=== PATIENT | female | born 1940 | race Caucasian/White ===

== ENCOUNTER 2019-07-21 13:00 | Outpatient (RCR) | payer MEDICARE, OTHER, SELFPAY ==
--- NOTE | 2019-06-02 12:30 | PT.OIE ---
Current Diagnoses Unsteadiness on feet (06/02/19) History of falling (06/02/19) Past Surgical History History of total mastectomy Visit Care Team Role Provider Type Kia Person MD Attending Provider Physician Family Provider Primary Care Provider Specialty: Family Practice Address: [address] [place] [address], [id number] Email: [email or web address] Physical Therapy Initial Evaluation PT-OP-A Visit Information Start: 06/02/19 08:04 Freq: Status: Active Protocol: Document 06/02/19 08:15 AMB (Rec: 06/04/19 12:30 AMB [email or web address]) Out-Patient Physical Therapy Visit Information Visit Information Visit Type Initial Evaluation Visit Start Time 08:15 Visit Stop Time 09:00 Total Visit Minutes 45 Visit Number 1 PT-OP-B Current Condition Start: 06/02/19 08:04 Freq: Status: Active Protocol: Document 06/02/19 08:15 AMB (Rec: 06/04/19 12:30 AMB [email or web address]) Current Condition History of Current Condition Onset Date 1 year ago Current Complaints frequent falls, difficulty walking History of Current Condition Ashlie attends physical therapy with her significant other Sina, providing some of the history due to her dementia. They live together in a single level home with 2 steps to enter with a railing. She has had about 5-6 falls in the last year. Prior to that they both report that she was able to walk for long distances in the community without a problem. She does have a prior health history of breast cancer in 1979 and bilateral total hip replacements years ago. She reports she feels short of breath and off balance when walking, she does not use an assistive device, although she does have a SPC and FWW at home. She denies spinning dizziness, but does report intermittent lightheadedness, she denies LE numbness/ tingling. Treatment Goals Patient/Caregiver Goals Walk faster and with less fear of falling Prior Functional Status Baseline Function- ADL's Independent Baseline Function- Mobility Independent Current Functional Impairments (Reported) Functional Limitations- Mobility/Gait History of recent falls on stairs and in the shower, Sina reports they do have grab bars in the shower, but not a shower chair. Personal Factors Other Personal Factors That May Effect Pt reports Alzheimer's Therapy/Recovery diagnosis PT-OP-C Subjective Start: 06/02/19 08:04 Freq: Status: Active Protocol: Document 06/02/19 08:15 AMB (Rec: 06/04/19 12:30 AMB [email or web address]) Patient Questionnaires ABC- Activity Specific Balance Confidence Scale ABC Score 49 ABC Functional Impairment 40 to <60% Impaired (Score 41- 60) PT-OP-D Balance Start: 06/02/19 08:04 Freq: Status: Active Protocol: Document 06/02/19 08:15 AMB (Rec: 06/04/19 12:30 AMB [email or web address]) Balance Tests Romberg Romberg eyes closed 5 seconds Single Limb Standing Single Limb- Right 4 seconds Single Limb- Left 2 seconds Semi-Tandem Standing Semi-Tandem Standing Balance eyes open 10 seconds PT-OP-E Functional Tests Start: 06/02/19 08:04 Freq: Status: Active Protocol: Document 06/02/19 08:15 AMB (Rec: 06/04/19 12:30 AMB [email or web address]) Functional Tests Dynamic Gait Index (DGI) Score 7 DGI Impairment Rating 60 to <80% Impaired (Score 5-9 ) PT-OP-G Mobility & Gait Start: 06/02/19 08:04 Freq: Status: Active Protocol: Document 06/02/19 08:15 AMB (Rec: 06/04/19 12:30 AMB [email or web address]) OP Gait Assessment Comments Gait Comments slow careful steps, with multiple times pt does not continuous pickling line pickler feet enough, and 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 Shortened step length. Improves with verbal cues for 15-20 seconds, then reverts back. With FWW- pt with difficulty not running into items with walker, unsafe with turns needed physical cues for safe turning with walker. PT-OP-M Strength Start: 06/02/19 08:04 Freq: Status: Active Protocol: Document 06/02/19 08:15 AMB (Rec: 06/04/19 12:30 AMB [email or web address]) Hip Strength Hip Manual Muscle Testing Right Flexion (L2) 4 Good Extension (S1) 4- Good- Abduction 4- Good- Left Flexion (L2) 4 Good Extension (S1) 4- Good- Abduction 4- Good- Knee Strength Knee Manual Muscle Testing Right Flexion (S2) 4 Good Extension (L3) 4+ Good+ Left Flexion (S2) 4- Good- Extension (L3) 4+ Good+ Ankle/Foot Strength Ankle and Foot Manual Muscle Testing Right Dorsiflexion (L4) 3 Fair Plantarflexion (S1) 3 Fair Left Dorsiflexion (L4) 3 Fair Plantarflexion (S1) 3 Fair PT-OP-T Assessment and Plan Start: 06/02/19 08:04 Freq: Status: Active Protocol: Document 06/02/19 08:15 AMB (Rec: 06/04/19 12:30 AMB [email or web address]) Physical Therapy Assessment Rehab Potential Rehabilitation Potential Fair Evaluation Complexity Number of Personal Factors/Comorbidities 1-2 Number of Body Systems Impaired 4 or More Clinical Presentation at Evaluation Evolving Impairments Impairments Balance,Functional Activities, Functional Mobility,Gait, Strength Goals Two Impairment gait safety Short Term Goal (STG) Ashlie will be independent with walking with a walker indoors. STG Duration 4 weeks Motion Picture Photographer Goal (LTG) Ashlie will ascend and descend a flight of stairs with one rail and alternating gait pattern safely. LTG Duration 8 weeks One Impairment dynamic balance Short Term Goal (STG) Ashlie will show decreased fall risk by scoring 15/24 on the dynamic gait index or higher. STG Duration 4 weeks Senior Care Goal (LTG) Ashlie will safely change gait speed while walking without a loss of balance. LTG Duration 8 weeks Assessment Summary Assessment Ashlie attends physical therapy with a high risk of falling and impaired gait. While her static balance was not bad, her dynamic balance was quite poor. Improvement may be limited by her ability to learn new skills and retain information. Her significant other, Sina, will need to help with her rehabilitation. While she reports shortness of breath, her SpO2 stayed at 95 with ambulation and HR at 87. She presents with poor spatial awareness and while she would likely be safer with an assistive device, she would need extensive training with a walker to make sure she is safe with it. PT will work on assistive device training, balance training and strengthening to reduce her risk of falls. Physical Therapy Plan Frequency and Duration Frequency of Treatment 2x/Week Duration of Treatment 8 weeks Plan of Care Start Date 06/02/19 Plan of Care End Date 07/28/19 Therapeutic Interventions Therapeutic Interventions Balance Training,Gait Training ,Home Exercise Program,Manual Therapy,Neuromuscular Re- education,Self-Care/Home Management,Therapeutic Activities,Therapeutic Exercises Next Visit Focus/Plan Next Note Type Treatment Note Next Visit Plan Further evaluate safety with assistive device, give HEP
--- NOTE | 2019-06-05 13:24 | PT.OTN ---
Current Diagnoses Unsteadiness on feet (06/05/19) History of falling (06/05/19) Physical Therapy Treatment Note PT-OP-A Visit Information Start: 06/02/19 08:04 Freq: Status: Active Protocol: Document 06/05/19 10:30 AMB (Rec: 06/05/19 13:24 AMB [email or web address]) Out-Patient Physical Therapy Visit Information Visit Information Visit Type Treatment Note Visit Start Time 10:30 Visit Stop Time 11:15 Total Visit Minutes 45 Visit Number 2 PT-OP-B Current Condition Start: 06/02/19 08:04 Freq: Status: Active Protocol: Document 06/02/19 08:15 AMB (Rec: 06/04/19 12:30 AMB [email or web address]) Current Condition History of Current Condition Onset Date 1 year ago Current Complaints frequent falls, difficulty walking History of Current Condition Ashlie attends physical therapy with her significant other Sina, providing some of the history due to her dementia. They live together in a singel level home with 2 steps to enter with a railing. She has had about 5-6 falls in the last year. Prior to that they both report that she was able to walk for long distances in the community without a problem. She does have a prior health history of breast cancern in 1979 and bilateral total hip replacements years ago. She reports she feels short of breath and off balance when walking, she does not use an assistive device, although she does have a SPC and FWW at home. She denies spinning dizziness, but does report intermittent lightheadedness, she denies LE numbness/ tingling. Treatment Goals Patient/Caregiver Goals Walk faster and with less fear of falling Prior Functional Status Baseline Function- ADL's Independent Baseline Function- Mobility Independent Current Functional Impairments (Reported) Functional Limitations- Mobility/Gait History of recent falls on stairs and in the shower, Sina reports they do have grab bars in the shower, but not a shower chair. Personal Factors Other Personal Factors That May Effect Pt reports Alzheimer's Therapy/Recovery diagnosis PT-OP-C Subjective Start: 06/02/19 08:04 Freq: Status: Active Protocol: Document 06/05/19 10:30 AMB (Rec: 06/05/19 13:24 AMB [email or web address]) OP-PT Subjective Patient Comments Patient Comments Ashlie and her SO attend PT today, he leaves for part of the visit, and at the end wonders if a gym membership would be appropriate for her. PT-OP-D Balance Start: 06/02/19 08:04 Freq: Status: Active Protocol: Document 06/02/19 08:15 AMB (Rec: 06/04/19 12:30 AMB [email or web address]) Balance Tests Romberg Romberg eyes closed 5 seconds Single Limb Standing Single Limb- Right 4 seconds Single Limb- Left 2 seconds Semi-Tandem Standing Semi-Tandem Standing Balance eyes open 10 seconds PT-OP-E Functional Tests Start: 06/02/19 08:04 Freq: Status: Active Protocol: Document 06/02/19 08:15 AMB (Rec: 06/04/19 12:30 AMB [email or web address]) Functional Tests Dynamic Gait Index (DGI) Score 7 DGI Impairment Rating 60 to <80% Impaired (Score 5-9 ) PT-OP-G Mobility & Gait Start: 06/02/19 08:04 Freq: Status: Active Protocol: Document 06/02/19 08:15 AMB (Rec: 06/04/19 12:30 AMB [email or web address]) OP Gait Assessment Comments Gait Comments slow careful steps, with multiple times pt does not poultry picker feel enough, and 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 Shortened step length. Improves with verbal cues for 15-20 seconds, then reverts back. With FWW- pt with difficulty not running into items with walker, unsafe with turns needed physical cues for safe turning with walker. PT-OP-M Strength Start: 06/02/19 08:04 Freq: Status: Active Protocol: Document 06/02/19 08:15 AMB (Rec: 06/04/19 12:30 AMB [email or web address]) Hip Strength Hip Manual Muscle Testing Right Flexion (L2) 4 Good Extension (S1) 4- Good- Abduction 4- Good- Left Flexion (L2) 4 Good Extension (S1) 4- Good- Abduction 4- Good- Knee Strength Knee Manual Muscle Testing Right Flexion (S2) 4 Good Extension (L3) 4+ Good+ Left Flexion (S2) 4- Good- Extension (L3) 4+ Good+ Ankle/Foot Strength Ankle and Foot Manual Muscle Testing Right Dorsiflexion (L4) 3 Fair Plantarflexion (S1) 3 Fair Left Dorsiflexion (L4) 3 Fair Plantarflexion (S1) 3 Fair PT-OP-Q Treatments Start: 06/02/19 08:04 Freq: Status: Active Protocol: Document 06/05/19 10:30 AMB (Rec: 06/05/19 13:24 AMB [email or web address]) Gait Training Gait Activity 2 Description TUG Comments 26 and 19 seconds without AD with extensive verbal cues and CGA. 41 and 30 seconds with 4WW with CGA and extensive verbal cues. 1 Description Ambulation with 4WW Comments pt unable to problem solve breaks, reaching for seat behind her, when walker got caught on change from carpeting to tile, and put did run into the wall with the walker. Overall unsafe without direct supervision. Neuro Re-Education Treatment Balance Activities 3 Details fwd stepping with arms Comments difficulty sequencing 2 Details fwd,backward, side stepping Comments yellow t band, hands hovering over rail, constant vc for posture 1 Details modified tandem stance Comments with arm swing PT-OP-T Assessment and Plan Start: 06/02/19 08:04 Freq: Status: Active Protocol: Document 06/05/19 10:30 AMB (Rec: 06/05/19 13:24 AMB [email or web address]) Physical Therapy Assessment Assessment Summary Assessment Ashlie needed constant cues for safe use of AD today. Even with repeat TUG she needed cues during the testing to sit back down in the chair and turn at the cone, despite multiple repetitions of the sequence. Actually worse sequencing and time with walker than without. Told SO that Ashlie would need constant supervision in a gym setting, woud need help with setting up machines, but we can assess safety with our machines next visit. Gave them a gait belt. Told him that he will need to assist her with HEP/ Physical Therapy Plan Next Visit Focus/Plan Next Note Type Treatment Note Next Visit Plan Progress HEP
--- NOTE | 2019-06-07 14:17 | PT.OTN ---
Current Diagnoses Unsteadiness on feet (06/07/19) History of falling (06/07/19) Physical Therapy Treatment Note PT-OP-A Visit Information Start: 06/02/19 08:04 Freq: Status: Active Protocol: Document 06/07/19 10:30 AMB (Rec: 06/08/19 07:23 AMB [email or web address]) Out-Patient Physical Therapy Visit Information Visit Information Visit Type Treatment Note Visit Start Time 10:30 Visit Stop Time 11:15 Total Visit Minutes 45 Visit Number 3 PT-OP-B Current Condition Start: 06/02/19 08:04 Freq: Status: Active Protocol: Document 06/02/19 08:15 AMB (Rec: 06/04/19 12:30 AMB [email or web address]) Current Condition History of Current Condition Onset Date 1 year ago Current Complaints frequent falls, difficulty walking History of Current Condition Ashlie attends physical therapy with her significant other Sina, providing some of the history due to her dementia. They live together in a singel level home with 2 steps to enter with a railing. She has had about 5-6 falls in the last year. Prior to that they both report that she was able to walk for long distances in the community without a problem. She does have a prior health history of breast cancern in 1979 and bilateral total hip replacements years ago. She reports she feels short of breath and off balance when walking, she does not use an assistive device, although she does have a SPC and FWW at home. She denies spinning dizziness, but does report intermittent lightheadedness, she denies LE numbness/ tingling. Treatment Goals Patient/Caregiver Goals Walk faster and with less fear of falling Prior Functional Status Baseline Function- ADL's Independent Baseline Function- Mobility Independent Current Functional Impairments (Reported) Functional Limitations- Mobility/Gait History of recent falls on stairs and in the shower, Sina reports they do have grab bars in the shower, but not a shower chair. Personal Factors Other Personal Factors That May Effect Pt reports Alzheimer's Therapy/Recovery diagnosis PT-OP-C Subjective Start: 06/02/19 08:04 Freq: Status: Active Protocol: Document 06/07/19 10:30 AMB (Rec: 06/08/19 07:23 AMB [email or web address]) OP-PT Subjective Patient Comments Patient Comments Ashlie'andrew SO thinks that he would be able to help her at [facility] . He has been a gym member before, but she has not. PT-OP-D Balance Start: 06/02/19 08:04 Freq: Status: Active Protocol: Document 06/02/19 08:15 AMB (Rec: 06/04/19 12:30 AMB [email or web address]) Balance Tests Romberg Romberg eyes closed 5 seconds Single Limb Standing Single Limb- Right 4 seconds Single Limb- Left 2 seconds Semi-Tandem Standing Semi-Tandem Standing Balance eyes open 10 seconds PT-OP-E Functional Tests Start: 06/02/19 08:04 Freq: Status: Active Protocol: Document 06/02/19 08:15 AMB (Rec: 06/04/19 12:30 AMB [email or web address]) Functional Tests Dynamic Gait Index (DGI) Score 7 DGI Impairment Rating 60 to <80% Impaired (Score 5-9 ) PT-OP-G Mobility & Gait Start: 06/02/19 08:04 Freq: Status: Active Protocol: Document 06/02/19 08:15 AMB (Rec: 06/04/19 12:30 AMB [email or web address]) OP Gait Assessment Comments Gait Comments slow careful steps, with multiple times pt does not coal picker feel enough, and 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 Shortened step length. Improves with verbal cues for 15-20 seconds, then reverts back. With FWW- pt with difficulty not running into items with walker, unsafe with turns needed physical cues for safe turning with walker. PT-OP-M Strength Start: 06/02/19 08:04 Freq: Status: Active Protocol: Document 06/02/19 08:15 AMB (Rec: 06/04/19 12:30 AMB [email or web address]) Hip Strength Hip Manual Muscle Testing Right Flexion (L2) 4 Good Extension (S1) 4- Good- Abduction 4- Good- Left Flexion (L2) 4 Good Extension (S1) 4- Good- Abduction 4- Good- Knee Strength Knee Manual Muscle Testing Right Flexion (S2) 4 Good Extension (L3) 4+ Good+ Left Flexion (S2) 4- Good- Extension (L3) 4+ Good+ Ankle/Foot Strength Ankle and Foot Manual Muscle Testing Right Dorsiflexion (L4) 3 Fair Plantarflexion (S1) 3 Fair Left Dorsiflexion (L4) 3 Fair Plantarflexion (S1) 3 Fair PT-OP-Q Treatments Start: 06/02/19 08:04 Freq: Status: Active Protocol: Document 06/07/19 10:30 AMB (Rec: 06/10/19 14:17 AMB [email or web address]) Cardio Equipment Recumbent Bicycle Duration (Minutes) 5 Resistance 4 Treadmill Duration (Minutes) 5 Speed 1.0 mph Other CGA with gait belt, vc to hold on with both hands Gym Equipment Shuttle Recovery Bilateral Squats Resistance 75 Shuttle Recovery Platform Stable Reps/Time 2x10 Therapeutic Exercises Standing Exercises 1 Standing Exercise Name slow october with UE support on rail Comments vc for slow Therapeutic Activity Therapeutic Activity 1 Name sit to stand Reps/Minutes 10 Comments cues for reaching for arm rests, forward lean, foot placement PT-OP-T Assessment and Plan Start: 06/02/19 08:04 Freq: Status: Active Protocol: Document 06/07/19 10:30 AMB (Rec: 06/10/19 14:17 AMB [email or web address]) Physical Therapy Assessment Assessment Summary Assessment Will need to work on safety with the treadmill more, but otherwise Ashlie did well and her SO felt confident with being able to set up the bike for her and stay with her while she is exercising if they decide to go to [facility]. Physical Therapy Plan Next Visit Focus/Plan Next Note Type Treatment Note Next Visit Plan Progress HEP, assess safety with community exercise program.
--- NOTE | 2019-06-14 15:40 | PT.OTN ---
Current Diagnoses Unsteadiness on feet (06/14/19) History of falling (06/14/19) Physical Therapy Treatment Note PT-OP-A Visit Information Start: 06/02/19 08:04 Freq: Status: Active Protocol: Document 06/14/19 11:15 AMB (Rec: 06/14/19 14:32 AMB [email or web address]) Out-Patient Physical Therapy Visit Information Visit Information Visit Type Treatment Note Visit Start Time 10:30 Visit Stop Time 11:15 Total Visit Minutes 45 Visit Number 4 PT-OP-B Current Condition Start: 06/02/19 08:04 Freq: Status: Active Protocol: Document 06/02/19 08:15 AMB (Rec: 06/04/19 12:30 AMB [email or web address]) Current Condition History of Current Condition Onset Date 1 year ago Current Complaints frequent falls, difficulty walking History of Current Condition Ashlie attends physical therapy with her significant other Sina, providing some of the history due to her dementia. They live together in a singel level home with 2 steps to enter with a railing. She has had about 5-6 falls in the last year. Prior to that they both report that she was able to walk for long distances in the community without a problem. She does have a prior health history of breast cancern in 1979 and bilateral total hip replacements years ago. She reports she feels short of breath and off balance when walking, she does not use an assistive device, although she does have a SPC and FWW at home. She denies spinning dizziness, but does report intermittent lightheadedness, she denies LE numbness/ tingling. Treatment Goals Patient/Caregiver Goals Walk faster and with less fear of falling Prior Functional Status Baseline Function- ADL's Independent Baseline Function- Mobility Independent Current Functional Impairments (Reported) Functional Limitations- Mobility/Gait History of recent falls on stairs and in the shower, Sina reports they do have grab bars in the shower, but not a shower chair. Personal Factors Other Personal Factors That May Effect Pt reports Alzheimer's Therapy/Recovery diagnosis PT-OP-C Subjective Start: 06/02/19 08:04 Freq: Status: Active Protocol: Document 06/14/19 11:15 AMB (Rec: 06/14/19 14:32 AMB [email or web address]) OP-PT Subjective Patient Comments Patient Comments Ashlie's SO does not come back today, but did discuss her care with him after appointment. He reports that her ankles/feet swelled for about 1.5 days after previous PT. PT-OP-D Balance Start: 06/02/19 08:04 Freq: Status: Active Protocol: Document 06/02/19 08:15 AMB (Rec: 06/04/19 12:30 AMB [email or web address]) Balance Tests Romberg Romberg eyes closed 5 seconds Single Limb Standing Single Limb- Right 4 seconds Single Limb- Left 2 seconds Semi-Tandem Standing Semi-Tandem Standing Balance eyes open 10 seconds PT-OP-E Functional Tests Start: 06/02/19 08:04 Freq: Status: Active Protocol: Document 06/02/19 08:15 AMB (Rec: 06/04/19 12:30 AMB [email or web address]) Functional Tests Dynamic Gait Index (DGI) Score 7 DGI Impairment Rating 60 to <80% Impaired (Score 5-9 ) PT-OP-G Mobility & Gait Start: 06/02/19 08:04 Freq: Status: Active Protocol: Document 06/02/19 08:15 AMB (Rec: 06/04/19 12:30 AMB [email or web address]) OP Gait Assessment Comments Gait Comments slow careful steps, with multiple times pt does not roll picker feel enough, and 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 Shortened step length. Improves with verbal cues for 15-20 seconds, then reverts back. With FWW- pt with difficulty not running into items with walker, unsafe with turns needed physical cues for safe turning with walker. PT-OP-M Strength Start: 06/02/19 08:04 Freq: Status: Active Protocol: Document 06/02/19 08:15 AMB (Rec: 06/04/19 12:30 AMB [email or web address]) Hip Strength Hip Manual Muscle Testing Right Flexion (L2) 4 Good Extension (S1) 4- Good- Abduction 4- Good- Left Flexion (L2) 4 Good Extension (S1) 4- Good- Abduction 4- Good- Knee Strength Knee Manual Muscle Testing Right Flexion (S2) 4 Good Extension (L3) 4+ Good+ Left Flexion (S2) 4- Good- Extension (L3) 4+ Good+ Ankle/Foot Strength Ankle and Foot Manual Muscle Testing Right Dorsiflexion (L4) 3 Fair Plantarflexion (S1) 3 Fair Left Dorsiflexion (L4) 3 Fair Plantarflexion (S1) 3 Fair PT-OP-Q Treatments Start: 06/02/19 08:04 Freq: Status: Active Protocol: Document 06/14/19 11:15 AMB (Rec: 06/14/19 15:40 AMB [email or web address]) Cardio Equipment Treadmill Duration (Minutes) 3 Speed 1.0 mph Other CGA with gait belt, vc to hold on with both hands Therapeutic Activity Therapeutic Activity 1 Name sit to stand Reps/Minutes 10 Comments cues for reaching for arm rests, forward lean, foot placement Neuro Re-Education Treatment Balance Activities 4 Details stepping over hurdles Comments in // bars- intermittent stepping on hurdles, with UE support 2 Details fwd,backward, side stepping Comments yellow t band, hands hovering over rail, constant vc for posture 1 Details modified tandem stance Comments with arm swing and weight shift PT-OP-T Assessment and Plan Start: 06/02/19 08:04 Freq: Status: Active Protocol: Document 06/14/19 11:15 AMB (Rec: 06/14/19 14:32 AMB [email or web address]) Physical Therapy Assessment Assessment Summary Assessment Ashlie became fatigued after 2.5 minutes on the treadmill today. She did have one incidence of running into a peice of equipment while in PT , and needed near constant cueing for pathfinding and safety not running into objects. Discussed this with SO and stated that he would have to be present with her at all times in the gym to help her pathfind. Physical Therapy Plan Next Visit Focus/Plan Next Note Type Treatment Note Next Visit Plan Progress HEP, assess safety with community exercise program.
--- NOTE | 2019-06-19 13:45 | PT.OTN ---
Current Diagnoses Unsteadiness on feet (06/19/19) History of falling (06/19/19) Physical Therapy Treatment Note PT-OP-A Visit Information Start: 06/02/19 08:04 Freq: Status: Active Protocol: Document 06/19/19 13:45 SP (Rec: 06/19/19 16:20 SP [email or web address]) Out-Patient Physical Therapy Visit Information Visit Information Visit Type Treatment Note Visit Start Time 13:04 Visit Stop Time 13:45 Total Visit Minutes 41 Visit Number 5 Number of UNDERGROUND MINER Visits 1 PT-OP-B Current Condition Start: 06/02/19 08:04 Freq: Status: Active Protocol: Document 06/02/19 08:15 AMB (Rec: 06/04/19 12:30 AMB [email or web address]) Current Condition History of Current Condition Onset Date 1 year ago Current Complaints frequent falls, difficulty walking History of Current Condition Ashlie attends physical therapy with her significant other Sina, providing some of the history due to her dementia. They live together in a singel level home with 2 steps to enter with a railing. She has had about 5-6 falls in the last year. Prior to that they both report that she was able to walk for long distances in the community without a problem. She does have a prior health history of breast cancern in 1979 and bilateral total hip replacements years ago. She reports she feels short of breath and off balance when walking, she does not use an assistive device, although she does have a SPC and FWW at home. She denies spinning dizziness, but does report intermittent lightheadedness, she denies LE numbness/ tingling. Treatment Goals Patient/Caregiver Goals Walk faster and with less fear of falling Prior Functional Status Baseline Function- ADL's Independent Baseline Function- Mobility Independent Current Functional Impairments (Reported) Functional Limitations- Mobility/Gait History of recent falls on stairs and in the shower, Sina reports they do have grab bars in the shower, but not a shower chair. Personal Factors Other Personal Factors That May Effect Pt reports Alzheimer's Therapy/Recovery diagnosis PT-OP-C Subjective Start: 06/02/19 08:04 Freq: Status: Active Protocol: Document 06/19/19 13:45 SP (Rec: 06/19/19 16:20 SP [email or web address]) OP-PT Subjective Patient Comments Patient Comments Ashlie's SO came back to tx today, discussed safety cuing gait stride, pathfinding and CGA during gait for safety. Pt reported had some falls at home since last tx but couldn' t remember details other than at home (before SO came back to tx). PT-OP-D Balance Start: 06/02/19 08:04 Freq: Status: Active Protocol: Document 06/02/19 08:15 AMB (Rec: 06/04/19 12:30 AMB [email or web address]) Balance Tests Romberg Romberg eyes closed 5 seconds Single Limb Standing Single Limb- Right 4 seconds Single Limb- Left 2 seconds Semi-Tandem Standing Semi-Tandem Standing Balance eyes open 10 seconds PT-OP-E Functional Tests Start: 06/02/19 08:04 Freq: Status: Active Protocol: Document 06/02/19 08:15 AMB (Rec: 06/04/19 12:30 AMB [email or web address]) Functional Tests Dynamic Gait Index (DGI) Score 7 DGI Impairment Rating 60 to <80% Impaired (Score 5-9 ) PT-OP-G Mobility & Gait Start: 06/02/19 08:04 Freq: Status: Active Protocol: Document 06/02/19 08:15 AMB (Rec: 06/04/19 12:30 AMB [email or web address]) OP Gait Assessment Comments Gait Comments slow careful steps, with multiple times pt does not continuous pickling line pickler helper feel enough, and 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 Shortened step length. Improves with verbal cues for 15-20 seconds, then reverts back. With FWW- pt with difficulty not running into items with walker, unsafe with turns needed physical cues for safe turning with walker. PT-OP-M Strength Start: 06/02/19 08:04 Freq: Status: Active Protocol: Document 06/02/19 08:15 AMB (Rec: 06/04/19 12:30 AMB [email or web address]) Hip Strength Hip Manual Muscle Testing Right Flexion (L2) 4 Good Extension (S1) 4- Good- Abduction 4- Good- Left Flexion (L2) 4 Good Extension (S1) 4- Good- Abduction 4- Good- Knee Strength Knee Manual Muscle Testing Right Flexion (S2) 4 Good Extension (L3) 4+ Good+ Left Flexion (S2) 4- Good- Extension (L3) 4+ Good+ Ankle/Foot Strength Ankle and Foot Manual Muscle Testing Right Dorsiflexion (L4) 3 Fair Plantarflexion (S1) 3 Fair Left Dorsiflexion (L4) 3 Fair Plantarflexion (S1) 3 Fair PT-OP-Q Treatments Start: 06/02/19 08:04 Freq: Status: Active Protocol: Document 06/19/19 13:45 SP (Rec: 06/19/19 16:20 SP [email or web address]) Cardio Equipment Treadmill Duration (Minutes) 4 Speed 0.5mph Incline 0% Other CGA with gait belt, vc to hold on with both hands Therapeutic Activity Therapeutic Activity 1 Name sit to stand Reps/Minutes 10 Comments cues for reaching for arm rests, forward lean, foot placement, Gait Training Gait Activity 2 Description gait in gym Device Used none Level of Assistance CGA Surface level Treatment Focus pathfinding around obstacles, increased stride and foot clearance Comments Cued for increased stride length, foot clearance and awareness of spacial awareness away from obstacles on L to reduce risk for falls Neuro Re-Education Treatment Balance Activities 4 Details stepping over hurdles Comments at side rail- intermittent stepping on hurdles, with UE support 2 Details fwd,backward, side stepping Comments hands hovering over rail, constant vc for posture 1 Details modified tandem stance Comments with arm swing and weight shift PT-OP-T Assessment and Plan Start: 06/02/19 08:04 Freq: Status: Active Protocol: Document 06/19/19 13:45 SP (Rec: 06/19/19 16:20 SP [email or web address]) Physical Therapy Assessment Assessment Summary Assessment Pt became fatigue after 4.5 min on treadmill, required decreased speed to 0.5 mp h for safety today. Pt required Max cuing for increased stride length with wider stance, foot clearance during gait on TM and around gym for safety decrease risk for falls. Pt demonstrated walking close to obstacles on L, self corrected with cuing. Cued SO to provide CGA when walking with patient for safety and providing same cues to prevent fall risk. Physical Therapy Plan Frequency and Duration Frequency of Treatment 2x/Week Duration of Treatment 8 weeks Plan of Care Start Date 06/02/19 Plan of Care End Date 07/28/19 Therapeutic Interventions Therapeutic Interventions Balance Training,Gait Training ,Home Exercise Program,Manual Therapy,Neuromuscular Re- education,Self-Care/Home Management,Therapeutic Activities,Therapeutic Exercises Next Visit Focus/Plan Next Note Type Treatment Note Next Visit Plan Progress HEP but assess safety with community exercise program, Continue balance and gait trng. Incorporate SO if available in patient's treatment for carryover at home for safety.
--- NOTE | 2019-06-23 08:36 | PT.OTN ---
Current Diagnoses Unsteadiness on feet (06/22/19) History of falling (06/22/19) Physical Therapy Treatment Note PT-OP-A Visit Information Start: 06/02/19 08:04 Freq: Status: Active Protocol: Document 06/22/19 07:30 AMB (Rec: 06/22/19 11:57 AMB [email or web address]) Out-Patient Physical Therapy Visit Information Visit Information Visit Type Treatment Note Visit Start Time 07:30 Visit Stop Time 08:15 Total Visit Minutes 45 Visit Number 6 Number of DRIVER MANAGER Visits 0 PT-OP-B Current Condition Start: 06/02/19 08:04 Freq: Status: Active Protocol: Document 06/02/19 08:15 AMB (Rec: 06/04/19 12:30 AMB [email or web address]) Current Condition History of Current Condition Onset Date 1 year ago Current Complaints frequent falls, difficulty walking History of Current Condition Ashlie attends physical therapy with her significant other Sina, providing some of the history due to her dementia. They live together in a singel level home with 2 steps to enter with a railing. She has had about 5-6 falls in the last year. Prior to that they both report that she was able to walk for long distances in the community without a problem. She does have a prior health history of breast cancern in 1979 and bilateral total hip replacements years ago. She reports she feels short of breath and off balance when walking, she does not use an assistive device, although she does have a SPC and FWW at home. She denies spinning dizziness, but does report intermittent lightheadedness, she denies LE numbness/ tingling. Treatment Goals Patient/Caregiver Goals Walk faster and with less fear of falling Prior Functional Status Baseline Function- ADL's Independent Baseline Function- Mobility Independent Current Functional Impairments (Reported) Functional Limitations- Mobility/Gait History of recent falls on stairs and in the shower, Sina reports they do have grab bars in the shower, but not a shower chair. Personal Factors Other Personal Factors That May Effect Pt reports Alzheimer's Therapy/Recovery diagnosis PT-OP-C Subjective Start: 06/02/19 08:04 Freq: Status: Active Protocol: Document 06/22/19 07:30 AMB (Rec: 06/22/19 11:57 AMB [email or web address]) OP-PT Subjective Patient Comments Patient Comments Ashlie's SO comes back to treatment, he states she has not been feeling well. Ashlie has a hard time describing her symptoms, but does states she is dizzy. Further clarified sx pt denies spinning but reports she feels off balance. Difficulty determining if this is increased from her baseline. Pt's SO reports fall was on Wednesday when he was in the shower so he doesn't know how it happened but she did need help getting off the floor. PT-OP-D Balance Start: 06/02/19 08:04 Freq: Status: Active Protocol: Document 06/02/19 08:15 AMB (Rec: 06/04/19 12:30 AMB [email or web address]) Balance Tests Romberg Romberg eyes closed 5 seconds Single Limb Standing Single Limb- Right 4 seconds Single Limb- Left 2 seconds Semi-Tandem Standing Semi-Tandem Standing Balance eyes open 10 seconds PT-OP-E Functional Tests Start: 06/02/19 08:04 Freq: Status: Active Protocol: Document 06/02/19 08:15 AMB (Rec: 06/04/19 12:30 AMB [email or web address]) Functional Tests Dynamic Gait Index (DGI) Score 7 DGI Impairment Rating 60 to <80% Impaired (Score 5-9 ) PT-OP-G Mobility & Gait Start: 06/02/19 08:04 Freq: Status: Active Protocol: Document 06/02/19 08:15 AMB (Rec: 06/04/19 12:30 AMB [email or web address]) OP Gait Assessment Comments Gait Comments slow careful steps, with multiple times pt does not continuous pickling line pickler helper feel enough, and 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 Shortened step length. Improves with verbal cues for 15-20 seconds, then reverts back. With FWW- pt with difficulty not running into items with walker, unsafe with turns needed physical cues for safe turning with walker. PT-OP-M Strength Start: 06/02/19 08:04 Freq: Status: Active Protocol: Document 06/02/19 08:15 AMB (Rec: 06/04/19 12:30 AMB [email or web address]) Hip Strength Hip Manual Muscle Testing Right Flexion (L2) 4 Good Extension (S1) 4- Good- Abduction 4- Good- Left Flexion (L2) 4 Good Extension (S1) 4- Good- Abduction 4- Good- Knee Strength Knee Manual Muscle Testing Right Flexion (S2) 4 Good Extension (L3) 4+ Good+ Left Flexion (S2) 4- Good- Extension (L3) 4+ Good+ Ankle/Foot Strength Ankle and Foot Manual Muscle Testing Right Dorsiflexion (L4) 3 Fair Plantarflexion (S1) 3 Fair Left Dorsiflexion (L4) 3 Fair Plantarflexion (S1) 3 Fair PT-OP-Q Treatments Start: 06/02/19 08:04 Freq: Status: Active Protocol: Document 06/22/19 07:30 AMB (Rec: 06/23/19 08:34 AMB [email or web address]) Therapeutic Exercises Standing Exercises 4 Standing Exercise Name marching at rail Reps/Minutes 10 feet x 4 3 Standing Exercise Name sidestepping at rail Reps/Minutes 10feet x 4 Comments extensive verbal and physical cues needed 2 Standing Exercise Name mini squats Reps/Minutes 2x10 1 Standing Exercise Name Hip abd/ extension standing at rail Reps/Minutes 2x10 PT-OP-T Assessment and Plan Start: 06/02/19 08:04 Freq: Status: Active Protocol: Document 06/22/19 07:30 AMB (Rec: 06/23/19 08:34 AMB [email or web address]) Physical Therapy Assessment Assessment Summary Assessment BP on machine 180/ 101, pt reports just taking hypertension meds. Later in the session checked manually 150/100. While patient was not symptomatic with sit to stand today, she does have a hard time expressing when she is symptomatic and in what way . Denies any dizziness while in bed, rolling over. Recommended SO help her with basic exercises at kitchent sink (squat, hip abd, hip ext) and see how that goes before considering the gym. Physical Therapy Plan Next Visit Focus/Plan Next Note Type Treatment Note Next Visit Plan Follow up on HEP and if pt/ SO are consistent.
--- NOTE | 2019-06-27 13:34 | PT.OTN ---
Current Diagnoses Unsteadiness on feet (06/27/19) History of falling (06/27/19) Physical Therapy Treatment Note PT-OP-A Visit Information Start: 06/02/19 08:04 Freq: Status: Active Protocol: Document 06/27/19 10:30 AMB (Rec: 06/27/19 11:22 AMB [id number]) Out-Patient Physical Therapy Visit Information Visit Information Visit Type Treatment Note Visit Start Time 10:30 Visit Stop Time 11:15 Total Visit Minutes 45 Visit Number 7 Number of FISCAL ACCOUNTANT Visits 0 PT-OP-B Current Condition Start: 06/02/19 08:04 Freq: Status: Active Protocol: Document 06/02/19 08:15 AMB (Rec: 06/04/19 12:30 AMB [email or web address]) Current Condition History of Current Condition Onset Date 1 year ago Current Complaints frequent falls, difficulty walking History of Current Condition Ashlie attends physical therapy with her significant other Sina, providing some of the history due to her dementia. They live together in a singel level home with 2 steps to enter with a railing. She has had about 5-6 falls in the last year. Prior to that they both report that she was able to walk for long distances in the community without a problem. She does have a prior health history of breast cancern in 1979 and bilateral total hip replacements years ago. She reports she feels short of breath and off balance when walking, she does not use an assistive device, although she does have a SPC and FWW at home. She denies spinning dizziness, but does report intermittent lightheadedness, she denies LE numbness/ tingling. Treatment Goals Patient/Caregiver Goals Walk faster and with less fear of falling Prior Functional Status Baseline Function- ADL's Independent Baseline Function- Mobility Independent Current Functional Impairments (Reported) Functional Limitations- Mobility/Gait History of recent falls on stairs and in the shower, Sina reports they do have grab bars in the shower, but not a shower chair. Personal Factors Other Personal Factors That May Effect Pt reports Alzheimer's Therapy/Recovery diagnosis PT-OP-C Subjective Start: 06/02/19 08:04 Freq: Status: Active Protocol: Document 06/27/19 10:30 AMB (Rec: 06/27/19 11:22 AMB [id number]) OP-PT Subjective Patient Comments Patient Comments Pt continues to note feeling off balance. PT-OP-D Balance Start: 06/02/19 08:04 Freq: Status: Active Protocol: Document 06/02/19 08:15 AMB (Rec: 06/04/19 12:30 AMB [email or web address]) Balance Tests Romberg Romberg eyes closed 5 seconds Single Limb Standing Single Limb- Right 4 seconds Single Limb- Left 2 seconds Semi-Tandem Standing Semi-Tandem Standing Balance eyes open 10 seconds PT-OP-E Functional Tests Start: 06/02/19 08:04 Freq: Status: Active Protocol: Document 06/02/19 08:15 AMB (Rec: 06/04/19 12:30 AMB [email or web address]) Functional Tests Dynamic Gait Index (DGI) Score 7 DGI Impairment Rating 60 to <80% Impaired (Score 5-9 ) PT-OP-G Mobility & Gait Start: 06/02/19 08:04 Freq: Status: Active Protocol: Document 06/02/19 08:15 AMB (Rec: 06/04/19 12:30 AMB [email or web address]) OP Gait Assessment Comments Gait Comments slow careful steps, with multiple times pt does not sweet pickled fruit maker feel enough, and 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 Shortened step length. Improves with verbal cues for 15-20 seconds, then reverts back. With FWW- pt with difficulty not running into items with walker, unsafe with turns needed physical cues for safe turning with walker. PT-OP-M Strength Start: 06/02/19 08:04 Freq: Status: Active Protocol: Document 06/02/19 08:15 AMB (Rec: 06/04/19 12:30 AMB [email or web address]) Hip Strength Hip Manual Muscle Testing Right Flexion (L2) 4 Good Extension (S1) 4- Good- Abduction 4- Good- Left Flexion (L2) 4 Good Extension (S1) 4- Good- Abduction 4- Good- Knee Strength Knee Manual Muscle Testing Right Flexion (S2) 4 Good Extension (L3) 4+ Good+ Left Flexion (S2) 4- Good- Extension (L3) 4+ Good+ Ankle/Foot Strength Ankle and Foot Manual Muscle Testing Right Dorsiflexion (L4) 3 Fair Plantarflexion (S1) 3 Fair Left Dorsiflexion (L4) 3 Fair Plantarflexion (S1) 3 Fair PT-OP-Q Treatments Start: 06/02/19 08:04 Freq: Status: Active Protocol: Document 06/27/19 10:30 AMB (Rec: 06/27/19 13:33 AMB [email or web address]) Cardio Equipment Recumbent Bicycle Duration (Minutes) 5 Resistance 1 Other pt with significant difficulty today Gym Equipment Shuttle Recovery Bilateral Squats Resistance 75 Shuttle Recovery Platform Stable Reps/Time 2x10 Therapeutic Exercises Standing Exercises 4 Standing Exercise Name marching at rail Reps/Minutes 10 feet x 4 2 Standing Exercise Name mini squats Reps/Minutes 2x10 1 Standing Exercise Name Hip abd/ extension standing at rail Reps/Minutes 2x10 Therapeutic Activity Therapeutic Activity 1 Name sit to stand Reps/Minutes 10 Comments cues for reaching for arm rests, forward lean, foot placement, Gait Training Gait Activity 2 Description gait in gym Device Used none Level of Assistance CGA Surface level Treatment Focus pathfinding around obstacles, increased stride and foot clearance Comments Cued for increased stride length, foot clearance and awareness of spacial awareness away from obstacles on L to reduce risk for falls PT-OP-T Assessment and Plan Start: 06/02/19 08:04 Freq: Status: Active Protocol: Document 06/27/19 10:30 AMB (Rec: 06/27/19 11:22 AMB [id number]) Physical Therapy Assessment Assessment Summary Assessment Pt continues to need verbal cues for pathfinding. Encouraged SO in short walks but will need hand hold support. Increased difficulty with bike today, but we did it at the end of PT when she was more tired. Physical Therapy Plan Next Visit Focus/Plan Next Note Type Treatment Note Next Visit Plan Follow up on HEP and if pt/ SO are consistent.
--- NOTE | 2019-06-29 12:00 | PT.OTN ---
Current Diagnoses Unsteadiness on feet (06/29/19) History of falling (06/29/19) Physical Therapy Treatment Note PT-OP-A Visit Information Start: 06/02/19 08:04 Freq: Status: Active Protocol: Document 06/29/19 10:30 AMB (Rec: 06/29/19 10:32 AMB [email or web address]) Out-Patient Physical Therapy Visit Information Visit Information Visit Type Treatment Note Visit Start Time 09:45 Visit Stop Time 10:30 Total Visit Minutes 45 Visit Number 8 PT-OP-B Current Condition Start: 06/02/19 08:04 Freq: Status: Active Protocol: Document 06/02/19 08:15 AMB (Rec: 06/04/19 12:30 AMB [email or web address]) Current Condition History of Current Condition Onset Date 1 year ago Current Complaints frequent falls, difficulty walking History of Current Condition Ashlie attends physical therapy with her significant other Sina, providing some of the history due to her dementia. They live together in a singel level home with 2 steps to enter with a railing. She has had about 5-6 falls in the last year. Prior to that they both report that she was able to walk for long distances in the community without a problem. She does have a prior health history of breast cancern in 1979 and bilateral total hip replacements years ago. She reports she feels short of breath and off balance when walking, she does not use an assistive device, although she does have a SPC and FWW at home. She denies spinning dizziness, but does report intermittent lightheadedness, she denies LE numbness/ tingling. Treatment Goals Patient/Caregiver Goals Walk faster and with less fear of falling Prior Functional Status Baseline Function- ADL's Independent Baseline Function- Mobility Independent Current Functional Impairments (Reported) Functional Limitations- Mobility/Gait History of recent falls on stairs and in the shower, Sina reports they do have grab bars in the shower, but not a shower chair. Personal Factors Other Personal Factors That May Effect Pt reports Alzheimer's Therapy/Recovery diagnosis PT-OP-C Subjective Start: 06/02/19 08:04 Freq: Status: Active Protocol: Document 06/29/19 10:30 AMB (Rec: 06/29/19 10:32 AMB [id number]) OP-PT Subjective Patient Comments Patient Comments Pt's SO reports episode of dizziness on Wednesday night where she needed physical assistance. She has been using the FWW at home on and off since then. Pt has a hard time describing sx, possibly spinning, possibly lightheaded . PT-OP-D Balance Start: 06/02/19 08:04 Freq: Status: Active Protocol: Document 06/02/19 08:15 AMB (Rec: 06/04/19 12:30 AMB [email or web address]) Balance Tests Romberg Romberg eyes closed 5 seconds Single Limb Standing Single Limb- Right 4 seconds Single Limb- Left 2 seconds Semi-Tandem Standing Semi-Tandem Standing Balance eyes open 10 seconds PT-OP-E Functional Tests Start: 06/02/19 08:04 Freq: Status: Active Protocol: Document 06/02/19 08:15 AMB (Rec: 06/04/19 12:30 AMB [email or web address]) Functional Tests Dynamic Gait Index (DGI) Score 7 DGI Impairment Rating 60 to <80% Impaired (Score 5-9 ) PT-OP-G Mobility & Gait Start: 06/02/19 08:04 Freq: Status: Active Protocol: Document 06/02/19 08:15 AMB (Rec: 06/04/19 12:30 AMB [email or web address]) OP Gait Assessment Comments Gait Comments slow careful steps, with multiple times pt does not draft roller picker feel enough, and 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 Shortened step length. Improves with verbal cues for 15-20 seconds, then reverts back. With FWW- pt with difficulty not running into items with walker, unsafe with turns needed physical cues for safe turning with walker. PT-OP-M Strength Start: 06/02/19 08:04 Freq: Status: Active Protocol: Document 06/02/19 08:15 AMB (Rec: 06/04/19 12:30 AMB [email or web address]) Hip Strength Hip Manual Muscle Testing Right Flexion (L2) 4 Good Extension (S1) 4- Good- Abduction 4- Good- Left Flexion (L2) 4 Good Extension (S1) 4- Good- Abduction 4- Good- Knee Strength Knee Manual Muscle Testing Right Flexion (S2) 4 Good Extension (L3) 4+ Good+ Left Flexion (S2) 4- Good- Extension (L3) 4+ Good+ Ankle/Foot Strength Ankle and Foot Manual Muscle Testing Right Dorsiflexion (L4) 3 Fair Plantarflexion (S1) 3 Fair Left Dorsiflexion (L4) 3 Fair Plantarflexion (S1) 3 Fair PT-OP-Q Treatments Start: 06/02/19 08:04 Freq: Status: Active Protocol: Document 06/29/19 09:45 AMB (Rec: 06/30/19 08:42 AMB [email or web address]) Therapeutic Exercises Standing Exercises 4 Standing Exercise Name marching at rail Reps/Minutes 10 feet x 4 2 Standing Exercise Name mini squats Reps/Minutes 2x10 1 Standing Exercise Name Hip abd/ extension standing at rail Reps/Minutes 2x10 Neuro Re-Education Treatment Balance Activities 2 Details fwd,backward, side stepping Comments hands hovering over rail, constant vc for posture 1 Details modified tandem stance Comments with arm swing and weight shift- challenging PT-OP-T Assessment and Plan Start: 06/02/19 08:04 Freq: Status: Active Protocol: Document 06/29/19 09:45 AMB (Rec: 06/30/19 08:42 AMB [email or web address]) Physical Therapy Assessment Assessment Summary Assessment Checked pt for BPPV today since she describes her symptoms as dizziness, but pt was negative. Pt has a hard time describing her symptoms, and possibly felt lightheaded she isn't sure. She just knows she feels like she might fall. Encouraged her to use the FWW if that is working for her at home (she was running into things with it in the clinic). Checked pt's BP again, better today at 140/86. Encouraged pt to follow up with MD if feelings of being off balance continue. Pt voiced feelings that she did not want to go the to the gym today, so will be focusing on a simple HEP that she can do without getting too confused ( she states that it is difficult for her to stay concentrated on it). Educated SO that he will need to assist pt with HEP, he voices understanding with this, but not sure that this is happening at home. Physical Therapy Plan Next Visit Focus/Plan Next Note Type Treatment Note Next Visit Plan Follow up on HEP and if pt/ SO are consistent. Check BP as needed.
--- NOTE | 2019-07-03 13:00 | PT.OTN ---
Current Diagnoses Unsteadiness on feet (07/03/19) History of falling (07/03/19) Physical Therapy Treatment Note PT-OP-A Visit Information Start: 06/02/19 08:04 Freq: Status: Active Protocol: Document 07/03/19 12:17 SP (Rec: 07/03/19 13:37 SP [email or web address]) Out-Patient Physical Therapy Visit Information Visit Information Visit Type Treatment Note Visit Start Time 12:17 Visit Stop Time 13:00 Total Visit Minutes 43 Visit Number 05/05 Number of CRATING AND MOVING ESTIMATOR Visits 1 PT-OP-B Current Condition Start: 06/02/19 08:04 Freq: Status: Active Protocol: Document 06/02/19 08:15 AMB (Rec: 06/04/19 12:30 AMB [email or web address]) Current Condition History of Current Condition Onset Date 1 year ago Current Complaints frequent falls, difficulty walking History of Current Condition Ashlie attends physical therapy with her significant other Sina, providing some of the history due to her dementia. They live together in a singel level home with 2 steps to enter with a railing. She has had about 5-6 falls in the last year. Prior to that they both report that she was able to walk for long distances in the community without a problem. She does have a prior health history of breast cancern in 1979 and bilateral total hip replacements years ago. She reports she feels short of breath and off balance when walking, she does not use an assistive device, although she does have a SPC and FWW at home. She denies spinning dizziness, but does report intermittent lightheadedness, she denies LE numbness/ tingling. Treatment Goals Patient/Caregiver Goals Walk faster and with less fear of falling Prior Functional Status Baseline Function- ADL's Independent Baseline Function- Mobility Independent Current Functional Impairments (Reported) Functional Limitations- Mobility/Gait History of recent falls on stairs and in the shower, Sina reports they do have grab bars in the shower, but not a shower chair. Personal Factors Other Personal Factors That May Effect Pt reports Alzheimer's Therapy/Recovery diagnosis PT-OP-C Subjective Start: 06/02/19 08:04 Freq: Status: Active Protocol: Document 07/03/19 12:17 SP (Rec: 07/03/19 13:37 SP [email or web address]) OP-PT Subjective Patient Comments Patient Comments Pt's SO stated Ashlie is getting out of the chair better lately. He stated is doing her exercises at the counter at home. PT-OP-D Balance Start: 06/02/19 08:04 Freq: Status: Active Protocol: Document 06/02/19 08:15 AMB (Rec: 06/04/19 12:30 AMB [email or web address]) Balance Tests Romberg Romberg eyes closed 5 seconds Single Limb Standing Single Limb- Right 4 seconds Single Limb- Left 2 seconds Semi-Tandem Standing Semi-Tandem Standing Balance eyes open 10 seconds PT-OP-E Functional Tests Start: 06/02/19 08:04 Freq: Status: Active Protocol: Document 06/02/19 08:15 AMB (Rec: 06/04/19 12:30 AMB [email or web address]) Functional Tests Dynamic Gait Index (DGI) Score 7 DGI Impairment Rating 60 to <80% Impaired (Score 5-9 ) PT-OP-G Mobility & Gait Start: 06/02/19 08:04 Freq: Status: Active Protocol: Document 06/02/19 08:15 AMB (Rec: 06/04/19 12:30 AMB [email or web address]) OP Gait Assessment Comments Gait Comments slow careful steps, with multiple times pt does not black pickler feel enough, and 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 Shortened step length. Improves with verbal cues for 15-20 seconds, then reverts back. With FWW- pt with difficulty not running into items with walker, unsafe with turns needed physical cues for safe turning with walker. PT-OP-M Strength Start: 06/02/19 08:04 Freq: Status: Active Protocol: Document 06/02/19 08:15 AMB (Rec: 06/04/19 12:30 AMB [email or web address]) Hip Strength Hip Manual Muscle Testing Right Flexion (L2) 4 Good Extension (S1) 4- Good- Abduction 4- Good- Left Flexion (L2) 4 Good Extension (S1) 4- Good- Abduction 4- Good- Knee Strength Knee Manual Muscle Testing Right Flexion (S2) 4 Good Extension (L3) 4+ Good+ Left Flexion (S2) 4- Good- Extension (L3) 4+ Good+ Ankle/Foot Strength Ankle and Foot Manual Muscle Testing Right Dorsiflexion (L4) 3 Fair Plantarflexion (S1) 3 Fair Left Dorsiflexion (L4) 3 Fair Plantarflexion (S1) 3 Fair PT-OP-Q Treatments Start: 06/02/19 08:04 Freq: Status: Active Protocol: Document 07/03/19 12:17 SP (Rec: 07/03/19 13:37 SP [email or web address]) Therapeutic Exercises Standing Exercises 3 Standing Exercise Name Heel raises at rail Side bilateral Reps/Minutes 2x10 2 Standing Exercise Name mini squats Reps/Minutes 2x10 Therapeutic Activity Therapeutic Activity supine<> sitting Name sit<> supine Reps/Minutes x3 Comments R x2, L x1 (home gets on/off L side), cuing for centering away from EOB and utilizing bridge to lateral scoot 1 Name sit to stand Reps/Minutes 5 Comments cues for forward lean to stand and sit while reaching for arm rests/seat 21 raised table Gait Training Gait Activity 2 Description gait in gym Device Used none Level of Assistance CGA Surface level Distance/Duration 116 Treatment Focus pathfinding around obstacles, increased stride and foot clearance Comments Cued for increased upright posture (not watch feet) stride length, foot clearance and awareness of spacial awareness away from obstacles on R>L today to reduce risk for falls Neuro Re-Education Treatment Balance Activities 2 Details fwd 72 bps,backward 66bps, side stepping 66pbs Surface level Equipment metronome Reps/Duration 10 ft x3 laps each Comments hands at side near rail, constant vc for posture, step length and patterning PT-OP-T Assessment and Plan Start: 06/02/19 08:04 Freq: Status: Active Protocol: Document 07/03/19 12:17 SP (Rec: 07/03/19 13:37 SP [email or web address]) Physical Therapy Assessment Goals Two Impairment gait safety Short Term Goal (STG) Ashlie will be independent with walking with a walker indoors. STG Duration 4 weeks Analyst Programmer Goal (LTG) Ashlie will ascend and descend a flight of stairs with one rail and alternating gait pattern safely. LTG Duration 8 weeks One Impairment dynamic balance Short Term Goal (STG) Ashlie will show decreased fall risk by scoring 15/24 on the dynamic gait index or higher. STG Duration 4 weeks Care Home Goal (LTG) Ashlie will safely change gait speed while walking without a loss of balance. LTG Duration 8 weeks Assessment Summary Assessment Pt increased upright walking today. SO reported Ashlie is able to get out of the chair better lately. Tx focused on proprioception, increases stride length/clearance and BM for safety and independance. Intruduced metronome for stepping foot clearance balance activities and assist with patterning with minimal improvement. Continued cues provided for increased step length and stride with awareness of upright posture to improve balance during gait. Cued SO to stay close to Ashlei while walking and cue her for looking forward and not down due to decreased foot clearance for safety, reduce risk for falls. No dizziness noted or reported during tx today so was not assessed. Physical Therapy Plan Frequency and Duration Frequency of Treatment 2x/Week Duration of Treatment 8 weeks Plan of Care Start Date 06/02/19 Plan of Care End Date 07/28/19 Therapeutic Interventions Therapeutic Interventions Balance Training,Gait Training ,Home Exercise Program,Manual Therapy,Neuromuscular Re- education,Self-Care/Home Management,Therapeutic Activities,Therapeutic Exercises Next Visit Focus/Plan Next Note Type Treatment Note Next Visit Plan Follow up on HEP standing ex/ walking/sit<> stand, gait and if pt/ SO are consistent, involve SO in tx. Check BP as needed.
--- NOTE | 2019-07-05 14:19 | PT.OTN ---
Current Diagnoses Unsteadiness on feet (07/05/19) History of falling (07/05/19) Physical Therapy Treatment Note PT-OP-A Visit Information Start: 06/02/19 08:04 Freq: Status: Active Protocol: Document 07/05/19 11:15 AMB (Rec: 07/05/19 12:59 AMB [email or web address]) Out-Patient Physical Therapy Visit Information Visit Information Visit Type Progress Note Visit Start Time 11:20 Visit Stop Time 12:00 Total Visit Minutes 40 Visit Number 06/04 Number of GENERAL PRODUCTION WORKER Visits 0 PT-OP-B Current Condition Start: 06/02/19 08:04 Freq: Status: Active Protocol: Document 06/02/19 08:15 AMB (Rec: 06/04/19 12:30 AMB [email or web address]) Current Condition History of Current Condition Onset Date 1 year ago Current Complaints frequent falls, difficulty walking History of Current Condition Ashlie attends physical therapy with her significant other Sina, providing some of the history due to her dementia. They live together in a singel level home with 2 steps to enter with a railing. She has had about 5-6 falls in the last year. Prior to that they both report that she was able to walk for long distances in the community without a problem. She does have a prior health history of breast cancern in 1979 and bilateral total hip replacements years ago. She reports she feels short of breath and off balance when walking, she does not use an assistive device, although she does have a SPC and FWW at home. She denies spinning dizziness, but does report intermittent lightheadedness, she denies LE numbness/ tingling. Treatment Goals Patient/Caregiver Goals Walk faster and with less fear of falling Prior Functional Status Baseline Function- ADL's Independent Baseline Function- Mobility Independent Current Functional Impairments (Reported) Functional Limitations- Mobility/Gait History of recent falls on stairs and in the shower, Sina reports they do have grab bars in the shower, but not a shower chair. Personal Factors Other Personal Factors That May Effect Pt reports Alzheimer's Therapy/Recovery diagnosis PT-OP-C Subjective Start: 06/02/19 08:04 Freq: Status: Active Protocol: Document 07/05/19 11:15 AMB (Rec: 07/05/19 12:59 AMB [email or web address]) OP-PT Subjective Patient Comments Patient Comments Pt reports she fell last night . Not sure why, had been up walking through the room, felt off balance, and then fell. PT-OP-D Balance Start: 06/02/19 08:04 Freq: Status: Active Protocol: Document 06/02/19 08:15 AMB (Rec: 06/04/19 12:30 AMB [email or web address]) Balance Tests Romberg Romberg eyes closed 5 seconds Single Limb Standing Single Limb- Right 4 seconds Single Limb- Left 2 seconds Semi-Tandem Standing Semi-Tandem Standing Balance eyes open 10 seconds PT-OP-E Functional Tests Start: 06/02/19 08:04 Freq: Status: Active Protocol: Document 06/02/19 08:15 AMB (Rec: 06/04/19 12:30 AMB [email or web address]) Functional Tests Dynamic Gait Index (DGI) Score 7 DGI Impairment Rating 60 to <80% Impaired (Score 5-9 ) PT-OP-G Mobility & Gait Start: 06/02/19 08:04 Freq: Status: Active Protocol: Document 06/02/19 08:15 AMB (Rec: 06/04/19 12:30 AMB [email or web address]) OP Gait Assessment Comments Gait Comments slow careful steps, with multiple times pt does not picker and sorter load and unload feel enough, and 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 Shortened step length. Improves with verbal cues for 15-20 seconds, then reverts back. With FWW- pt with difficulty not running into items with walker, unsafe with turns needed physical cues for safe turning with walker. PT-OP-M Strength Start: 06/02/19 08:04 Freq: Status: Active Protocol: Document 06/02/19 08:15 AMB (Rec: 06/04/19 12:30 AMB [email or web address]) Hip Strength Hip Manual Muscle Testing Right Flexion (L2) 4 Good Extension (S1) 4- Good- Abduction 4- Good- Left Flexion (L2) 4 Good Extension (S1) 4- Good- Abduction 4- Good- Knee Strength Knee Manual Muscle Testing Right Flexion (S2) 4 Good Extension (L3) 4+ Good+ Left Flexion (S2) 4- Good- Extension (L3) 4+ Good+ Ankle/Foot Strength Ankle and Foot Manual Muscle Testing Right Dorsiflexion (L4) 3 Fair Plantarflexion (S1) 3 Fair Left Dorsiflexion (L4) 3 Fair Plantarflexion (S1) 3 Fair PT-OP-Q Treatments Start: 06/02/19 08:04 Freq: Status: Active Protocol: Document 07/05/19 11:15 AMB (Rec: 07/05/19 14:19 AMB [email or web address]) Therapeutic Exercises Standing Exercises 5 Standing Exercise Name rows with t band Resistance #2 t band Reps/Minutes 2x10 Comments cues for posture 4 Standing Exercise Name marching at rail Reps/Minutes 10 feet x 4 2 Standing Exercise Name mini squats Reps/Minutes 2x10 1 Standing Exercise Name Hip abd/ extension standing at rail Reps/Minutes 2x10 Therapeutic Activity Therapeutic Activity 1 Name sit to stand Reps/Minutes 5 Comments cues for forward lean to stand and sit while reaching for arm rests/seat 21 raised table Gait Training Gait Activity 2 Description gait in gym Device Used none Level of Assistance CGA Surface level Distance/Duration 300 Treatment Focus pathfinding around obstacles, increased stride and foot clearance Comments Cued for increased upright posture (not watch feet) stride length, foot clearance and awareness of spacial awareness, also asked pt to increase arm swing 1 Description fwd backward walking Device Used // bars Comments pt more confident to work on lengthening step length in bars. PT-OP-T Assessment and Plan Start: 06/02/19 08:04 Freq: Status: Active Protocol: Document 07/05/19 11:15 AMB (Rec: 07/05/19 14:19 AMB [email or web address]) Physical Therapy Assessment Assessment Summary Assessment Encouraged SO to provide CGA as necessary, and that function may continue to decline and try to prepare home safety for that (removing trip hazards, throw rugs, etc ). SO also encouraged to report if falls are increasing in frequency. Physical Therapy Plan Next Visit Focus/Plan Next Note Type Treatment Note Next Visit Plan Follow up on HEP standing ex/ walking/sit<> stand, gait and if pt/ SO are consistent, involve SO in tx. Check BP as needed.
--- NOTE | 2019-07-05 14:22 | PT.OPPOC ---
Current Diagnoses Unsteadiness on feet (07/05/19) History of falling (07/05/19) Visit Care Team Role Provider Type Kia Person MD Attending Provider Physician Family Provider Primary Care Provider Specialty: Family Practice Address: [address] [place] [address] [place], [address] Email: [email or web address] Plan Of Care PT-OP-T Assessment and Plan Start: 06/02/19 08:04 Freq: Status: Active Protocol: Document 07/05/19 11:15 AMB (Rec: 07/05/19 14:19 AMB [email or web address]) Physical Therapy Assessment Goals Two Impairment gait safety Short Term Goal (STG) Ashlie will be independent with walking with a walker indoors. STG Duration 4 weeks Ring Striker Goal (LTG) Ashlie will ascend and descend a flight of stairs with one rail and alternating gait pattern safely. INTERMITTENTLY MET LTG Duration 8 weeks One Impairment dynamic balance Short Term Goal (STG) Ashlie will show decreased fall risk by scoring 15/24 on the dynamic gait index or higher. STG Duration 4 weeks [facility] Goal (LTG) Ashlie will safely change gait speed while walking without a loss of balance. PROGRESS MADE LTG Duration 8 weeks Assessment Summary Assessment Encouraged SO to provide CGA as necessary, and that function may continue to decline and try to prepare home safety for that (removing trip hazards, throw rugs, etc ). SO also encouraged to report if falls are increasing in frequency. Physical Therapy Plan Next Visit Focus/Plan Next Note Type Treatment Note Next Visit Plan Follow up on HEP standing ex/ walking/sit<> stand, gait and if pt/ SO are consistent, involve SO in tx. Check BP as needed. Plan of Care Dates Plan of Care Start Date 06/02/19 Plan of Care End Date 07/28/19
--- NOTE | 2019-07-11 10:39 | PT-OP ANOTE ---
Pt called 1 hr before scheduled appt, having car trouble and had to cancel 1030 appt today. CLIENT RELATIONSHIP MANAGER left a message can reschedule for later this afternoon or tomorrow if would like to call back and reschedule, if unable her next appt is 07/19/19 at 1300.
--- NOTE | 2019-07-19 14:08 | PT.OTN ---
Current Diagnoses Unsteadiness on feet (07/19/19) History of falling (07/19/19) Physical Therapy Treatment Note PT-OP-A Visit Information Start: 06/02/19 08:04 Freq: Status: Active Protocol: Document 07/19/19 13:00 AMB (Rec: 07/19/19 14:08 AMB [email or web address]) Out-Patient Physical Therapy Visit Information Visit Information Visit Type Treatment Note Visit Start Time 13:00 Visit Stop Time 13:45 Total Visit Minutes 45 Visit Number 07/05 PT-OP-B Current Condition Start: 06/02/19 08:04 Freq: Status: Active Protocol: Document 06/02/19 08:15 AMB (Rec: 06/04/19 12:30 AMB [email or web address]) Current Condition History of Current Condition Onset Date 1 year ago Current Complaints frequent falls, difficulty walking History of Current Condition Ashlie attends physical therapy with her significant other Sina, providing some of the history due to her dementia. They live together in a singel level home with 2 steps to enter with a railing. She has had about 5-6 falls in the last year. Prior to that they both report that she was able to walk for long distances in the community without a problem. She does have a prior health history of breast cancern in 1979 and bilateral total hip replacements years ago. She reports she feels short of breath and off balance when walking, she does not use an assistive device, although she does have a SPC and FWW at home. She denies spinning dizziness, but does report intermittent lightheadedness, she denies LE numbness/ tingling. Treatment Goals Patient/Caregiver Goals Walk faster and with less fear of falling Prior Functional Status Baseline Function- ADL's Independent Baseline Function- Mobility Independent Current Functional Impairments (Reported) Functional Limitations- Mobility/Gait History of recent falls on stairs and in the shower, Sina reports they do have grab bars in the shower, but not a shower chair. Personal Factors Other Personal Factors That May Effect Pt reports Alzheimer's Therapy/Recovery diagnosis PT-OP-C Subjective Start: 06/02/19 08:04 Freq: Status: Active Protocol: Document 07/19/19 13:00 AMB (Rec: 07/19/19 14:08 AMB [email or web address]) OP-PT Subjective Patient Comments Patient Comments Pt reports no recent falls. She has had a cold. Her SO reports that she has been acting tired today. She reports neck pain today. PT-OP-D Balance Start: 06/02/19 08:04 Freq: Status: Active Protocol: Document 06/02/19 08:15 AMB (Rec: 06/04/19 12:30 AMB [email or web address]) Balance Tests Romberg Romberg eyes closed 5 seconds Single Limb Standing Single Limb- Right 4 seconds Single Limb- Left 2 seconds Semi-Tandem Standing Semi-Tandem Standing Balance eyes open 10 seconds PT-OP-E Functional Tests Start: 06/02/19 08:04 Freq: Status: Active Protocol: Document 06/02/19 08:15 AMB (Rec: 06/04/19 12:30 AMB [email or web address]) Functional Tests Dynamic Gait Index (DGI) Score 7 DGI Impairment Rating 60 to <80% Impaired (Score 5-9 ) PT-OP-G Mobility & Gait Start: 06/02/19 08:04 Freq: Status: Active Protocol: Document 06/02/19 08:15 AMB (Rec: 06/04/19 12:30 AMB [email or web address]) OP Gait Assessment Comments Gait Comments slow careful steps, with multiple times pt does not orange picker feel enough, and 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 Shortened step length. Improves with verbal cues for 15-20 seconds, then reverts back. With FWW- pt with difficulty not running into items with walker, unsafe with turns needed physical cues for safe turning with walker. PT-OP-M Strength Start: 06/02/19 08:04 Freq: Status: Active Protocol: Document 06/02/19 08:15 AMB (Rec: 06/04/19 12:30 AMB [email or web address]) Hip Strength Hip Manual Muscle Testing Right Flexion (L2) 4 Good Extension (S1) 4- Good- Abduction 4- Good- Left Flexion (L2) 4 Good Extension (S1) 4- Good- Abduction 4- Good- Knee Strength Knee Manual Muscle Testing Right Flexion (S2) 4 Good Extension (L3) 4+ Good+ Left Flexion (S2) 4- Good- Extension (L3) 4+ Good+ Ankle/Foot Strength Ankle and Foot Manual Muscle Testing Right Dorsiflexion (L4) 3 Fair Plantarflexion (S1) 3 Fair Left Dorsiflexion (L4) 3 Fair Plantarflexion (S1) 3 Fair PT-OP-Q Treatments Start: 06/02/19 08:04 Freq: Status: Active Protocol: Document 07/19/19 13:00 AMB (Rec: 07/19/19 14:08 AMB [email or web address]) Therapeutic Exercises Standing Exercises 2 Standing Exercise Name mini squats Reps/Minutes 2x10 1 Standing Exercise Name Hip abd/ extension standing at rail Reps/Minutes 2x10 Therapeutic Activity Therapeutic Activity 1 Name sit to stand Reps/Minutes 5 Comments cues for forward lean to stand and sit while reaching for arm rests/seat 21 raised table Gait Training Gait Activity 2 Description gait in gym Device Used none Level of Assistance CGA Surface level Distance/Duration 100 Treatment Focus pathfinding around obstacles, increased stride and foot clearance Comments Cued for increased upright posture (not watch feet) stride length, foot clearance and awareness of spacial awareness, also asked pt to increase arm swing 1 Description fwd backward walking Device Used // bars Comments pt more confident to work on lengthening step length in bars. Neuro Re-Education Treatment Balance Activities 1 Details modified tandem stance Comments looking up increased pt's neck pain today PT-OP-T Assessment and Plan Start: 06/02/19 08:04 Freq: Status: Active Protocol: Document 07/19/19 13:00 AMB (Rec: 07/19/19 14:08 AMB [email or web address]) Physical Therapy Assessment Assessment Summary Assessment Pt started out well in PT, but then became tired and had what appeared to be freezing moments. She did not want to let go of railing. Not sure if it was that she felt she was unable to move because of being off balance, or being unable to motor plan. Safest at this point with hand hold assist with gait so that she has someone to help with pathfinding. Physical Therapy Plan Next Visit Focus/Plan Next Note Type Treatment Note Next Visit Plan Follow up on HEP standing ex/ walking/sit<> stand, gait and if pt/ SO are consistent, involve SO in tx. Check BP as needed.
--- NOTE | 2019-07-21 16:15 | PT.OTN ---
Current Diagnoses Unsteadiness on feet (07/21/19) History of falling (07/21/19) Physical Therapy Treatment Note PT-OP-A Visit Information Start: 06/02/19 08:04 Freq: Status: Active Protocol: Document 07/21/19 13:00 AMB (Rec: 07/21/19 16:13 AMB [email or web address]) Out-Patient Physical Therapy Visit Information Visit Information Visit Type Treatment Note Visit Start Time 13:00 Visit Stop Time 13:45 Total Visit Minutes 45 Visit Number 08/04 PT-OP-B Current Condition Start: 06/02/19 08:04 Freq: Status: Active Protocol: Document 06/02/19 08:15 AMB (Rec: 06/04/19 12:30 AMB [email or web address]) Current Condition History of Current Condition Onset Date 1 year ago Current Complaints frequent falls, difficulty walking History of Current Condition Ashlie attends physical therapy with her significant other Sina, providing some of the history due to her dementia. They live together in a singel level home with 2 steps to enter with a railing. She has had about 5-6 falls in the last year. Prior to that they both report that she was able to walk for long distances in the community without a problem. She does have a prior health history of breast cancern in 1979 and bilateral total hip replacements years ago. She reports she feels short of breath and off balance when walking, she does not use an assistive device, although she does have a SPC and FWW at home. She denies spinning dizziness, but does report intermittent lightheadedness, she denies LE numbness/ tingling. Treatment Goals Patient/Caregiver Goals Walk faster and with less fear of falling Prior Functional Status Baseline Function- ADL's Independent Baseline Function- Mobility Independent Current Functional Impairments (Reported) Functional Limitations- Mobility/Gait History of recent falls on stairs and in the shower, Sina reports they do have grab bars in the shower, but not a shower chair. Personal Factors Other Personal Factors That May Effect Pt reports Alzheimer's Therapy/Recovery diagnosis PT-OP-C Subjective Start: 06/02/19 08:04 Freq: Status: Active Protocol: Document 07/21/19 13:00 AMB (Rec: 07/21/19 16:13 AMB [email or web address]) OP-PT Subjective Patient Comments Patient Comments Pt and SO report pt is doing better today. But she may have diverticulitis. PT-OP-D Balance Start: 06/02/19 08:04 Freq: Status: Active Protocol: Document 06/02/19 08:15 AMB (Rec: 06/04/19 12:30 AMB [email or web address]) Balance Tests Romberg Romberg eyes closed 5 seconds Single Limb Standing Single Limb- Right 4 seconds Single Limb- Left 2 seconds Semi-Tandem Standing Semi-Tandem Standing Balance eyes open 10 seconds PT-OP-E Functional Tests Start: 06/02/19 08:04 Freq: Status: Active Protocol: Document 06/02/19 08:15 AMB (Rec: 06/04/19 12:30 AMB [email or web address]) Functional Tests Dynamic Gait Index (DGI) Score 7 DGI Impairment Rating 60 to <80% Impaired (Score 5-9 ) PT-OP-G Mobility & Gait Start: 06/02/19 08:04 Freq: Status: Active Protocol: Document 06/02/19 08:15 AMB (Rec: 06/04/19 12:30 AMB [email or web address]) OP Gait Assessment Comments Gait Comments slow careful steps, with multiple times pt does not grape picker feel enough, and 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 Shortened step length. Improves with verbal cues for 15-20 seconds, then reverts back. With FWW- pt with difficulty not running into items with walker, unsafe with turns needed physical cues for safe turning with walker. PT-OP-M Strength Start: 06/02/19 08:04 Freq: Status: Active Protocol: Document 06/02/19 08:15 AMB (Rec: 06/04/19 12:30 AMB [email or web address]) Hip Strength Hip Manual Muscle Testing Right Flexion (L2) 4 Good Extension (S1) 4- Good- Abduction 4- Good- Left Flexion (L2) 4 Good Extension (S1) 4- Good- Abduction 4- Good- Knee Strength Knee Manual Muscle Testing Right Flexion (S2) 4 Good Extension (L3) 4+ Good+ Left Flexion (S2) 4- Good- Extension (L3) 4+ Good+ Ankle/Foot Strength Ankle and Foot Manual Muscle Testing Right Dorsiflexion (L4) 3 Fair Plantarflexion (S1) 3 Fair Left Dorsiflexion (L4) 3 Fair Plantarflexion (S1) 3 Fair PT-OP-Q Treatments Start: 06/02/19 08:04 Freq: Status: Active Protocol: Document 07/21/19 13:00 AMB (Rec: 07/21/19 16:13 AMB [email or web address]) Therapeutic Exercises Standing Exercises 4 Standing Exercise Name marching at rail Reps/Minutes 10 feet x 4 2 Standing Exercise Name mini squats Reps/Minutes 4x10 Comments vc to reduce strain on UEs 1 Standing Exercise Name Hip abd/ extension standing at rail Reps/Minutes 2x10 Gait Training Gait Activity 2 Description gait in gym Device Used none Level of Assistance CGA Surface level Distance/Duration 250 Treatment Focus pathfinding around obstacles, increased stride and foot clearance Comments Cued for increased upright posture (not watch feet) stride length, foot clearance and awareness of spacial awareness, also asked pt to increase arm swing PT-OP-T Assessment and Plan Start: 06/02/19 08:04 Freq: Status: Active Protocol: Document 07/21/19 13:00 AMB (Rec: 07/21/19 16:13 AMB [email or web address]) Physical Therapy Assessment Assessment Summary Assessment Overall Ashlie has not met her therapy goals yet. Her performance in PT has been very hit and miss. Sometimes she has good days, and sometimes not. Overall she continues to be very high fall risk, but is unsafe with assistive devices. Does well with hand hold assist for pathfinding. Seeing Dr. Person next week and they can decide if more PT is warranted or if they want to do any other medical testing. Ashlie does describe dizziness but had no signs of BPPV and I think this is more of a freezing/ gait instability issue than true vertigo. Sina really does need to physically assist Ashlie with any and all exercises at home for her to be able to follow direction. Physical Therapy Plan Next Visit Focus/Plan Next Note Type Treatment Note Next Visit Plan Follow up on HEP standing ex/ walking/sit<> stand, gait and if pt/ SO are consistent, involve SO in tx. Check BP as needed.
--- NOTE | 2019-08-17 09:37 | PT.OPDS ---
Current Diagnoses Unsteadiness on feet (07/21/19) History of falling (07/21/19) Visit Care Team Role Provider Type Kia Person MD Attending Provider Physician Family Provider Primary Care Provider Specialty: Family Practice Address: [address] [place] [address], [facility] Email: [email or web address] Visit Number Visit Number 08/04 Discharge Summary PT-OP-B Current Condition Start: 06/02/19 08:04 Freq: Status: Active Protocol: Document 06/02/19 08:15 AMB (Rec: 06/04/19 12:30 AMB [email or web address]) Current Condition History of Current Condition Onset Date 1 year ago Current Complaints frequent falls, difficulty walking History of Current Condition Ashlie attends physical therapy with her significant other Sina, providing some of the history due to her dementia. They live together in a singel level home with 2 steps to enter with a railing. She has had about 5-6 falls in the last year. Prior to that they both report that she was able to walk for long distances in the community without a problem. She does have a prior health history of breast cancern in 1979 and bilateral total hip replacements years ago. She reports she feels short of breath and off balance when walking, she does not use an assistive device, although she does have a SPC and FWW at home. She denies spinning dizziness, but does report intermittent lightheadedness, she denies LE numbness/ tingling. Treatment Goals Patient/Caregiver Goals Walk faster and with less fear of falling Prior Functional Status Baseline Function- ADL's Independent Baseline Function- Mobility Independent Current Functional Impairments (Reported) Functional Limitations- Mobility/Gait History of recent falls on stairs and in the shower, Sina reports they do have grab bars in the shower, but not a shower chair. Personal Factors Other Personal Factors That May Effect Pt reports Alzheimer's Therapy/Recovery diagnosis PT-OP-C Subjective Start: 06/02/19 08:04 Freq: Status: Active Protocol: Document 07/21/19 13:00 AMB (Rec: 07/21/19 16:13 AMB [email or web address]) OP-PT Subjective Patient Comments Patient Comments Pt and SO report pt is doing better today. But she may have diverticulitis. PT-OP-D Balance Start: 06/02/19 08:04 Freq: Status: Active Protocol: Document 06/02/19 08:15 AMB (Rec: 06/04/19 12:30 AMB [email or web address]) Balance Tests Romberg Romberg eyes closed 5 seconds Single Limb Standing Single Limb- Right 4 seconds Single Limb- Left 2 seconds Semi-Tandem Standing Semi-Tandem Standing Balance eyes open 10 seconds PT-OP-E Functional Tests Start: 06/02/19 08:04 Freq: Status: Active Protocol: Document 06/02/19 08:15 AMB (Rec: 06/04/19 12:30 AMB [email or web address]) Functional Tests Dynamic Gait Index (DGI) Score 7 DGI Impairment Rating 60 to <80% Impaired (Score 5-9 ) PT-OP-G Mobility & Gait Start: 06/02/19 08:04 Freq: Status: Active Protocol: Document 06/02/19 08:15 AMB (Rec: 06/04/19 12:30 AMB [email or web address]) OP Gait Assessment Comments Gait Comments slow careful steps, with multiple 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 Shortened step length. Improves with verbal cues for 15-20 seconds, then reverts back. With FWW- pt with difficulty not running into items with walker, unsafe with turns needed physical cues for safe turning with walker. PT-OP-M Strength Start: 06/02/19 08:04 Freq: Status: Active Protocol: Document 06/02/19 08:15 AMB (Rec: 06/04/19 12:30 AMB [email or web address]) Hip Strength Hip Manual Muscle Testing Right Flexion (L2) 4 Good Extension (S1) 4- Good- Abduction 4- Good- Left Flexion (L2) 4 Good Extension (S1) 4- Good- Abduction 4- Good- Knee Strength Knee Manual Muscle Testing Right Flexion (S2) 4 Good Extension (L3) 4+ Good+ Left Flexion (S2) 4- Good- Extension (L3) 4+ Good+ Ankle/Foot Strength Ankle and Foot Manual Muscle Testing Right Dorsiflexion (L4) 3 Fair Plantarflexion (S1) 3 Fair Left Dorsiflexion (L4) 3 Fair Plantarflexion (S1) 3 Fair PT-OP-T Assessment and Plan Start: 06/02/19 08:04 Freq: Status: Active Protocol: Document 08/17/19 09:34 JOCELYN (Rec: 08/17/19 09:37 AMB [id number]) Physical Therapy Assessment Assessment Summary Assessment Pt was admitted to the hospital and discharged with home health after her last scheduled appointment. This is the most appropriate level of care for her at this time, so she will be discharged from outpatient physical therapy at this time. At the time of her last apppointment she continued to be a fall risk and needed hand hold assist for both balance and pathfinding.
== END 2020-01-24 13:17 ==
LOC: PHYS 13:00
PROVIDERS: Family Provider Family Medicine; PCP Family Medicine; Visit Provider Family Medicine
DX: R26.81 Unsteadiness on feet (principal); Z91.81 History of falling
CPT/HCPCS: 97110; 97112; 97116; 97162; 97530

== ENCOUNTER 2019-07-29 16:16 | Inpatient (IN) | payer MEDICARE, OTHER, SELFPAY ==
[2019-07-29] VITALS (10 sets, daily range): BP systolic 84–144; BP diastolic 38–71; PULSE 71–89; RESP 16–21; TEMP 36.5–36.7; O2SAT 95–98; BMI 21.9
--- NOTE | 2019-07-29 16:39 | DI.RAD.S_ITS ---
PROCEDURE: XR CHEST 1V INDICATIONS: chest pain TECHNIQUE: One view of the chest was acquired. COMPARISON: [facility], , CHEST 2 VIEW, 06/20/2009, 11:49. FINDINGS: Surgical changes and devices: None. Lungs and pleura: Lungs are clear. No pleural effusions or pneumothorax. Mediastinum: Mediastinal contours appear normal. Heart size is normal. Bones and chest wall: No suspicious bony lesions. Overlying soft tissues appear unremarkable. IMPRESSION: No acute cardiopulmonary findings. Dictated by: Milagros Rodriguez M.D. on 07/29/2019 at 17:54 Approved by: Milagros Rodriguez M.D. on 07/29/2019 at 17:54
--- NOTE | 2019-07-29 16:52 | PC.NURSE ---
spouse states, with hx of alzheimers.
--- NOTE | 2019-07-29 17:03 | PC.NURSE ---
pt responds appropriately, states, with abdominal pain, denies headaches or blurry visions, denies nausea at this time. moving all extremities, skin warm dry pink, spouse at bs.
--- NOTE | 2019-07-29 17:09 | DI.CT.S_ITS ---
PROCEDURE: CT CERVICAL SPINE WO CON INDICATIONS: point tender C5, fall 48hrs ago TECHNIQUE: Noncontrast 3 mm thick sections acquired from the skull base to the T4 level. Sagittal and coronal reformats were then constructed. For radiation dose reduction, the following was used: automated exposure control, adjustment of mA and/or kV according to patient size. COMPARISON: None. FINDINGS: Image quality: Excellent. Bones: No fractures or dislocations. Moderate to severe degenerative changes present throughout the cervical spine including intervertebral disc space narrowing, endplate sclerosis, and osteophytosis. Visualized superior ribs are intact. Soft tissues: Prevertebral soft tissues are normal in thickness. No paravertebral hematomas. No apical pneumothoraces. Atheromatous calcifications are present at the thoracic aortic arch. IMPRESSION: 1. No acute cervical spine injury. 2. Degenerative change. 3. Aortic atherosclerosis. Dictated by: Milagros Rodriguez M.D. on 07/29/2019 at 17:57 Approved by: Milagros Rodriguez M.D. on 07/29/2019 at 17:58
--- NOTE | 2019-07-29 17:09 | DI.CT.S_ITS ---
PROCEDURE: CT HEAD/BRAIN WO CON INDICATIONS: fall 48 hours ago, increased weakness TECHNIQUE: Noncontrast 4.5 mm thick angled axial sections acquired from the foramen magnum to the vertex, with coronal and sagittal reformats. For radiation dose reduction, the following was used: automated exposure control, adjustment of mA and/or kV according to patient size. COMPARISON: None. FINDINGS: Image quality: Excellent. CSF spaces: Basal cisterns are patent. No extra-axial fluid collections. The ventricles are symmetric in size and shape. Brain: No intracranial bleeds or masses. There is marked cerebral volume loss for age, with resultant ventricular and sulcal prominence. There are marked periventricular and deep white matter chronic small vessel ischemic changes. There is intracranial internal carotid artery atherosclerosis. Skull and face: Calvarium and visualized facial bones appear intact, without suspicious lesions. Sinuses: There is opacification of the left maxillary sinus and mucoperiosteal thickening. Mild right maxillary sinus mucosal thickening. Mucosal thickening is present within the bilateral ethmoid air cells. The mastoid air cells, frontal sinuses, and sphenoid sinuses are clear. IMPRESSION: 1. No acute intracranial findings. 2. Chronic left maxillary sinusitis. 3. Extensive findings likely associated with chronic microvascular ischemic changes. Dictated by: Milagros Rodriguez M.D. on 07/29/2019 at 17:54 Approved by: Milagros Rodriguez M.D. on 07/29/2019 at 17:56
--- NOTE | 2019-07-29 17:17 | ED.WEAKNESS ---
HPI - Weakness <Chantel Sykes MD - Last Filed: 07/30/19 17:47> General Chief complaint: Weakness Stated complaint: Weakness Time Seen by Provider: 07/29/19 16:59 Source: patient, family and EMS Mode of arrival: EMS Limitations: altered mental status History of Present Illness HPI Narrative: 79-year-old woman with increasing weakness over the last 48 hours. 48 hours ago she apparently fell and hit her head without loss of consciousness. She is complaining of midline cervical spine tenderness today, mild headache, increasing weakness, slight increased in confusion and is noted to have worsening hypotension in the emergency department. Neither she nor her felt was appropriate to be evaluated 48 hours ago however his weakness continued and she basically collapsed in her 's arms this afternoon they ended up calling 911 and she was transported to the emergency department. She notes the neck pain as well as abdominal pain. Her belly is distended she notes that she has not passed gas for quite a while and has not had stool for quite a while, but she is unclear on additional days and memory issues due presented bit of a problem for her Her is available to help somewhat with verification of her history as well as review of systems No chest pain no shortness of breath, globally weak nonfocal findings, has not noticed any heart arrhythmias Related Data Home Medications Medication Instructions Recorded Confirmed levothyroxine 125 mcg PO DAILY #0 tab 12/25/10 07/30/19 donepezil 10 mg PO DAILY 07/30/19 07/30/19 losartan 100 mg PO DAILY 07/30/19 07/30/19 memantine 10 mg PO BID 07/30/19 07/30/19 sulfamethoxazole-trimethoprim 1 tab PO BID 07/30/19 07/30/19 Allergies Allergy/AdvReac Type Severity Reaction Status Date / Time amlodipine Allergy Mild Unverified 07/30/19 12:07 erythromycin base Allergy Mild Unverified 07/30/19 12:07 lisinopril Allergy Mild Unverified 07/30/19 12:07 latex Allergy Unknown Unverified 07/30/19 12:07 Penicillins Allergy Unknown Unverified 07/30/19 12:07 Review of Systems <Chantel Sykes MD - Last Filed: 07/30/19 17:47> Review of Systems ROS Unobtainable: All systems reviewed & are unremarkable except as noted in HPI and below Patient History <Chantel Sykes MD - Last Filed: 07/30/19 17:47> Medical History History of breast cancer (Acute) Surgical History History of total mastectomy Social History household members: significant other Smoking Status: Never smoker alcohol intake: never Smoking Status: Never smoker alcohol intake frequency: 0-2 drinks per day Substance Use Type: does not use Exam <Chantel Sykes MD - Last Filed: 07/30/19 17:47> Narrative Exam Narrative: General: Frail-appearing woman in moderate distress. Able to give a partial history history, limited by overall fatigue and mild memory loss. HEENT: Moist mucous membranes, normal sclera with reactive pupils. Head is overall atraumatic without bruising or abrasions. She has some minor tenderness to palpation over the occiput stating this was where she landed 48 hours ago Neck: No JVD, supple, she has tenderness over the spinous processes of C4 and C5 without paraspinous spasm, bruising or abrasions Respiratory: Full and symmetrical air movement no rales, no wheeze, no rhonchi Cardiac: Regular rate and rhythm no murmurs no bruits Abdomen: Tympanitic, mildly distended and mildly tender. Hyperactive bowel tones, no flank pain Skin: Warm and dry, no rashes Neurologic: Grossly neurologically intact with global weakness but no obvious asymmetries or abnormalities Extremities: No trauma, good capillary refill. Moving all extremities Psych: Cooperative but overall fatigued and difficulty answering questions Initial Vital Signs Initial Vital Signs: Vital Signs Temperature 97.7 F 07/29/19 16:28 Pulse Rate 87 07/29/19 16:28 Respiratory Rate 19 07/29/19 16:28 Blood Pressure 111/57 L 07/29/19 16:28 Pulse Oximetry 98 07/29/19 16:28 <Kimber Fritz DO - Last Filed: 07/30/19 06:04> Initial Vital Signs Initial Vital Signs: Vital Signs Temperature 97.7 F 07/29/19 16:28 Pulse Rate 87 07/29/19 16:28 Respiratory Rate 19 07/29/19 16:28 Blood Pressure 111/57 L 07/29/19 16:28 Pulse Oximetry 98 07/29/19 16:28 Course <Chantel Sykes MD - Last Filed: 07/30/19 17:47> Course Course Narrative: 79-year-old woman in [facility] health with increasing dementia. Increasing weakness for the last 48 hours uncertain etiology. Fell 48 hours ago and does have cervical pain as well as mild headache. After being in the emergency department she is having some hypotensive episodes down to systolics in the 88 range. She is currently receiving a fluid bolus for this. There is no evidence of active bleeding. Her pelvis is stable on physical exam. She does have a history of diverticulitis and she is somewhat tender in the left lower quadrant as well as having tympanitic bowel tones. Given the fall the pain as well as the global weakness and memory issues will plan on scanning her head her cervical spine chest x-ray abdomen pelvis CT scan. Fluids and re-evaluation regarding hypertension. No evidence of infection at this point will hold off on any antibiotics. Orders Ordered: Docusate Sodium (Colace) 100 mg PO BID [facility] Last Admin: 07/30/19 08:09 Dose: 100 mg Documented by: Admin: 07/29/19 22:47 Dose: 100 mg Documented by: JOSE Donepezil HCl (Aricept) 10 mg PO BEDTIME [facility] Enoxaparin Sodium (Lovenox) 30 mg SUBCUT DAILY [facility] Levothyroxine Sodium (Synthroid) 125 mcg PO 0600 [facility] Last Admin: 07/30/19 12:09 Dose: 125 mcg Documented by: LOKI Lorazepam (Ativan) 0.5 mg PO Q6H PRN PRN Reason: Anxiety Losartan Potassium (Cozaar) 100 mg PO DAILY [facility] Last Admin: 07/30/19 12:09 Dose: 100 mg Documented by: LOKI Memantine (Namenda) 10 mg PO BID [facility] Mineral Oil (Mineral Oil Enema) 1 each [place] PRN PRN PRN Reason: Constipation Last Admin: 07/30/19 12:09 Dose: 1 each Documented by: LOKI Polyethylene Glycol (Miralax) 17 gm PO BID [facility] Last Admin: 07/30/19 08:09 Dose: 17 gm Documented by: Admin: 07/29/19 22:46 Dose: 17 gm Documented by: JOSE Sodium Chloride (Normal Saline 0.9% Flush) 10 ml IV PRN PRN PRN Reason: Flush Sodium Chloride (Normal Saline 0.9% Flush) 10 ml IV BID DAVID Vitamin D (Vitamin D3) 1,000 unit PO DAILY DAVID Discontinued Medications Sodium Chloride (Normal Saline 0.9%) 1,000 mls @ 1,000 mls/hr IV BOLUS ONE Stop: 07/29/19 18:03 Last Infusion: 07/29/19 18:45 Dose: 0 mls/hr Documented by: Admin: 07/29/19 17:34 Dose: 1,000 mls/hr Documented by: KANNAN Sodium Chloride (Normal Saline 0.9%) 1,000 mls @ 150 mls/hr IV CONT DAVID Last Admin: 07/30/19 05:32 Dose: 150 mls/hr Documented by: Infusion: 07/30/19 05:28 Dose: 150 mls/hr Documented by: Admin: 07/29/19 22:47 Dose: 150 mls/hr Documented by: JOSE Memantine (Namenda) 10 mg PO DAILY DAVID Last Admin: 07/30/19 08:18 Dose: 10 mg Documented by: Admin: 07/29/19 22:58 Dose: Not Given Documented by: JOSE Mineral Oil (Mineral Oil Enema) 1 each [place] NOW ONE Stop: 07/29/19 19:18 Last Admin: 07/29/19 20:16 Dose: 1 each Documented by: PAVEL Polyethylene Glycol/Electrolytes (Golytely Solution) 4,000 ml PO NOW ONE Stop: 07/30/19 11:40 Last Admin: 07/30/19 13:36 Dose: 4,000 ml Documented by: LOKI Sodium Biphosphate/Sodium Phosphate (Fleet Enema) 1 each [place] DAILY PRN PRN Reason: Constipation Vital Signs Vital signs: Vital Signs - 8 hr 07/29/19 16:28 07/29/19 16:30 07/29/19 17:00 Temperature 97.7 F Pulse Rate 87 89 79 Respiratory Rate 19 16 Blood Pressure 111/57 L Blood Pressure [Left Arm] 98/53 L 84/38 L Pulse Oximetry 98 95 96 07/29/19 17:46 07/29/19 18:00 07/29/19 18:30 Temperature Pulse Rate 77 81 77 Respiratory Rate 18 18 17 Blood Pressure Blood Pressure [Left Arm] 139/58 L 137/55 L 123/54 L Pulse Oximetry 97 95 96 07/29/19 18:52 07/29/19 20:08 07/29/19 21:02 Temperature Pulse Rate 72 71 71 Respiratory Rate 17 17 21 Blood Pressure Blood Pressure [Left Arm] 126/71 124/53 L 127/67 Pulse Oximetry 97 95 96 <Kimber Fritz, DO - Last Filed: 07/30/19 06:04> Orders Ordered: Docusate Sodium (Colace) 100 mg PO BID [facility] Last Admin: 07/30/19 08:09 Dose: 100 mg Documented by: Admin: 07/29/19 22:47 Dose: 100 mg Documented by: JOSE Donepezil HCl (Aricept) 10 mg PO BEDTIME [facility] Enoxaparin Sodium (Lovenox) 30 mg SUBCUT DAILY [facility] Levothyroxine Sodium (Synthroid) 125 mcg PO 0600 [facility] Last Admin: 07/30/19 12:09 Dose: 125 mcg Documented by: LOKI Lorazepam (Ativan) 0.5 mg PO Q6H PRN PRN Reason: Anxiety Losartan Potassium (Cozaar) 100 mg PO DAILY [facility] Last Admin: 07/30/19 12:09 Dose: 100 mg Documented by: LOKI Memantine (Namenda) 10 mg PO BID [facility] Mineral Oil (Mineral Oil Enema) 1 each [place] PRN PRN PRN Reason: Constipation Last Admin: 07/30/19 12:09 Dose: 1 each Documented by: LOKI Polyethylene Glycol (Miralax) 17 gm PO BID [facility] Last Admin: 07/30/19 08:09 Dose: 17 gm Documented by: Admin: 07/29/19 22:46 Dose: 17 gm Documented by: JOSE Sodium Chloride (Normal Saline 0.9% Flush) 10 ml IV PRN PRN PRN Reason: Flush Sodium Chloride (Normal Saline 0.9% Flush) 10 ml IV BID [facility] Vitamin D (Vitamin D3) 1,000 unit PO DAILY [facility] Discontinued Medications Sodium Chloride (Normal Saline 0.9%) 1,000 mls @ 1,000 mls/hr IV BOLUS ONE Stop: 07/29/19 18:03 Last Infusion: 07/29/19 18:45 Dose: 0 mls/hr Documented by: Admin: 07/29/19 17:34 Dose: 1,000 mls/hr Documented by: KANNAN Sodium Chloride (Normal Saline 0.9%) 1,000 mls @ 150 mls/hr IV CONT DAVID Last Admin: 07/30/19 05:32 Dose: 150 mls/hr Documented by: Infusion: 07/30/19 05:28 Dose: 150 mls/hr Documented by: Admin: 07/29/19 22:47 Dose: 150 mls/hr Documented by: JOSE Memantine (Namenda) 10 mg PO DAILY [facility] Last Admin: 07/30/19 08:18 Dose: 10 mg Documented by: Admin: 07/29/19 22:58 Dose: Not Given Documented by: JOSE Mineral Oil (Mineral Oil Enema) 1 each [place] NOW ONE Stop: 07/29/19 19:18 Last Admin: 07/29/19 20:16 Dose: 1 each Documented by: PAVEL Polyethylene Glycol/Electrolytes (Golytely Solution) 4,000 ml PO NOW ONE Stop: 07/30/19 11:40 Last Admin: 07/30/19 13:36 Dose: 4,000 ml Documented by: LOKI Sodium Biphosphate/Sodium Phosphate (Fleet Enema) 1 each [place] DAILY PRN PRN Reason: Constipation Vital Signs Vital signs: Vital Signs - 8 hr 07/29/19 16:28 07/29/19 16:30 07/29/19 17:00 Temperature 97.7 F Pulse Rate 87 89 79 Respiratory Rate 19 19 16 Blood Pressure 111/57 L Blood Pressure [Left Arm] 98/53 L 84/38 L Pulse Oximetry 98 95 96 07/29/19 17:46 07/29/19 18:00 07/29/19 18:30 Temperature Pulse Rate 77 81 77 Respiratory Rate 18 18 17 Blood Pressure Blood Pressure [Left Arm] 139/58 L 137/55 L 123/54 L Pulse Oximetry 97 95 96 07/29/19 18:52 07/29/19 20:08 07/29/19 21:02 Temperature Pulse Rate 72 71 71 Respiratory Rate 17 17 21 Blood Pressure Blood Pressure [Left Arm] 126/71 124/53 L 127/67 Pulse Oximetry 97 95 96 MDM - Weakness <Chantel Sykes MD - Last Filed: 07/30/19 17:47> Lab Data Result diagrams: 07/30/19 05:55 07/30/19 05:55 Labs: Lab Results 07/29/19 07/29/19 07/29/19 Range/Units 17:37 17:48 17:48 WBC 6.3 (4.5-11.0) X10^3/uL RBC 3.83 L (4.0-5.2) X10^6/uL Hgb 11.9 L (12.0-16.0) g/dL Hct 35.6 L (36-46) % MCV 92.8 (80-100) fL MCH 31.0 (26-34) PG MCHC 33.4 (30-36) % RDW 13.8 (11.6-14.8) % Plt Count 144 L (150-400) X10^3/uL Neut % (Auto) 73.0 (50-75) % Lymph % (Auto) 14.1 L (25-40) % [place] % (Auto) 8.9 (3-14) % Eos % (Auto) 3.5 (2-4) % Baso % (Auto) 0.5 (0-2) % Neut # (Auto) 4600 (1505-0940) /uL Lymph # (Auto) 900 L (0488-1445) /uL [place] # (Auto) 600 (0-900) /uL Eos # (Auto) 200 (0-450) /uL Baso # (Auto) 0 (0-100) /uL PT 12.3 (10.1-12.7) SECONDS INR 1.1 (0.9-1.3) APTT 31 (26.4-36.2) SECONDS Sodium (137-145) mmol/L Potassium (3.4-5.1) mmol/L Chloride (98-107) mmol/L Carbon Dioxide (22-32) mmol/L BUN (7-17) mg/dL Creatinine (0.52-1.04) mg/dL Estimated GFR (>60) mL/min BUN/Creatinine Ratio (6-22) Glucose (80-110) mg/dL Lactate (0.7-2.1) mmol/L Calcium (8.4-10.2) mg/dL Total Bilirubin (0.2-1.3) mg/dL AST (14-36) IU/L ALT (<35) IU/L Alkaline Phosphatase (38-126) U/L Total Creatine Kinase (30-135) U/L CK-MB (CK-2) (<2.37) ng/mL CK-MB (CK-2) Rel Index (1.5-5.0) % Troponin I (0.01-0.034) ng/mL Total Protein (6.3-8.2) g/dL Albumin (3.5-5.0) g/dL Globulin (1.7-4.1) g/dL Albumin/Globulin Ratio (1.0-2.8) Lipase (23-300) U/L TSH (0.47-4.68) uIU/mL Urine Color Yellow Urine Appearance Clear Urine pH 6.0 (4.5-8.0) Ur Specific Startex 1.025 (1.000-1.035) Urine Protein 1+ H (Negative) Urine Glucose (UA) Negative (Negative) g/dL Urine Ketones Negative (NEGATIVE) Urine Occult Blood Negative (Negative) Urine Nitrate Negative (Negative) Urine Bilirubin Negative (NEGATIVE) Urine Urobilinogen 0.2 (0.2) E.U./dL Ur Leukocyte Esterase Negative (NEGATIVE) Urine RBC None seen (0-5/HPF) Urine WBC None seen (0-5/HPF) Urine Bacteria None seen (None) Hyaline Casts 0-1/lpf (None) Ur Culture Indicated? Cult not indicated 07/29/19 07/29/19 07/29/19 Range/Units 17:48 17:48 19:05 WBC (4.5-11.0) X10^3/uL RBC (4.0-5.2) X10^6/uL Hgb (12.0-16.0) g/dL Hct (36-46) % MCV (80-100) fL MCH (26-34) PG MCHC (30-36) % RDW (11.6-14.8) % Plt Count (150-400) X10^3/uL Neut % (Auto) (50-75) % Lymph % (Auto) (25-40) % [place] % (Auto) (3-14) % Eos % (Auto) (2-4) % Baso % (Auto) (0-2) % Neut # (Auto) (3212-5457) /uL Lymph # (Auto) (3027-6573) /uL [place] # (Auto) (0-900) /uL Eos # (Auto) (0-450) /uL Baso # (Auto) (0-100) /uL PT (10.1-12.7) SECONDS INR (0.9-1.3) APTT (26.4-36.2) SECONDS Sodium 140 (137-145) mmol/L Potassium 3.7 (3.4-5.1) mmol/L Chloride 106 (98-107) mmol/L Carbon Dioxide 25 (22-32) mmol/L BUN 33 H (7-17) mg/dL Creatinine 1.90 H (0.52-1.04) mg/dL Estimated GFR 25.6 L (>60) mL/min BUN/Creatinine Ratio 17.4 (6-22) Glucose 121 H (80-110) mg/dL Lactate 1.4 (0.7-2.1) mmol/L Calcium 9.4 (8.4-10.2) mg/dL Total Bilirubin 0.7 (0.2-1.3) mg/dL AST 22 (14-36) IU/L ALT 13 (<35) IU/L Alkaline Phosphatase 44 (38-126) U/L Total Creatine Kinase 167 H (30-135) U/L CK-MB (CK-2) 1.78 (<2.37) ng/mL CK-MB (CK-2) Rel Index 1.1 L (1.5-5.0) % Troponin I 0.014 (0.01-0.034) ng/mL Total Protein 6.3 (6.3-8.2) g/dL Albumin 3.7 (3.5-5.0) g/dL Globulin 2.6 (1.7-4.1) g/dL Albumin/Globulin Ratio 1.4 (1.0-2.8) Lipase 365 H (23-300) U/L TSH 1.26 (0.47-4.68) uIU/mL Urine Color Urine Appearance Urine pH (4.5-8.0) Ur Specific Startex (1.000-1.035) Urine Protein (Negative) Urine Glucose (UA) (Negative) g/dL Urine Ketones (NEGATIVE) Urine Occult Blood (Negative) Urine Nitrate (Negative) Urine Bilirubin (NEGATIVE) Urine Urobilinogen (0.2) E.U./dL Ur Leukocyte Esterase (NEGATIVE) Urine RBC (0-5/HPF) Urine WBC (0-5/HPF) Urine Bacteria (None) Hyaline Casts (None) Ur Culture Indicated? ECG Data Attestation: I personally reviewed and interpreted this ECG as follows: Interpretation: Sinus rhythm at a rate of 92. Needs criteria for LVH with nonspecific ST changes likely secondary to LVH No acute ischemia <Kimber Fritz DO - Last Filed: 07/30/19 06:04> Lab Data Attestation: I reviewed the patient's lab results. Labs: Lab Results 07/29/19 07/29/19 07/29/19 Range/Units 17:37 17:48 17:48 WBC 6.3 (4.5-11.0) X10^3/uL RBC 3.83 L (4.0-5.2) X10^6/uL Hgb 11.9 L (12.0-16.0) g/dL Hct 35.6 L (36-46) % MCV 92.8 (80-100) fL MCH 31.0 (26-34) PG MCHC 33.4 (30-36) % RDW 13.8 (11.6-14.8) % Plt Count 144 L (150-400) X10^3/uL Neut % (Auto) 73.0 (50-75) % Lymph % (Auto) 14.1 L (25-40) % [place] % (Auto) 8.9 (3-14) % Eos % (Auto) 3.5 (2-4) % Baso % (Auto) 0.5 (0-2) % Neut # (Auto) 4600 (3961-1061) /uL Lymph # (Auto) 900 L (2415-1083) /uL [place] # (Auto) 600 (0-900) /uL Eos # (Auto) 200 (0-450) /uL Baso # (Auto) 0 (0-100) /uL PT 12.3 (10.1-12.7) SECONDS INR 1.1 (0.9-1.3) APTT 31 (26.4-36.2) SECONDS Sodium (137-145) mmol/L Potassium (3.4-5.1) mmol/L Chloride (98-107) mmol/L Carbon Dioxide (22-32) mmol/L BUN (7-17) mg/dL Creatinine (0.52-1.04) mg/dL Estimated GFR (>60) mL/min BUN/Creatinine Ratio (6-22) Glucose (80-110) mg/dL Lactate (0.7-2.1) mmol/L Calcium (8.4-10.2) mg/dL Total Bilirubin (0.2-1.3) mg/dL AST (14-36) IU/L ALT (<35) IU/L Alkaline Phosphatase (38-126) U/L Total Creatine Kinase (30-135) U/L CK-MB (CK-2) (<2.37) ng/mL CK-MB (CK-2) Rel Index (1.5-5.0) % Troponin I (0.01-0.034) ng/mL Total Protein (6.3-8.2) g/dL Albumin (3.5-5.0) g/dL Globulin (1.7-4.1) g/dL Albumin/Globulin Ratio (1.0-2.8) Lipase (23-300) U/L TSH (0.47-4.68) uIU/mL Urine Color Yellow Urine Appearance Clear Urine pH 6.0 (4.5-8.0) Ur Specific Startex 1.025 (1.000-1.035) Urine Protein 1+ H (Negative) Urine Glucose (UA) Negative (Negative) g/dL Urine Ketones Negative (NEGATIVE) Urine Occult Blood Negative (Negative) Urine Nitrate Negative (Negative) Urine Bilirubin Negative (NEGATIVE) Urine Urobilinogen 0.2 (0.2) E.U./dL Ur Leukocyte Esterase Negative (NEGATIVE) Urine RBC None seen (0-5/HPF) Urine WBC None seen (0-5/HPF) Urine Bacteria None seen (None) Hyaline Casts 0-1/lpf (None) Ur Culture Indicated? Cult not indicated 07/29/19 07/29/19 07/29/19 Range/Units 17:48 17:48 19:05 WBC (4.5-11.0) X10^3/uL RBC (4.0-5.2) X10^6/uL Hgb (12.0-16.0) g/dL Hct (36-46) % MCV (80-100) fL MCH (26-34) PG MCHC (30-36) % RDW (11.6-14.8) % Plt Count (150-400) X10^3/uL Neut % (Auto) (50-75) % Lymph % (Auto) (25-40) % [place] % (Auto) (3-14) % Eos % (Auto) (2-4) % Baso % (Auto) (0-2) % Neut # (Auto) (3166-1076) /uL Lymph # (Auto) (1076-5275) /uL [place] # (Auto) (0-900) /uL Eos # (Auto) (0-450) /uL Baso # (Auto) (0-100) /uL PT (10.1-12.7) SECONDS INR (0.9-1.3) APTT (26.4-36.2) SECONDS Sodium 140 (137-145) mmol/L Potassium 3.7 (3.4-5.1) mmol/L Chloride 106 (98-107) mmol/L Carbon Dioxide 25 (22-32) mmol/L BUN 33 H (7-17) mg/dL Creatinine 1.90 H (0.52-1.04) mg/dL Estimated GFR 25.6 L (>60) mL/min BUN/Creatinine Ratio 17.4 (6-22) Glucose 121 H (80-110) mg/dL Lactate 1.4 (0.7-2.1) mmol/L Calcium 9.4 (8.4-10.2) mg/dL Total Bilirubin 0.7 (0.2-1.3) mg/dL AST 22 (14-36) IU/L ALT 13 (<35) IU/L Alkaline Phosphatase 44 (38-126) U/L Total Creatine Kinase 167 H (30-135) U/L CK-MB (CK-2) 1.78 (<2.37) ng/mL CK-MB (CK-2) Rel Index 1.1 L (1.5-5.0) % Troponin I 0.014 (0.01-0.034) ng/mL Total Protein 6.3 (6.3-8.2) g/dL Albumin 3.7 (3.5-5.0) g/dL Globulin 2.6 (1.7-4.1) g/dL Albumin/Globulin Ratio 1.4 (1.0-2.8) Lipase 365 H (23-300) U/L TSH 1.26 (0.47-4.68) uIU/mL Urine Color Urine Appearance Urine pH (4.5-8.0) Ur Specific Startex (1.000-1.035) Urine Protein (Negative) Urine Glucose (UA) (Negative) g/dL Urine Ketones (NEGATIVE) Urine Occult Blood (Negative) Urine Nitrate (Negative) Urine Bilirubin (NEGATIVE) Urine Urobilinogen (0.2) E.U./dL Ur Leukocyte Esterase (NEGATIVE) Urine RBC (0-5/HPF) Urine WBC (0-5/HPF) Urine Bacteria (None) Hyaline Casts (None) Ur Culture Indicated? Imaging Data CT scan - head: Radiologist's impression: [place] [address] CT Scan Report Signed Patient: Ashlie Tolliver [facility]#: [id number] : [id number]:[id number] Age/Sex: 79 / FDate of Service: 07/29/19 Loc: ED Accession Number: [id number] Procedure: CT head/brain wo con Ordering Provider: Chantel Sykes MD PROCEDURE: CT HEAD/BRAIN WO CON INDICATIONS: fall 48 hours ago, increased weakness TECHNIQUE: Noncontrast 4.5 mm thick angled axial sections acquired from the foramen magnum to the vertex, with coronal and sagittal reformats. For radiation dose reduction, the following was used: automated exposure control, adjustment of mA and/or kV according to patient size. COMPARISON: None. FINDINGS: Image quality: Excellent. CSF spaces: Basal cisterns are patent. No extra-axial fluid collections. The ventricles are symmetric in size and shape. Brain: No intracranial bleeds or masses. There is marked cerebral volume loss for age, with resultant ventricular and sulcal prominence. There are marked periventricular and deep white matter chronic small vessel ischemic changes. There is intracranial internal carotid artery atherosclerosis. Skull and face: Calvarium and visualized facial bones appear intact, without suspicious lesions. Sinuses: There is opacification of the left maxillary sinus and mucoperiosteal thickening. Mild right maxillary sinus mucosal thickening. Mucosal thickening is present within the bilateral ethmoid air cells. The mastoid air cells, frontal sinuses, and sphenoid sinuses are clear. IMPRESSION: 1. No acute intracranial findings. 2. Chronic left maxillary sinusitis. 3. Extensive findings likely associated with chronic microvascular ischemic changes. Dictated by: Milagros Rodriguez M.D. on 07/29/2019 at 17:54 Approved by: Milagros Rodriguez M.D. on 07/29/2019 at 17:56 CT Cspine: Radiologist's impression: [place] [address] CT Scan Report Signed Patient: Ashlie Tolliver [facility]#: [id number] : [id number]:[id number] Age/Sex: 79 / FDate of Service: 07/29/19 Loc: ED Accession Number: [id number] Procedure: CT cervical spine wo con Ordering Provider: Chantel Sykes MD PROCEDURE: CT CERVICAL SPINE WO CON INDICATIONS: point tender C5, fall 48hrs ago TECHNIQUE: Noncontrast 3 mm thick sections acquired from the skull base to the T4 level. Sagittal and coronal reformats were then constructed. For radiation dose reduction, the following was used: automated exposure control, adjustment of mA and/or kV according to patient size. COMPARISON: None. FINDINGS: Image quality: Excellent. Bones: No fractures or dislocations. Moderate to severe degenerative changes present throughout the cervical spine including intervertebral disc space narrowing, endplate sclerosis, and osteophytosis. Visualized superior ribs are intact. Soft tissues: Prevertebral soft tissues are normal in thickness. No paravertebral hematomas. No apical pneumothoraces. Atheromatous calcifications are present at the thoracic aortic arch. IMPRESSION: 1. No acute cervical spine injury. 2. Degenerative change. 3. Aortic atherosclerosis. Dictated by: Milagros Rodriguez M.D. on 07/29/2019 at 17:57 Approved by: Milagros Rodriguez M.D. on 07/29/2019 at 17:58 Chest x-ray: Radiologist's impression: [address] [address] XRay Report Signed Patient: Ashlie Tolliver [facility]#: [id number] : 1Acct:[id number] Age/Sex: 79 / FDate of Service: 07/29/19 Loc: ED Accession Number: [id number] Procedure: XR chest 1V Ordering Provider: Chantel Sykes MD PROCEDURE: XR CHEST 1V INDICATIONS: chest pain TECHNIQUE: One view of the chest was acquired. COMPARISON: [facility], CHEST 2 VIEW, 06/20/2009, 11:49. FINDINGS: Surgical changes and devices: None. Lungs and pleura: Lungs are clear. No pleural effusions or pneumothorax. Mediastinum: Mediastinal contours appear normal. Heart size is normal. Bones and chest wall: No suspicious bony lesions. Overlying soft tissues appear unremarkable. IMPRESSION: No acute cardiopulmonary findings. Dictated by: Milagros Rodriguez M.D. on 07/29/2019 at 17:54 Approved by: Milagros Rodriguez M.D. on 07/29/2019 at 17:54 CT scan - abdomen: Radiologist's impression: [address] [address] [address] Scan Report Signed Patient: Ashlie Tolliver [facility]#: [id number] : 1Acct:[id number] Age/Sex: 79 / FDate of Service: 07/29/19 Loc: ED Accession Number: [id number] Procedure: CT kidney ureter bladder (KUB) Ordering Provider: Chantel Sykes MD PROCEDURE: CT KIDNEY URETER BLADDER (KUB) INDICATIONS: Abdominal pain, left lower quadrant pain, fall 48 hours ago. TECHNIQUE: Noncontrast 5 mm thick sections acquired from the diaphragms to the symphysis. 5 mm thick coronal and sagittal reformats were then performed. For radiation dose reduction, the following was used: automated exposure control, adjustment of mA and/or kV according to patient size. COMPARISON: None. FINDINGS: Image quality: Excellent. Lung bases: Lung bases are clear. Heart size is normal. Urinary system: Both kidneys are normal in size. No kidney stones. There is a low density upper pole left renal cyst. No hydronephrosis or perinephric fat stranding. Both ureters appear non-dilated throughout their expected courses. Bladder wall thickness is normal; no calcified bladder stones. Other solid organs: Liver is normal in size. Multiple calcified gallstones are present within the gallbladder fundus, and one gallstone is present within the gallbladder neck. No gallbladder wall thickening or pericholecystic fluid. Pancreas is normal in contours. Spleen is normal in size. No adrenal nodules. Peritoneum and bowel: Stomach is filled with food material. The small bowel demonstrates normal caliber and wall thickness. A moderate amount of stool is present within the ascending colon. The appendix is thin walled. The transverse and descending colon are stool and gas filled. There is massive dilatation of the rectosigmoid region with impacted stool in the distal sigmoid. No pneumoperitoneum or free fluid. Nodes and vessels: No retroperitoneal or mesenteric adenopathy by size criteria. Aorta and inferior vena cava are normal in caliber. There are scattered atheromatous calcifications throughout the aorta and iliac arteries bilaterally. Abdominal wall: No ventral hernias. Pelvis: No free pelvic fluid. No inguinal adenopathy. There is a small fat containing right inguinal hernia. Bones: No suspicious bony lesions. No vertebral body compression fractures. Bilateral hip arthroplasties are grossly intact. IMPRESSION: 1. Findings suggestive of fecal impaction with early upstream obstruction. This finding was discussed with Dr. Fritz at 7:11 PM on 07/29/19. 2. No other acute intra-abdominal findings. Normal appendix. 3. No hydronephrosis, nephrolithiasis, hydroureter, or ureterolithiasis. Dictated by: Milagros Rodriguez M.D. on 07/29/2019 at 19:06 Approved by: Milagros Rodriguez M.D. on 07/29/2019 at 19:12 ECG Data Attestation: I personally reviewed and interpreted this ECG as follows: Prior ECG tracings: available for review Interpretation: Sinus rhythm rate of 92 P are 121 QRS of 102 QTC 392. Nonspecific change. Patient has prior from 12/25/2010. [facility] Narrative Medical decision making narrative: Patient was signed out to myself by Dr. Sykes, HPI was reviewed with patient myself and she was re-examined. She does have some tenderness on exam of the abdomen patient chest and lungs are clear. Head CT, C-spine and chest x-ray are negative. Lab work shows some mild anemia with elevated creatinine and BUN, I do not have prior labs available for comparison. Patient has a mildly elevated lipase, with otherwise normal LFTs. Total CK is 167 with a troponin of 0.014. Urinalysis does not show any acute infection.. Patient went for CT of abdomen pelvis to evaluate for possible infectious process or bowel obstruction in the abdomen as she has had no bowel movement for several days and some moderate abdominal pain. Patient does believe she has been passing flatus but is not sure about the timeline. Patient did have an episode of blood pressure in the 80s prior to my arrival but received fluid pressure appears to have improved to the 120s. Patient's CT shows a large fecal impaction. On rectal exam I'm unable to palpate or feel even after a mineral oil enema. I spoke with Dr. Person, who accepts for observation. Plan at for Colace and MiraLax, normal saline at 150 cc/hour, CBC BMP in the morning. She has some give patient amended 10 mg p.o. x1, we can hold her blood pressure medications and lorazepam 0.5 mg p.o. Q 6 hours as needed anxiety. And a regular high-fiber diet. Discharge Plan Departure Patient Disposition: Admitted as Observation Clinical Impression: Weakness, Acute renal failure Discharge Date/Time: 07/29/19 22:06 Referrals: Kia Person MD [Primary Care Provider] - Admit Date/Time: 07/29/19 21:18 Admit Provider: Kia Person
--- NOTE | 2019-07-29 17:26 | DI.CT.S_ITS ---
PROCEDURE: CT KIDNEY URETER BLADDER (KUB) INDICATIONS: Abdominal pain, left lower quadrant pain, fall 48 hours ago. TECHNIQUE: Noncontrast 5 mm thick sections acquired from the diaphragms to the symphysis. 5 mm thick coronal and sagittal reformats were then performed. For radiation dose reduction, the following was used: automated exposure control, adjustment of mA and/or kV according to patient size. COMPARISON: None. FINDINGS: Image quality: Excellent. Lung bases: Lung bases are clear. Heart size is normal. Urinary system: Both kidneys are normal in size. No kidney stones. There is a low density upper pole left renal cyst. No hydronephrosis or perinephric fat stranding. Both ureters appear non-dilated throughout their expected courses. Bladder wall thickness is normal; no calcified bladder stones. Other solid organs: Liver is normal in size. Multiple calcified gallstones are present within the gallbladder fundus, and one gallstone is present within the gallbladder neck. No gallbladder wall thickening or pericholecystic fluid. Pancreas is normal in contours. Spleen is normal in size. No adrenal nodules. Peritoneum and bowel: Stomach is filled with food material. The small bowel demonstrates normal caliber and wall thickness. A moderate amount of stool is present within the ascending colon. The appendix is thin walled. The transverse and descending colon are stool and gas filled. There is massive dilatation of the rectosigmoid region with impacted stool in the distal sigmoid. No pneumoperitoneum or free fluid. Nodes and vessels: No retroperitoneal or mesenteric adenopathy by size criteria. Aorta and inferior vena cava are normal in caliber. There are scattered atheromatous calcifications throughout the aorta and iliac arteries bilaterally. Abdominal wall: No ventral hernias. Pelvis: No free pelvic fluid. No inguinal adenopathy. There is a small fat containing right inguinal hernia. Bones: No suspicious bony lesions. No vertebral body compression fractures. Bilateral hip arthroplasties are grossly intact. IMPRESSION: 1. Findings suggestive of fecal impaction with early upstream obstruction. This finding was discussed with Dr. Fritz at 7:11 PM on 07/29/19. 2. No other acute intra-abdominal findings. Normal appendix. 3. No hydronephrosis, nephrolithiasis, hydroureter, or ureterolithiasis. Dictated by: Milagros Rodriguez M.D. on 07/29/2019 at 19:06 Approved by: Milagros Rodriguez M.D. on 07/29/2019 at 19:12
[2019-07-29] MEDS: SODIUM CHLORIDE 0.9% 1,000 ML 1000 ML IV (17:34)
[2019-07-29 17:38] LABS: Bacteria Urine None Seen; RBC Urine None Seen (0-5/HPF); WBC Urine None Seen (0-5/HPF)
[2019-07-29 17:45] LABS: Appearance Urine UA CLEAR; Bilirubin Urine UA NEGATIVE (NEGATIVE); Color Urine UA YELLOW; Glucose Urine UA NEGATIVE (Negative); Ketones Urine UA NEGATIVE (NEGATIVE); Leukocyte Esterase Urine UA NEGATIVE (NEGATIVE); Nitrite Urine UA NEGATIVE (Negative); Occult Blood Urine UA NEGATIVE (Negative); Protein Urine UA 1+ (Negative); Specific Gravity Urine UA 1.025 (1.000-1.035); Urobilinogen Urine UA 0.2 E.U./dL (0.2)
--- NOTE | 2019-07-29 17:46 | PC.NURSE ---
pending lab results.
--- NOTE | 2019-07-29 17:47 | PC.NURSE ---
Significant other CHELSEA [phone].
[2019-07-29 17:56] LABS: Culture Indicated Urine Cult Not Indicated; Hyaline Casts Urine 0-1/LPF
[2019-07-29 18:06] LABS: Add Manual Diff / Slide Review NO; Basophils Absolute Auto 0 /uL (0-100); Basophils Percent Auto 0.5 % (0-2); Eosinophils Absolute Auto 200 /uL (0-450); Eosinophils Percent Auto 3.5 % (2-4); Hematocrit 35.6 % (36-46); Hemoglobin 11.9 g/dL (12.0-16.0); Lymphocytes Absolute Auto 900 /uL (1100-4500); Lymphocytes Percent Auto 14.1 % (25-40); Mean Corpuscular HGB Conc 33.4 % (30-36); Mean Corpuscular Volume 92.8 fL (80-100); Monocytes Absolute Auto 600 /uL (0-900); Monocytes Percent Auto 8.9 % (3-14); Neutrophils Absolute Auto 4600 /uL (1500-7000); Platelet Count 144 X10^3/uL (150-400); Red Blood Cell Count 3.83 X10^6/uL (4.0-5.2); Red Cell Distribution Width 13.8 % (11.6-14.8); White Blood Cell Count 6.3 X10^3/uL (4.5-11.0)
[2019-07-29 18:08] LABS: INR 1.1 (0.9-1.3); Prothrombin Time 12.3 SECONDS (10.1-12.7)
[2019-07-29 18:11] LABS: PTT Partial Thromboplastin Tim 31 SECONDS (26.4-36.2)
[2019-07-29 18:13] LABS: Alanine Aminotransferase 13 IU/L (<35); Albumin 3.7 g/dL (3.5-5.0); Albumin Globulin Ratio 1.4 (1.0-2.8); Alkaline Phosphatase 44 U/L (38-126); Aspartate Aminotransferase 22 IU/L (14-36); BUN Creatinine Ratio 17.4 (6-22); Bilirubin Total 0.7 mg/dL (0.2-1.3); Blood Urea Nitrogen 33 mg/dL (7-17); Calcium 9.4 mg/dL (8.4-10.2); Carbon Dioxide 25 mmol/L (22-32); Chloride 106 mmol/L (98-107); Creatine Kinase 167 U/L (30-135); Estimated Glomerular Filt Rate 25.6 mL/min (>60); Globulin 2.6 g/dL (1.7-4.1); Glucose 121 mg/dL (80-110); HEMOLYSIS < 15 (0-50); Lipase 365 U/L (23-300); Potassium 3.7 mmol/L (3.4-5.1); Sodium 140 mmol/L (137-145); Total Protein 6.3 g/dL (6.3-8.2)
[2019-07-29 18:14] LABS: Lactate (Lactic Acid) 1.4 mmol/L (0.7-2.1)
[2019-07-29 18:24] LABS: Troponin I 0.014 ng/mL (0.01-0.034)
[2019-07-29 18:28] LABS: CKMB % Relative Index 1.1 % (1.5-5.0); Creatine Kinase MB 1.78 ng/mL (<2.37)
[2019-07-29] MEDS: MINERAL OIL 1 EACH ENEMA PR (20:16)
--- NOTE | 2019-07-29 20:27 | PC.NURSE ---
patient assisted to her left side by this nurse and LISSA sullivan and 1 mineral oil enema instilled without complications. Patient tolerated procedure very well stating I'm 79 years old, this isn't my first enema. No immediate response, patient placed on bedpan after a few minutes on her left side, no response from bedpan. Staff assisted patient back to bed in a new brief with call light placed close. Patient restated she will use the call light if she feels like she has to or has a bowel movment.
[2019-07-29 20:52] LABS: TSH w/ Reflex to FT4 1.26 uIU/mL (0.47-4.68)
--- NOTE | 2019-07-29 22:39 | PC.ADMIT ---
[id number] Admission Note: The patient,Ashlie Tolliver,79 y/o, was given written information regarding hospital policies, unit procedures and contact persons. Patient's smoking status: Never smoker. Pt arrived at approx 2150 via stretcher from ED. Slider board used to transfer to bed. Skin check completed. Repositioning schedule implemented for pressure injury prevention. Bed pad attempted for void and BM; unsuccessful. Brief placed on. Oriented to room and call system. Med rec unable to be completed at this time as pt does not know her home medications. Bed alarm placed on. Door open for close monitoring and fall prevention. Call light within reach. Vital Signs - 8 hr 07/29/19 16:28 07/29/19 16:30 07/29/19 17:00 Temperature 97.7 F Pulse Rate 87 89 79 Respiratory Rate 19 19 16 Blood Pressure 111/57 L Blood Pressure [Left Arm] 98/53 L 84/38 L Pulse Oximetry 98 95 96 07/29/19 17:46 07/29/19 18:00 07/29/19 18:30 Temperature Pulse Rate 77 81 77 Respiratory Rate 18 18 17 Blood Pressure Blood Pressure [Left Arm] 139/58 L 137/55 L 123/54 L Pulse Oximetry 97 95 96 07/29/19 18:52 07/29/19 20:08 07/29/19 21:02 Temperature Pulse Rate 72 71 71 Respiratory Rate 17 17 21 Blood Pressure Blood Pressure [Left Arm] 126/71 124/53 L 127/67 Pulse Oximetry 97 95 96 07/29/19 21:50 Temperature 98.0 F Pulse Rate 74 Respiratory Rate 18 Blood Pressure 144/65 H Blood Pressure [Left Arm] Pulse Oximetry 96
[2019-07-29] MEDS: POLYETHYLENE GLYCOL 3350 17 GM POWD.PACK PO (22:46)
[2019-07-29] MEDS: DOCUSATE 100 MG CAPSULE PO (22:47)
[2019-07-29] MEDS: SODIUM CHLORIDE 0.9% 1,000 ML 150 ML IV (22:47)
[2019-07-30] VITALS (7 sets, daily range): BP systolic 128–169; BP diastolic 62–88; PULSE 65–74; RESP 15–18; TEMP 36.3–37.4; O2SAT 93–97
[2019-07-30] MEDS: SODIUM CHLORIDE 0.9% 1,000 ML 150 ML IV (05:32)
[2019-07-30 06:15] LABS: Add Manual Diff / Slide Review NO; Basophils Absolute Auto 0 /uL (0-100); Basophils Percent Auto 0.7 % (0-2); Eosinophils Absolute Auto 300 /uL (0-450); Eosinophils Percent Auto 4.7 % (2-4); Hematocrit 33.7 % (36-46); Hemoglobin 11.5 g/dL (12.0-16.0); Lymphocytes Absolute Auto 1200 /uL (1100-4500); Lymphocytes Percent Auto 21.1 % (25-40); Mean Corpuscular HGB Conc 34.2 % (30-36); Mean Corpuscular Hemoglobin 31.5 PG (26-34); Monocytes Absolute Auto 500 /uL (0-900); Monocytes Percent Auto 9.4 % (3-14); Neutrophils Absolute Auto 3500 /uL (1500-7000); Neutrophils Percent Auto 64.1 % (50-75); Platelet Count 139 X10^3/uL (150-400); Red Blood Cell Count 3.66 X10^6/uL (4.0-5.2); Red Cell Distribution Width 13.5 % (11.6-14.8); White Blood Cell Count 5.5 X10^3/uL (4.5-11.0)
[2019-07-30 06:38] LABS: BUN Creatinine Ratio 15.3 (6-22); Blood Urea Nitrogen 23 mg/dL (7-17); Calcium 8.7 mg/dL (8.4-10.2); Carbon Dioxide 24 mmol/L (22-32); Chloride 111 mmol/L (98-107); Estimated Glomerular Filt Rate 33.6 mL/min (>60); Glucose 87 mg/dL (80-110); HEMOLYSIS < 15 (0-50); Potassium 4.3 mmol/L (3.4-5.1); Sodium 141 mmol/L (137-145)
--- NOTE | 2019-07-30 06:38 | PC.NURSE ---
Pt is pleasantly confused. Vitals stable, HTN in the morning. Pt had not voided since coming to hospital; bladder scan was questionable showing 36cc but pt also receiving NS@150mL/hr. Pt attempted to void on bed valencia 4x without success. I straight cathed her at 0300 and got 125cc yellow urine. Abdomen is firm and distended. Bowel tones present. Pt unsure if she is passing gas or not. However she did have two small liquid bowel movements overnight. Tele: NSR T&P q2h; Pt has a healing pressure injury to left buttocks: Stage 1; offloading.
[2019-07-30] MEDS: DOCUSATE 100 MG CAPSULE PO ×2 (08:09→20:26)
[2019-07-30] MEDS: POLYETHYLENE GLYCOL 3350 17 GM POWD.PACK PO ×2 (08:09→20:26)
[2019-07-30] MEDS: MEMANTINE HCL 5 MG TABLET 10 MG PO ×2 (08:18→20:26)
--- NOTE | 2019-07-30 09:57 | PC.NURSE ---
Patient oriented to place, month and situation. Denies pain, One assist with walker and gait belt to bathroom, voided in toilet, missed the collection device but voided a moderate amount. Had large amount of loose BM. Patient assisted to chair, alarm on.
--- NOTE | 2019-07-30 11:42 | PM.HP.1 ---
History of Present Illness History of Present Illness Date Patient Seen: 07/30/19 Time Patient Seen: 11:45 Chief complaint: Weakness Narrative: Patient is well known to me and brought to the ER for evaluation of syncopal episode. She is brought by her significant other who's her caregiver and she lives with. She has a history of moderate to severe dementia as well as hypertension, hypothyroidism. She apparently was outside on and slipped on leaves and fell and hit her head. She has been groggy since. She refused to go to the ER to be evaluated. On the date of admission she was being helped to the bathroom because she has been on steady after the fall and blow to her head and she collapsed in her partners on arms. She was talking a whole time so this was not a true syncopal episode. She did not fall because he was able to catcher and he brought her to the ER for evaluation. She underwent scanning including a CT scan of her head and neck which did not show acute injuries as well as CT scan of her abdomen and pelvis due to abdominal pain and it she was shown to have a fecal impaction. Enemas were given and the ER doctor attempted to manually disimpact but was not able to. She was admitted for further treatment and evaluation. Of note she was seen in the clinic on July 21 for abdominal pain complaints. She was treated for possible UTI/diverticulitis but her symptoms do not improve. She has not had a fever. She has had loose and watery stools and at times incontinence of stool. She has not had any vomiting or nausea but her appetite has been decreased because she is reticent to eat because it causes abdominal distention. Otherwise she has been in her usual state of health with slow continuous progression of her dementia. Past medical history: 1. Hypertension 2. Hypothyroidism 3. Dementia, patient has been on Namenda 10 mg twice daily and Aricept 10 mg daily for over 2 years 4. Reactive airway disease, patient has not used her albuterol for several years 5. Allergic rhinitis 6. Chronic kidney disease stage 3 7. Distant history of breast cancer Medications: Aricept 10 mg daily Levothyroxine 125 mcg daily Losartan 100 mg daily Namenda 10 mg twice daily Vitamin-D a 1000 units once daily Calcium Allergies: Amlodipine, erythromycin, lisinopril which caused cough latex and penicillin Past surgical history Treated for breast cancer Family history: No history of dementia Parents with hypertension No family history of GI problems Diabetes runs in her feet Social history Patient lives with her current partner in [facility]. He is her full-time caregiver. She has 2 daughters, they live nearby and are very engaged in her care Health-related behavior Patient does not smoke and never has on a regular basis. Patient does not use alcohol on a regular basis Patient is not active Patient History Medical History History of breast cancer (Acute) Surgical History History of total mastectomy Family & Social History Social History: household members significant other Prior Living Arrangements House Safety & Behavioral: Feels Safe in Current Yes Environment Been Physically Hurt or No Threatened By a Person Suicidal Ideation Description None Tobacco & Substance use: Smoking Status Never smoker alcohol intake never alcohol intake frequency 0-2 drinks per day Substance Use Type does not use Meds Home Medications and Allergies Home Medications Medication Instructions Recorded Confirmed Type levothyroxine 125 mcg PO DAILY #0 tab 12/25/10 07/30/19 History donepezil 10 mg PO DAILY 07/30/19 07/30/19 History losartan 100 mg PO DAILY 07/30/19 07/30/19 History memantine 10 mg PO BID 07/30/19 07/30/19 History sulfamethoxazole-trimethoprim 1 tab PO BID 07/30/19 07/30/19 History Allergies Allergy/AdvReac Type Severity Reaction Status Date / Time amlodipine Allergy Mild Unverified 11/24/17 12:52 erythromycin base Allergy Mild Unverified 11/24/17 12:52 lisinopril Allergy Mild Unverified 11/24/17 12:52 latex Allergy Unknown Unverified 11/24/17 12:52 Penicillins Allergy Unknown Unverified 11/24/17 12:52 Review of Systems Review of Systems Narrative: Negative for chest pain, palpitation, lightheadedness, dizziness Blood pressures been well controlled No blood in stool Colonoscopy within the last 2 years did not show diverticulosis, was unremarkable She has had weight loss over the last several months that was noticed in the clinic. She has not had any respiratory problems. She has not used albuterol in years. Apparently when she started taking vitamin D she no longer had any problems with her lungs ROS Unobtainable: All systems reviewed & are unremarkable except as noted in HPI and below Exam Vital Signs (past 8 hours): - 07/30/19 04:30 07/30/19 07:20 Temperature 97.8 F 97.5 F L Pulse Rate 71 70 Respiratory Rate 18 18 Blood Pressure 162/75 H 143/62 H Pulse Oximetry 96 95 Oxygen Delivery Method Room Air Oxygen Flow Rate 0 Narrative Exam Narrative: Patient is alert to person and place Vital signs are stable HEENT: Unremarkable, mucous membranes moist and pink without lesions Neck: Supple without adenopathy, thyromegaly, jugular venous distention or bruits Chest: Clear to auscultation without wheezes rhonchi or crackles but prolonged expiratory phase Cor: Regular rate and rhythm with distant S1-S2 Abdomen: Positive bowel sounds with slightly hyperactive bowel sounds with mild left lower quadrant tenderness but no guarding, no rebound Extremities: No edema, pulses intact, small abrasion on her left anterior guerra from her fall. Bruising on her right hand from attempts at IV access Neurologic exam is nonfocal other than poor short-term memory Objective Labs Result Diagrams: 07/30/19 05:55 07/30/19 05:55 Labs: Laboratory Results - last 24 hr 07/29/19 07/29/19 07/29/19 17:37 17:48 17:48 WBC 6.3 RBC 3.83 L Hgb 11.9 L Hct 35.6 L MCV 92.8 MCH 31.0 MCHC 33.4 RDW 13.8 Plt Count 144 L Neut % (Auto) 73.0 Lymph % (Auto) 14.1 L [place] % (Auto) 8.9 Eos % (Auto) 3.5 Baso % (Auto) 0.5 Neut # (Auto) 4600 Lymph # (Auto) 900 L [place] # (Auto) 600 Eos # (Auto) 200 Baso # (Auto) 0 PT 12.3 INR 1.1 APTT 31 Sodium Potassium Chloride Carbon Dioxide BUN Creatinine Estimated GFR BUN/Creatinine Ratio Glucose Lactate Calcium Total Bilirubin AST ALT Alkaline Phosphatase Total Creatine Kinase CK-MB (CK-2) CK-MB (CK-2) Rel Index Troponin I Total Protein Albumin Globulin Albumin/Globulin Ratio Lipase TSH Urine Color Yellow Urine Appearance Clear Urine pH 6.0 Ur Specific [place] 1.025 Urine Protein 1+ H Urine Glucose (UA) Negative Urine Ketones Negative Urine Occult Blood Negative Urine Nitrate Negative Urine Bilirubin Negative Urine Urobilinogen 0.2 Ur Leukocyte Esterase Negative Urine RBC None seen Urine WBC None seen Urine Bacteria None seen Hyaline Casts 0-1/lpf Ur Culture Indicated? Cult not indicated 07/29/19 07/29/19 07/29/19 17:48 17:48 19:05 WBC RBC Hgb Hct MCV MCH MCHC RDW Plt Count Neut % (Auto) Lymph % (Auto) [place] % (Auto) Eos % (Auto) Baso % (Auto) Neut # (Auto) Lymph # (Auto) [place] # (Auto) Eos # (Auto) Baso # (Auto) PT INR APTT Sodium 140 Potassium 3.7 Chloride 106 Carbon Dioxide 25 BUN 33 H Creatinine 1.90 H Estimated GFR 25.6 L BUN/Creatinine Ratio 17.4 Glucose 121 H Lactate 1.4 Calcium 9.4 Total Bilirubin 0.7 AST 22 ALT 13 Alkaline Phosphatase 44 Total Creatine Kinase 167 H CK-MB (CK-2) 1.78 CK-MB (CK-2) Rel Index 1.1 L Troponin I 0.014 Total Protein 6.3 Albumin 3.7 Globulin 2.6 Albumin/Globulin Ratio 1.4 Lipase 365 H TSH 1.26 Urine Color Urine Appearance Urine pH Ur Specific [place] Urine Protein Urine Glucose (UA) Urine Ketones Urine Occult Blood Urine Nitrate Urine Bilirubin Urine Urobilinogen Ur Leukocyte Esterase Urine RBC Urine WBC Urine Bacteria Hyaline Casts Ur Culture Indicated? 07/30/19 07/30/19 05:55 05:55 WBC 5.5 RBC 3.66 L Hgb 11.5 L Hct 33.7 L MCV 92.0 MCH 31.5 MCHC 34.2 RDW 13.5 Plt Count 139 L Neut % (Auto) 64.1 Lymph % (Auto) 21.1 L [place] % (Auto) 9.4 Eos % (Auto) 4.7 H Baso % (Auto) 0.7 Neut # (Auto) 3500 Lymph # (Auto) 1200 [place] # (Auto) 500 Eos # (Auto) 300 Baso # (Auto) 0 PT INR APTT Sodium 141 Potassium 4.3 Chloride 111 H Carbon Dioxide 24 BUN 23 H Creatinine 1.50 H Estimated GFR 33.6 L BUN/Creatinine Ratio 15.3 Glucose 87 Lactate Calcium 8.7 Total Bilirubin AST ALT Alkaline Phosphatase Total Creatine Kinase CK-MB (CK-2) CK-MB (CK-2) Rel Index Troponin I Total Protein Albumin Globulin Albumin/Globulin Ratio Lipase TSH Urine Color Urine Appearance Urine pH Ur Specific [place] Urine Protein Urine Glucose (UA) Urine Ketones Urine Occult Blood Urine Nitrate Urine Bilirubin Urine Urobilinogen Ur Leukocyte Esterase Urine RBC Urine WBC Urine Bacteria Hyaline Casts Ur Culture Indicated? Assessment & Plan Assessment & Plan narrative: 79-year-old female admitted due to fecal impaction Plan will continue with aggressive treatment. We will use mineral oil suppositories and GoLYTELY prep and continue on the stool softener and continue with regular diet. Assessment 2. Syncopal episode. It does not sound like she had a true syncopal episode but certainly may have been a vasovagal due to pain. It is unclear. We will continue telemetry which is been normal. Electrolytes have been normal. We will continue to monitor. We will consult physical therapy. Assessment 3. Hypothyroidism Blood work normal on July 21 in the clinic. Continue the same Assessment 4. Dementia stable Plan: Will watch for ers. Will continue denies of moral 10 mg daily and Namenda 10 mg twice daily Assessment 5. Hypertension Plan: Continue losartan Assessment 6. Chronic kidney disease stage III acute on chronic exacerbation improved from yesterday Plan: Will stop IV fluids and continue to monitor as we restart her losartan next . At this point no evidence of infection. Patient is admitted to the hospital and would expect discharge to home when stable for discharge 65 minutes was spent with patient and discussion with patient's significant other and surgery for treatment of her main problem. Code status is DNR
[2019-07-30] MEDS: LOSARTAN 50 MG TABLET 100 MG PO (12:09)
[2019-07-30] MEDS: LEVOTHYROXINE 125 MCG TABLET PO (12:09)
[2019-07-30] MEDS: MINERAL OIL 1 EACH ENEMA PR (12:09)
[2019-07-30] MEDS: PEG3350/SOD SULF,BICARB,CL/KCL 4,000 ML SOLUTION 4000 ML PO (13:36)
--- NOTE | 2019-07-30 15:09 | PT.IIE ---
Surgical History (Last Reviewed 07/29/19 @ 18:30 by Kimber Fritz DO) History of total mastectomy Medical History (Last Reviewed 07/29/19 @ 18:30 by Kimber Fritz DO) History of breast cancer (Acute) Physical Therapy Inpatient Evaluation/Re-Eval M1 PT/OT-IP Prior Functional Status Start: 07/30/19 13:03 Freq: NEEDED Status: Active Protocol: Document 07/30/19 14:17 AW (Rec: 07/30/19 15:09 AW [id number]) Medical Review Prior Functional Status Medical History Reviewed Yes Communication Pt with dementia at baseline. Poor historian. Mobility and Gait Pt reports use of FWW at all times. OP PT notes indicate recent adoption of FWW for mobility with poor ability to clear obstacles. OP PT suggests pt has improved performance with DISPATCHER TOW TRUCK. Activities of Daily Living and IADL's Significant other, Sina, provides assist with dressing and bathing, occasionally with toileting. Prior Functional Level (Other details) Pt reports she leaves the home infrequently. Social History Household Members significant other Living Arrangements House Number of Floors (Floors) One Floor Number of Stairs To Enter/Railing? 2-3 PAOLA with R rail ascending Home Environment High Toilet,Walk in Shower Home Equipment Front Wheel Walker,Quad Cane, Straight Cane,Grab Bars In Shower Additional Social History Comment Pt lives with her significant other, Sina. He was not present for evaluation. Phone conversation with Sina reveals he provides full-time assist and he denies any limitation in his ability to help. M2 PT-IP Current Condition Start: 07/30/19 13:03 Freq: NEEDED Status: Active Protocol: Document 07/30/19 14:17 AW (Rec: 07/30/19 15:09 AW [id number]) Physical Therapy Current Condition Current Condition Evaluation Date 07/30/19 Treatment Diagnosis weakness, poor balance, difficulty in walking Onset Date past week Precautions Other Precautions dementia Weight Bearing Status Weight Bearing Status Full Weight Bearing M3 PT-IP Subjective Start: 07/30/19 13:03 Freq: NEEDED Status: Active Protocol: Document 07/30/19 14:17 AW (Rec: 07/30/19 15:09 AW [id number]) Subjective Physical Therapy Visit Type Type Initial Evaluation Visit Start Time 13:25 Visit Stop Time 14:14 Total Visit Minutes 49 Notes Pt's friend, Altagracia, present for part of evaluation Number of DRUPAL DEVELOPER Visits 0 Physical Therapy Visit Comments Patient Comments Pt willing to work with PT Patient Goals To go home Therapy Pain Assessment Pain When Pain Assessed During Mobility Pain Present Pain Present Denied Pain M4 PT-IP Mobility and Gait Start: 07/30/19 13:03 Freq: NEEDED Status: Active Protocol: Document 07/30/19 14:17 AW (Rec: 07/30/19 15:09 AW [id number]) PT-Bed Mobility Assessment Supine to Sit Supine to Sit Standby Assistance Scooting Scooting to Edge of Bed Contact Guard Assistance PT-Transfer Assessment Sit to and From Stand Sit to and from Stand Minimal Assistance,1 Person Assistance,Use of Upper Extremities Equipment Transfer Assistive Device Gait Belt,Front Wheeled Walker Orthotic/Prosthetic Devices or Brace: No Transfers Transfer Destination Chair,Toilet Transfer Technique pt ambulated with FWW Transfer Ability Level of Assist Minimal Assistance,1 Person Assistance,Use of Upper Extremities Comments Mobility Comments Pt completed bed mobility SBA with increased time. Scooting toward EOB required CGA due to fair sitting balance with posterior lean. Sit to stand was completed using FWW min A x 1 with pt requiring extensive cues to place hands on the walker once weightbearing. Pt ambulated to the toilet and required max cues for safe transfer due to pt's poor safety awareness, attempting to sit before positioned in front of toilet. Pt able to stand with walker but required assist to manage briefs due to poor balance. Gait Assessment Gait Gait Assistance Required: Minimum Assistance,1 Person Assist Distance (Feet) 30 Able to Maintain Weight Bearing Status Yes During Gait Assistive Devices Assistive Device Gait Belt,Front Wheeled Walker Orthotic/Prosthetic Devices or Brace: No Gait Deviations General Gait Pattern Decreased Stride Length, Decreased Feet Clearance, Festinating,Flexed Trunk Factors Limiting Gait Function Factors Limiting Gait Function Decreased Activity Tolerance, Decreased Strength,Difficulty Following Directions,Poor Balance,Poor Safety Awareness Comments Gait Comments Ashlie ambulated to the toilet min A x 1 with gait notable for short steps and mild festination observed at doorways or changes in princess pattern. Pt required extensive cues for safe use of FWW as she tended to walk outside the frame of the walker when uncued and to leave the walker aside when preparing to transfer. She also presents with significant retropulsive tendencies requiring assist for stability . Ashlie is a high risk for falls with poor safety awareness. Stair Climbing Assessment Comments Stair Climbing Comments Not assessed. PT-Balance Assessment Sitting Balance and Reactions Static Sitting Balance Ability Fair Dynamic Sitting Balance Ability Fair Standing Balance and Reactions Static Standing Balance Ability Poor Dynamic Standing Balance Ability Poor Device Used FWW M5 PT-IP Objective Assessments Start: 07/30/19 13:03 Freq: NEEDED Status: Active Protocol: Document 07/30/19 14:17 AW (Rec: 07/30/19 15:09 AW [id number]) Orientation Orientation/Cognition Level of Alertness Confusional State Orientation Name,Age,Month,Place,Situation Language Function Ability No Deficits Noted Safety Awareness Decreased Safety Awareness Memory Description Short Term Impaired Comments Pt with poor safety awareness, dementia at baseline Gross Range of Motion Upper Extremity ROM Assessment Within Functional Limits Lower Extremity ROM Assessment Within Functional Limits Strength Upper Extremity Strength Assessment Bilaterally Impaired Lower Extremity Strength Assessment Bilaterally Impaired Comments Strength Comments BUE and BLE grossly 4-/5 all major muscle groups. However, MMT difficult to assess due to difficulty following directions. Sensation Assessment Comments Sensation Comments Unable to assess due to pt's poor understanding of testing. M6 PT-IP Treatment Start: 07/30/19 13:03 Freq: NEEDED Status: Active Protocol: Document 07/30/19 14:17 AW (Rec: 07/30/19 15:09 AW [id number]) Physical Therapy Treatment Education Education Provided Precautions,Safety Other Treatments Other Treatment Performed Reviewed PT plan of care, safety in the home, and safe use of FWW. M7 PT-IP Assessment and Plan Start: 07/30/19 13:03 Freq: NEEDED Status: Active Protocol: Document 07/30/19 14:17 AW (Rec: 07/30/19 15:09 AW [id number]) PT Summary Assessment and Plan Potential Rehabilitation Potential Fair Status of Condition at Evaluation Evolving Summary Impairments Strength,Balance,Cognition,Bed Mobility,Transfers,Gait, Activity Tolerance Assessment Summary Ashlie is a 79 yo woman with dementia who was admitted with fecal impaction and report of multiple falls within the past week. She is known to the outpatient PT clinic at this facility where she has been seen for falls history and balance impairments. She reports she uses a FWW for all mobilty, but her SO reports she does best with hand-hold assist. PT notes indicate she may do better with DISPATCHER TOW TRUCK due to poor safety with assistive devices. She lives with her significant other, Sina, who provides assist 24/7 assist at home. On evaluation, Ashlie presents with poor sitting and standing balance, significant retropulsive tendencies, and poor safety awareness with FWW , requiring min assist for ambulation. If discharge plan is for home, pt will require 24/7 assist with all mobility and may benefit from home health services to address safety in the home. If any question about 24/7 assist at home, she may require SNF rehab to address strength and balance deficits and to reduce the likelihood of continued falls. Goals Bed Mobility Goal Independent Transfer Goal Standby Assistance,Front Wheeled Walker Gait Goal Standby Assistance,Front Wheel Walker Gait Distance 75 Other Goals -up/down 3 steps with R rail ascending and DISPATCHER TOW TRUCK transfer and gait goals to be accomplished with FWW, least restrictive assistive device, or DISPATCHER TOW TRUCK Days to Meet Goals 10 Frequency of Treatment Frequency Of Treatment Once a Day Treatment Plan Physical Therapy Treatment Plan Bed Mobility Training,Transfer Training,Gait Training, Therapeutic Exercise,Balance Retraining,Discharge Planning, Neuromuscular Re-ed Other Recommendations and Next Treatment gait training with FWW and Focus with DISPATCHER TOW TRUCK to determine safest option, trial stairs, balance training. Recommendations To Nursing Amount of Assist Needed 1 Person Assist Discharge Recommendations PT Discharge Recommendations Home with 24/7 Assist,Home Health,SNF Rehab Other Discharge Recommendations Home with 24/7 and HH vs SNF. Home is preferable due to pt's cognitive status.
--- NOTE | 2019-07-30 15:40 | CM.DANOTE ---
Discharge Planning/Care Management DCP: assessment: case received, EMR reviewed and met briefly with pt. Her caregiver/partner Sina was not in the room. Introduced self and role. Pt is a 79 year old female who was admitted last night by her PCP: Dr. Person for fecal impaction that failed ER interventions. Admission status: OBS: confirmed by UR KAREN Johnson. Payer: Medicare and [facility]. PT and OT are ordered. Dr. Person has consulted surgeon Dr. Bonner (no note is yet available from him) Pt seems aware that she is here for problems with her bowels. She does confirm that she lives with Sina and he helps her out. Therapy team did speak with him by phone to obtain more information on the home/caregiving situations. Pt does have 2 daughters, listed in EMR, one in [place] and one in [place]. Checked in with KAREN Lewis now as she was going off shift for today. She confirmed that pt was stooling but that Dr. Person indicated that the soft stool was likely going around an impaction far up in the bowel. Medical management including mineral oil enemas and Go-Lytely prep are in progress. DCP team to follow as POC unfolds and assist with d/c issues and options CM Discharge Assessment Start: 07/30/19 15:24 Freq: Status: Active Protocol: Document 07/30/19 15:38 ITV (Rec: 07/30/19 15:39 ITV [id number]) Discharge Planning Assessment Advance Directives? No History Provided By Patient,Medical Record Prior Living Arrangements House Household Members significant other Comment partner/head waiter/waitress banquet caregiver: Sina Boyd: [phone] Is patient alert and oriented? No: dx dementia/unclear how severe Whiteboard Updated in Patient Room with Yes name and ext. # of Aerial Installer Review Status In Process
--- NOTE | 2019-07-30 15:49 | PT.IIE ---
Surgical History (Last Reviewed 07/29/19 @ 18:30 by Kimber Fritz DO) History of total mastectomy Medical History (Last Reviewed 07/29/19 @ 18:30 by Kimber Fritz DO) History of breast cancer (Acute) Physical Therapy Inpatient Evaluation/Re-Eval M1 PT/OT-IP Prior Functional Status Start: 07/30/19 13:03 Freq: NEEDED Status: Active Protocol: Document 07/30/19 14:17 AW (Rec: 07/30/19 15:09 AW [id number]) Medical Review Prior Functional Status Medical History Reviewed Yes Communication Pt with dementia at baseline. Poor historian. Mobility and Gait Pt reports use of FWW at all times. OP PT notes indicate recent adoption of FWW for mobility with poor ability to clear obstacles. OP PT suggests pt has improved performance with PLASTIC WORKER. Activities of Daily Living and IADL's Significant other, Sina, provides assist with dressing and bathing, occasionally with toileting. Prior Functional Level (Other details) Pt reports she leaves the home infrequently. Social History Household Members significant other Living Arrangements House Number of Floors (Floors) One Floor Number of Stairs To Enter/Railing? 2-3 PAOLA with R rail ascending Home Environment High Toilet,Walk in Shower Home Equipment Front Wheel Walker,Quad Cane, Straight Cane,Grab Bars In Shower Additional Social History Comment Pt lives with her significant other, Sina. He was not present for evaluation. Phone conversation with Sina reveals he provides full-time assist and he denies any limitation in his ability to help. M2 PT-IP Current Condition Start: 07/30/19 13:03 Freq: NEEDED Status: Active Protocol: Document 07/30/19 14:17 AW (Rec: 07/30/19 15:09 AW [id number]) Physical Therapy Current Condition Current Condition Evaluation Date 07/30/19 Treatment Diagnosis weakness, poor balance, difficulty in walking Onset Date past week Precautions Other Precautions dementia Weight Bearing Status Weight Bearing Status Full Weight Bearing M3 PT-IP Subjective Start: 07/30/19 13:03 Freq: NEEDED Status: Active Protocol: Document 07/30/19 14:17 AW (Rec: 07/30/19 15:09 AW [id number]) Subjective Physical Therapy Visit Type Type Initial Evaluation Visit Start Time 13:25 Visit Stop Time 14:14 Total Visit Minutes 49 Notes Pt's friend, Altagracia, present for part of evaluation Number of JIG AND FIXTURE REPAIRER Visits 0 Physical Therapy Visit Comments Patient Comments Pt willing to work with PT Patient Goals To go home Therapy Pain Assessment Pain When Pain Assessed During Mobility Pain Present Pain Present Denied Pain M4 PT-IP Mobility and Gait Start: 07/30/19 13:03 Freq: NEEDED Status: Active Protocol: Document 07/30/19 14:17 AW (Rec: 07/30/19 15:09 AW [id number]) PT-Bed Mobility Assessment Supine to Sit Supine to Sit Standby Assistance Scooting Scooting to Edge of Bed Contact Guard Assistance PT-Transfer Assessment Sit to and From Stand Sit to and from Stand Minimal Assistance,1 Person Assistance,Use of Upper Extremities Equipment Transfer Assistive Device Gait Belt,Front Wheeled Walker Orthotic/Prosthetic Devices or Brace: No Transfers Transfer Destination Chair,Toilet Transfer Technique pt ambulated with FWW Transfer Ability Level of Assist Minimal Assistance,1 Person Assistance,Use of Upper Extremities Comments Mobility Comments Pt completed bed mobility SBA with increased time. Scooting toward EOB required CGA due to fair sitting balance with posterior lean. Sit to stand was completed using FWW min A x 1 with pt requiring extensive cues to place hands on the walker once weightbearing. Pt ambulated to the toilet and required max cues for safe transfer due to pt's poor safety awareness, attempting to sit before positioned in front of toilet. Pt able to stand with walker but required assist to manage briefs due to poor balance. Gait Assessment Gait Gait Assistance Required: Minimum Assistance,1 Person Assist Distance (Feet) 30 Able to Maintain Weight Bearing Status Yes During Gait Assistive Devices Assistive Device Gait Belt,Front Wheeled Walker Orthotic/Prosthetic Devices or Brace: No Gait Deviations General Gait Pattern Decreased Stride Length, Decreased Feet Clearance, Festinating,Flexed Trunk Factors Limiting Gait Function Factors Limiting Gait Function Decreased Activity Tolerance, Decreased Strength,Difficulty Following Directions,Poor Balance,Poor Safety Awareness Comments Gait Comments Ashlie ambulated to the toilet min A x 1 with gait notable for short steps and mild festination observed at doorways or changes in princess pattern. Pt required extensive cues for safe use of FWW as she tended to walk outside the frame of the walker when uncued and to leave the walker aside when preparing to transfer. She also presents with significant retropulsive tendencies requiring assist for stability . Ashlie is a high risk for falls with poor safety awareness. Stair Climbing Assessment Comments Stair Climbing Comments Not assessed. PT-Balance Assessment Sitting Balance and Reactions Static Sitting Balance Ability Fair Dynamic Sitting Balance Ability Fair Standing Balance and Reactions Static Standing Balance Ability Poor Dynamic Standing Balance Ability Poor Device Used FWW M5 PT-IP Objective Assessments Start: 07/30/19 13:03 Freq: NEEDED Status: Active Protocol: Document 07/30/19 14:17 AW (Rec: 07/30/19 15:09 AW [id number]) Orientation Orientation/Cognition Level of Alertness Confusional State Orientation Name,Age,Month,Place,Situation Language Function Ability No Deficits Noted Safety Awareness Decreased Safety Awareness Memory Description Short Term Impaired Comments Pt with poor safety awareness, dementia at baseline Gross Range of Motion Upper Extremity ROM Assessment Within Functional Limits Lower Extremity ROM Assessment Within Functional Limits Strength Upper Extremity Strength Assessment Bilaterally Impaired Lower Extremity Strength Assessment Bilaterally Impaired Comments Strength Comments BUE and BLE grossly 4-/5 all major muscle groups. However, MMT difficult to assess due to difficulty following directions. Sensation Assessment Comments Sensation Comments Unable to assess due to pt's poor understanding of testing. M6 PT-IP Treatment Start: 07/30/19 13:03 Freq: NEEDED Status: Active Protocol: Document 07/30/19 14:17 AW (Rec: 07/30/19 15:09 AW [id number]) Physical Therapy Treatment Education Education Provided Precautions,Safety Other Treatments Other Treatment Performed Reviewed PT plan of care, safety in the home, and safe use of FWW. M7 PT-IP Assessment and Plan Start: 07/30/19 13:03 Freq: NEEDED Status: Active Protocol: Document 07/30/19 14:17 AW (Rec: 07/30/19 15:09 AW [id number]) PT Summary Assessment and Plan Potential Rehabilitation Potential Fair Status of Condition at Evaluation Evolving Summary Impairments Strength,Balance,Cognition,Bed Mobility,Transfers,Gait, Activity Tolerance Assessment Summary Ashlie is a 79 yo woman with dementia who was admitted with fecal impaction and report of multiple falls within the past week. She is known to the outpatient PT clinic at this facility where she has been seen for falls history and balance impairments. She reports she uses a FWW for all mobilty, but her SO reports she does best with hand-hold assist. PT notes indicate she may do better with PLASTIC WORKER due to poor safety with assistive devices. She lives with her significant other, Sina, who provides assist 24/7 assist at home. On evaluation, Ashlie presents with poor sitting and standing balance, significant retropulsive tendencies, and poor safety awareness with FWW , requiring min assist for ambulation. If discharge plan is for home, pt will require 24/7 assist with all mobility and may benefit from home health services to address safety in the home. If any question about 24/7 assist at home, she may require SNF rehab to address strength and balance deficits and to reduce the likelihood of continued falls. Goals Bed Mobility Goal Independent Transfer Goal Standby Assistance,Front Wheeled Walker Gait Goal Standby Assistance,Front Wheel Walker Gait Distance 75 Other Goals -up/down 3 steps with R rail ascending and PLASTIC WORKER transfer and gait goals to be accomplished with FWW, least restrictive assistive device, or PLASTIC WORKER Days to Meet Goals 10 Frequency of Treatment Frequency Of Treatment Once a Day Treatment Plan Physical Therapy Treatment Plan Bed Mobility Training,Transfer Training,Gait Training, Therapeutic Exercise,Balance Retraining,Discharge Planning, Neuromuscular Re-ed Other Recommendations and Next Treatment -gait training with FWW and Focus with PLASTIC WORKER to determine safest option -trial stairs -balance training -caregiver training Recommendations To Nursing Amount of Assist Needed 1 Person Assist Discharge Recommendations PT Discharge Recommendations Home with 24/7 Assist,Home Health,SNF Rehab Other Discharge Recommendations Home with 24/7 and HH vs SNF. Home is preferable due to pt's cognitive status.
[2019-07-30] MEDS: DONEPEZIL 5 MG TABLET 10 MG PO (20:26)
[2019-07-30] MEDS: SODIUM CHLORIDE 0.9% FLUSH 10 ML IV (20:32)
--- NOTE | 2019-07-30 23:22 | PC.NURSE ---
Pt alert and oriented x3 but pleasantly confused at times and forgetful. Several times throughout the day trying to get out of bed, pt redirectable. Pt up to bathroom 1PA with FWW. Pt voided in toiled without issues. Incont of stool. Pt started on bowel prep in the afternoon, pt refusing to drink bowel prep at this time. Will continue to encourage. Pt has no complaints at this time.
--- NOTE | 2019-07-30 23:28 | PC.NURSE ---
Pt alert and oriented x3 but pleasantly confused at times and forgetful. Several times throughout the day trying to get out of bed, pt redirectable. Pt up to bathroom 1PA with FWW. Pt voided in toiled without issues. Incont of stool. Pt started on bowel prep in the afternoon, pt drank about 1/3 of golytely and then refusing to continue to drink bowel prep. Will continue to encourage. Pt has no complaints at this time.
[2019-07-31 05:09] VITALS: BP 165/77; PULSE 69; RESP 19; TEMP 36.7; O2SAT 96
[2019-07-31 06:30] LABS: Add Manual Diff / Slide Review NO; Basophils Absolute Auto 0 /uL (0-100); Basophils Percent Auto 0.4 % (0-2); Eosinophils Absolute Auto 200 /uL (0-450); Eosinophils Percent Auto 3.4 % (2-4); Hematocrit 36.4 % (36-46); Hemoglobin 12.4 g/dL (12.0-16.0); Lymphocytes Absolute Auto 1100 /uL (1100-4500); Lymphocytes Percent Auto 18.9 % (25-40); Mean Corpuscular Hemoglobin 31.3 PG (26-34); Monocytes Absolute Auto 500 /uL (0-900); Monocytes Percent Auto 7.8 % (3-14); Neutrophils Absolute Auto 4100 /uL (1500-7000); Neutrophils Percent Auto 69.5 % (50-75); Platelet Count 152 X10^3/uL (150-400); Red Blood Cell Count 3.96 X10^6/uL (4.0-5.2); Red Cell Distribution Width 13.7 % (11.6-14.8); White Blood Cell Count 5.8 X10^3/uL (4.5-11.0)
[2019-07-31 06:32] LABS: Alanine Aminotransferase 12 IU/L (<35); Albumin 3.6 g/dL (3.5-5.0); Albumin Globulin Ratio 1.4 (1.0-2.8); Alkaline Phosphatase 48 U/L (38-126); Aspartate Aminotransferase 25 IU/L (14-36); BUN Creatinine Ratio 13.6 (6-22); Bilirubin Total 0.8 mg/dL (0.2-1.3); Blood Urea Nitrogen 15 mg/dL (7-17); Calcium 9.1 mg/dL (8.4-10.2); Carbon Dioxide 26 mmol/L (22-32); Chloride 107 mmol/L (98-107); Globulin 2.6 g/dL (1.7-4.1); Glucose 100 mg/dL (80-110); HEMOLYSIS < 15 (0-50); Potassium 4.1 mmol/L (3.4-5.1); Sodium 142 mmol/L (137-145); Total Protein 6.2 g/dL (6.3-8.2)
[2019-07-31] MEDS: LEVOTHYROXINE 125 MCG TABLET PO (06:47)
[2019-07-31 07:31] VITALS: BP 130/74; PULSE 69; RESP 16; TEMP 36.9; O2SAT 95
[2019-07-31] MEDS: MEMANTINE HCL 5 MG TABLET 10 MG PO ×2 (08:10→20:17)
[2019-07-31] MEDS: SODIUM CHLORIDE 0.9% FLUSH 10 ML IV ×2 (08:11→20:18)
[2019-07-31] MEDS: DOCUSATE 100 MG CAPSULE PO ×2 (08:11→20:17)
[2019-07-31] MEDS: POLYETHYLENE GLYCOL 3350 17 GM POWD.PACK PO ×2 (08:11→20:17)
[2019-07-31] MEDS: LOSARTAN 50 MG TABLET 100 MG PO (08:11)
[2019-07-31] MEDS: CHOLECALCIFEROL (VITAMIN D3) 1,000 UNIT TABLET 1000 UNIT PO (08:11)
[2019-07-31] MEDS: ENOXAPARIN 30 MG/0.3 ML SYRINGE SUBCUT (08:11)
--- NOTE | 2019-07-31 08:34 | DI.RAD.S_ITS ---
PROCEDURE: XR ABDOMEN 3V INDICATIONS: fecal impaction TECHNIQUE: One view chest and two views of the abdomen were acquired. COMPARISON: None. FINDINGS: Surgical changes and devices: None. Chest: Lungs are clear. Heart size is normal. No pleural effusions. No pneumoperitoneum. Abdomen: Bowel gas pattern is nonobstructive with abundant colonic gas. There are phleboliths in the right lower quadrant. No suspicious calcifications. Visualized solid organ contours appear normal. Bones: No suspicious bony lesions. Bilateral hip arthroplasties. IMPRESSION: Nonspecific nonobstructed bowel gas pattern. Dictated by: Vashti Woodruff M.D. on 07/31/2019 at 10:03 Approved by: Vashti Woodruff M.D. on 07/31/2019 at 10:05
[2019-07-31 11:22] VITALS: BP 137/79; PULSE 68; RESP 18; TEMP 36.5; O2SAT 95
--- NOTE | 2019-07-31 13:04 | P.PN_ITS ---
Subjective Subjective Date Patient Seen: 07/31/19 Time Patient Seen: 13:04 Interval history: Patient had uneventful night. She had 2 large stools that were loose with no formed stool yesterday and again in the evening. She is eating well. She is drinking and fluids. She denies any abdominal pain. She did get up with physical therapy. She has not had any further dizziness, lightheadedness or weakness. She has had no blood in her stool. She has had no nausea or vomiting Review of systems is otherwise negative other than above No breathing problems. No change in cognition. No chest pain Exam Vital Signs (past 8 hours): - 07/31/19 05:09 07/31/19 07:31 07/31/19 11:22 Temperature 98.0 F 98.4 F 97.7 F Pulse Rate 69 69 68 Respiratory Rate 16 18 Blood Pressure 165/77 H 130/74 137/79 Pulse Oximetry 96 95 95 Oxygen Delivery Method Room Air Oxygen Flow Rate 0 Narrative Exam Narrative: Afebrile, vital signs are stable Neck: Supple Chest: Clear to auscultation with prolonged expiratory phase but no wheezes, rhonchi or crackles Cor: Regular rate and rhythm without murmur, distant S1 and S2 Extremities: No edema, pulses intact Abdomen: Positive bowel sounds x4, mild tenderness left lower quadrant but no guarding and no rebound tenderness. Peritoneal signs not present Objective Labs Result Diagrams: 07/31/19 05:55 07/31/19 05:55 Labs: Laboratory Results - last 24 hr 07/31/19 07/31/19 05:55 05:55 WBC 5.8 RBC 3.96 L Hgb 12.4 Hct 36.4 MCV 92.0 MCH 31.3 MCHC 34.0 RDW 13.7 Plt Count 152 Neut % (Auto) 69.5 Lymph % (Auto) 18.9 L [place] % (Auto) 7.8 Eos % (Auto) 3.4 Baso % (Auto) 0.4 Neut # (Auto) 4100 Lymph # (Auto) 1100 [place] # (Auto) 500 Eos # (Auto) 200 Baso # (Auto) 0 Sodium 142 Potassium 4.1 Chloride 107 Carbon Dioxide 26 BUN 15 Creatinine 1.10 H Estimated GFR 48.0 L BUN/Creatinine Ratio 13.6 Glucose 100 Calcium 9.1 Total Bilirubin 0.8 AST 25 ALT 12 Alkaline Phosphatase 48 Total Protein 6.2 L Albumin 3.6 Globulin 2.6 Albumin/Globulin Ratio 1.4 Assessment & Plan Assessment & Plan narrative: 79-year-old female admitted for possible syncopal episode found to have fecal impaction with still only liquid stool. Please see CT scan which shows large amount of stool diffusely through the colon including impaction and the left sigmoid colon. Will continue with GoLYTELY prep Will give mineral oil Fleet. Will do a three view x-ray. Continue with oral fluids and on diet Get more significant formed stool then we will repeat CT scan of the abdomen tomorrow. Assessment 2. Dementia stable despite hospitalization Plan: Continue denies a pro and memantine Assessment 3. Hypertension, well controlled Plan: Continue on the same losartan Assessment 4. Chronic kidney disease with exacerbation, improved Plan: Continue to monitor. Continue with p.o. fluids. Will watch closely as we reinstituted losartan Assessment 5. DVT prophylaxis Plan continue on the Lovenox
--- NOTE | 2019-07-31 13:07 | PC.NURSE ---
Patient had one moderate amount of liquid brown stool, no formed stool seen, Dr Person aware, order to give another mineral oil enema. Patient denies pain and nausea.
[2019-07-31] MEDS: MINERAL OIL 1 EACH ENEMA PR (13:22)
[2019-07-31 16:20] VITALS: BP 107/69; PULSE 66; RESP 17; TEMP 36.6; O2SAT 94
[2019-07-31 20:00] VITALS: BP 118/70; PULSE 65; RESP 16; TEMP 36.6; O2SAT 96
[2019-07-31] MEDS: DONEPEZIL 5 MG TABLET 10 MG PO (20:17)
[2019-08-01] VITALS (7 sets, daily range): BP systolic 127–176; BP diastolic 77–99; PULSE 63–96; RESP 16–18; TEMP 36.4–36.8; O2SAT 96–98
--- NOTE | 2019-08-01 00:14 | PC.NURSE ---
Addendum entered by Claudine Magaña R.N. 08/01/19 06:21: Has had 2 stools this shift both of which were loose but not watery. Denies any pain. Original Note: Patient is oriented to self, birthday, place, month and situation. Has dementia and relates that she has a difficult time remembering. Breath sounds diminished but CTA with RA sat of 97%. HRR; last telemetry reading was SR. BP elevated at 154/79. Denies nausea. Up to bathroom with walker and 2 assists and does seem weak. States she is initially dizzy when first sitting up. Has been having liquid stools related to bowel meds and fecal impaction she was admitted with. Able to void in toilet but was also incontinent of urine. Bruising noted to bilateral UE and coccyx (reports coccyx bruise is from fall at home). Stage 1 pressure injury to left inner buttock noted. Abrasion on left anterior lower leg without signs of infection. Denies pain. Fall risk score is high and bed alarm is activated.
[2019-08-01] MEDS: LEVOTHYROXINE 125 MCG TABLET PO (05:50)
[2019-08-01 07:45] LABS: Add Manual Diff / Slide Review NO; Basophils Absolute Auto 0 /uL (0-100); Basophils Percent Auto 0.7 % (0-2); Eosinophils Absolute Auto 200 /uL (0-450); Eosinophils Percent Auto 4.2 % (2-4); Hematocrit 37.6 % (36-46); Hemoglobin 12.6 g/dL (12.0-16.0); Lymphocytes Absolute Auto 1200 /uL (1100-4500); Lymphocytes Percent Auto 26.6 % (25-40); Mean Corpuscular HGB Conc 33.5 % (30-36); Mean Corpuscular Hemoglobin 30.9 PG (26-34); Mean Corpuscular Volume 92.4 fL (80-100); Monocytes Absolute Auto 400 /uL (0-900); Neutrophils Absolute Auto 2800 /uL (1500-7000); Neutrophils Percent Auto 59.5 % (50-75); Platelet Count 157 X10^3/uL (150-400); Red Blood Cell Count 4.06 X10^6/uL (4.0-5.2); Red Cell Distribution Width 13.4 % (11.6-14.8); White Blood Cell Count 4.7 X10^3/uL (4.5-11.0)
[2019-08-01 07:58] LABS: Alanine Aminotransferase 13 IU/L (<35); Albumin 3.5 g/dL (3.5-5.0); Albumin Globulin Ratio 1.4 (1.0-2.8); Alkaline Phosphatase 46 U/L (38-126); Aspartate Aminotransferase 23 IU/L (14-36); BUN Creatinine Ratio 10.9 (6-22); Bilirubin Total 0.6 mg/dL (0.2-1.3); Blood Urea Nitrogen 12 mg/dL (7-17); Calcium 9.2 mg/dL (8.4-10.2); Carbon Dioxide 29 mmol/L (22-32); Chloride 104 mmol/L (98-107); Globulin 2.5 g/dL (1.7-4.1); Glucose 86 mg/dL (80-110); HEMOLYSIS < 15 (0-50); Potassium 3.7 mmol/L (3.4-5.1); Sodium 139 mmol/L (137-145)
[2019-08-01] MEDS: SODIUM CHLORIDE 0.9% FLUSH 10 ML IV (09:14)
[2019-08-01] MEDS: ENOXAPARIN 40 MG/0.4 ML SYRINGE SUBCUT (09:26)
[2019-08-01] MEDS: CHOLECALCIFEROL (VITAMIN D3) 1,000 UNIT TABLET 1000 UNIT PO (09:27)
[2019-08-01] MEDS: DOCUSATE 100 MG CAPSULE PO ×2 (09:27→20:32)
[2019-08-01] MEDS: MEMANTINE HCL 5 MG TABLET 10 MG PO ×2 (09:27→20:32)
[2019-08-01] MEDS: POLYETHYLENE GLYCOL 3350 17 GM POWD.PACK PO ×2 (09:27→20:32)
[2019-08-01] MEDS: LOSARTAN 50 MG TABLET 100 MG PO (09:28)
--- NOTE | 2019-08-01 10:22 | DI.CT.S_ITS ---
PROCEDURE: CT ABDOMEN PELVIS W CON INDICATIONS: fecal impaction TECHNIQUE: After the administration of oral and intravenous contrast, 5 mm thick sections acquired from the diaphragms to the symphysis. 5 mm thick coronal and sagittal reformats were performed. For radiation dose reduction, the following was used: automated exposure control, adjustment of mA and/or kV according to patient size. COMPARISON: [facility], CT, CT KIDNEY URETER BLADDER (KUB), 07/29/2019, 18:18. [facility], CT, THORAX WITHOUT CONTRAST, 07/23/2009, 9:19. FINDINGS: Image quality: Excellent. ABDOMEN: Lung bases: No acute consolidation however presumed mild focal scarring/atelectasis seen in the left sulcus image 6/, technically non-specific. Heart size is normal. Solid organs: Liver is normal in size and enhancement. Gallbladder contains numerous large gallstones are no definite gallbladder wall thickening or pericholecystic inflammation. Biliary system is non-dilated. Pancreas enhances normally. Spleen is normal in size, although there are some 5 mm hypodensities presumed cysts or small hemangiomas, technically nonspecific No adrenal nodules. Bilateral renal cortical scarring and thinning/atrophy. Simple appearing left parapelvic cyst. No hydronephrosis. Peritoneum and bowel: No evidence of bowel obstruction. No specific transition point. There is circumferential possible rectal wall thickening however the area is partially obscured by severe streak artifact from bilateral hip arthroplasties. Incidental colonic diverticula noted. Moderate stool. No free fluid or air. Normal appendix. Nodes and vessels: No retroperitoneal or mesenteric adenopathy. Aorta and inferior vena cava are normal in caliber. Miscellaneous: No ventral hernias. PELVIS: Genitourinary: Bladder wall thickness is normal. Miscellaneous: No inguinal hernias or adenopathy. Bones: No suspicious bony lesions. No vertebral body compression fractures. IMPRESSION: Possible circumferential distal sigmoid and rectal wall thickening although obscured by streak artifact from hardware. Recommend clinical correlation and if necessary lower endoscopy to exclude neoplasm, versus other possible infectious or inflammatory proctocolitis. Moderate stool No bowel obstruction Normal appendix Cholelithiasis Additional chronic and incidental findings as above. Dictated by: Josue Sue M.D. on 08/01/2019 at 11:55 Approved by: Josue Sue M.D. on 08/01/2019 at 12:03
--- NOTE | 2019-08-01 10:36 | PT.IPTN ---
Physical Therapy Treatment Note M2 PT-IP Current Condition Start: 07/30/19 13:03 Freq: NEEDED Status: Active Protocol: Document 07/30/19 14:17 AW (Rec: 07/30/19 15:09 AW [id number]) Physical Therapy Current Condition Current Condition Evaluation Date 07/30/19 Treatment Diagnosis weakness, poor balance, difficulty in walking Onset Date past week Precautions Other Precautions dementia Weight Bearing Status Weight Bearing Status Full Weight Bearing M3 PT-IP Subjective Start: 07/30/19 13:03 Freq: NEEDED Status: Active Protocol: Document 08/01/19 10:21 CLB (Rec: 08/01/19 13:21 CLB [id number]) Subjective Physical Therapy Visit Type Type Treatment Note Visit Start Time 10:21 Visit Stop Time 10:36 Total Visit Minutes 15 Number of SENIOR ENTERPRISE ARCHITECT Visits 1 Physical Therapy Visit Comments Patient Comments Pt willing to work with PT Therapy Pain Assessment Pain When Pain Assessed During Mobility Pain Present Pain Present Denied Pain M4 PT-IP Mobility and Gait Start: 07/30/19 13:03 Freq: NEEDED Status: Active Protocol: Document 08/01/19 10:21 CLB (Rec: 08/01/19 13:21 CLB [id number]) PT-Bed Mobility Assessment Supine to Sit Supine to Sit Standby Assistance Scooting Scooting to Edge of Bed Standby Assistance PT-Transfer Assessment Sit to and From Stand Sit to and from Stand Contact Guard Assistance,1 Person Assistance,Use of Upper Extremities Equipment Transfer Assistive Device Gait Belt,Front Wheeled Walker Orthotic/Prosthetic Devices or Brace: No Transfers Transfer Destination Bed,Wheelchair Transfer Ability Level of Assist Minimal Assistance,1 Person Assistance,Use of Upper Extremities Comments Mobility Comments Pt required SBA sup-sit and scooting to EOB. Pt needed CGA sit-stand and cues for hand placement during stand-sit. Gait Assessment Gait Gait Assistance Required: Minimum Assistance,1 Person Assist Distance (Feet) 30 Able to Maintain Weight Bearing Status Yes During Gait Assistive Devices Assistive Device Gait Belt,Front Wheeled Walker Orthotic/Prosthetic Devices or Brace: No Gait Deviations General Gait Pattern Decreased Stride Length, Decreased Feet Clearance, Festinating,Flexed Trunk,Wide Based Gait Factors Limiting Gait Function Factors Limiting Gait Function Decreased Activity Tolerance, Decreased Strength,Difficulty Following Directions,Poor Balance,Poor Safety Awareness Comments Gait Comments Pt ambulated in room ~30ft with Min A and cues to keep walker close and walker managment. Pt required cues to keep walker close while backing up to sit in WC. Stair Climbing Assessment Comments Stair Climbing Comments Not assessed. M5 PT-IP Objective Assessments Start: 07/30/19 13:03 Freq: NEEDED Status: Active Protocol: Document 07/30/19 14:17 AW (Rec: 07/30/19 15:09 AW [id number]) Orientation Orientation/Cognition Level of Alertness Confusional State Orientation Name,Age,Month,Place,Situation Language Function Ability No Deficits Noted Safety Awareness Decreased Safety Awareness Memory Description Short Term Impaired Comments Pt with poor safety awareness, dementia at baseline Gross Range of Motion Upper Extremity ROM Assessment Within Functional Limits Lower Extremity ROM Assessment Within Functional Limits Strength Upper Extremity Strength Assessment Bilaterally Impaired Lower Extremity Strength Assessment Bilaterally Impaired Comments Strength Comments BUE and BLE grossly 4-/5 all major muscle groups. However, MMT difficult to assess due to difficulty following directions. Sensation Assessment Comments Sensation Comments Unable to assess due to pt's poor understanding of testing. M6 PT-IP Treatment Start: 07/30/19 13:03 Freq: NEEDED Status: Active Protocol: Document 07/30/19 14:17 AW (Rec: 07/30/19 15:09 AW [id number]) Physical Therapy Treatment Education Education Provided Precautions,Safety Other Treatments Other Treatment Performed Reviewed PT plan of care, safety in the home, and safe use of FWW. M7 PT-IP Assessment and Plan Start: 07/30/19 13:03 Freq: NEEDED Status: Active Protocol: Document 08/01/19 10:21 CLB (Rec: 08/01/19 13:21 CLB [id number]) PT Summary Assessment and Plan Summary Impairments Strength,Balance,Cognition,Bed Mobility,Transfers,Gait, Activity Tolerance Assessment Summary Pt alert during tx session and was able to perform bed mobility SBA, sit-stand CGA then requires Min A and max cues for walker use and management during gait. Session was cut short as pt needed to leave floor for CT scan. Goals Bed Mobility Goal Independent Transfer Goal Standby Assistance,Front Wheeled Walker Gait Goal Standby Assistance,Front Wheel Walker Gait Distance 75 Other Goals -up/down 3 steps with R rail ascending and DRESSMAKER HELPER transfer and gait goals to be accomplished with FWW, least restrictive assistive device, or DRESSMAKER HELPER Days to Meet Goals 10 Frequency of Treatment Frequency Of Treatment Once a Day Treatment Plan Physical Therapy Treatment Plan Bed Mobility Training,Transfer Training,Gait Training, Therapeutic Exercise,Balance Retraining,Discharge Planning, Neuromuscular Re-ed Other Recommendations and Next Treatment -gait training with FWW and Focus with DRESSMAKER HELPER to determine safest option -trial stairs -balance training -caregiver training Recommendations To Nursing Amount of Assist Needed 1 Person Assist Discharge Recommendations PT Discharge Recommendations Home with / Assist,Home Health,SNF Rehab
--- NOTE | 2019-08-01 13:22 | PC.NURSE ---
Addendum entered by Nakita Melendez R.N. 08/01/19 13:29: per Dr. Person verbal order at 1330, hold prn enema until Dr. Cook consult. Original Note: Day Shift- Spoke with Dr. Person via phone at 0815, plan for follow up ABD CT scan. 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 Okay to have Go-lytely and prn enema. Pt had approx 400mls of oral contrast prior to CT scan at 1035 and back at 1055. Pt OOB to chair for lunch. Pt had approx 200mls of go-lytely Per Dr. Person at 1322, discontinue Telemetry monitoring. Clears for now, awaiting Dr. Cook consult. Pt disoriented to date only, forgetful, follows direction, appropriate. High fall risk precautions in place, bed/chair alarm on. PIV cannula kinked and infiltrated. Removed. CHRISTINE Mar consulted and midline was placed to RITESH.
--- NOTE | 2019-08-01 13:28 | P.PN_ITS ---
Subjective Subjective Date Patient Seen: 08/01/19 Time Patient Seen: 13:28 Interval history: Patient had uneventful night. She slept well. She is doing fine ambulating in room but difficulty following command with the walker. No lightheadedness or dizziness or presyncope or syncope. no nausea or vomiting, tolerating full diet without any difficulty. She still having loose stools. She is drinking the GoLYTELY but his chcf through Pap. Still having multiple loose stools. No blood in her stool. Some mild left lower quadrant pain and cramping. No fevers. No shortness of breath. No headaches Review of systems otherwise negative Exam Vital Signs (past 8 hours): - 08/01/19 07:39 08/01/19 11:00 Temperature 98.0 F 98 F Pulse Rate 66 96 H Respiratory Rate 16 18 Blood Pressure 172/99 H 176/98 H Pulse Oximetry 96 96 Oxygen Delivery Method Room Air Oxygen Flow Rate 0 Narrative Exam Narrative: Afebrile, blood pressure elevated this morning. She'd not received her losartan. She is alert and oriented to person and place HEENT unremarkable Neck: Supple without adenopathy or masses or jugular venous distention Chest: Clear to auscultation without wheezes rhonchi or crackles Cor: Regular rate and rhythm with distant S1-S2 Abdomen: Positive bowel sounds, soft, nontender, nondistended, no hepatosplenomegaly Extremities: No edema, pulses intact Objective Labs Result Diagrams: 08/01/19 07:30 08/01/19 07:30 Labs: Laboratory Results - last 24 hr 08/01/19 08/01/19 07:30 07:30 WBC 4.7 RBC 4.06 Hgb 12.6 Hct 37.6 MCV 92.4 MCH 30.9 MCHC 33.5 RDW 13.4 Plt Count 157 Neut % (Auto) 59.5 Lymph % (Auto) 26.6 [place] % (Auto) 9.0 Eos % (Auto) 4.2 H Baso % (Auto) 0.7 Neut # (Auto) 2800 Lymph # (Auto) 1200 [place] # (Auto) 400 Eos # (Auto) 200 Baso # (Auto) 0 Sodium 139 Potassium 3.7 Chloride 104 Carbon Dioxide 29 BUN 12 Creatinine 1.10 H Estimated GFR 48.0 L BUN/Creatinine Ratio 10.9 Glucose 86 Calcium 9.2 Total Bilirubin 0.6 AST 23 ALT 13 Alkaline Phosphatase 46 Total Protein 6.0 L Albumin 3.5 Globulin 2.5 Albumin/Globulin Ratio 1.4 Assessment & Plan Assessment & Plan narrative: 79-year-old female admitted for syncopal episode which really turns out probably not a syncopal episode patient did not have loss of consciousness. She has been on telemetry for over 48 hours and has not had any evidence of a arrhythmia We will discontinue the arrhythmia. Suspect reason for episode was poor nutrition due to abdominal complaints and generalized weakness. Continue with physical therapy. Assessment 2. Fecal impaction. Patient has had mineral oil enemas and has had GoLYTELY prep half of this. She is still having loose stools. She is eating and tolerating food without difficulty. A repeat CT scan was performed and there is now less tool with question of a circumferential process at the rectosigmoid junction which may be in fact causing the back up in the stool. Concern for possible infection or inflammatory or cancer is the etiology. I discussed this with Dr. Sue and have left a message with Dr. Cook to discuss possible sigmoidoscopy to evaluate this area. At this point we will do clear liquids in hold on enemas until I discussed with Dr. hammer. Assessment 3. Hypertension worsened this morning but had not received losartan Plan: Continue on losartan. Continue to monitor Assessment 4. Dementia stable no acute issues Plan: Continue on Namenda and Aricept Assessment 5. Chronic kidney disease with acute exacerbation improved. Patient is not receiving IV fluids. Plan will follow Assessment 6. DVT prophylaxis Plan: Continue on Lovenox
--- NOTE | 2019-08-01 17:24 | P.CONS_ITS ---
History of Present Illness Consult details Date Patient Seen: 08/01/19 Time Patient Seen: 17:30 Chief complaint: Weakness Reason for consult: Sigmoid colon thickening on CT scan Requesting provider: Kia Person Narrative: This is a 79 yo woman admitted after a slip and fall. CT of her abdomen showed fecal impaction on the day of admission. Repeat scan today showed thickening of rectum. She denies abdominal pain, bloating or constipation. She denies blood in the stool. Her last colonoscopy was about 9 years ago, and was reportedly normal. [facility] Medical History History of breast cancer (Acute) Surgical History History of total mastectomy Social History household members: significant other Smoking Status: Never smoker alcohol intake: never Meds Home Medications and Allergies Home Medications Medication Instructions Recorded Confirmed Type levothyroxine 125 mcg PO DAILY #0 tab 12/25/10 07/30/19 History donepezil 10 mg PO DAILY 07/30/19 07/30/19 History losartan 100 mg PO DAILY 07/30/19 07/30/19 History memantine 10 mg PO BID 07/30/19 07/30/19 History sulfamethoxazole-trimethoprim 1 tab PO BID 07/30/19 07/30/19 History Allergies Allergy/AdvReac Type Severity Reaction Status Date / Time amlodipine Allergy Mild Verified 08/01/19 09:13 erythromycin base Allergy Mild Verified 08/01/19 09:13 lisinopril Allergy Mild Verified 08/01/19 09:13 latex Allergy Unknown Verified 08/01/19 09:13 Penicillins Allergy Unknown Verified 08/01/19 09:13 Review of Systems Review of Systems Narrative: Constitutional: denies insomnia, weakness, fevers Eyes: denies blurry vision, headaches Cardiovascular: denies chest pain Respiratory: denies SOB GI: no nausea or vomiting, tolerating full diet without any difficulty. multiple loose stools; denies abdominal pain, melena, hematochezia, bloating MSK: ambulates in room; difficulty with walker ROS otherwise negative Exam Vital Signs (past 8 hours): - 08/01/19 11:00 08/01/19 13:39 08/01/19 15:20 Temperature 98 F 97.7 F Pulse Rate 96 H Respiratory Rate 18 16 Blood Pressure 176/98 H 144/77 H 127/80 Pulse Oximetry 96 Oxygen Delivery Method Room Air Oxygen Flow Rate 0 Narrative Exam Narrative: General: Appears stated age; Alert and oriented to self and situation HEENT unremarkable Neck: Supple without adenopathy or masses or jugular venous distention Chest: Non tachypneic; breathing comfortably on room air CV: NSR, normotensive Abdomen: soft, nontender, nondistended, no hepatosplenomegaly Extremities: No edema, pulses intact Neuro: no focal deficits, CN grossly intact Skin: scattered ecchymoses; larege echymosis on dorsum of right hand Objective Imaging CT scan - abdomen: Radiologist's impression: [address] [address] [address] Scan Report Signed Patient: Ashlie Tolliver IMR#: [id number] : [id number] Age/Sex: 79 / FDate of Service: 08/01/19 Loc: WG281-4 Accession Number: [id number] Procedure: CT abdomen pelvis w con Ordering Provider: Kia Person MD PROCEDURE: CT ABDOMEN PELVIS W CON INDICATIONS: fecal impaction TECHNIQUE: After the administration of oral and intravenous contrast, 5 mm thick sections a cquired from the diaphragms to the symphysis. 5 mm thick coronal and sagittal reformats were performed. For radiation dose reduction, the following was used: automated exposure control, adjustment of mA and/or kV according to patient size. COMPARISON: [facility], CT, CT KIDNEY URETER BLADDER (KUB), 07/29/2019, 18:18. [facility], CT, THORAX WITHOUT CONTRAST, 07/23/2009, 9:19. FINDINGS: Image quality: Excellent. ABDOMEN: Lung bases: No acute consolidation however presumed mild focal scarring/atelectasis seen in the left sulcus image 6/3, technically non-specific. Heart size is normal. Solid organs: Liver is normal in size and enhancement. Gallbladder contains numerous large gallstones are no definite gallbladder wall thickening or pericholecystic inflammation. Biliary system is non-dilated. Pancreas enhances normally. Spleen is normal in size, although there are some 5 mm hypodensities presumed cysts or small hemangiomas, technically nonspecific No adrenal nodules. Bilateral renal cortical scarring and thinning/atrophy. Simple appearing left parapelvic cyst. No hydronephrosis. Peritoneum and bowel: No evidence of bowel obstruction. No specific transition point. There is circumferential possible rectal wall thickening however the area is partially obscured by severe streak artifact from bilateral hip arthroplasties. Incidental colonic diverticula noted. Moderate stool. No free fluid or air. Normal appendix. Nodes and vessels: No retroperitoneal or mesenteric adenopathy. Aorta and inferior vena cava are normal in caliber. Miscellaneous: No ventral hernias. PELVIS: Genitourinary: Bladder wall thickness is normal. Miscellaneous: No inguinal hernias or adenopathy. Bones: No suspicious bony lesions. No vertebral body compression fractures. IMPRESSION: Possible circumferential distal sigmoid and rectal wall thickening although obscured by streak artifact from hardware. Recommend clinical correlation and if necessary lower endoscopy to exclude neoplasm, versus other possible infectious or inflammatory proctocolitis. Moderate stool No bowel obstruction Normal appendix Cholelithiasis Additional chronic and incidental findings as above. Labs Result Diagrams: 08/01/19 07:30 08/01/19 07:30 Labs: Laboratory Results - last 24 hr 08/01/19 08/01/19 07:30 07:30 WBC 4.7 RBC 4.06 Hgb 12.6 Hct 37.6 MCV 92.4 MCH 30.9 MCHC 33.5 RDW 13.4 Plt Count 157 Neut % (Auto) 59.5 Lymph % (Auto) 26.6 [place] % (Auto) 9.0 Eos % (Auto) 4.2 H Baso % (Auto) 0.7 Neut # (Auto) 2800 Lymph # (Auto) 1200 [place] # (Auto) 400 Eos # (Auto) 200 Baso # (Auto) 0 Sodium 139 Potassium 3.7 Chloride 104 Carbon Dioxide 29 BUN 12 Creatinine 1.10 H Estimated GFR 48.0 L BUN/Creatinine Ratio 10.9 Glucose 86 Calcium 9.2 Total Bilirubin 0.6 AST 23 ALT 13 Alkaline Phosphatase 46 Total Protein 6.0 L Albumin 3.5 Globulin 2.5 Albumin/Globulin Ratio 1.4 Assessment & Plan Assessment and plan (1) Weakness: Current visit: Yes Status: Acute (2) Acute renal failure: Current visit: Yes Status: Acute (3) Hypothyroidism (acquired): Current visit: Yes Status: Acute (4) Dementia: Current visit: Yes Status: Acute (5) Abnormal CT of the abdomen: Current visit: Yes Status: Acute Assessment & Plan narrative: 79 yo woman with rectal thickening seen on follow up CT scan. Endoscopy requested due to patient's frailty and fecal impaction seen on initial CT scan. Risks and benefits of diagnostic colonoscopy were discussed with the patient and Dr. Person. We will plan to proceed with bowel prep tonight, and colonoscopy tomorrow. Recommendations: Complete Golyetly bowel prep Can take other clear liquids by mouth until 12AM. IV fluid maintenance hold DVT ppx ok to take AM meds with a sip of water Plan on colonoscopy in [place] early afternoon Time Spent With Patient Time with patient: 25 - 35 minutes
[2019-08-01] MEDS: SODIUM CHLORIDE 0.45% 1,000 ML 100 ML IV (17:43)
[2019-08-01] MEDS: DONEPEZIL 5 MG TABLET 10 MG PO (20:32)
[2019-08-01] MEDS: PEG3350/SOD SULF,BICARB,CL/KCL 4,000 ML SOLUTION 4000 ML PO (22:58)
[2019-08-02] VITALS (12 sets, daily range): BP systolic 123–198; BP diastolic 78–112; PULSE 66–123; RESP 14–18; TEMP 35.9–37; O2SAT 93–98
--- NOTE | 2019-08-02 03:05 | PC.NURSE ---
Addendum entered by Claudine Magaña R.N. 08/02/19 06:06: Has been up multiple times to [facility] tonight. Last couple stools have been clear liquid. Denies any pain. Original Note: Patient is alert but confused to date. Can be impulsive and forgetful. Breath sounds CTA with RA sat of 93%. HRR with BP of 141/86. Denies nausea except when drinking Go-Lytely bowel prep; only would take in 1300cc and then refused to drink more even though last stool was still yellow in color. BT present and abdomen is soft. Is incontinent of B&B; stools have been liquid. Is able to move self in bed. Needs to have 1 assist + walker to [facility] due to weakness. Stage 1 pressure ulcer left inner buttock remains unchanged. Bruises to bilateral UE and coccyx. Abrasion to left anterior lower leg. NPO for planned colonoscopy later today. Fall risks score is high and bed alarm is activated.
[2019-08-02] MEDS: SODIUM CHLORIDE 0.45% 1,000 ML 100 ML IV (04:07)
[2019-08-02] MEDS: LEVOTHYROXINE 125 MCG TABLET PO (05:55)
--- NOTE | 2019-08-02 10:08 | PT.IPTN ---
Current Diagnoses Hypothyroidism, unspecified (08/01/19) Unspecified dementia without behavioral disturbance (08/01/19) Fecal impaction (08/01/19) Acute kidney failure, unspecified (08/01/19) Weakness (08/01/19) Abnormal findings on diagnostic imaging of other abdominal regions, including retroperitoneum (08/01/19) Surgery Performed Operation Date: 08/02/19 13:00 <No data on this case meets the specified criteria> Physical Therapy Treatment Note M2 PT-IP Current Condition Start: 07/30/19 13:03 Freq: NEEDED Status: Active Protocol: Document 07/30/19 14:17 AW (Rec: 07/30/19 15:09 AW [id number]) Physical Therapy Current Condition Current Condition Evaluation Date 07/30/19 Treatment Diagnosis weakness, poor balance, difficulty in walking Onset Date past week Precautions Other Precautions dementia Weight Bearing Status Weight Bearing Status Full Weight Bearing M3 PT-IP Subjective Start: 07/30/19 13:03 Freq: NEEDED Status: Active Protocol: Document 08/02/19 10:02 AMB (Rec: 08/02/19 10:08 AMB [email or web address]) Subjective Physical Therapy Visit Type Type Treatment Note Visit Start Time 09:40 Visit Stop Time 10:00 Total Visit Minutes 20 Number of MORNING BABYSITTER Visits 0 Physical Therapy Visit Comments Patient Comments Pt needs to use the bathroom Therapy Pain Assessment Pain When Pain Assessed During Mobility Pain Present Pain Present Denied Pain M4 PT-IP Mobility and Gait Start: 07/30/19 13:03 Freq: NEEDED Status: Active Protocol: Document 08/02/19 10:02 AMB (Rec: 08/02/19 10:08 AMB [email or web address]) PT-Bed Mobility Assessment Rolling Type of Rolling Roll to Left Level of Assist Standby Assistance Supine to Sit Supine to Sit Standby Assistance PT-Transfer Assessment Sit to and From Stand Sit to and from Stand Contact Guard Assistance,1 Person Assistance,Use of Upper Extremities Equipment Transfer Assistive Device Gait Belt,Front Wheeled Walker Orthotic/Prosthetic Devices or Brace: No Transfers Transfer Destination Bedside Commode Transfer Ability Level of Assist Contact Guard Assistance,1 Person Assistance Comments Mobility Comments Pt continues to need cueing for safety with mobility for sit to stand and transfer to commode Gait Assessment Gait Gait Assistance Required: Minimum Assistance,1 Person Assist Distance (Feet) 15 Able to Maintain Weight Bearing Status Yes During Gait Assistive Devices Assistive Device Gait Belt,Front Wheeled Walker Orthotic/Prosthetic Devices or Brace: No Gait Deviations General Gait Pattern Decreased Stride Length, Decreased Feet Clearance, Festinating,Flexed Trunk,Wide Based Gait Comments Gait Comments Pt ambulated in room 15' with FWW. Pt is not used to using a walker and with her dementia, needed Yesenia for FWW management. Difficulty with turning, needed physical and verbal cueing for changing direction while walking. Stair Climbing Assessment Comments Stair Climbing Comments Not assessed. M5 PT-IP Objective Assessments Start: 07/30/19 13:03 Freq: NEEDED Status: Active Protocol: Document 07/30/19 14:17 AW (Rec: 07/30/19 15:09 AW [id number]) Orientation Orientation/Cognition Level of Alertness Confusional State Orientation Name,Age,Month,Place,Situation Language Function Ability No Deficits Noted Safety Awareness Decreased Safety Awareness Memory Description Short Term Impaired Comments Pt with poor safety awareness, dementia at baseline Gross Range of Motion Upper Extremity ROM Assessment Within Functional Limits Lower Extremity ROM Assessment Within Functional Limits Strength Upper Extremity Strength Assessment Bilaterally Impaired Lower Extremity Strength Assessment Bilaterally Impaired Comments Strength Comments BUE and BLE grossly 4-/5 all major muscle groups. However, MMT difficult to assess due to difficulty following directions. Sensation Assessment Comments Sensation Comments Unable to assess due to pt's poor understanding of testing. M6 PT-IP Treatment Start: 07/30/19 13:03 Freq: NEEDED Status: Active Protocol: Document 07/30/19 14:17 AW (Rec: 07/30/19 15:09 AW [id number]) Physical Therapy Treatment Education Education Provided Precautions,Safety Other Treatments Other Treatment Performed Reviewed PT plan of care, safety in the home, and safe use of FWW. M7 PT-IP Assessment and Plan Start: 07/30/19 13:03 Freq: NEEDED Status: Active Protocol: Document 08/02/19 10:02 AMB (Rec: 08/02/19 10:08 AMB [email or web address]) PT Summary Assessment and Plan Summary Assessment Summary Pt is prepping for a colonoscopy, therefore left room and ended treatment early due to extended time on commode. BUNDLE BREAKER with patient in room when PT left pt on commode. Goals Bed Mobility Goal Independent Transfer Goal Standby Assistance,Front Wheeled Walker Gait Goal Standby Assistance,Front Wheel Walker Gait Distance 75 Other Goals -up/down 3 steps with R rail ascending and PARAMEDIC transfer and gait goals to be accomplished with FWW, least restrictive assistive device, or PARAMEDIC Days to Meet Goals 10 Frequency of Treatment Frequency Of Treatment Once a Day Treatment Plan Physical Therapy Treatment Plan Bed Mobility Training,Transfer Training,Gait Training, Therapeutic Exercise,Balance Retraining,Discharge Planning, Neuromuscular Re-ed Other Recommendations and Next Treatment -gait training with FWW and Focus with PARAMEDIC to determine safest option -trial stairs -balance training -caregiver training Recommendations To Nursing Amount of Assist Needed 1 Person Assist Discharge Recommendations PT Discharge Recommendations Home with 08/03 Assist,Home Health,SNF Rehab
[2019-08-02 10:12] LABS: Blood Urea Nitrogen 10 mg/dL (7-17); Calcium 8.7 mg/dL (8.4-10.2); Carbon Dioxide 31 mmol/L (22-32); Chloride 104 mmol/L (98-107); Estimated Glomerular Filt Rate 53.6 mL/min (>60); Glucose 85 mg/dL (80-110); HEMOLYSIS < 15 (0-50); Potassium 3.7 mmol/L (3.4-5.1); Sodium 141 mmol/L (137-145)
[2019-08-02] MEDS: MEMANTINE HCL 5 MG TABLET 10 MG PO ×2 (10:29→20:15)
[2019-08-02] MEDS: LOSARTAN 50 MG TABLET 100 MG PO (10:29)
[2019-08-02] MEDS: CHOLECALCIFEROL (VITAMIN D3) 1,000 UNIT TABLET 1000 UNIT PO (10:31)
--- NOTE | 2019-08-02 13:41 | PM.OP.ENDO ---
Operative Date/Time/Diagnoses Date of procedure: 08/02/19 Time of procedure: 13:41 Pre-op diagnosis: sigmoid thickening, suspected neoplasm and fecal impaction Post-op diagnosis: other (diverticulosis, no sigmoid obstruction, no impacted stool, otherwise normal colon to hepatic flexure) Procedure & Clinicians Study performed: Diagnostic colonoscopy to hepatic flexure Same procedure as scheduled: Yes Indications: 79 yo woman with fecal impaction and rectosigmoid thickening on CT scan Surgeon: Ania Wan Procedure Notes SCOAP/Timeout: performed Procedure in detail: The patient was brought to the room and placed in left lateral decubitus position with all bony prominences padded. A time-out was performed and then the patient was given procedural sedation by the anesthesiologist.. Vitals were monitored throughout the procedure and remained stable. Once adequately sedated the procedure was begun. A rectal exam was performed revealing moderate to large external hemorrhoid remnant tags. The colonoscope was then introduced to the rectum and advanced to the hepatic flexure. The prep was moderate to poor, however it was adequate to evaluate the colon for any large masses or strictures. I was able to traverse the rectum and sigmoid colon without any difficulty, and there was no area of stenosis, no narrowing of the luminal caliber, and no neoplasm. At 90 cm the hepatic flexure was identified, and the scope was then retracted while rotating side to side and examining each mucosal fold. [id number] diverticulosis was seen throughout the descending and sigmoid colon without diverticulitis. At the conclusion of the procedure retroflexion was performed and small grade 1-2 internal hemorrhoids without stigmata of bleeding were seen. The scope was then withdrawn from the rectum the procedure was concluded. The patient tolerated the procedure well was transferred to the PACU in stable condition. Scope withdrawal time: 15 Findings: diverticulosis Specimen(s): none sent Complications: none Impression: No obstruction; + moderate diverticulosis present; no impacted stool present. CT scan findings likely related to constipation. Post-procedure Recommendations: Other recommendation (This was a partial colonoscopy to rule out obstruction. A complete screening colonoscopy should be done on schedule based on patient history and as clinically indicated, as patient's health allows) Follow up: as needed Disposition: PACU
--- NOTE | 2019-08-02 14:01 | PM.PN.1 ---
Subjective Subjective Date Patient Seen: 08/02/19 Time Patient Seen: 14:01 Interval history: Patient with uneventful night other than elevated blood pressure is 161/70 over 90s to 110. She was asymptomatic. She underwent a prep and stools were fairly clear. She was seen fairly shortly after her colonoscopy was finished. Colonoscopy showed no evidence of stricture or malignancy but did show diverticulosis they got to the hepatic flexure. No blood in her stool. No shortness of breath. No lightheadedness or dizziness or palpitations Review of systems is negative other than above Exam Vital Signs (past 8 hours): - 08/02/19 07:15 08/02/19 10:29 08/02/19 11:10 Temperature 98.6 F 98.2 F Pulse Rate 123 H 75 71 Respiratory Rate 17 17 Blood Pressure 180/112 H 184/78 H 184/101 H Pulse Oximetry 97 98 08/02/19 12:17 08/02/19 13:48 08/02/19 13:52 Temperature 97.1 F L 96.9 F L 96.7 F L Pulse Rate 72 74 71 Respiratory Rate 16 16 15 Blood Pressure 198/98 H 156/83 H 161/81 H Pulse Oximetry 97 98 97 08/02/19 13:58 Temperature Pulse Rate 72 Respiratory Rate 14 Blood Pressure 166/84 H Pulse Oximetry 96 Oxygen Delivery Method Room Air Oxygen Flow Rate 97 Narrative Exam Narrative: Blood pressure 160/80. O2 sats on room air normal. Patient id coming out of sedation from colonoscopy. HEENT shows no mucosal lesions or evidence of thrush Neck: Supple Chest: Clear to auscultation without wheezes rhonchi or crackles Cor: Regular rate and rhythm with distant S1-S2 Abdomen: Positive bowel sounds x4, soft, nontender, nondistended Extremities: No edema, pulses intact No rash Objective Labs Result Diagrams: 08/01/19 07:30 08/02/19 09:45 Labs: Laboratory Results - last 24 hr 08/02/19 09:45 Sodium 141 Potassium 3.7 Chloride 104 Carbon Dioxide 31 BUN 10 Creatinine 1.00 Estimated GFR 53.6 L BUN/Creatinine Ratio 10.0 Glucose 85 Calcium 8.7 Assessment & Plan Assessment & Plan narrative: 79-year-old female admitted for syncopal episode but turns out was not clearly syncopal episode was thought to be due to weakness due to poor p.o. intake due to constipation Assessment #1: Patient was monitored on telemetry for approximately 72 hours and no arrhythmia was noted. At this point no further cardiac workup indicated Assessment 2. Abdominal pain thought to be secondary to constipation. Patient was cleaned out all CT showed evidence of possible stricture at the rectosigmoid junction. Dr. Hays consulted with patient and colonoscopy performed. There is no evidence of stricture. There is no evidence of infectious or inflammatory process but there was diverticulosis. Patient will be recovered. She will be placed on a clear liquid diet with advancement as tolerated. We will put her on Metamucil on a regular basis to bulk up the stool and have her on a regular bowel prep. Likely discharge in a.m.. She will follow-up with me in 2 weeks in the clinic. They will keep a diary of her stools. Assessment 3. Hypertension with exacerbation. Unclear if this is related hospitalization the prep but is progressively been increasing. At this point will continue losartan 100 mg daily in at 12.5 of hydrochlorothiazide daily. Will check a BMP tomorrow all see her back in the office in 2 weeks. Will monitor her blood pressure on regular basis. They'll call with cough problems. We discussed side effects. Assessment 4. Hypothyroidism well controlled with recent labs. Plan: Continue levothyroxine Assessment 5. Dementia moderate to severe no acute issues at this time but may notice problems coming out of sedation. Plan: Continue Namenda 10 mg twice daily and Aricept 10 mg daily
--- NOTE | 2019-08-02 14:31 | SUR.PHASEI ---
Patient taken to room 206. Report given to Nakita receiving Acute Care RN. Patient in stable condition.
--- NOTE | 2019-08-02 14:43 | PC.NURSE ---
Addendum entered by Nakita Melendez R.N. 08/02/19 15:42: Spoke with Dr. Person prior to colonoscopy to be notified of pt's HTN, BP 184/78. Dr. whaley assess. Original Note: Day Shift- Pt NPO for colonoscopy, took AM meds with small sip of water. Spoke with Dr. Person and Dr. Wan this AM regarding colonoscopy planned for [id number]. Spoke with Mitzy, pt's daughter and POA via phone. Consent obtained for Colonoscopy. Mitzy stated she had just spoken with Dr. Person and consented to colonoscopy with risks and benefits explained. Pt left for colonoscopy via bed at 1158. Spoke with Dr. Person at 1400, plan for starting on clear liquids and adavnace as tolerated, stop IVF, adding HCTZ for BP management, and likely discharge home tomorrow. Pt back to room around 1415. Bedside report rec'd. Pt remains Hypertensive as prior to surgery. pt currently up to BSC with 1PA. Family at bedside. Pt's daughter Mitzy and Gladys Andino. Dr. Person able to update both on plan.
--- NOTE | 2019-08-02 15:38 | PT.IPTN ---
Current Diagnoses Hypothyroidism, unspecified (08/01/19) Unspecified dementia without behavioral disturbance (08/01/19) Fecal impaction (08/01/19) Acute kidney failure, unspecified (08/01/19) Weakness (08/01/19) Abnormal findings on diagnostic imaging of other abdominal regions, including retroperitoneum (08/01/19) Surgery Performed Operation Date: 08/02/19 13:00 Actual Procedures p Colonoscopy to hepatic flexure - Ania Wna MD Physical Therapy Treatment Note M2 PT-IP Current Condition Start: 07/30/19 13:03 Freq: NEEDED Status: Active Protocol: Document 07/30/19 14:17 AW (Rec: 07/30/19 15:09 AW [id number]) Physical Therapy Current Condition Current Condition Evaluation Date 07/30/19 Treatment Diagnosis weakness, poor balance, difficulty in walking Onset Date past week Precautions Other Precautions dementia Weight Bearing Status Weight Bearing Status Full Weight Bearing M3 PT-IP Subjective Start: 07/30/19 13:03 Freq: NEEDED Status: Active Protocol: Document 08/02/19 15:37 LJ (Rec: 08/02/19 15:38 LJ [email or web address]) Subjective Physical Therapy Visit Type Type Patient Refusal Physical Therapy Visit Comments Patient Comments too tired from other activity M4 PT-IP Mobility and Gait Start: 07/30/19 13:03 Freq: NEEDED Status: Active Protocol: Document 08/02/19 10:02 AMB (Rec: 08/02/19 10:08 AMB [email or web address]) PT-Bed Mobility Assessment Rolling Type of Rolling Roll to Left Level of Assist Standby Assistance Supine to Sit Supine to Sit Standby Assistance PT-Transfer Assessment Sit to and From Stand Sit to and from Stand Contact Guard Assistance,1 Person Assistance,Use of Upper Extremities Equipment Transfer Assistive Device Gait Belt,Front Wheeled Walker Orthotic/Prosthetic Devices or Brace: No Transfers Transfer Destination Bedside Commode Transfer Ability Level of Assist Contact Guard Assistance,1 Person Assistance Comments Mobility Comments Pt continues to need cueing for safety with mobility for sit to stand and transfer to commode Gait Assessment Gait Gait Assistance Required: Minimum Assistance,1 Person Assist Distance (Feet) 15 Able to Maintain Weight Bearing Status Yes During Gait Assistive Devices Assistive Device Gait Belt,Front Wheeled Walker Orthotic/Prosthetic Devices or Brace: No Gait Deviations General Gait Pattern Decreased Stride Length, Decreased Feet Clearance, Festinating,Flexed Trunk,Wide Based Gait Comments Gait Comments Pt ambulated in room 15' with FWW. Pt is not used to using a walker and with her dementia, needed Yesenia for FWW management. Difficulty with turning, needed physical and verbal cueing for changing direction while walking. Stair Climbing Assessment Comments Stair Climbing Comments Not assessed. M5 PT-IP Objective Assessments Start: 07/30/19 13:03 Freq: NEEDED Status: Active Protocol: Document 07/30/19 14:17 AW (Rec: 07/30/19 15:09 AW [id number]) Orientation Orientation/Cognition Level of Alertness Confusional State Orientation Name,Age,Month,Place,Situation Language Function Ability No Deficits Noted Safety Awareness Decreased Safety Awareness Memory Description Short Term Impaired Comments Pt with poor safety awareness, dementia at baseline Gross Range of Motion Upper Extremity ROM Assessment Within Functional Limits Lower Extremity ROM Assessment Within Functional Limits Strength Upper Extremity Strength Assessment Bilaterally Impaired Lower Extremity Strength Assessment Bilaterally Impaired Comments Strength Comments BUE and BLE grossly 4-/5 all major muscle groups. However, MMT difficult to assess due to difficulty following directions. Sensation Assessment Comments Sensation Comments Unable to assess due to pt's poor understanding of testing. M6 PT-IP Treatment Start: 07/30/19 13:03 Freq: NEEDED Status: Active Protocol: Document 07/30/19 14:17 AW (Rec: 07/30/19 15:09 AW [id number]) Physical Therapy Treatment Education Education Provided Precautions,Safety Other Treatments Other Treatment Performed Reviewed PT plan of care, safety in the home, and safe use of FWW. M7 PT-IP Assessment and Plan Start: 07/30/19 13:03 Freq: NEEDED Status: Active Protocol: Document 08/02/19 10:02 AMB (Rec: 08/02/19 10:08 AMB [email or web address]) PT Summary Assessment and Plan Summary Assessment Summary Pt is prepping for a colonoscopy, therefore left room and ended treatment early due to extended time on commode. CANDY MAKER with patient in room when PT left pt on commode. Goals Bed Mobility Goal Independent Transfer Goal Standby Assistance,Front Wheeled Walker Gait Goal Standby Assistance,Front Wheel Walker Gait Distance 75 Other Goals -up/down 3 steps with R rail ascending and SALES SOLUTIONS ASSOCIATE transfer and gait goals to be accomplished with FWW, least restrictive assistive device, or SALES SOLUTIONS ASSOCIATE Days to Meet Goals 10 Frequency of Treatment Frequency Of Treatment Once a Day Treatment Plan Physical Therapy Treatment Plan Bed Mobility Training,Transfer Training,Gait Training, Therapeutic Exercise,Balance Retraining,Discharge Planning, Neuromuscular Re-ed Other Recommendations and Next Treatment -gait training with FWW and Focus with SALES SOLUTIONS ASSOCIATE to determine safest option -trial stairs -balance training -caregiver training Recommendations To Nursing Amount of Assist Needed 1 Person Assist Discharge Recommendations PT Discharge Recommendations Home with 08/03 Assist,Home Health,SNF Rehab
[2019-08-02] MEDS: hydroCHLOROthiazide 12.5 MG CAPSULE PO (15:50)
[2019-08-02] MEDS: DONEPEZIL 5 MG TABLET 10 MG PO (20:15)
[2019-08-02] MEDS: DOCUSATE 100 MG CAPSULE PO (20:15)
[2019-08-02] MEDS: POLYETHYLENE GLYCOL 3350 17 GM POWD.PACK PO (20:16)
[2019-08-03] VITALS (10 sets, daily range): BP systolic 71–171; BP diastolic 43–89; PULSE 77–87; RESP 16–18; TEMP 36.2–37.3; O2SAT 93–98
--- NOTE | 2019-08-03 02:04 | PC.NURSE ---
Patient with increased confusion tonight. At shift change was talking about a spider on the door then pointed to closet door and stated by the sink. Currently is able to state her first name and day/mo but otherwise not oriented. Does have history of Alzheimer's. Respirations shallow and breath sounds diminished but CTA with RA sat of 97%. HRR. BP considerable lower tonight; was started on HCTZ yesterday. Denies nausea. BT present and abdomen is soft and non tender. Has been both continent/incontinent of urine during this hospitalization. Is being assisted to reposition q2h and when up to BSC uses walker and 1 assist. No change in appearance of pressure injury on left inner buttock. Denies pain. Fall risk score is high and bed alarm is activated.
[2019-08-03] MEDS: LEVOTHYROXINE 125 MCG TABLET PO (06:00)
[2019-08-03 06:26] LABS: Blood Urea Nitrogen 12 mg/dL (7-17); Calcium 9.1 mg/dL (8.4-10.2); Carbon Dioxide 28 mmol/L (22-32); Chloride 105 mmol/L (98-107); Estimated Glomerular Filt Rate 43.4 mL/min (>60); Glucose 95 mg/dL (80-110); HEMOLYSIS < 15 (0-50); Potassium 3.4 mmol/L (3.4-5.1); Sodium 142 mmol/L (137-145)
[2019-08-03] MEDS: ENOXAPARIN 40 MG/0.4 ML SYRINGE SUBCUT (09:37)
[2019-08-03] MEDS: hydroCHLOROthiazide 12.5 MG CAPSULE PO (09:37)
[2019-08-03] MEDS: POLYETHYLENE GLYCOL 3350 17 GM POWD.PACK PO ×2 (09:37→21:15)
[2019-08-03] MEDS: DOCUSATE 100 MG CAPSULE PO ×2 (09:37→21:15)
[2019-08-03] MEDS: MEMANTINE HCL 5 MG TABLET 10 MG PO ×2 (09:37→21:16)
[2019-08-03] MEDS: CHOLECALCIFEROL (VITAMIN D3) 1,000 UNIT TABLET 1000 UNIT PO (09:37)
[2019-08-03] MEDS: LOSARTAN 50 MG TABLET 100 MG PO (09:37)
[2019-08-03] MEDS: SODIUM CHLORIDE 0.9% FLUSH 10 ML IV ×2 (09:38→21:16)
--- NOTE | 2019-08-03 13:27 | PM.PN.1 ---
Subjective Subjective Date Patient Seen: 08/03/19 Time Patient Seen: 13:00 Interval history: Patient is a 79-year-old female admitted with abdominal pain and weakness. Past past history of dementia UTI hypothyroidism. Was found to have a distended abdomen consistent with bowel obstruction and she had extensive workup done including endoscopy yesterday which showed no obstruction just needs to probably work on ongoing constipation. Still quite weak blood pressure is low today at 98 and she is only on clear liquid diet. Physical therapy is not completely comfortable letting her go home today until they see how she does with steps with her significant other who's not here at this point. My a and this patient is that will advance her diet monitor her blood pressure to make it because it's dropped quite a bit. She also has history of hyponatremia and Dr. Person restarted her on or blood pressure medications will will consisting of hydrochlorothiazide. Concerned about electrolytes to low blood pressure and is strength issues being able to be at home with adjust her significant other is a cyst. At home with dementia limitations primary help from her significant other Past medical history hypothyroid and significant dementia and hypertension. Exam Vital Signs (past 8 hours): - 08/03/19 07:55 08/03/19 11:15 Temperature 98.4 F 98.0 F Pulse Rate 83 80 Respiratory Rate 18 16 Blood Pressure 123/70 98/56 L Pulse Oximetry 95 97 Oxygen Delivery Method Room Air Oxygen Flow Rate 0 Narrative Exam Narrative: Demented patient on clear about the course of our conversation but denies any significant pain observe her walking in the hallway takes 1 person assist very very slow and looks a little concerning she has made progress but I think still needs a little work before going home answers questions with clear speech but poor content PERRLA EOMs intact Regular rate and rhythm without murmur Abdomen nontender no mass Neuro shows dementia issues and diffuse weakness but symmetrical sensation is intact Skin without breakdowns Back without any significant lesions or significant pain Extremities with trace edema Psych stable she is in a pleasant mode although I think not processing information accurately Neck without any distention or mass Eyes show PERRLA EOMs intact. Objective Labs Result Diagrams: 08/01/19 07:30 08/03/19 05:57 Labs: Laboratory Results - last 24 hr 08/03/19 05:57 Sodium 142 Potassium 3.4 Chloride 105 Carbon Dioxide 28 BUN 12 Creatinine 1.20 H Estimated GFR 43.4 L BUN/Creatinine Ratio 10.0 Glucose 95 Calcium 9.1 Assessment & Plan Assessment & Plan narrative: Assessment 1. Admission with weakness and abdominal pain. Patient was evaluated and found by his scans and found to have a large mass of stool was cleared out and colonoscopy performed to exclude stricture or mass on none was located. She is just starting readvanced in her diet is only on clear liquids at this point and appears quite weak to me. Will continue advancing her diet working with physical therapy today she also has a quite a low blood pressure for her at 98 systolic after starting diuretic will watch 1 more day and make sure that's not getting too low or that were dropping her hydration. Assessment 2. Hypertension patient had elevated blood pressure usually takes losartan Dr. Person started diuretic for her because she had elevated pressure and now her systolic pressure is 98. Will leave her diuretic on today watch for blood pressure check in the morning to make sure it's not getting too low or that were dropping her sodium and potassium. Assessment 3. Constipation at think patient has chronic constipation issues slow moving will need chronic fiber and the BUN regular MiraLax use ongoing basis Assessment 4. Dementia patient is on memantine and has a nap is ill for her dementia. Will continue those after discharge but patient I think is fairly stable with her level of dementia at this point. Unfortunately at the time she has seen no family member is present to review these issues with. Plans same meds when she goes home Assessment 4. Hypothyroidism. Patient stay on her same amount of levothyroxine at this point and review that with TSH recheck in 2 weeks when she follows up with Dr. Person Time Spent With Patient Time with patient: Greater than 35 minutes
--- NOTE | 2019-08-03 13:33 | PT.IPTN ---
Current Diagnoses Hypothyroidism, unspecified (08/01/19) Unspecified dementia without behavioral disturbance (08/01/19) Fecal impaction (08/01/19) Acute kidney failure, unspecified (08/01/19) Weakness (08/01/19) Abnormal findings on diagnostic imaging of other abdominal regions, including retroperitoneum (08/01/19) Surgery Performed Operation Date: 08/02/19 13:00 Actual Procedures p Colonoscopy to hepatic flexure - Ania Wan MD Physical Therapy Treatment Note M2 PT-IP Current Condition Start: 07/30/19 13:03 Freq: NEEDED Status: Active Protocol: Document 07/30/19 14:17 AW (Rec: 07/30/19 15:09 AW [id number]) Physical Therapy Current Condition Current Condition Evaluation Date 07/30/19 Treatment Diagnosis weakness, poor balance, difficulty in walking Onset Date past week Precautions Other Precautions dementia Weight Bearing Status Weight Bearing Status Full Weight Bearing M3 PT-IP Subjective Start: 07/30/19 13:03 Freq: NEEDED Status: Active Protocol: Document 08/03/19 13:17 AW (Rec: 08/03/19 13:33 AW [id number]) Subjective Physical Therapy Visit Type Type Treatment Note Visit Start Time 12:47 Visit Stop Time 13:13 Total Visit Minutes 26 Number of EVENING SITTER Visits 0 Physical Therapy Visit Comments Patient Comments Pt up in chair and willing to work with PT Therapy Pain Assessment Pain When Pain Assessed During Mobility Pain Present Pain Present Pain Reported M4 PT-IP Mobility and Gait Start: 07/30/19 13:03 Freq: NEEDED Status: Active Protocol: Document 08/03/19 13:17 AW (Rec: 08/03/19 13:33 AW [id number]) PT-Transfer Assessment Sit to and From Stand Sit to and from Stand Contact Guard Assistance,1 Person Assistance,Use of Upper Extremities Equipment Transfer Assistive Device Gait Belt,Front Wheeled Walker Orthotic/Prosthetic Devices or Brace: No Transfers Transfer Destination Chair Transfer Technique ambulated with FWW Transfer Ability Level of Assist Contact Guard Assistance, Minimal Assistance,1 Person Assistance Comments Mobility Comments Pt requires consistent cues for safe use of FWW and to sequence transfers. Gait Assessment Gait Gait Assistance Required: Minimum Assistance,1 Person Assist Distance (Feet) 75 Able to Maintain Weight Bearing Status Yes During Gait Assistive Devices Assistive Device Gait Belt,Front Wheeled Walker Orthotic/Prosthetic Devices or Brace: No Gait Deviations General Gait Pattern Decreased Stride Length, Decreased Feet Clearance, Festinating,Flexed Trunk,Wide Based Gait Comments Gait Comments Pt not steady enough to walk with BARREL RIBS SOLDERER this session, losing her balance posteriorly with initial standing and laterally x 2 during gait, requiring therapist assist to recover. Stair Climbing Assessment Evaluation Level of Assist On Stairs Minimal Assistance,1 Person Assistance Devices Stair Climbing Assistive Devices Right Railing Technique/Endurance Stair Climbing Direction Ascend and Descend Stair Climbing Technique Step to Step Number of Steps Climbed 3 Stair Climbing Set # Repetitions (reps) 1 Comments Stair Climbing Comments Pt used right hand rail and BARREL RIBS SOLDERER left side min A x 1 to navigate stairs. She moved slowly and deliberately but did require cues for hand placement and for sequencing. M5 PT-IP Objective Assessments Start: 07/30/19 13:03 Freq: NEEDED Status: Active Protocol: Document 07/30/19 14:17 AW (Rec: 07/30/19 15:09 AW [id number]) Orientation Orientation/Cognition Level of Alertness Confusional State Orientation Name,Age,Month,Place,Situation Language Function Ability No Deficits Noted Safety Awareness Decreased Safety Awareness Memory Description Short Term Impaired Comments Pt with poor safety awareness, dementia at baseline Gross Range of Motion Upper Extremity ROM Assessment Within Functional Limits Lower Extremity ROM Assessment Within Functional Limits Strength Upper Extremity Strength Assessment Bilaterally Impaired Lower Extremity Strength Assessment Bilaterally Impaired Comments Strength Comments BUE and BLE grossly 4-/5 all major muscle groups. However, MMT difficult to assess due to difficulty following directions. Sensation Assessment Comments Sensation Comments Unable to assess due to pt's poor understanding of testing. M6 PT-IP Treatment Start: 07/30/19 13:03 Freq: NEEDED Status: Active Protocol: Document 07/30/19 14:17 AW (Rec: 07/30/19 15:09 AW [id number]) Physical Therapy Treatment Education Education Provided Precautions,Safety Other Treatments Other Treatment Performed Reviewed PT plan of care, safety in the home, and safe use of FWW. M7 PT-IP Assessment and Plan Start: 07/30/19 13:03 Freq: NEEDED Status: Active Protocol: Document 08/03/19 13:17 AW (Rec: 08/03/19 13:33 AW [id number]) PT Summary Assessment and Plan Summary Assessment Summary Pt was able to progress gait distance with FWW. In this therapist's judgment, she was too unsteady to ambulate with BARREL RIBS SOLDERER but is unaccustomed to walking with a walker so required near-constant cues - especially in turns and any change of direction. Goals Bed Mobility Goal Independent Transfer Goal Standby Assistance,Front Wheeled Walker Gait Goal Standby Assistance,Front Wheel Walker Gait Distance 75 Other Goals -up/down 3 steps with R rail ascending and BARREL RIBS SOLDERER transfer and gait goals to be accomplished with FWW, least restrictive assistive device, or BARREL RIBS SOLDERER Days to Meet Goals 3 Frequency of Treatment Frequency Of Treatment Once a Day Treatment Plan Physical Therapy Treatment Plan Bed Mobility Training,Transfer Training,Gait Training, Therapeutic Exercise,Balance Retraining,Discharge Planning, Neuromuscular Re-ed Other Recommendations and Next Treatment -caregiver training Focus -stairs Recommendations To Nursing Amount of Assist Needed 1 Person Assist Discharge Recommendations PT Discharge Recommendations Home with 24/7 Assist,Home Health,SNF Rehab Other Discharge Recommendations Continue to favor home with 24 /7 and HH pending caregiver training
--- NOTE | 2019-08-03 14:36 | CM.DPC ---
DCP continued: EMR reviewed: CM/RN met with patient at the bedside patient is confused and not oriented to time or place. patient did state Sina Boyd is her significant other and caregiver at home [phone]. Cm/RN spoke to patients Significant other who stated that HH would be useful but that SNF placement was not necessary. HH referral and clinicals sent to [facility] which is preferred provider. Need face to face signed by MD. Kimberly Heard RN
[2019-08-03] MEDS: DONEPEZIL 5 MG TABLET 10 MG PO (21:16)
[2019-08-04 00:25] VITALS: BP 153/75; PULSE 77; RESP 16; TEMP 36.5; O2SAT 94
[2019-08-04 05:43] LABS: BUN Creatinine Ratio 10.7 (6-22); Blood Urea Nitrogen 15 mg/dL (7-17); Calcium 9.5 mg/dL (8.4-10.2); Carbon Dioxide 33 mmol/L (22-32); Chloride 101 mmol/L (98-107); Estimated Glomerular Filt Rate 36.4 mL/min (>60); Glucose 83 mg/dL (80-110); HEMOLYSIS < 15 (0-50); Potassium 3.5 mmol/L (3.4-5.1); Sodium 140 mmol/L (137-145)
[2019-08-04] MEDS: LEVOTHYROXINE 125 MCG TABLET PO (05:43)
[2019-08-04 07:38] VITALS: BP 168/89; PULSE 72; RESP 16; TEMP 36.7; O2SAT 95
--- NOTE | 2019-08-04 08:34 | P.DS_ITS ---
History of Present Illness History of Present Illness Date Patient Seen: 08/04/19 Time Patient Seen: 08:20 Chief complaint: Weakness Narrative: Patient is well known to Dr. Person, PCP and was brought to the ER for evaluation of syncopal episode. She is brought by her significant other who's her caregiver and she lives with. She has a history of moderate to severe dementia as well as hypertension, hypothyroidism. She apparently was outside on and slipped on leaves and fell and hit her head. She has been groggy since. She refused to go to the ER to be evaluated. On the date of admission she was being helped to the bathroom because she has been on steady after the fall and blow to her head and she collapsed in her partners on arms. She was t alking a whole time so this was not a true syncopal episode. She did not fall because he was able to catcher and he brought her to the ER for evaluation. She underwent scanning including a CT scan of her head and neck which did not show acute injuries as well as CT scan of her abdomen and pelvis due to abdominal pain and it she was shown to have a fecal impaction. Enemas were given and the ER doctor attempted to manually disimpact but was not able to. She was admitted for further treatment and evaluation. Of note she was seen in the clinic on July 21 for abdominal pain complaints. She was treated for possible UTI/diverticulitis but her symptoms do not improve. She has not had a fever. She has had loose and watery stools and at times incontinence of stool. She has not had any vomiting or nausea but her appetite has been decreased because she is reticent to eat because it causes abdominal distention. Otherwise she has been in her usual state of health with slow continuous pr ogression of her dementia. Discharge Providers Provider Date of admission: 08/01/19 14:39 Discharge Date: 08/04/19 Primary care physician: Kia Person MD Consults: 07/30/19 11:29 Consult to Physical Therapy Evaluate & Treat Comment: Physician Instructions: Evaluate and Treat Discharge provider: Analisa Hwang MD Summary Hospital Course Discharge Diagnosis: Assessment 1. Weakness and abdominal pain, new Assessment 2. Hypertension, acute on chronic Assessment 3. Constipation, new Assessment 4. Dementia, chronic Assessment 4. Hypothyroidism, chronic Hospital Course: Patient was already on oral Bactrim for suspected diverticulitis at time of admission, prescribed at outpatient visit on 07/21/2019. Manual disimpaction failed in the ED. Inpatient CT scan on 08/01/2019 showed possible circumferential distal sigmoid and rectal wall thickening although images were obscured by streak artifact from hardware. Recommended colonoscopy to exclude neoplasm versus other possible infectious or inflammatory proctocolitis. No bowel obstruction was noted but there was a moderate amount of stool. Patient was placed on both MiraLax and docusate during her inpatient admission and completed colonoscopy to the extent of hepatic flexure on 08/02/[address] Wan. Prep was poor but adequate to visualize stricture, none noted. Diverticulosis seen, not inflamed. Symptoms thought to be secondary to constipation. Bowel protocol recommended including as needed MiraLax, docusate, dietary fiber, and 2 to 3 L of water daily. After colonoscopy, diet was advanced and on day of discharge, patient is tolerating a general diet without any nausea or vomiting. She has been weaker than her baseline throughout her inpatient stay and has been unable to complete her physical therapy sessions in full. She walks with a walker at home and her partner, Sina, is very involved in her care. He feels confident that he can help support her with strength training at home. Home health has also been arranged with [facility]. Patient has a supportive extended family in the area. Remaining remarkable item from her inpatient stay was an exacerbation of her hypertension; hydrochlorothiazide 12.5 mg p.o. q.day was added and 24 hour blood pressure monitoring showed mostly hypotensive values. Blood pressure thought to be elevated secondary to pain/anxiety due to her colonoscopy and not indicative of a rise in her baseline. She will to be discharged on her usual home blood pressure medications with close follow-up in 1 week for primary care provider. Time spent on Discharge and Coordination of post-hospital care: 35 minutes Status at Discharge Cognitive/behavioral status at discharge: at baseline, confused Functional status at discharge: uses cane/walker Overall status at discharge: patient is progressing back to baseline Exam Vital Signs (past 8 hours): Oxygen Delivery Method Room Air Oxygen Flow Rate 0 Narrative Exam Narrative: GENERAL: Alert and disoriented, appearing stated age and in no acute distress. HEENT: Head normocephalic/atraumatic. LUNGS: Clear to ausculation bilaterally, no wheezes, rhonchi or rales. CV: Normal S1 and S2 with regular rate and rhythm, no audible murmurs, rubs or gallops. ABDOMEN: Soft, non-tender, non-distended, no organomegaly. Positive bowel marilyn nds. EXTREMITIES: No clubbing, cyanosis, or edema. NEURO: Cranial nerves II through XII grossly intact, no focal deficits. PSYCH: Alert and oriented x 3. SKIN: No concerning lesions. Objective Labs Result Diagrams: 08/01/19 07:30 08/04/19 05:25 Labs: Laboratory Results - last 24 hr 08/04/19 05:25 Sodium 140 Potassium 3.5 Chloride 101 Carbon Dioxide 33 H BUN 15 Creatinine 1.40 H Estimated GFR 36.4 L BUN/Creatinine Ratio 10.7 Glucose 83 Calcium 9.5 Discharge Plan Discharge Plan Patient Disposition: [facility] Service Transfer to: [facility] Discharge orders & Medications Prescriptions: Continued levothyroxine 125 mcg Tablet 125 mcg PO DAILY Qty: 0 RF: 0 losartan 100 mg Tablet 100 mg PO DAILY RF: 0 memantine 10 mg Tablet 10 mg PO BID RF: 0 donepezil 10 mg Tablet 10 mg PO DAILY RF: 0 Discontinued sulfamethoxazole-trimethoprim 800-160 mg Tablet 1 tab PO BID RF: 0 Follow up/Referrals: Kia Person MD [Primary Care Provider] - Diet/Activity/Treatments Diet: Diet as Tolerated Activity: with walker and assist Skin/Wound/Dressing Care Report to your healthcare provider any signs of infection, such as:: chills, fever and increased pain Visit Report/Discharge Packet Stand Alone Forms: Colonoscopy Result: [facility] Surg Discharge Data Primary Care Provider: Kia Person
--- NOTE | 2019-08-04 08:37 | CM.DPC ---
Addendum entered by Raven Butts LPN 08/04/19 10:58: At request of [facility] went over JENNIFER #2 verbally with pt, who signed JENNIFER 1 and Sina Boyd. Both are very comfortable with the d/c for today and Sina was eager to get pt back to her familiar setting. Addendum entered by Raven Butts LPN 08/04/19 10:42: Met now with Sina, here to pickling drum operator pt. He is updated re the [facility] specifics. He does clarify that the best contact number for him is his cell: [phone]. Billy[facility] is updated re this. Will now fax the d/c/HH paperwork to [facility]. Original Note: DCP: continued: case received. Spoke with Dr. Hwang who stated pt was ready for a d/c to the home setting with care of her partner Sina Boyd. He confirmed that he was very able to assist pt with her current level of needs and was open to HHS. EMR reviewed, noted the referral was started yesterday for HH with [facility]. Hwang has now completed the Face/Face document (will give to [facility] to scan) and confirmed HH need with specifics of RN/PT/[facility]. DC summary, F/F and HH specific orders will be faxed today to [facility]. KAREN Kinsey is updated. He states that Dr. Hwang told him pt was to work again with PT. Will call Sina now and coordinate the d/c details./done/vm left with tentative plan to pick pt up before lunch. Will alert PT to need to see pt this morning.
[2019-08-04] MEDS: LOSARTAN 50 MG TABLET 100 MG PO (08:42)
[2019-08-04] MEDS: CHOLECALCIFEROL (VITAMIN D3) 1,000 UNIT TABLET 1000 UNIT PO (08:42)
[2019-08-04] MEDS: POLYETHYLENE GLYCOL 3350 17 GM POWD.PACK PO (08:42)
[2019-08-04] MEDS: MEMANTINE HCL 5 MG TABLET 10 MG PO (08:42)
[2019-08-04] MEDS: DOCUSATE 100 MG CAPSULE PO (08:42)
[2019-08-04] MEDS: ENOXAPARIN 40 MG/0.4 ML SYRINGE SUBCUT (08:42)
[2019-08-04] MEDS: SODIUM CHLORIDE 0.9% FLUSH 10 ML IV (08:43)
--- NOTE | 2019-08-04 09:37 | PT.IPTN ---
Current Diagnoses Hypothyroidism, unspecified (08/01/19) Unspecified dementia without behavioral disturbance (08/01/19) Fecal impaction (08/01/19) Acute kidney failure, unspecified (08/01/19) Weakness (08/01/19) Abnormal findings on diagnostic imaging of other abdominal regions, including retroperitoneum (08/01/19) Surgery Performed Operation Date: 08/02/19 13:00 Actual Procedures p Colonoscopy to hepatic flexure - Ania Wan MD Physical Therapy Treatment Note M2 PT-IP Current Condition Start: 07/30/19 13:03 Freq: NEEDED Status: Active Protocol: Document 07/30/19 14:17 AW (Rec: 07/30/19 15:09 AW [id number]) Physical Therapy Current Condition Current Condition Evaluation Date 07/30/19 Treatment Diagnosis weakness, poor balance, difficulty in walking Onset Date past week Precautions Other Precautions dementia Weight Bearing Status Weight Bearing Status Full Weight Bearing M3 PT-IP Subjective Start: 07/30/19 13:03 Freq: NEEDED Status: Active Protocol: Document 08/04/19 08:57 LJ (Rec: 08/04/19 09:37 LJ [id number]) Subjective Physical Therapy Visit Type Type Treatment Note Visit Start Time 08:57 Visit Stop Time 09:31 Total Visit Minutes 34 Physical Therapy Visit Comments Patient Comments pt in bed wanting to use the toilet M4 PT-IP Mobility and Gait Start: 07/30/19 13:03 Freq: NEEDED Status: Active Protocol: Document 08/04/19 08:57 LJ (Rec: 08/04/19 09:37 LJ [id number]) PT-Transfer Assessment Sit to and From Stand Sit to and from Stand Minimal Assistance,1 Person Assistance,Use of Upper Extremities Equipment Transfer Assistive Device Gait Belt,Front Wheeled Walker Orthotic/Prosthetic Devices or Brace: No Transfers Transfer Destination Chair,Toilet Transfer Ability Level of Assist Moderate Assistance,1 Person Assistance,Use of Upper Extremities Comments Mobility Comments Pt requires consistent cues for safe use of FWW and to sequence transfers. Gait Assessment Gait Gait Assistance Required: Moderate Assistance,1 Person Assist Distance (Feet) 18 Able to Maintain Weight Bearing Status Yes During Gait Assistive Devices Assistive Device Gait Belt,Front Wheeled Walker Orthotic/Prosthetic Devices or Brace: No Gait Deviations General Gait Pattern Decreased Stride Length, Decreased Feet Clearance, Festinating,Flexed Trunk,Wide Based Gait Comments Gait Comments Pt very slow with gait requiring max cueing and modA for FWW management and sequeicing gait. Sit<>stand at toilet x2 for BMx2. Stair Climbing Assessment Evaluation Level of Assist On Stairs Minimal Assistance,1 Person Assistance M5 PT-IP Objective Assessments Start: 07/30/19 13:03 Freq: NEEDED Status: Active Protocol: Document 07/30/19 14:17 AW (Rec: 07/30/19 15:09 AW [id number]) Orientation Orientation/Cognition Level of Alertness Confusional State Orientation Name,Age,Month,Place,Situation Language Function Ability No Deficits Noted Safety Awareness Decreased Safety Awareness Memory Description Short Term Impaired Comments Pt with poor safety awareness, dementia at baseline Gross Range of Motion Upper Extremity ROM Assessment Within Functional Limits Lower Extremity ROM Assessment Within Functional Limits Strength Upper Extremity Strength Assessment Bilaterally Impaired Lower Extremity Strength Assessment Bilaterally Impaired Comments Strength Comments BUE and BLE grossly 4-/5 all major muscle groups. However, MMT difficult to assess due to difficulty following directions. Sensation Assessment Comments Sensation Comments Unable to assess due to pt's poor understanding of testing. M6 PT-IP Treatment Start: 07/30/19 13:03 Freq: NEEDED Status: Active Protocol: Document 07/30/19 14:17 AW (Rec: 07/30/19 15:09 AW [id number]) Physical Therapy Treatment Education Education Provided Precautions,Safety Other Treatments Other Treatment Performed Reviewed PT plan of care, safety in the home, and safe use of FWW. M7 PT-IP Assessment and Plan Start: 07/30/19 13:03 Freq: NEEDED Status: Active Protocol: Document 08/04/19 08:57 LJ (Rec: 08/04/19 09:37 LJ [id number]) PT Summary Assessment and Plan Summary Assessment Summary Pt very challenged walking to toilet and out of bathroom. DRUGLESS DOCTOR positioned chair just outside bathroom d/t pts imbalance and reports of dizziness. Pt requiring max cues and mod assist for ammbulation 18'. Goals Bed Mobility Goal Independent Transfer Goal Standby Assistance,Front Wheeled Walker Gait Goal Standby Assistance,Front Wheel Walker Gait Distance 75 Other Goals -up/down 3 steps with R rail ascending and ELECTRIC CLOCK MECHANIC transfer and gait goals to be accomplished with FWW, least restrictive assistive device, or ELECTRIC CLOCK MECHANIC Days to Meet Goals 3 Frequency of Treatment Frequency Of Treatment Once a Day Treatment Plan Physical Therapy Treatment Plan Bed Mobility Training,Transfer Training,Gait Training, Therapeutic Exercise,Balance Retraining,Discharge Planning, Neuromuscular Re-ed Other Recommendations and Next Treatment -caregiver training Focus -stairs Recommendations To Nursing Amount of Assist Needed 1 Person Assist Discharge Recommendations PT Discharge Recommendations Home with 24/7 Assist,Home Health,SNF Rehab Other Discharge Recommendations Continue to favor home with 24 /7 and pending caregiver training
--- NOTE | 2019-08-04 10:36 | PC.NURSE ---
Day shift: Pt left unit at approx 1036. Paperwork signed and questions answered. Pt taken to car in by RICHARD Oliva. S.O. will be driving Pt to their home. Midline removed. Pt has all personal belongings. No new MD scrips.
== END 2019-08-04 10:39 | disposition home health service (06) | DRG 392 ==
LOC: ED 21:17 → AC 21:19
PROVIDERS: Emergency Medicine; Family Medicine; Surgery; Admitting Provider Family Medicine; Emergency Provider Emergency Medicine; PCP Family Medicine; Visit Provider Family Medicine
PROC: 0DJD8ZZ Inspection of Lower Intestinal Tract, Via Natural or Artificial Opening Endoscopic (ICD-10-PCS; CPT 45378; principal; 2019-08-02 13:00)
DX: K59.00 Constipation, unspecified (principal); N17.9 Acute kidney failure, unspecified; I12.9 Hypertensive chronic kidney disease with stage 1 through stage 4 chronic kidney disease, or unspecified chronic kidney disease; N18.3 Chronic kidney disease, stage 3 (moderate); F03.90 Unspecified dementia, unspecified severity, without behavioral disturbance, psychotic disturbance, mood disturbance, and anxiety; K57.90 Diverticulosis of intestine, part unspecified, without perforation or abscess without bleeding; E03.9 Hypothyroidism, unspecified; R53.1 Weakness; S09.90XA Unspecified injury of head, initial encounter; W19.XXXA Unspecified fall, initial encounter
CPT/HCPCS: 36415; 70450; 71045; 72125; 74021; 74176; 74177; 80048; 80053; 81001; 82550; 82553; 83605; 83690; 84443; 84484; 85025; 85610; 85730; 87040; 93005; 93010; 96360; 97116; 97162; 97530; 99284; 99285; G0378; J1100; J1642; J1650; J2704; J7050; Q9967

== ENCOUNTER 2020-03-26 05:50 | Emergency (ER) | payer MEDICARE, OTHER, SELFPAY ==
[2019-07-29 22:27] VITALS: BMI 21.9
[2020-03-26 05:54] VITALS: BP 152/70; PULSE 85; RESP 18; TEMP 36.4; O2SAT 98
--- NOTE | 2020-03-26 05:54 | ED.FALL ---
HPI - Fall General Chief Complaint: Fall Stated Complaint: Fell out of bed/ Rt knee and sholder pain Time Seen by Provider: 03/26/20 05:51 Source: patient, family and EMS Mode of arrival: EMS Limitations: no limitations History of Present Illness HPI Narrative: 79-year-old female nonsmoker was history of hypertension and dementia presents by EMS for evaluation of a fall with injury. She was in bed when she rolled out and landed on the ground. She denies any head neck or back pain or injury. She complains of right shoulder pain which is worse with motion. She complains of right knee pain which is worse with motion or palpation and right foot pain. She is otherwise well and free of complaint. She denies any chest pain or shortness of breath. MD complaint: fall Onset (ago): minute(s) Fall from: out of bed Fall witnessed: no Place fall occurred: home Loss of consciousness: none Symptoms prior to fall: none Severity: mild Quality: aching Related Data Home Medications Medication Instructions Recorded Confirmed levothyroxine 125 mcg PO DAILY #0 tab 12/25/10 07/30/19 donepezil 10 mg PO DAILY 07/30/19 07/30/19 losartan 100 mg PO DAILY 07/30/19 07/30/19 memantine 10 mg PO BID 07/30/19 07/30/19 Allergies Allergy/AdvReac Type Severity Reaction Status Date / Time amlodipine Allergy Mild Verified 08/01/19 09:13 erythromycin base Allergy Mild Verified 08/01/19 09:13 lisinopril Allergy Mild Verified 08/01/19 09:13 latex Allergy Unknown Verified 08/01/19 09:13 Penicillins Allergy Unknown Verified 08/01/19 09:13 Review of Systems Constitutional Constitutional: Denies chills, Denies fatigue, Denies fever(s), Denies frequent falls, Denies lethargy and Denies weakness Eyes Eyes: Denies change in vision, Denies eye discharge, Denies irritation and Denies loss of vision ENT Ears, Nose, Mouth, and Throat: Denies change in voice, Denies dizziness, Denies neck pain, Denies sore throat and Denies throat swelling Cardiovascular Cardiovascular: Denies chest pain, Denies irregular heart rhythm, Denies lightheadedness, Denies palpitations, Denies dyspnea, Denies dyspnea on exertion and Denies orthopnea Respiratory Respiratory: Denies cough, Denies dyspnea, Denies dyspnea on exertion and Denies wheezing Gastrointestinal Gastrointestinal: Denies abdominal pain, Denies change in bowel habits, Denies diarrhea, Denies nausea and Denies vomiting Musculoskeletal Musculoskeletal: Reports arthralgias, Denies neck pain and Denies numbness Integumentary/Breasts Skin/Breast: Denies pruritus, Denies erythema, Denies rash and Denies wounds Neurologic Neurologic: Denies behavioral changes, Denies confusion, Denies dizziness, Denies frequent falls, Denies loss of vision, Denies numbness and Denies weakness Psychiatric Psychiatric: Denies anxiety, Denies behavioral changes, Denies confusion, Denies depression, Denies homicidal ideation and Denies suicidal ideation Endocrine Endocrine: Denies fatigue, Denies flushing and Denies palpitations Hematologic/Lymphatic Hematologic/Lymphatic: Denies easy bruising Allergic/Immunologic Allergic/Immunologic: Denies urticaria, Denies throat swelling and Denies wheezing Patient History Medical History History of breast cancer (Acute) Surgical History History of total mastectomy Social History household members: significant other Smoking Status: Never smoker alcohol intake: never Smoking Status: Never smoker alcohol intake frequency: 0-2 drinks per day Substance Use Type: does not use Exam Narrative Exam Narrative: GENERAL: [79] year old patient appears stated age. Well-nourished, well-developed patient, in mild distress. GCS 15 HEAD: Atraumatic. Normocephalic. EYES: Pupils equal round and reactive. Extraocular motions intact. No scleral icterus. No injection or drainage. ENT: Nose without bleeding, purulent drainage. Throat without erythema, tonsillar hypertrophy or exudate. Airway patent. NECK: Trachea midline. Non tender CARDIOVASCULAR: Regular rate and rhythm without murmurs, gallops, or rubs. RESPIRATORY: Clear to auscultation. Breath sounds equal bilaterally. No wheezes, rales, or rhonchi. GASTROINTESTINAL: Abdomen soft, non-tender, nondistended. EXTREMITIES: Decreased range of motion secondary to pain at right shoulder. No obvious deformity. No numbness, tingling or weakness. No pain with palpation of left upper extremity, back, hips or left lower extremity. There is minimal erythema and some tenderness to palpation of right knee, no effusion or obvious deformity. Erythema on the dorsum of right foot with tenderness to palpation. No swelling. All injuries are closed and neurovascularly intact No edema or joint tenderness. BACK: Nontender without deformity or crepitance. No flank tenderness. NEURO: AOx3. SKIN: No rash or erythema of visible areas Initial Vital Signs Initial Vital Signs: Vital Signs Temperature 97.5 F L 03/26/20 05:54 Pulse Rate 85 03/26/20 05:54 Respiratory Rate 18 03/26/20 05:54 Blood Pressure 152/70 H 03/26/20 05:54 Pulse Oximetry 98 03/26/20 05:54 Course Orders Ordered: ED Orders 03/26/20 05:53 XR foot RT min 3V Stat XR knee RT 3V Stat XR shoulder RT min 2V Stat Vital Signs Vital signs: Vital Signs - 8 hr 03/26/20 05:54 Temperature 97.5 F L Pulse Rate 85 Respiratory Rate 18 Blood Pressure 152/70 H Pulse Oximetry 98 MDM - Fall Imaging Data Shoulder / Knee / Foot: My Impression: No acute findings Radiologist's Impression: Chart Viewer Diagnostics DATE TYPE STATUS REF RANGE/AUTHOR Hx 03/26/20 05:53 Faby Galloway 03/26/20 05:53 Faby Galloway 03/26/20 05:53 Faby Galloway 08/01/19 14:39 08/01/19 14:39 08/01/19 10:22 Josue Sue 07/31/19 08:34 Cirilo Woodruff 07/29/19 17:26 Kiviat,Milagros 07/29/19 17:09 Kiviat,Milagros 07/29/19 17:09 Kiviat,Milagros 07/29/19 16:39 Michael,Ashlie Haas I 79, F109/08/1939 [facility], [facility] ED 160.02cm Fall Search Chart No Data to Display ONSET 03/26/20 07:10 Ashlie Tolliver I 79 F [address] [address] XRay Report Signed Patient: Ashlie Tolliver [facility]#: [id number] : 1Acct:[id number] Age/Sex: 79 / FDate of Service: 03/26/20 Loc: ED Accession Number: [id number] Procedure: XR shoulder RT min 2V Ordering Provider: Christiano Sales D.O. PROCEDURE: XR SHOULDER RT MIN 2V INDICATIONS: FELL OUT OF BED PAIN TECHNIQUE: 2 views of the shoulder were acquired. COMPARISON: None. FINDINGS: Bones: No fractures or dislocations. No suspicious bony lesions. Visualized ribs appear intact. Mild right acromioclavicular joint and glenohumeral joint osteoarthritis. Soft tissues: No suspicious soft tissue calcifications. IMPRESSION: No fracture. No acute osseous lesion. If symptoms and/or clinical suspicion for pathology persists, further assessment with repeat radiographs (7-10 days) or advanced imaging (e.g. CT, MRI or bone scan) may be helpful. Dictated by: Faby Galloway MD, PhD on 03/26/2020 at 17:14 Approved by: Faby Galloway MD, PhD on 03/26/2020 at 17:15 [place] [address] XRay Report Signed Patient: Ashlie Tolliver [facility]#: [id number] : 1At:[id number] Age/Sex: 79 / FDate of Service: 03/26/20 Loc: ED Accession Number: [id number] Procedure: XR knee RT 3V Ordering Provider: Christiano Sales D.O. PROCEDURE: XR KNEE RT 3V INDICATIONS: FELL OUT OF BED TECHNIQUE: 3 views of the knee were acquired. COMPARISON: None. FINDINGS: Bones: No fractures or dislocations. No suspicious bony lesions. Medial patellofemoral compartment mild osteoarthritis. Soft tissues: No joint effusion. No suspicious soft tissue calcifications. IMPRESSION: No fracture. No acute osseous lesion. If symptoms and/or clinical suspicion for pathology persists, further assessment with repeat radiographs (7-10 days) or advanced imaging (e.g. CT, MRI or bone scan) may be helpful. Dictated by: Faby Galloway MD, PhD on 03/26/2020 at 16:51 Approved by: Faby Galloway MD, PhD on 03/26/2020 at 16:[address] [address] XRay Report Signed Patient: Ashlie Tolliver [facility]#: [id number] : 1940cct:[id number] Age/Sex: 79 / FDate of Service: 03/26/20 Loc: ED Accession Number: [id number] Procedure: XR foot RT min 3V Ordering Provider: Christiano Sales D.O. PROCEDURE: XR FOOT RT MIN 3V INDICATIONS: FELL OUT OF BED PAIN TECHNIQUE: 3 views of the foot were acquired. COMPARISON: None. FINDINGS: Bones: No fractures or dislocations. No suspicious bony lesions. Postsurgical changes compatible with 1st metatarsal osteotomy noted. Small calcaneal bone spur. Soft tissues: No tibiotalar joint effusion. Achilles tendon appears normal. IMPRESSION: No fracture. No acute osseous lesion. If symptoms and/or clinical suspicion for pathology persists, further assessment with repeat radiographs (7-10 days) or advanced imaging (e.g. CT, MRI or bone scan) may be helpful. Dictated by: Faby Galloway MD, PhD on 03/26/2020 at 16:52 Approved by: Faby Galloway MD, PhD on 03/26/2020 at 16:53 [facility] Narrative Medical decision making narrative: exam and imaging very reassuring. Patient ambulates without difficulty. helps observe her ambulation with walker, she uses one at home, and states she is laregely at her baseline and is comfortable taking her home. He understands, and is in agreement with the plan. Return precautions given. Questions answered to their apparent satisfaction. Discharge Plan Departure Patient Disposition: Home Clinical Impression: Acute shoulder pain Qualifiers: Laterality: right Qualified Code(s): M25.511 - Pain in right shoulder Knee sprain Qualifiers: Encounter type: initial encounter Involved ligament of knee: unspecified ligament Laterality: right Qualified Code(s): S83.91XA - Sprain of unspecified site of right knee, initial encounter Contusion of foot Qualifiers: Encounter type: initial encounter Laterality: right Qualified Code(s): S90.31XA - Contusion of right foot, initial encounter Discharge Date/Time: 03/26/20 07:38 Instructions: How to Prevent Falls Activity Restrictions/Additional Instructions: *You have been diagnosed with [ground level fall with shoulder, knee and foot pain] *What to do: *Take medications as directed *Follow up with your primary care provider in 2-3 days, call for an appointment. Let them know you were seen in the Emergency Department and that we ask that you be seen in follow up *Return to ER if you should have any new, worsening or concerning symptoms Prescriptions: No Action levothyroxine 125 mcg Tablet 125 mcg PO DAILY Qty: 0 RF: 0 losartan 100 mg Tablet 100 mg PO DAILY RF: 0 memantine 10 mg Tablet 10 mg PO BID RF: 0 donepezil 10 mg Tablet 10 mg PO DAILY RF: 0 Referrals: Kia Person MD [Primary Care Provider] -
--- NOTE | 2020-03-26 07:06 | PC.NURSE ---
Pt ambulated slowly with steady gait to bathroom with stand-by assist. states they have a walker at home for her use.
[2020-03-26 07:10] VITALS: BP 144/72; PULSE 88; RESP 16; O2SAT 99
== END 2020-03-26 07:38 | disposition home or self-care (01) ==
PROVIDERS: Emergency Provider Emergency Medicine; PCP Family Medicine; Referring Provider Emergency Medicine
DX: M25.511 Pain in right shoulder (principal); S83.91XA Sprain of unspecified site of right knee, initial encounter; S90.31XA Contusion of right foot, initial encounter; W06.XXXA Fall from bed, initial encounter
CPT/HCPCS: 73030; 73562; 73630; 99283; 99284

== ENCOUNTER 2020-05-05 07:39 | Inpatient (IN) | payer MEDICARE, OTHER, SELFPAY ==
[2019-07-29 22:27] VITALS: BMI 21.9
[2020-05-05] VITALS (17 sets, daily range): BP systolic 121–197; BP diastolic 65–103; PULSE 58–75; RESP 11–23; TEMP 36.2–36.8; O2SAT 93–98; BMI 25.4
--- NOTE | 2020-05-05 07:46 | DI.RAD.S_ITS ---
PROCEDURE: XR CHEST 1V INDICATIONS: weakness, falls TECHNIQUE: One view of the chest was acquired. COMPARISON: [facility], CT, CT ABDOMEN PELVIS W CON, 08/01/2019, 10:28. [facility], CR, CHEST 2 VIEW, 06/20/2009, 11:49. [facility], CR, XR CHEST 1V, 07/29/2019, 17:13. FINDINGS: Surgical changes and devices: None. Lungs and pleura: Lungs are clear. No pleural effusions or pneumothorax. Mediastinum: The cardiac contours are at the upper limits of normal. The aorta demonstrates calcification and tortuosity. Bones and chest wall: Age-appropriate bony degenerative changes are seen. No suspicious bony lesions. Overlying soft tissues appear unremarkable. IMPRESSION: No significant portable chest abnormality is seen for age. Dictated by: Lukasz Raymond M.D. on 05/05/2020 at 7:39 Approved by: Lukasz Raymond M.D. on 05/05/2020 at 7:40
--- NOTE | 2020-05-05 08:21 | ED.WEAKNESS ---
HPI - Weakness General Chief complaint: Weakness Stated complaint: Generalized Weakness Time Seen by Provider: 05/05/20 07:40 Source: family and EMS Mode of arrival: EMS Limitations: altered mental status History of Present Illness HPI Narrative: 79-year-old female nonsmoker with history of dementia, high blood pressure and hypothyroid presents by EMS due to increasing generalized weakness over the past day or 2. She lives at home with family support and has required increasing assistance over the past day or 2 and this morning was so weak that the paramedics had to pick her up out of her chair. She has had no fever chills. She denies any headache or blurred vision or chest pain or shortness of breath. She admittedly is a very poor historian and much of the story is through paramedics from other family. There is no report of new medications or dietary change. There is no known exposure to persons positive for coronavirus MD Complaint: generalized weakness Onset (ago): day(s) Duration: constant Location: generalized Migration: none Severity: severe Relieving factors: none Associated symptoms: denies other symptoms Related Data Home Medications Medication Instructions Recorded Confirmed levothyroxine 125 mcg PO QAM #0 tab 12/25/10 05/05/20 donepezil 5 mg PO QAM 07/30/19 05/05/20 losartan 50 mg PO QAM 07/30/19 05/05/20 memantine 10 mg PO BID 07/30/19 05/05/20 calcium carbonate [Calcium 500] 1 mg PO QAM 05/05/20 05/05/20 cholecalciferol (vitamin D3) 25 mcg PO QAM 05/05/20 05/05/20 Allergies Allergy/AdvReac Type Severity Reaction Status Date / Time amlodipine Allergy Mild Verified 05/05/20 10:14 erythromycin base Allergy Mild Verified 05/05/20 10:14 lisinopril Allergy Mild Verified 05/05/20 10:14 latex Allergy Unknown Verified 05/05/20 10:14 Penicillins Allergy Unknown Verified 05/05/20 10:14 Review of Systems Review of Systems ROS Unobtainable: Unobtainable due to mental status/LOC Patient History Medical History (Updated 05/05/20 @ 09:57 by Christiano Sales DO) History of breast cancer (Acute) Surgical History History of total mastectomy Social History household members: significant other Smoking Status: Never smoker alcohol intake: never Smoking Status: Never smoker alcohol intake frequency: 0-2 drinks per day Substance Use Type: does not use Exam Narrative Exam Narrative: GENERAL: [79] year old patient appears stated age. Frail and elderly, GCS 15. Pleasantly confused HEAD: Atraumatic. Normocephalic. EYES: Pupils equal round and reactive. Extraocular motions intact. No scleral icterus. No injection or drainage. ENT: Dry mucous membranes. Nose without bleeding, purulent drainage. Throat without erythema, tonsillar hypertrophy or exudate. Airway patent. NECK: Trachea midline. Non tender CARDIOVASCULAR: Regular rate and rhythm without murmurs, gallops, or rubs. RESPIRATORY: Clear to auscultation. Breath sounds equal bilaterally. No wheezes, rales, or rhonchi. GASTROINTESTINAL: Abdomen soft, non-tender, nondistended. EXTREMITIES: No edema or joint tenderness. BACK: Nontender without deformity or crepitance. No flank tenderness. NEURO: AOx3. SKIN: Poor skin turgor. No rash or erythema of visible areas Initial Vital Signs Initial Vital Signs: Vital Signs Temperature 98.2 F 05/05/20 07:36 Pulse Rate 74 05/05/20 07:36 Respiratory Rate 20 05/05/20 07:36 Blood Pressure 190/90 H 05/05/20 07:36 Pulse Oximetry 94 05/05/20 07:36 Course Course Course Narrative: attempted orthostatics, unable to even stand due to weakness. She will need admission for treatment of UTI, rehydration and likely evaluation by PT Orders Ordered: ED Orders 05/05/20 07:46 XR chest 1V Stat EKG-12 Lead Stat 05/05/20 08:20 C-Reactive Protein Quant Stat Complete Blood Count AUTO DIFF Stat Comprehensive Metabolic Panel Stat Ferritin Stat Magnesium Stat NT-proBNP (BNP-Adult 18+) Stat Troponin & CK Cardiac Panel Stat 05/05/20 09:08 COVID19 -ED/INPAT/OR/L&D Stat Sodium Chloride (Normal Saline 0.9%) 1,000 mls @ 125 mls/hr IV CONT DAVID Last Admin: 05/05/20 09:04 Dose: 125 mls/hr Documented by: JOCELYN Discontinued Medications Levofloxacin (Levaquin) 500 mg in 100 mls @ 100 mls/hr IV NOW ONE Stop: 05/05/20 10:31 Last Admin: 05/05/20 10:01 Dose: 100 mls/hr Documented by: JOCELYN Vital Signs Vital signs: Vital Signs - 8 hr 05/05/20 07:36 05/05/20 07:45 05/05/20 08:30 Temperature 98.2 F Pulse Rate 74 71 71 Pulse Rate [Orthostatic Lying] Pulse Rate [Orthostatic Sitting] Respiratory Rate 20 16 12 Blood Pressure 190/90 H 188/83 H 168/79 H Blood Pressure [Orthostatic Lying] Blood Pressure [Orthostatic Sitting] Pulse Oximetry 94 95 95 05/05/20 09:10 05/05/20 09:17 05/05/20 09:30 Temperature Pulse Rate 68 66 Pulse Rate [Orthostatic Lying] 68 Pulse Rate [Orthostatic Sitting] 71 Respiratory Rate 16 17 Blood Pressure Blood Pressure [Orthostatic Lying] 165/79 H Blood Pressure [Orthostatic Sitting] 159/65 H Pulse Oximetry 96 96 05/05/20 09:37 05/05/20 09:40 05/05/20 09:45 Temperature Pulse Rate 72 74 65 Pulse Rate [Orthostatic Lying] Pulse Rate [Orthostatic Sitting] Respiratory Rate 21 11 L 17 Blood Pressure 180/81 H 182/83 H Blood Pressure [Orthostatic Lying] Blood Pressure [Orthostatic Sitting] Pulse Oximetry 96 95 98 05/05/20 10:00 05/05/20 10:15 Temperature Pulse Rate 62 73 Pulse Rate [Orthostatic Lying] Pulse Rate [Orthostatic Sitting] Respiratory Rate 15 23 Blood Pressure 184/84 H 171/76 H Blood Pressure [Orthostatic Lying] Blood Pressure [Orthostatic Sitting] Pulse Oximetry 97 MDM - Weakness Lab Data Result diagrams: 05/05/20 08:20 05/05/20 08:20 Labs: Lab Results 05/05/20 05/05/20 05/05/20 Range/Units 08:20 08:20 09:08 WBC 7.1 (4.5-11.0) X10^3/uL RBC 4.24 (4.0-5.2) X10^6/uL Hgb 13.4 (12.0-16.0) g/dL Hct 38.9 (36-46) % MCV 91.8 (80-100) fL MCH 31.5 (26-34) PG MCHC 34.4 (30-36) % RDW 13.1 (11.6-14.8) % Plt Count 163 (150-400) X10^3/uL Neut % (Auto) 73.9 (50-75) % Lymph % (Auto) 17.0 L (25-40) % Faulkner % (Auto) 6.7 (3-14) % Eos % (Auto) 1.8 L (2-4) % Baso % (Auto) 0.6 (0-2) % Neut # (Auto) 5200 (2369-4572) /uL Lymph # (Auto) 1200 (1131-3672) /uL Faulkner # (Auto) 500 (0-900) /uL Eos # (Auto) 100 (0-450) /uL Baso # (Auto) 0 (0-100) /uL Sodium 141 (137-145) mmol/L Potassium 3.6 (3.4-5.1) mmol/L Chloride 103 (98-107) mmol/L Carbon Dioxide 33 H (22-32) mmol/L BUN 22 H (7-17) mg/dL Creatinine 1.20 H (0.52-1.04) mg/dL Estimated GFR 43.4 L (>60) mL/min BUN/Creatinine Ratio 18.3 (6-22) Glucose 92 (80-110) mg/dL Calcium 9.6 (8.4-10.2) mg/dL Magnesium 1.9 (1.6-2.3) mg/dL Ferritin 157 (11-264) ng/mL Total Bilirubin 0.9 (0.2-1.3) mg/dL AST 21 (14-36) IU/L ALT 11 (<35) IU/L Alkaline Phosphatase 56 (38-126) U/L Total Creatine Kinase 56 (30-135) U/L CK-MB (CK-2) TNP CK-MB (CK-2) Rel Index TNP Troponin I 0.013 (0.01-0.034) ng/mL C-Reactive Protein 0.7 (<1.0) mg/dL NT-Pro-B Natriuret Pep 2220 H (<450) pg/mL Total Protein 6.8 (6.3-8.2) g/dL Albumin 3.9 (3.5-5.0) g/dL Globulin 2.9 (1.7-4.1) g/dL Albumin/Globulin Ratio 1.3 (1.0-2.8) COVID-19 PCR Negative (Negative) Urine Dip Bedside Urine Glucose Negative Bedside Urine Bilirubin - Negative Bedside Urine Ketone - Negative Urine Specific [place] 1.020 Bedside Urine Occult Blood +/- Bedside Urine pH 7.0 Bedside Urine Protein - Negative Bedside Urine Urobilinogen - Negative Bedside Urine Nitrite - Negative Bedside Urine Leukocytes - Negative Esterase Discharge Plan Departure Patient Disposition: Admitted as Observation Clinical Impression: Generalized weakness, Acute UTI, At high risk for falls Referrals: Kia Person MD [Primary Care Provider] - Admit Date/Time: 05/05/20 10:22 Admit Provider: Kenneth Pugh
[2020-05-05 08:26] LABS: Add Manual Diff / Slide Review NO; Basophils Absolute Auto 0 /uL (0-100); Basophils Percent Auto 0.6 % (0-2); Eosinophils Absolute Auto 100 /uL (0-450); Eosinophils Percent Auto 1.8 % (2-4); Hematocrit 38.9 % (36-46); Hemoglobin 13.4 g/dL (12.0-16.0); Lymphocytes Absolute Auto 1200 /uL (1100-4500); Mean Corpuscular HGB Conc 34.4 % (30-36); Mean Corpuscular Hemoglobin 31.5 PG (26-34); Mean Corpuscular Volume 91.8 fL (80-100); Monocytes Absolute Auto 500 /uL (0-900); Monocytes Percent Auto 6.7 % (3-14); Neutrophils Absolute Auto 5200 /uL (1500-7000); Neutrophils Percent Auto 73.9 % (50-75); Platelet Count 163 X10^3/uL (150-400); Red Blood Cell Count 4.24 X10^6/uL (4.0-5.2); Red Cell Distribution Width 13.1 % (11.6-14.8); White Blood Cell Count 7.1 X10^3/uL (4.5-11.0)
--- NOTE | 2020-05-05 08:30 | PC.NURSE ---
patient and spouse states today was the worse over the last three weeks. has not taken and tylenol or motrin.
[2020-05-05 08:41] LABS: Alanine Aminotransferase 11 IU/L (<35); Albumin 3.9 g/dL (3.5-5.0); Albumin Globulin Ratio 1.3 (1.0-2.8); Alkaline Phosphatase 56 U/L (38-126); Aspartate Aminotransferase 21 IU/L (14-36); BUN Creatinine Ratio 18.3 (6-22); Bilirubin Total 0.9 mg/dL (0.2-1.3); Blood Urea Nitrogen 22 mg/dL (7-17); C-Reactive Protein Quant 0.7 mg/dL (<1.0); Calcium 9.6 mg/dL (8.4-10.2); Carbon Dioxide 33 mmol/L (22-32); Chloride 103 mmol/L (98-107); Creatine Kinase 56 U/L (30-135); Estimated Glomerular Filt Rate 43.4 mL/min (>60); Globulin 2.9 g/dL (1.7-4.1); Glucose 92 mg/dL (80-110); HEMOLYSIS < 15 (0-50); Magnesium 1.9 mg/dL (1.6-2.3); Potassium 3.6 mmol/L (3.4-5.1); Sodium 141 mmol/L (137-145); Total Protein 6.8 g/dL (6.3-8.2)
[2020-05-05 08:54] LABS: NT-proBNP (BNP-Adult 18+) 2220 pg/mL (<450); Troponin I 0.013 ng/mL (0.01-0.034)
[2020-05-05] MEDS: SODIUM CHLORIDE 0.9% 1,000 ML 125 ML IV (09:04)
[2020-05-05 09:16] LABS: Ferritin 157 ng/mL (11-264)
--- NOTE | 2020-05-05 09:18 | PC.NURSE ---
pt unable to tolerate standing orthostatic bp, returned to bed.
[2020-05-05 09:39] LABS: COVID19 -Nasal RAPID Negative (Negative)
[2020-05-05] MEDS: levoFLOXacin 500 MG/100 ML PIGGYBACK 100 MG IV (10:01)
--- NOTE | 2020-05-05 11:28 | PM.HP.1 ---
History of Present Illness History of Present Illness Date Patient Seen: 05/05/20 Chief complaint: Generalized Weakness Narrative: 79-year-old female who lives at home with her patient has dementia hypothyroidism hypertension stage 3 chronic kidney disease and hospitalization late last year with syncope and diverticulitis with a history of diverticulosis. Patient is not a good historian because of her memory loss. From what I can obtain from the records and patient. She has been living at home with her . Patient has has some generalized weakness and decline over the last few months. This has progressively worsened over the last few days and they have now noticed that she could not get out of bed. This morning she was so weak that she could not stand on her own. The ambulance was called and took a 2 paramedics to get her up out of a chair. She was brought in for evaluation in the emergency department knee emergency department there were no focal deficits patient was quite weak he tried to get her burn ambulate she was unable to do so and orthostatics which were not very helpful. Patient was not fit to go home. Patient had a laboratory workup in the emergency department. Patient was found to have an elevated BNP. Elevation of her kidney function with an elevated BUN creatinine ratio. She was also found to have an elevated BNP of 2000 200 she has never had 1 done before. And there emergency department her urinalysis was consistent with urinary tract infection. During emergency room stay she was quite hypertensive she had normal temperature though. As far as could be elicited other that the weakness the patient has not had any major headaches chest pain palpitations shortness of breath she seems to eat okay sometimes she has had normal bowel movements no diarrhea. No recent skin rashes no recent changes in her medication Patient History Medical History History of breast cancer (Acute) Surgical History History of total mastectomy Family & Social History Social History: household members significant other Safety & Behavioral: Feels Safe in Current Yes Environment Been Physically Hurt or No Threatened By a Person Tobacco & Substance use: Smoking Status Never smoker alcohol intake never alcohol intake frequency 0-2 drinks per day Substance Use Type does not use Meds Home Medications and Allergies Home Medications Medication Instructions Recorded Confirmed Type levothyroxine 125 mcg PO QAM #0 tab 12/25/10 05/05/20 History donepezil 5 mg PO QAM 07/30/19 05/05/20 History losartan 50 mg PO QAM 07/30/19 05/05/20 History memantine 10 mg PO BID 07/30/19 05/05/20 History calcium carbonate [Calcium 500] 1 mg PO QAM 05/05/20 05/05/20 History cholecalciferol (vitamin D3) 25 mcg PO QAM 05/05/20 05/05/20 History Allergies Allergy/AdvReac Type Severity Reaction Status Date / Time amlodipine Allergy Mild Verified 05/05/20 10:14 erythromycin base Allergy Mild Verified 05/05/20 10:14 lisinopril Allergy Mild Verified 05/05/20 10:14 latex Allergy Unknown Verified 05/05/20 10:14 Penicillins Allergy Unknown Verified 05/05/20 10:14 Exam Vital Signs (past 8 hours): - 05/05/20 07:36 05/05/20 07:45 05/05/20 08:30 Temperature 98.2 F Pulse Rate 74 71 71 Pulse Rate [Orthostatic Lying] Pulse Rate [Orthostatic Sitting] Respiratory Rate 20 16 12 Blood Pressure 190/90 H 188/83 H 168/79 H Blood Pressure [Orthostatic Lying] Blood Pressure [Orthostatic Sitting] Pulse Oximetry 94 95 95 05/05/20 09:10 05/05/20 09:17 05/05/20 09:30 Temperature Pulse Rate 68 66 Pulse Rate [Orthostatic Lying] 68 Pulse Rate [Orthostatic Sitting] 71 Respiratory Rate 16 17 Blood Pressure Blood Pressure [Orthostatic Lying] 165/79 H Blood Pressure [Orthostatic Sitting] 159/65 H Pulse Oximetry 96 96 05/05/20 09:37 05/05/20 09:40 05/05/20 09:45 Temperature Pulse Rate 72 74 65 Pulse Rate [Orthostatic Lying] Pulse Rate [Orthostatic Sitting] Respiratory Rate 21 11 L 17 Blood Pressure 180/81 H 182/83 H Blood Pressure [Orthostatic Lying] Blood Pressure [Orthostatic Sitting] Pulse Oximetry 96 95 98 05/05/20 10:00 05/05/20 10:15 05/05/20 10:30 Temperature Pulse Rate 62 73 74 Pulse Rate [Orthostatic Lying] Pulse Rate [Orthostatic Sitting] Respiratory Rate 15 23 18 Blood Pressure 184/84 H 171/76 H 165/76 H Blood Pressure [Orthostatic Lying] Blood Pressure [Orthostatic Sitting] Pulse Oximetry 97 98 05/05/20 10:45 Temperature Pulse Rate 72 Pulse Rate [Orthostatic Lying] Pulse Rate [Orthostatic Sitting] Respiratory Rate 18 Blood Pressure 174/78 H Blood Pressure [Orthostatic Lying] Blood Pressure [Orthostatic Sitting] Pulse Oximetry 98 Oxygen Delivery Method Room Air Narrative Exam Narrative: Gen.: Patient is alert and a poor historian HEENT: Pupils equal round reactive or mucosa is moist neck is supple no facial muscle weakness no lymphadenopathy Cardio: S1-S2 regular rate and rhythm no appreciable murmurs Respiratory: Normal respiratory effort lungs are clear to auscultation bilaterally Abdomen: Soft nontender no masses Extremities: Patient moving upper and lower extremities. Patient has normal tone color and capillary Neurologic: Patient intact neurological status closely Objective Labs Result Diagrams: 05/05/20 08:20 05/05/20 08:20 Labs: Laboratory Results - last 24 hr 05/05/20 05/05/20 05/05/20 08:20 08:20 09:08 WBC 7.1 RBC 4.24 Hgb 13.4 Hct 38.9 MCV 91.8 MCH 31.5 MCHC 34.4 RDW 13.1 Plt Count 163 Neut % (Auto) 73.9 Lymph % (Auto) 17.0 L [place] % (Auto) 6.7 Eos % (Auto) 1.8 L Baso % (Auto) 0.6 Neut # (Auto) 5200 Lymph # (Auto) 1200 [place] # (Auto) 500 Eos # (Auto) 100 Baso # (Auto) 0 Sodium 141 Potassium 3.6 Chloride 103 Carbon Dioxide 33 H BUN 22 H Creatinine 1.20 H Estimated GFR 43.4 L BUN/Creatinine Ratio 18.3 Glucose 92 Calcium 9.6 Magnesium 1.9 Ferritin 157 Total Bilirubin 0.9 AST 21 ALT 11 Alkaline Phosphatase 56 Total Creatine Kinase 56 CK-MB (CK-2) TNP CK-MB (CK-2) Rel Index TNP Troponin I 0.013 C-Reactive Protein 0.7 NT-Pro-B Natriuret Pep 2220 H Total Protein 6.8 Albumin 3.9 Globulin 2.9 Albumin/Globulin Ratio 1.3 COVID-19 PCR Negative Assessment & Plan Assessment & Plan narrative: 79-year-old female with significant generalized weakness and inability to and she will be admitted the hospital for further workup and evaluation. Weakness could be multifactorial due to advanced age dementia urinary tract infection chronic kidney disease and a new diagnosis of of possibly congestive heart failure due to her laboratory findings. Patient will be admitted to further workup and evaluate this weakness and treatment of underlying conditions. We will workup for weakness with the ordering a BNP. Patient's x-ray shows she has left ventricular hypertrophy her to chest x-ray shows she has an enlarged heart although I do not see see clear signs of heart failure on her x-ray and she does not appear to be fluid overloaded. Her BNP could be elevated because of heart failure but also could be elevated due to her mild chronic kidney disease. Her weakness also could be due to her underlying urinary tract infections a will proceed with treatment of her UTI with Levaquin that was started in the emergency department follow her cultures. Urinary tract infection patient has a urinary tract infection based on urinalysis today in the emergency department she was started on Levaquin in the emergency room we will continue with 500 mg once a day we will follow culture results will monitor closely vital signs temperature and white blood cell count. This may be contributing to her underlying significant weakness will have physical therapy meet with the patient. Elevated BNP. Patient has an elevated BNP today. She has a no signs of significant congestive heart failure she appears to be euvolemic has a normal x-ray she has enlarged left ventricle on chest x-ray and also left ventricle hypertrophy on EKG. Will go ahead and proceed with an echocardiogram as this may be an underlying cause of her weakness. Her BNP also could be elevated due to her chronic kidney disease but this will need to be sorted out. Stage 3 chronic kidney disease. Patient has an elevated BUN creatinine ratio. Kidney disease may be the cause of her underlying weakness. Although is not too impressive at this point. This may be an indication is better that she could be possibly fluid overloaded but it is hard to tell based on her fluid status on exam today. Will continue to monitor her kidney function electrolytes while she is in the hospital. Essential hypertension blood pressure is quite high in the hospital currently will restart her Cozaar and move forward with better blood pressure management. 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 Will continue with patient's home dementia medication. Hypothyroidism patient is on thyroid replacement. Will continue her current dose will hold off on doing a thyroid stimulating hormone unless her primary care physician feels like they need at that as I am assuming it has been done regularly as an outpatient Disposition and plan significant weakness hospitalization for further workup and evaluation patient is unable to ambulate. Have her work with physical therapy occupational therapy treat underlying urinary tract infection and proceed with a workup for potential heart failure.
--- NOTE | 2020-05-05 11:39 | DI.ECHO.S_ITS ---
[facility]---------+ [facility] +---------+ : : [address] [place] : : : : [id number] : : : : Phone: [phone]+ Echocardiogram Report + + :Name: MARIANGEL MEYER I Study Date: 05/06/2020 Height: 63 in : :[facility] Weight: 144 lb : : Gender: Female BSA: 1.7 m2 : :: 1940 Age: 79 yrs BP: 181/103 mmHg: :Reason For Study: ELEVATED BNP, WEAKNESS : :Ordering Physician: : :[facility] Performed By: Jyotsna Gusman : :Referring: KRISTI DONATO : + + Interpretation Summary The left ventricle is normal in size.Left ventricular ejection fraction is estimated to be 55 +/- 5%. The right ventricle is normal in size and function. There is mild to moderate mitral regurgitation. Compared to the prior echo study, there has been no change in the severity of mitral regurgitation. There is mild tricuspid regurgitation. Compared to the prior echo exam, there has been a decrease in TR severity. The right ventricular systolic pressure is estimated to be at least 23 mmHg based on an estimated right atrial pressure of 3 mm Hg. Compared to the prior echo exam, there has been a decrease in the severity of pulmonary hypertension. The ascending aorta is mildly enlarged. There is a small pericardial effusion noted (New). There are no echocardiographic indications of cardiac tamponade. There is mild luminal irregularity and echogenicity in the abdominal aorta, suggestive of aortic atherosclerotic disease. Procedure: A two-dimensional transthoracic echocardiogram with color flow and Doppler was performed. The study quality was technically adequate. Comparison is made with the echocardiogram of 09/20/2015. Rhythm is regular. Baseline irregular atrial activity likely an artifact rather than true atrial flutter. Left Ventricle: The left ventricle is normal in size. There is mild concentric left ventricular hypertrophy. There is no thrombus. Left ventricular ejection fraction is estimated to be 55 +/- 5%. Septal motion is consistent with conduction abnormality. Diastolic parameters suggest a relaxation abnormality of the left ventricle, consistent with probable normal filling pressures. Right Ventricle: The right ventricle is normal in size and function. Atria: The left atrial size is normal. The left atrium has mildly decreased in size since the prior echo exam. Right atrial size is normal. There is no Doppler evidence for an interatrial shunt. Mitral Valve: There is mild mitral annular calcification. The mitral valve leaflets are mildly calcified. There is mild to moderate mitral regurgitation. Compared to the prior echo study, there has been no change in the severity of mitral regurgitation. Aortic Valve: The aortic valve is trileaflet. The aortic valve opens well. The aortic valve is mildly calcified. There is no aortic valve stenosis. No aortic regurgitation is present. Tricuspid Valve: The tricuspid valve is not well visualized, but is grossly normal. There is mild tricuspid regurgitation. The right ventricular systolic pressure is estimated to be at least 23 mmHg based on an estimated right atrial pressure of 3 mm Hg. Compared to the prior echo exam, there has been a decrease in TR severity. Compared to the prior echo exam, there has been a decrease in the severity of pulmonary hypertension. Pulmonic Valve: The pulmonic valve is not well seen, but is grossly normal. There is mild pulmonic regurgitation. Great Vessels: The aortic root is normal size. The ascending aorta is mildly enlarged. There has been no significant change since the previous study. There is mild luminal irregularity and echogenicity in the abdominal aorta, suggestive of aortic atherosclerotic disease. The IVC is of normal diameter and collapses greater than 50% with a sniff. This suggests a low right atrial pressure of 3 mm Hg. Pericardium/ Pleura There is a small pericardial effusion noted. There are no echocardiographic indications of cardiac tamponade. There is no pleural effusion. MMode/2D Measurements & Calculations LVIDd: 4.4 cm LVOT diam: 2.2 cm LVIDs: 2.8 cm Ao root diam: 3.3 cm FS: 37.1 % asc Aorta Diam: 3.7 cm EPSS: 0.59 cm Ao Arch Diam (Prox Trans): 2.5 cm IVSd: 1.2 cm LVPWd: 0.92 cm LV zarco. diameter/BSA (cm/m^2): 2.6 LV sys. diameter/BSA (cm/m^2): 1.6 LA A2 area: 17.5 cm2 RA long axis: 4.9 cm LA A4 area: 13.8 cm2 RA area: 13.7 cm2 LA length (vol): 5.5 cm RA vol: 32.6 ml LA vol: 37.6 ml RA : 19.4 ml/m2 LA vol index: 22.4 ml/m2 IVC diam: 1.7 cm RVD1 (basal): 3.1 cm TAPSE: 2.1 cm Doppler Measurements & Calculations Ao V2 max: 121.1 cm/sec LVOT Max Edmundo: 78.7 cm/sec Ao V2 mean: 80.1 cm/sec LV V1 max P.5 mmHg Ao max P.9 mmHg LV V1 VTI: 17.5 cm Ao mean P.0 mmHg ALON(I,D): 2.5 cm2 Ao V2 VTI: 26.2 cm ALON(V,D): 2.4 cm2 sev ratio: 0.67 ALON indexed to BSA (cm^2/m^2): 1.5 MV E max edmundo: 36.6 cm/sec TR max edmundo: 225.3 cm/sec MV A max edmundo: 82.3 cm/sec TR max P.3 mmHg MV E/A: 0.45 PA V2 max: 64.9 cm/sec Med Peak E' Edmundo: 3.0 cm/sec PA V2 mean: 42.6 cm/sec E/E' med: 12.0 PA mean P.84 mmHg Lat Peak E' Edmundo: 3.0 cm/sec PA pr(Accel): 32.8 mmHg E/E' lat: 12.2 E/e' average: 12.1 MV dec time: 0.23 sec SV(LVOT): 64.8 ml Reading Physician:02:47 PM
--- NOTE | 2020-05-05 12:17 | PC.NURSE ---
Pt arrived via ED on stretcher. Pt's S.O. went home to eat and will be right back. Once he arrives we'll ask admit questions. Pt is tearful, looking for S.O. Sina will get admit history from Sina when he returns.
[2020-05-05] MEDS: SODIUM CHLORIDE 0.9% 1,000 ML 100 ML IV ×2 (13:03→18:28)
[2020-05-05] MEDS: IBUPROFEN 600 MG TABLET PO ×2 (13:20→18:28)
[2020-05-05] MEDS: METOPROLOL IR 50 MG TABLET PO ×2 (13:57→22:13)
--- NOTE | 2020-05-05 16:48 | PT.IIE ---
Surgical History (Last Reviewed 05/05/20 @ 11:41 by Kenneth Pugh MD) History of total mastectomy Medical History (Last Reviewed 05/05/20 @ 11:41 by Kenneth Pugh MD) History of breast cancer (Acute) Physical Therapy Inpatient Evaluation/Re-Eval M1 PT/OT-IP Prior Functional Status Start: 05/05/20 13:49 Freq: NEEDED Status: Active Protocol: Document 05/05/20 16:20 AW (Rec: 05/05/20 16:48 AW [id number]) Medical Review Prior Functional Status Medical History Reviewed Yes Communication Pt has dementia and is a poor historian. Mobility and Gait Pt states she does not use any assistive device at home but rather depends on her SO, Sina, for support during transfers and short bouts of ambulation. She has experienced progressive decline over the last few weeks and her SO is concerned about his ability to care for her at home. Activities of Daily Living and IADL's Significant other, Sina, provides assist with dressing and bathing, occasionally with toileting. Prior Functional Level (Other details) Pt reports she does not leave the house very often. Social History Household Members significant other Living Arrangements House Number of Floors (Floors) One Floor Number of Stairs To Enter/Railing? 3 [place] with R rail ascending Home Environment High Toilet,Walk in Shower Home Equipment Front Wheel Walker,Four Wheel Walker,Quad Cane,Straight Cane ,Grab Bars In Shower Additional Social History Comment Pt lives with her SO, Sina, who provides full-time assist at home. PT is unable to contact Sina at this time and will need to follow up for more information about PLOF. M2 PT-IP Current Condition Start: 05/05/20 13:49 Freq: NEEDED Status: Active Protocol: Document 05/05/20 16:20 AW (Rec: 05/05/20 16:48 AW [id number]) Physical Therapy Current Condition Current Condition Evaluation Date 05/05/20 Treatment Diagnosis UTI, generalized weakness, difficulty in walking Onset Date a few weeks Precautions Other Precautions high falls risk M3 PT-IP Subjective Start: 05/05/20 13:49 Freq: NEEDED Status: Active Protocol: Document 05/05/20 16:20 AW (Rec: 05/05/20 16:48 AW [id number]) Subjective Physical Therapy Visit Type Type Initial Evaluation Visit Start Time 15:03 Visit Stop Time 15:35 Total Visit Minutes 32 Physical Therapy Visit Comments Patient Comments Pt is willing to participate with PT, requests to use the BSC. Therapy Pain Assessment Pain When Pain Assessed During Mobility Pain Present Pain Present Pain Reported Location Bilateral Lower Back Scale Used pt vaguely reports pain but does not quantify M4 PT-IP Mobility and Gait Start: 05/05/20 13:49 Freq: NEEDED Status: Active Protocol: Document 05/05/20 16:20 AW (Rec: 05/05/20 16:48 AW [id number]) PT-Bed Mobility Assessment Supine to Sit Supine to Sit Moderate Assistance,1 Person Assistance Sit to Supine Sit to Supine Total Assistance Scooting Scooting to Edge of Bed Moderate Assistance PT-Transfer Assessment Sit to and From Stand Sit to and from Stand Maximum Assistance,1 Person Assistance,Use of Upper Extremities Equipment Transfer Assistive Device Gait Belt Orthotic/Prosthetic Devices or Brace: No Transfers Transfer Destination Bed,Bedside Commode Transfer Technique Stand Pivot Transfer Ability Level of Assist Maximum Assistance,1 Person Assistance Comments Mobility Comments Pt agreed to mobilize with PT and asked to use the BSC. With HOB flat, she required mod A x 1 to roll to her right side and complete SL to sit transition. Unsupported sitting balance was poor, requiring min A x 1 to maintain sitting position due to strong posterior lean. Sitting BP was 77/50 HR 101. Pt required mod A x 1 to scoot toward EOB and then max A x 1 to attempt standing with FWW. Pt was able to accept weight on her feet but would not shift weight forward in standing with FWW in front of her. Pt sat on the bed. She then stood without AD with PT using the gait belt max A x 1. Transfer to the BSC also required max A x 1 via stand pivot with pt continuing to lean backward in spite of instruction to lean forward. Pt sat on the BSC and complained of dizziness. BP was 66/48 HR 86. PT used the call light to call for assist and CORPORATE CONSULTANT responded. Pt BP recovered to 121/77 HR 93 before pt stood with max A x 1 and CORPORATE CONSULTANT assisted with pericare in standing. Pt stood a total of 2 minutes before stand pivot transfer back to the bed max A x 1. CORPORATE CONSULTANT and PT assisted with dependent sit to supine transfer and dependent boost up in the bed. Pt was positioned with call light and all needs in reach, bed alarm on sensitive setting for safety. Gait Assessment Comments Gait Comments Unable at this time. PT-Balance Assessment Sitting Balance and Reactions Static Sitting Balance Ability Fair Dynamic Sitting Balance Ability Poor Standing Balance and Reactions Static Standing Balance Ability Poor Dynamic Standing Balance Ability Poor Device Used FWW M5 PT-IP Objective Assessments Start: 05/05/20 13:49 Freq: NEEDED Status: Active Protocol: Document 05/05/20 16:20 AW (Rec: 05/05/20 16:48 AW [id number]) Orientation Orientation/Cognition Level of Alertness Confusional State Orientation Name,Place Language Function Ability No Deficits Noted Safety Awareness Decreased Safety Awareness Memory Description Short Term Impaired,Fpc Impaired Comments Pt with poor safety awareness. During evaluation, pt is perseverating on the whereabouts of her partner, Sina, in spite of being reminded several times that he went home to rest. Gross Range of Motion Upper Extremity ROM Assessment Within Functional Limits Lower Extremity ROM Assessment Within Functional Limits Strength Upper Extremity Strength Assessment Bilaterally Impaired Lower Extremity Strength Assessment Bilaterally Impaired Comments Strength Comments MMT difficult to assess due to pt's poor ability to follow directions. Limited exam reveals BLE grossly 4-/5. Sensation Assessment Comments Sensation Comments Unable to assess due to pt's poor understanding of instruction. M6 PT-IP Treatment Start: 05/05/20 13:49 Freq: NEEDED Status: Active Protocol: Document 05/05/20 16:20 AW (Rec: 05/05/20 16:48 AW [id number]) Physical Therapy Treatment Education Education Provided Safety Other Treatments Other Treatment Performed Provided education on role of PT, plan of care, and safety in the home. M7 PT-IP Assessment and Plan Start: 05/05/20 13:49 Freq: NEEDED Status: Active Protocol: Document 05/05/20 16:20 AW (Rec: 05/05/20 16:48 AW [id number]) PT Summary Assessment and Plan Potential Rehabilitation Potential Fair Status of Condition at Evaluation Evolving Summary Impairments Pain,Strength,Balance, Cognition,Bed Mobility, Transfers,Gait,Activity Tolerance Assessment Summary Ashlie is a 79 yo woman with history of dementia who was seen for PT evaluation after being admitted with UTI and progressing general weakness. Pt is heavily dependent on her life partner, Sina, for [employer] with all mobility. She has difficulty coordinating use of FWW due to her cognitive status. Mobility at baseline is limited and pt is essentially home bound. Pt's partner provides all assist with self-care and mobility at home. Ashlie presents with poor sitting and standing balance with strong retropulsive tendencies. If discharge plan is for home, pt will require 24/7 assist with all mobility and would benefit from home health services to address safety in the home. However, pt would certainly benefit from SNF rehab to address strength and balance deficits and to improve her ability to participate in her own care at home. Goals Bed Mobility Goal Standby Assistance Transfer Goal Contact Guard Assistance Gait Goal Contact Guard Assistance Gait Distance 50 Other Goals up/down 3 steps with R rail ascending and [employer] Days to Meet Goals 10 Frequency of Treatment Frequency Of Treatment Once a Day Treatment Plan Physical Therapy Treatment Plan Bed Mobility Training,Transfer Training,Gait Training, Therapeutic Exercise,Balance Retraining,Discharge Planning, Neuromuscular Re-ed, Coordination Retraining Recommendations To Nursing Amount of Assist Needed 2 Person Assist Discharge Recommendations PT Discharge Recommendations Home with 24/7 Assist,Home Health,SNF Rehab Other Discharge Recommendations SNF vs home with 24/7 assist and HH PT. Home would likely be optimal setting due to pt's cognition, but SNF may be required. Transportation Needs at Discharge Wheelchair/Cabulance
[2020-05-05] MEDS: DOCUSATE 100 MG CAPSULE PO (22:13)
[2020-05-05] MEDS: MEMANTINE HCL 5 MG TABLET 10 MG PO (22:13)
[2020-05-06] VITALS (8 sets, daily range): BP systolic 132–180; BP diastolic 63–122; PULSE 55–70; RESP 14–18; TEMP 36.2–36.8; O2SAT 95–97
[2020-05-06] MEDS: IBUPROFEN 600 MG TABLET PO ×3 (00:32→20:20)
[2020-05-06] MEDS: SODIUM CHLORIDE 0.9% 1,000 ML 100 ML IV (03:50)
[2020-05-06] MEDS: LEVOTHYROXINE 125 MCG TABLET PO (05:13)
[2020-05-06] MEDS: METOPROLOL IR 50 MG TABLET PO (06:03)
[2020-05-06] MEDS: LOSARTAN 50 MG TABLET PO (06:03)
--- NOTE | 2020-05-06 06:13 | PC.NURSE ---
Dr. Pugh called at 0554 for vital signs. Blood pressure ranging from 176/114-181/104. Heart rate ranging between 65-[address] Pugh ordered to give the 0900 doses of Metoprolol 50mg and [place] 50mg right now. See MAR. Will continue to monitor.
[2020-05-06 06:27] LABS: Add Manual Diff / Slide Review NO; Basophils Absolute Auto 0 /uL (0-100); Basophils Percent Auto 0.6 % (0-2); Eosinophils Absolute Auto 200 /uL (0-450); Hematocrit 36.7 % (36-46); Hemoglobin 12.4 g/dL (12.0-16.0); Lymphocytes Absolute Auto 1400 /uL (1100-4500); Lymphocytes Percent Auto 26.8 % (25-40); Mean Corpuscular HGB Conc 33.8 % (30-36); Mean Corpuscular Hemoglobin 30.9 PG (26-34); Mean Corpuscular Volume 91.5 fL (80-100); Monocytes Absolute Auto 400 /uL (0-900); Monocytes Percent Auto 7.5 % (3-14); Neutrophils Absolute Auto 3200 /uL (1500-7000); Neutrophils Percent Auto 61.1 % (50-75); Platelet Count 159 X10^3/uL (150-400); Red Blood Cell Count 4.02 X10^6/uL (4.0-5.2); Red Cell Distribution Width 12.8 % (11.6-14.8); White Blood Cell Count 5.3 X10^3/uL (4.5-11.0)
[2020-05-06 06:33] LABS: Alanine Aminotransferase 10 IU/L (<35); Albumin 3.3 g/dL (3.5-5.0); Albumin Globulin Ratio 1.2 (1.0-2.8); Alkaline Phosphatase 51 U/L (38-126); Aspartate Aminotransferase 20 IU/L (14-36); BUN Creatinine Ratio 15.9 (6-22); Bilirubin Total 0.9 mg/dL (0.2-1.3); Blood Urea Nitrogen 17 mg/dL (7-17); Calcium 8.8 mg/dL (8.4-10.2); Carbon Dioxide 28 mmol/L (22-32); Chloride 107 mmol/L (98-107); Estimated Glomerular Filt Rate 49.6 mL/min (>60); Globulin 2.7 g/dL (1.7-4.1); Glucose 84 mg/dL (80-110); HEMOLYSIS < 15 (0-50); Magnesium 1.8 mg/dL (1.6-2.3); Potassium 3.6 mmol/L (3.4-5.1); Sodium 141 mmol/L (137-145)
--- NOTE | 2020-05-06 08:20 | DI.CT.S_ITS ---
PROCEDURE: CT HEAD/BRAIN WO CON INDICATIONS: fall, headache TECHNIQUE: Noncontrast 4.5 mm thick angled axial sections acquired from the foramen magnum to the vertex, with coronal and sagittal reformats. For radiation dose reduction, the following was used: automated exposure control, adjustment of mA and/or kV according to patient size. COMPARISON: [facility], CT, CT HEAD/BRAIN WO CON, 07/29/2019, 17:15. FINDINGS: Image quality: Excellent. CSF spaces: Basal cisterns are patent. No extra-axial fluid collections. The ventricles are symmetric in size and shape. Brain: No intracranial bleeds or masses. There is cerebral volume loss for age, with resultant ventricular and sulcal prominence. There are periventricular and deep white matter chronic small vessel ischemic changes. There is intracranial internal carotid artery atherosclerosis. Skull and face: Calvarium and visualized facial bones appear intact, without suspicious lesions. Sinuses: Mucosal thickening and frothy air-fluid levels noted in the maxillary sinuses bilaterally left greater than right. Scattered mucosal thickening noted in the ethmoid air cells. The mastoids are clear. IMPRESSION: 1. No acute intracranial disease process. 2. Acute superimposed upon chronic bilateral maxillary sinusitis. Dictated by: Faby Galloway MD, PhD on 05/06/2020 at 9:15 Approved by: Faby Galloway MD, PhD on 05/06/2020 at 9:19
--- NOTE | 2020-05-06 08:21 | PM.PN.1 ---
Subjective Subjective Date Patient Seen: 05/06/20 Time Patient Seen: 08:21 Interval history: This is a pleasant 79-year-old female with moderate to severe dementia who is well-known to me. Patient was admitted yesterday for weakness, urinary tract infection with sepsis and hypotension. She had an unremarkable night overnight but now is having elevated blood pressures. She is urinating frequently. Her significant other is at bedside and provides the majority of the history. The patient states that she has been urinating frequently. Otherwise she denies any complaints. Review of systems: Patient fell approximately 2-3 weeks ago and injured her head she sustained a laceration. Since this time she has had decreased cognitive function and difficulty walking and this has progressively worsened. She is having intermittent headaches She is having urinary frequency but no dysuria or hematuria She denies chest pain or shortness of breath or lower extremity edema or PND orthopnea Exam Vital Signs (past 8 hours): - 05/06/20 00:26 05/06/20 05:00 05/06/20 06:03 Temperature 97.4 F L 98.3 F Pulse Rate 62 67 70 Respiratory Rate 18 16 Blood Pressure 157/93 H 174/104 H 180/100 H Pulse Oximetry 95 95 Oxygen Delivery Method Room Air Oxygen Flow Rate 0 Narrative Exam Narrative: Patient is alert and oriented to person but not place or time. She is able to answer some questions. She denies any pain. Vital signs are stable except for elevated blood pressure 180/100. O2 sats are normal on room air HEENT: Unremarkable Neck: Supple Chest: Bibasilar crackles and decreased breath sounds and prolonged expiratory phase but no wheezes or rhonchi Cor: Regular rate and rhythm with distant S1-S2 and no murmur rubs or gallops Abdomen: Positive bowel sounds, soft, nontender, nondistended. Extremities no edema Neurologic exam is nonfocal other than decreased cognition Objective Labs Result Diagrams: 05/06/20 05:58 05/06/20 05:58 Labs: Laboratory Results - last 24 hr 05/05/20 05/05/20 05/05/20 08:20 08:20 09:08 WBC 7.1 RBC 4.24 Hgb 13.4 Hct 38.9 MCV 91.8 MCH 31.5 MCHC 34.4 RDW 13.1 Plt Count 163 Neut % (Auto) 73.9 Lymph % (Auto) 17.0 L [place] % (Auto) 6.7 Eos % (Auto) 1.8 L Baso % (Auto) 0.6 Neut # (Auto) 5200 Lymph # (Auto) 1200 [place] # (Auto) 500 Eos # (Auto) 100 Baso # (Auto) 0 Sodium 141 Potassium 3.6 Chloride 103 Carbon Dioxide 33 H BUN 22 H Creatinine 1.20 H Estimated GFR 43.4 L BUN/Creatinine Ratio 18.3 Glucose 92 Calcium 9.6 Magnesium 1.9 Ferritin 157 Total Bilirubin 0.9 AST 21 ALT 11 Alkaline Phosphatase 56 Total Creatine Kinase 56 CK-MB (CK-2) TNP CK-MB (CK-2) Rel Index TNP Troponin I 0.013 C-Reactive Protein 0.7 NT-Pro-B Natriuret Pep 2220 H Total Protein 6.8 Albumin 3.9 Globulin 2.9 Albumin/Globulin Ratio 1.3 COVID-19 PCR Negative 05/06/20 05/06/20 05:58 05:58 WBC 5.3 RBC 4.02 Hgb 12.4 Hct 36.7 MCV 91.5 MCH 30.9 MCHC 33.8 RDW 12.8 Plt Count 159 Neut % (Auto) 61.1 Lymph % (Auto) 26.8 [place] % (Auto) 7.5 Eos % (Auto) 4.0 Baso % (Auto) 0.6 Neut # (Auto) 3200 Lymph # (Auto) 1400 [place] # (Auto) 400 Eos # (Auto) 200 Baso # (Auto) 0 Sodium 141 Potassium 3.6 Chloride 107 Carbon Dioxide 28 BUN 17 Creatinine 1.07 H Estimated GFR 49.6 L BUN/Creatinine Ratio 15.9 Glucose 84 Calcium 8.8 Magnesium 1.8 Ferritin Total Bilirubin 0.9 AST 20 ALT 10 Alkaline Phosphatase 51 Total Creatine Kinase CK-MB (CK-2) CK-MB (CK-2) Rel Index Troponin I C-Reactive Protein NT-Pro-B Natriuret Pep Total Protein 6.0 L Albumin 3.3 L Globulin 2.7 Albumin/Globulin Ratio 1.2 COVID-19 PCR Assessment & Plan Assessment & Plan narrative: 79-year-old female with moderate to severe dementia admitted for decreased cognition, weakness, UTI, sepsis Assessment 1. Infectious disease suspect urinary tract infection with sepsis Plan: Will continue on Levaquin Will await cultures Assessment 2. Dementia with worsening cognition and a recent fall Plan: Will go ahead and do CT scan of her head without contrast Continue her outpatient medications Work with PT and OT Possible sniff placement on discharge pending how she recovers but the ultimate goal is to get her back home. We did discuss hospice but they are not ready for that at this point. Assessment 3. Hypertension with exacerbation Plan: Will increase losartan to 50 mg twice daily Will await the results of the echo and possibly give Lasix Assessment number for possible congestive heart failure Plan: Will await echo Assessment 5. Hypothyroidism Plan: She has had outpatiet evaluation. We will see when this was last done. Assessment 6. History of reactive airway disease without current symptoms Plan: Reviewed chest x-ray is normal. Will see echo. Assessment 7. DVT prophylaxis Plan: Continue with bilateral SCDs. Quality VTE Deep Vein Thrombosis/Pulmonary Embolism Present on Admission: No
[2020-05-06] MEDS: ENOXAPARIN 40 MG/0.4 ML SYRINGE SUBCUT (09:15)
[2020-05-06] MEDS: MEMANTINE HCL 5 MG TABLET 10 MG PO ×2 (09:16→20:16)
[2020-05-06] MEDS: DONEPEZIL 5 MG TABLET PO (09:16)
[2020-05-06] MEDS: DOCUSATE 100 MG CAPSULE PO ×2 (09:16→20:20)
--- NOTE | 2020-05-06 09:52 | PC.NURSE ---
Addendum entered by Homer Gutierrez R.N. 05/06/20 12:48: DESIGN TRANSFERRER IN WITH PATIENT AT THIS TIME. Original Note: BP REMAINS ELEVATED. CHANGED [place] ORDER TO BID. NOTIFIED PROVIDER THAT PATIENT HAD BEEN GIVEN HER 50MG DOSE ALREADY THIS AM, WANTS ORDER FOR BID, NO ADDITIONAL AM DOSE. PATIENT 2P MAX ASSIST WITH BLE WEAKNESS, BEAR HUG PIVOT TRANSF TO BSC, REQUIRING EXTENSIVE CUES. HAD A HEAVY INCONT BRIEF. BACK TO BED AND OFF OF UNIT FOR CT SCAN. NOW BACK TO AND HAS COMPLETED BREAKFAST. TOLERATED MEDS WHOLE IN CARRIER WITH VERBAL CUES. PATIENT IS CALM AND COOPERATIVE AND ABLE TO FEED SELF.
[2020-05-06] MEDS: levoFLOXacin 250 MG/50 ML PIGGYBACK 100 MG IV (10:33)
--- NOTE | 2020-05-06 15:11 | PT.IPTN ---
Physical Therapy Treatment Note M2 PT-IP Current Condition Start: 05/05/20 13:49 Freq: NEEDED Status: Active Protocol: Document 05/05/20 16:20 AW (Rec: 05/05/20 16:48 AW [id number]) Physical Therapy Current Condition Current Condition Evaluation Date 05/05/20 Treatment Diagnosis UTI, generalized weakness, difficulty in walking Onset Date a few weeks Precautions Other Precautions high falls risk M3 PT-IP Subjective Start: 05/05/20 13:49 Freq: NEEDED Status: Active Protocol: Document 05/06/20 14:47 CLB (Rec: 05/06/20 16:26 CLB [id number]) Subjective Physical Therapy Visit Type Type Treatment Note Visit Start Time 14:47 Visit Stop Time 15:11 Total Visit Minutes 24 Notes co-treat with OT Number of TOUR LEADER Visits 1 Physical Therapy Visit Comments Patient Comments Pt is willing to participate with PT, requests to use the BS. M4 PT-IP Mobility and Gait Start: 05/05/20 13:49 Freq: NEEDED Status: Active Protocol: Document 05/06/20 14:47 CLB (Rec: 05/06/20 16:26 CLB [id number]) PT-Bed Mobility Assessment Supine to Sit Supine to Sit Moderate Assistance,1 Person Assistance Scooting Scooting to Edge of Bed Moderate Assistance PT-Transfer Assessment Sit to and From Stand Sit to and from Stand Minimal Assistance,2 Person Assistance Equipment Transfer Assistive Device Gait Belt Orthotic/Prosthetic Devices or Brace: No Transfers Transfer Destination Chair,Bedside Commode Transfer Technique Stand Step Pivot Transfer Ability Level of Assist Minimal Assistance,2 Person Assistance Comments Mobility Comments Pt wanting to get up to [facility], pt required Mod A for sup-sit and scooting to EOB. Pt then stood Min A x2 with bilateral TRUCK DRIVER SALESPERSON. Pt performed stand step pivot to BSC with difficulty taking steps backwards. Pt sat on C SBA and was assisted with doffing/donning brief. Pt then stood from BSC Min A x2 with bilateral TRUCK DRIVER SALESPERSON and stepped to chair with cues for posture and tactile cues for reaching back to chair before sitting. Pt BP in sitting on EOB 180/89, RN informed and cleared to transfer to BSC then to chair. Pt BP in sitting on chair after transfers 154/97. Pt left in reclined chair with OT present . Gait Assessment Comments Gait Comments Unable at this time. PT-Balance Assessment Sitting Balance and Reactions Static Sitting Balance Ability Fair Dynamic Sitting Balance Ability Poor Standing Balance and Reactions Static Standing Balance Ability Poor Dynamic Standing Balance Ability Poor Device Used FWW M5 PT-IP Objective Assessments Start: 05/05/20 13:49 Freq: NEEDED Status: Active Protocol: Document 05/05/20 16:20 AW (Rec: 05/05/20 16:48 AW [id number]) Orientation Orientation/Cognition Level of Alertness Confusional State Orientation Name,Place Language Function Ability No Deficits Noted Safety Awareness Decreased Safety Awareness Memory Description Short Term Impaired,Architectural Coating Finisher Impaired Comments Pt with poor safety awareness. During evaluation, pt is perseverating on the whereabouts of her partner, Sina, in spite of being reminded several times that he went home to rest. Gross Range of Motion Upper Extremity ROM Assessment Within Functional Limits Lower Extremity ROM Assessment Within Functional Limits Strength Upper Extremity Strength Assessment Bilaterally Impaired Lower Extremity Strength Assessment Bilaterally Impaired Comments Strength Comments MMT difficult to assess due to pt's poor ability to follow directions. Limited exam reveals BLE grossly 4-/5. Sensation Assessment Comments Sensation Comments Unable to assess due to pt's poor understanding of instruction. M6 PT-IP Treatment Start: 05/05/20 13:49 Freq: NEEDED Status: Active Protocol: Document 05/05/20 16:20 AW (Rec: 05/05/20 16:48 AW [id number]) Physical Therapy Treatment Education Education Provided Safety Other Treatments Other Treatment Performed Provided education on role of PT, plan of care, and safety in the home. M7 PT-IP Assessment and Plan Start: 05/05/20 13:49 Freq: NEEDED Status: Active Protocol: Document 05/06/20 14:47 CLB (Rec: 05/06/20 16:26 CLB [id number]) PT Summary Assessment and Plan Potential Rehabilitation Potential Fair Status of Condition at Evaluation Evolving Summary Impairments Pain,Strength,Balance, Cognition,Bed Mobility, Transfers,Gait,Activity Tolerance Assessment Summary Pt required Min A x2 with bilateral TRUCK DRIVER SALESPERSON, pt requires max verbal and tactile cues for step sequencing and hand placement for safety. Pt will require 24/7 assist with all mobility and would benefit from home health services to address safety in the home. Goals Bed Mobility Goal Standby Assistance Transfer Goal Contact Guard Assistance Gait Goal Contact Guard Assistance Gait Distance 50 Other Goals up/down 3 steps with R rail ascending and TRUCK DRIVER SALESPERSON Days to Meet Goals 10 Frequency of Treatment Frequency Of Treatment Once a Day Treatment Plan Physical Therapy Treatment Plan Bed Mobility Training,Transfer Training,Gait Training, Therapeutic Exercise,Balance Retraining,Discharge Planning, Neuromuscular Re-ed, Coordination Retraining Recommendations To Nursing Amount of Assist Needed 2 Person Assist Discharge Recommendations PT Discharge Recommendations Home with 24/7 Assist,Home Health Other Discharge Recommendations SNF vs home with 24/7 assist and PT. Home would likely be optimal setting due to pt's cognition. Transportation Needs at Discharge Private Vehicle,Wheelchair/ Cabulance
--- NOTE | 2020-05-06 22:32 | PC.NURSE ---
Evening shift Report received, care assumed 1530. Pt working with Rehab services at time of intial contact. Tolerated well, up to chair for the rest of the afternoon. 2-person assist to BSC, then back to bed. Required much verbal and physical cuing. VSS. Oriented to self only. Calm and pleasant, follows commands. Left and right coccyx purple, blanching. Held evening BP meds for HR 55.
[2020-05-07] MEDS: IBUPROFEN 600 MG TABLET PO ×3 (00:20→18:37)
[2020-05-07 03:00] VITALS: BP 146/70; PULSE 57; RESP 16; TEMP 36; O2SAT 98
[2020-05-07] MEDS: LEVOTHYROXINE 125 MCG TABLET PO (06:09)
[2020-05-07] MEDS: SODIUM CHLORIDE 0.9% FLUSH 10 ML IV (10:23)
[2020-05-07] MEDS: MEMANTINE HCL 5 MG TABLET 10 MG PO (10:27)
[2020-05-07] MEDS: LOSARTAN 50 MG TABLET PO (10:27)
[2020-05-07] MEDS: levoFLOXacin 250 MG/50 ML PIGGYBACK 100 MG IV (10:29)
[2020-05-07 11:00] VITALS: BP 129/75; PULSE 67; RESP 15; TEMP 36.4; O2SAT 97
--- NOTE | 2020-05-07 11:12 | PT.IPTN ---
Physical Therapy Treatment Note M2 PT-IP Current Condition Start: 05/05/20 13:49 Freq: NEEDED Status: Active Protocol: Document 05/05/20 16:20 AW (Rec: 05/05/20 16:48 AW [id number]) Physical Therapy Current Condition Current Condition Evaluation Date 05/05/20 Treatment Diagnosis UTI, generalized weakness, difficulty in walking Onset Date a few weeks Precautions Other Precautions high falls risk M3 PT-IP Subjective Start: 05/05/20 13:49 Freq: NEEDED Status: Active Protocol: Document 05/07/20 10:39 CLB (Rec: 05/07/20 12:38 CLB [id number]) Subjective Physical Therapy Visit Type Type Treatment Note Visit Start Time 10:39 Visit Stop Time 11:12 Total Visit Minutes 33 Notes co-treat with OT Number of VASCULAR ULTRASOUND TECHNICIAN Visits 2 Physical Therapy Visit Comments Patient Comments Pt is willing to participate with PT, requests to use the BSC. M4 PT-IP Mobility and Gait Start: 05/05/20 13:49 Freq: NEEDED Status: Active Protocol: Document 05/07/20 10:39 CLB (Rec: 05/07/20 12:38 CLB [id number]) PT-Transfer Assessment Sit to and From Stand Sit to and from Stand Minimal Assistance,1 Person Assistance,2 Person Assistance Equipment Transfer Assistive Device Gait Belt Orthotic/Prosthetic Devices or Brace: No Transfers Transfer Destination Chair,Bedside Commode Transfer Technique Stand Step Pivot Transfer Ability Level of Assist Minimal Assistance,2 Person Assistance Comments Mobility Comments Pt scooted to edge of chair with tactile cues to hold arms of chair to assist. Pt stood Min A x2 and SPEECH LANGUAGE ASSISTANT rather than using FWW. Pt took pivot steps to BSC requiring constant cues for step sequencing and posture. Pt sat on BSC Min A and tactile cues for hand placement. Pt required assist with doffing/donning brief. Pt was able to be direct to assist with pericare, OT did follow up pericare. Pt then stood requiring Min A x2 with SPEECH LANGUAGE ASSISTANT and ambulated with chair follow and assist of lines ~ 6ft. Once pt fatigued pt sat in chair Min A x2. Pt left in chair with alarm on and all needs within reach. Gait Assessment Gait Gait Assistance Required: Minimum Assistance,2 Person Assist Distance (Feet) 6 Assistive Devices Assistive Device Gait Belt Orthotic/Prosthetic Devices or Brace: No Gait Deviations General Gait Pattern Decreased Stride Length, Decreased Feet Clearance, Flexed Trunk,Narrow Based Gait Factors Limiting Gait Function Factors Limiting Gait Function Decreased Activity Tolerance, Decreased Strength,Difficulty Following Directions, Incoordination,Pain,Poor Balance,Poor Safety Awareness Comments Gait Comments Pt required Min A x2 for ~6ft with SPEECH LANGUAGE ASSISTANT of VASCULAR ULTRASOUND TECHNICIAN and OT, chair follow by CAN TECHNICIAN. Pt uses small shuffled gait and flexed posture requiring verbal and tactile cues to correct. M5 PT-IP Objective Assessments Start: 05/05/20 13:49 Freq: NEEDED Status: Active Protocol: Document 05/05/20 16:20 AW (Rec: 05/05/20 16:48 AW [id number]) Orientation Orientation/Cognition Level of Alertness Confusional State Orientation Name,Place Language Function Ability No Deficits Noted Safety Awareness Decreased Safety Awareness Memory Description Short Term Impaired,Claims Counsel Impaired Comments Pt with poor safety awareness. During evaluation, pt is perseverating on the whereabouts of her partner, Sina, in spite of being reminded several times that he went home to rest. Gross Range of Motion Upper Extremity ROM Assessment Within Functional Limits Lower Extremity ROM Assessment Within Functional Limits Strength Upper Extremity Strength Assessment Bilaterally Impaired Lower Extremity Strength Assessment Bilaterally Impaired Comments Strength Comments MMT difficult to assess due to pt's poor ability to follow directions. Limited exam reveals BLE grossly 4-/5. Sensation Assessment Comments Sensation Comments Unable to assess due to pt's poor understanding of instruction. M6 PT-IP Treatment Start: 05/05/20 13:49 Freq: NEEDED Status: Active Protocol: Document 05/05/20 16:20 AW (Rec: 05/05/20 16:48 AW [id number]) Physical Therapy Treatment Education Education Provided Safety Other Treatments Other Treatment Performed Provided education on role of PT, plan of care, and safety in the home. M7 PT-IP Assessment and Plan Start: 05/05/20 13:49 Freq: NEEDED Status: Active Protocol: Document 05/07/20 10:39 CLB (Rec: 05/07/20 12:38 CLB [id number]) PT Summary Assessment and Plan Potential Rehabilitation Potential Fair Status of Condition at Evaluation Evolving Summary Impairments Pain,Strength,Balance, Cognition,Bed Mobility, Transfers,Gait,Activity Tolerance Assessment Summary Pt able to stand and transfer to [facility] with Min A x2 and SPEECH LANGUAGE ASSISTANT x2. Pt requires cues for posture and step by step instructions are needed. Pt also requires verbal and tactile cues for hand placement during sit<>stand. Pt is improving with ambulation requiring Min A x2 and SPEECH LANGUAGE ASSISTANT x2 for ~6ft. Pt's SO Sina will need CG training to see if he will be able to care for pt at home. Goals Bed Mobility Goal Standby Assistance Transfer Goal Contact Guard Assistance Gait Goal Contact Guard Assistance Gait Distance 50 Other Goals up/down 3 steps with R rail ascending and SPEECH LANGUAGE ASSISTANT Days to Meet Goals 10 Frequency of Treatment Frequency Of Treatment Once a Day Treatment Plan Physical Therapy Treatment Plan Bed Mobility Training,Transfer Training,Gait Training, Therapeutic Exercise,Balance Retraining,Discharge Planning, Neuromuscular Re-ed, Coordination Retraining Recommendations To Nursing Amount of Assist Needed 2 Person Assist Discharge Recommendations PT Discharge Recommendations Home with 24/7 Assist,Home Health Other Discharge Recommendations SNF vs home with 24/7 assist and HH PT. Home would likely be optimal setting due to pt's cognition. Transportation Needs at Discharge Private Vehicle,Wheelchair/ Cabulance
--- NOTE | 2020-05-07 11:12 | OT.IP.TRT ---
Occupational Therapy Treatment Note M2 OT-IP Current Condition Start: 05/06/20 16:03 Freq: Status: Active Protocol: Document 05/06/20 16:06 CGR (Rec: 05/06/20 16:25 CGR [id number]) Occupational Therapy Current Condition Current Condition Evaluation Date 05/06/20 Treatment Diagnosis generalized weakness, UTI Diagnosis Onset Date 05/06/20 M3 OT- IP Subjective and Pain Start: 05/06/20 16:03 Freq: Status: Active Protocol: Document 05/07/20 11:38 CGR (Rec: 05/07/20 11:45 CGR [id number]) OT- Subjective Occupational Therapy Visit Type Type Progress Note Visit Start Time 10:39 Visit Stop Time 11:12 Total Visit Minutes 33 Notes cotreat with P.T. OT Pain Assessment Pain When Pain Assessed During Mobility Pain Present Pain Present Denied Pain M4 OT- IP ADL's Start: 05/06/20 16:03 Freq: Status: Active Protocol: Document 05/07/20 11:38 CGR (Rec: 05/07/20 11:45 CGR [id number]) OT [id number] Comments OT Self-Feeding Comments Not meal time OT ADL-Grooming General Evaluation Grooming Ability Moderate Assistance Comments OT Grooming Comments Pt washed hands with mod a OT ADL-Oral Care Comments Oral Care Comments Not performed OT ADL-Dressing Comments OT Dressing Comments not performed OT ADL-Toileting General Evaluation Toileting Ability Maximum Assistance Areas Needing Assistance Manage Clothing,Perform Perineal Hygiene Comments OT Toileting Comments Pt urinated seated on toielt. Pt attempted BM but without sucess, however, had slight BM noted with back pericare. Pt started back pericare sucessfully and therapist assisted d/t time and throughness. OT ADL-Bathing Comments OT Bathing Comments not performed M5 OT- IP IADL's Start: 05/06/20 16:03 Freq: Status: Active Protocol: Document 05/06/20 16:06 CGR (Rec: 05/06/20 16:25 CGR [id number]) OT-Instrumental Activities of Daily Living Deficits IADL Deficits Identified Deficits Home Safety Awareness Awareness of Need for Assistance at Home Decreased Awareness Ability to Problem Solve Emergency Unable to Problem Solve Situations Medication Management Medication Management Caregiver Administers Money Management Money Management Caregiver Provides Assistance Meal Preparation Meal Preparation Caregiver Provides Assist Conductor Yard Conductor Yard Caregiver Provides Assist Driving Driving Comments 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 M6 OT- IP Functional Cognition Start: 05/06/20 16:03 Freq: Status: Active Protocol: Document 05/06/20 16:06 CGR (Rec: 05/06/20 16:25 CGR [id number]) Cognitive Factors Limiting Selfcare Function Cognitive Ability Level of Alertness Alert,Confusional State Patient Orientation Name,Place Attention Span Ability Capable of Focused Attention, Unable to Sustain Attention Ability to Follow Commands Able to Follow One Step Commands with Increased Time, Able to Follow One Step Commands with Repetition Memory Description Immediate Impaired,Short Term Impaired,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 M7 OT- IP Mobility and Balance Start: 05/06/20 16:03 Freq: Status: Active Protocol: Document 05/07/20 11:38 CGR (Rec: 05/07/20 11:45 CGR [id number]) OT-Transfer Assessment Sit to and From Stand Sit to and from Stand Minimal Assistance,2 Person Assistance Transfers Transfer Ability Minimal Assistance,2 Person Assistance Technique Transfer Destination Bedside Commode,Chair Transfer Technique Stand Step Pivot Devices Transfer Assistive Devices Gait Belt Comments Mobility Comments hand held assist from chair to BSC then for short mobility in room OT- Gait Assessment Gait Gait Assistance Required: Minimum Assistance,2 Person Assist Distance (Feet) 6 Assistive Devices Assistive Device Gait Belt Comments Gait Ability Comments Hand held assist, small steps, needs vc for maintaining standing posture. OT- Balance Assessment Sitting Balance and Reactions Static Sitting Balance Ability Fair Dynamic Sitting Balance Ability Fair Standing Balance and Reactions Static Standing Balance Ability Poor Dynamic Standing Balance Ability Poor M8 OT- IP Objective Assessments Start: 05/06/20 16:03 Freq: Status: Active Protocol: Document 05/06/20 16:06 CGR (Rec: 05/06/20 16:25 CGR [id number]) OT Gross Range of Motion Upper Extremity Range of Motion Assessment Within Functional Limits OT Strength Upper Extremity Strength Assessment Within Functional Limits Comments Strength Comments grossly 4/5 OT- Coordination Assessment Upper Extremity Finger to Nose Test Left UE Impaired Finger Tapping Test Left UE Impaired Comments Coordination Comments noted LUE impairment. OT-Muscle Tone Assessment Muscle Tone WNL Yes OT Sensation Assessment Edema Edema Present Edema Comments the LUE appears to be minimally swollen. M9 OT- IP Assessment and Plan Start: 05/06/20 16:03 Freq: Status: Active Protocol: Document 05/07/20 11:38 CGR (Rec: 05/07/20 11:45 CGR [id number]) OT Summary Assessment and Plan Potential Rehabilitation Potential Good Analytic Complexity at Evaluation Moderate Summary OT Impairments Balance,Coordination, Functional Cognition, Functional Mobility,Grooming, Dressing,Toileting,Bathing, Toilet Transfers,Shower Transfers,Activity Tolerance Progress Towards Goals Slow Progress due to Cognition Assessment Summary Pt presents as a moderate complexity evaluation s/p admit for generalized weakness and UTI. Pt performs mobility with 2 person hand held assist and extra time for all ADLS. Would recommend mobility and transfers be performed with sig. other prior to discharge as he is hoping to take pt home. Given dementia, pt may perform mobility better with sig other whom she knows well. Home vs SNF depending on progress. Goals Grooming Goal Standby Assistance Dressing Goal Minimal Assistance Toileting Goal Minimal Assistance Bathing Goal Minimal Assistance Toilet Transfer Goal Standby Assistance Shower Transfer Goal Standby Assistance Days to Meet Goals 10 Frequency of Treatment Frequency Of Treatment Once a Day Treatment Plan OT Treatment Plan ADL Training,Functional Cognition Training,Functional Mobility,Patient/Family Education,Discharge Planning Other Treatment Recommendations and Next SLUMS, mobility with sig other Treatment Focus for possible home discharge vs SNF Discharge Recommendations OT Discharge Recommendations Home with 24/7 Assist,SNF Rehab Other Discharge Recommendations Pt needs to be assessed with sig other for mobility and ADLs to see if she performs better with his assist. Otherwise pt is likely to need SNF for safe discharge. Home Equipment Needs TBD Transportation Needs at Discharge Private Vehicle
--- NOTE | 2020-05-07 12:33 | DIET.PN ---
Dietary Progress Note Assessment: 79y F admitted for generalized weakness secondary to UTI c sepsis c PMHx of HTN, CKD3, diverticulosis and moderate to severe dementia referred to nutrition for general decline secondary to weakness/dementia. Pt is oriented to self, pleasant, c decreased safety awareness but OT reccs SNF or / caregiving for safe d/c. Pt lives in home c . Pts weight has increased by 10kg over past year, however reports weight loss in past 3mo c BNP 2220. HT: 160cm WT: 65.3kg UBW: 56kg BMI: 25.5 Labs: BNP 2220 H, Cr 1.07 H, eGFR 49.6 L MNA: 8 @ risk Claudio: 13 high risk skin breakdown Nutrition Diagnosis: high risk for inadequate oral intake r/t progressive dementia and weakness aeb pt admitted for weakness secondary to UTI c sepsis, pt lives at home c , pt oriented to self only. Interventions: 1. Encourage 1:1 feeding c cuing based on schedule as pt has limited insight to hunger/thirst. 2. Encourage removal of unsafe foods/cooking equipment from reach if pt continues to live at home r/t decreased safety awareness, high risk for consumption of spoiled food. Diet Order: general
--- NOTE | 2020-05-07 13:18 | PM.PN.1 ---
Subjective Subjective Date Patient Seen: 05/07/20 Time Patient Seen: 13:18 Interval history: Met with patient. Denies any complaints other than being very tired. She still continues to be incontinent of urine. She still requiring 2 person assist for toileting and any mobility. She is eating without difficulty. She denies shortness of breath or chest pain or abdominal pain or diarrhea. Patient had unremarkable night. Review of systems negative other than above Exam Vital Signs (past 8 hours): - 05/07/20 11:00 Temperature 97.6 F Pulse Rate 67 Respiratory Rate 15 Blood Pressure 129/75 Pulse Oximetry 97 Oxygen Delivery Method Room Air Oxygen Flow Rate 0 Narrative Exam Narrative: Sitting upright in chair. Patient is alert and cooperative and answers questions. She is slow to find words but improved from what she has been in the hospital clinic. Blood pressure elevated initially this morning but after receiving her routine antihypertensive her blood pressure comes down to normal. Remainder vital signs stable HEENT unremarkable Neck: Supple Chest: Clear to auscultation without wheezes rhonchi or crackles Cor: Regular rate and rhythm without murmur Abdomen: Positive bowel sounds, soft, nontender, nondistended Extremities: No edema, pulses intact Objective Labs Result Diagrams: 05/06/20 05:58 05/06/20 05:58 Assessment & Plan Assessment & Plan narrative: 79-year-old female Assessment 1. Urinary tract infection with sepsis improved with IV Levaquin Plan: Continue IV Levaquin Assessment 2. Dementia with cognitive decline suspect related to infection. Patient also with recent head injury. CT scan yesterday was normal except for showing acute on chronic maxillary sinusitis. Plan: Will continue outpatient medications of DNase Elvira and Namenda. Will continue IV Levaquin. Assessment 3. Hypertension improved on outpatient medications We have had a lot of difficulty controlling her blood pressure as an outpatient often times blood pressure would go low. Will continue on the same dose and attempt to have moderate control. Assessment 4. Elevated BNP without evidence of congestive heart failure. We will recheck in a.m.. Assessment 5. Hypothyroidism Plan: She has had recent thyroid testing in the clinic. Will continue on same dose. Assessment 6. Deconditioning Plan: I think it would be in her best interest to go to skilled care facility. I discussed this with her significant other Sina Boyd [phone] and her daughter Mitzy today. Discussed the rationale. The biggest issue would be patient would have difficulty if her significant other could not visit her at the skilled care facility. But really I think this would be in her best interest to go to skilled care facility briefly for more intensive therapy to help increase her strength. 35 minutes spent with patient in coordinating care and discussion with nursing and family. Quality VTE Deep Vein Thrombosis/Pulmonary Embolism Present on Admission: No
[2020-05-07 15:31] VITALS: BP 157/89; PULSE 67; RESP 16; TEMP 36.7; O2SAT 96
[2020-05-07 15:46] LABS: NT-proBNP (BNP-Adult 18+) 2270 pg/mL (<450)
--- NOTE | 2020-05-07 16:22 | CM.DANOTE ---
DCP/Brief: Patient is a 79yr old female admitted under OBS status with altered mental status. PCP is Dr. Person. Primary payor is 1)Medicare 2)[facility]. Due to shortage in CM coverage, ENTERPRISE ARCHITECT unable to see patient/family today. Current recommendation from Dr. Person is SNF. However, patient remains OBS. SEE therapy notes for there recommendations. P: CM seal delivery vehicle team technician to prioritize this patient for d/c planning needs when fully staffed. Hopefully on 05-08-20. MAKENNA Montes
[2020-05-07 23:00] VITALS: BP 125/96; PULSE 65; RESP 16; TEMP 36.6; O2SAT 96
[2020-05-07 23:44] VITALS: BP 125/96; PULSE 65
[2020-05-08] MEDS: IBUPROFEN 600 MG TABLET PO ×2 (06:12→11:20)
[2020-05-08] MEDS: LEVOTHYROXINE 125 MCG TABLET PO (06:20)
[2020-05-08 06:27] LABS: Add Manual Diff / Slide Review NO; Basophils Absolute Auto 0 /uL (0-100); Basophils Percent Auto 0.5 % (0-2); Eosinophils Absolute Auto 300 /uL (0-450); Eosinophils Percent Auto 5.4 % (2-4); Hematocrit 35.8 % (36-46); Hemoglobin 12.1 g/dL (12.0-16.0); Lymphocytes Absolute Auto 1500 /uL (1100-4500); Lymphocytes Percent Auto 29.7 % (25-40); Mean Corpuscular HGB Conc 33.7 % (30-36); Monocytes Absolute Auto 400 /uL (0-900); Neutrophils Absolute Auto 2900 /uL (1500-7000); Neutrophils Percent Auto 56.4 % (50-75); Platelet Count 153 X10^3/uL (150-400); Red Blood Cell Count 3.89 X10^6/uL (4.0-5.2); White Blood Cell Count 5.1 X10^3/uL (4.5-11.0)
[2020-05-08 06:38] LABS: BUN Creatinine Ratio 18.7 (6-22); Blood Urea Nitrogen 23 mg/dL (7-17); Calcium 9.1 mg/dL (8.4-10.2); Carbon Dioxide 29 mmol/L (22-32); Chloride 107 mmol/L (98-107); Estimated Glomerular Filt Rate 42.2 mL/min (>60); Glucose 82 mg/dL (80-110); HEMOLYSIS < 15 (0-50); Potassium 3.5 mmol/L (3.4-5.1); Sodium 142 mmol/L (137-145)
[2020-05-08 08:29] VITALS: BP 127/53
[2020-05-08] MEDS: METOPROLOL IR 50 MG TABLET PO (08:29)
[2020-05-08] MEDS: MEMANTINE HCL 5 MG TABLET 10 MG PO (08:29)
[2020-05-08] MEDS: LOSARTAN 50 MG TABLET PO (08:29)
[2020-05-08] MEDS: DONEPEZIL 5 MG TABLET PO (08:29)
[2020-05-08] MEDS: SODIUM CHLORIDE 0.9% FLUSH 10 ML IV (08:29)
[2020-05-08 08:30] VITALS: BP 127/53; PULSE 73; RESP 16; TEMP 36.3; O2SAT 95
--- NOTE | 2020-05-08 09:17 | PT.IPTN ---
Current Diagnoses Sepsis, unspecified organism (05/07/20) Physical Therapy Treatment Note M2 PT-IP Current Condition Start: 05/05/20 13:49 Freq: NEEDED Status: Active Protocol: Document 05/05/20 16:20 AW (Rec: 05/05/20 16:48 AW [id number]) Physical Therapy Current Condition Current Condition Evaluation Date 05/05/20 Treatment Diagnosis UTI, generalized weakness, difficulty in walking Onset Date a few weeks Precautions Other Precautions high falls risk M3 PT-IP Subjective Start: 05/05/20 13:49 Freq: NEEDED Status: Active Protocol: Document 05/08/20 09:17 AB (Rec: 05/08/20 12:15 AB [id number]) Subjective Physical Therapy Visit Type Type Treatment Note Visit Start Time 09:17 Visit Stop Time 10:37 Total Visit Minutes 53 Notes pt seen for split visits: 917 to 1000 and 1027 to 1037 Number of [place] Visits 0 Physical Therapy Visit Comments Patient Comments pt is agreeable to do PT; spouse in room with pt M4 PT-IP Mobility and Gait Start: 05/05/20 13:49 Freq: NEEDED Status: Active Protocol: Document 05/08/20 09:17 AB (Rec: 05/08/20 12:15 AB [id number]) PT-Bed Mobility Assessment Supine to Sit Supine to Sit Contact Guard Assistance, Minimal Assistance,1 Person Assistance Sit to Supine Sit to Supine Standby Assistance,Contact Guard Assistance PT-Transfer Assessment Sit to and From Stand Sit to and from Stand Moderate Assistance,Maximum Assistance,1 Person Assistance ,Use of Upper Extremities Equipment Transfer Assistive Device Gait Belt Transfers Transfer Destination Bed,Chair Transfer Technique ambulated Transfer Ability Level of Assist Maximum Assistance,1 Person Assistance,Use of Upper Extremities Comments Mobility Comments pt completed sit to stand from chair mod to max A and cues and ambulated in room AOC DIRECTOR COMBAT PLANS OFFICER max A and cues. Caregiver training conducted. educated spouse on how to use safety belt and how to assist pt. spouse was able to put safety belt on. intially required cues on how to assist pt. able to assit pt to stand from chair and ambulate pt around the bed. pt completed supine <>sit x 3 sets. spouse tends to assists pt more than pt needs. educated spouse regarding providing only necessary assistance and to give pt time to process instructions. spouse understood. spouse ambulated pt out to the hallway mod to max A and max cues. pt had to use the toilet and PT assisted pt back in her room to use the toilet max A and max cues. NAC took over. came back to continue caregiver training with pt and spouse. spouse put safety belt on pt and assisted pt out of the room max A and max cues. pt completed up/down steps using bilateral rails max A and max cues with spouse assisting. assisted pt back to her room. OT took over. pt and spouse without further concerns and questions for PT. Gait Assessment Gait Gait Assistance Required: Maximum Assistance,1 Person Assist Distance (Feet) 20 Able to Maintain Weight Bearing Status Yes During Gait Assistive Devices Assistive Device Gait Belt Orthotic/Prosthetic Devices or Brace: No Gait Deviations General Gait Pattern Antalgic,Ataxic,Decreased Stride Length,Decreased Feet Clearance,Flexed Trunk,Lateral Trunk Lean,Step-to Gait Factors Limiting Gait Function Factors Limiting Gait Function Decreased Activity Tolerance, Decreased Strength,Difficulty Following Directions,Limited Range of Motion,Poor Balance, Poor Safety Awareness Comments Gait Comments pt with increase head and trunk forward flexion during standing but with increase posterior LOB during intial standing. required constant cues for upright posture. Stair Climbing Assessment Evaluation Level of Assist On Stairs Maximal Assistance,1 Person Assistance Devices Stair Climbing Assistive Devices Left Railing,Right Railing Technique/Endurance Stair Climbing Direction Ascend and Descend Stair Climbing Technique Step to Step Number of Steps Climbed 3 Stair Climbing Set # Repetitions (reps) 1 M5 PT-IP Objective Assessments Start: 05/05/20 13:49 Freq: NEEDED Status: Active Protocol: Document 05/05/20 16:20 AW (Rec: 05/05/20 16:48 AW [id number]) Orientation Orientation/Cognition Level of Alertness Confusional State Orientation Name,Place Language Function Ability No Deficits Noted Safety Awareness Decreased Safety Awareness Memory Description Short Term Impaired,Retirement Impaired Comments Pt with poor safety awareness. During evaluation, pt is perseverating on the whereabouts of her partner, Sina, in spite of being reminded several times that he went home to rest. Gross Range of Motion Upper Extremity ROM Assessment Within Functional Limits Lower Extremity ROM Assessment Within Functional Limits Strength Upper Extremity Strength Assessment Bilaterally Impaired Lower Extremity Strength Assessment Bilaterally Impaired Comments Strength Comments MMT difficult to assess due to pt's poor ability to follow directions. Limited exam reveals BLE grossly 4-/5. Sensation Assessment Comments Sensation Comments Unable to assess due to pt's poor understanding of instruction. M6 PT-IP Treatment Start: 05/05/20 13:49 Freq: NEEDED Status: Active Protocol: Document 05/08/20 09:17 AB (Rec: 05/08/20 12:15 AB [id number]) Physical Therapy Treatment Education Education Provided Safety M7 PT-IP Assessment and Plan Start: 05/05/20 13:49 Freq: NEEDED Status: Active Protocol: Document 05/08/20 09:17 AB (Rec: 05/08/20 12:15 AB [id number]) PT Summary Assessment and Plan Potential Rehabilitation Potential Fair Summary Impairments Pain,ROM,Strength,Balance, Coordination,Sensation,Tone, Cognition,Bed Mobility, Transfers,Gait,Activity Tolerance Progress Towards Goals Slow Progress due to Medical Issues,Slow Progress - Other Assessment Summary caregiver training conducted and spouse was able to assist pt . pt will require homehealth PT. Goals Bed Mobility Goal Standby Assistance Transfer Goal Contact Guard Assistance Gait Goal Contact Guard Assistance Gait Distance 50 Other Goals up/down 3 steps with B rails Days to Meet Goals 10 Frequency of Treatment Frequency Of Treatment Once a Day Treatment Plan Physical Therapy Treatment Plan Bed Mobility Training,Transfer Training,Gait Training, Therapeutic Exercise,Balance Retraining,Discharge Planning, Neuromuscular Re-ed, Coordination Retraining Recommendations To Nursing Amount of Assist Needed 2 Person Assist Discharge Recommendations PT Discharge Recommendations Home with 08/03 Assist,Home Health Transportation Needs at Discharge Private Vehicle,Wheelchair/ Cabulance
[2020-05-08] MEDS: levoFLOXacin 250 MG/50 ML PIGGYBACK 100 MG IV (10:06)
--- NOTE | 2020-05-08 11:01 | OT.IP.TRT ---
Current Diagnoses Sepsis, unspecified organism (05/07/20) Occupational Therapy Treatment Note M2 OT-IP Current Condition Start: 05/06/20 16:03 Freq: Status: Active Protocol: Document 05/06/20 16:06 [facility] (Rec: 05/06/20 16:25 CGR [id number]) Occupational Therapy Current Condition Current Condition Evaluation Date 05/06/20 Treatment Diagnosis generalized weakness, UTI Diagnosis Onset Date 05/06/20 M3 OT- IP Subjective and Pain Start: 05/06/20 16:03 Freq: Status: Active Protocol: Document 05/08/20 12:05 [facility] (Rec: 05/08/20 12:19 [facility] [id number]) OT- Subjective Occupational Therapy Visit Type Type Treatment Note Visit Start Time 10:21 Visit Stop Time 11:01 Total Visit Minutes 40 Notes Pt's present for caregiver training. Occupational Therapy Visit Comments Patient Comments Pt wanting to take a shower. Patient/Caregiver Goals TO go home OT Pain Assessment Pain When Pain Assessed At Rest Pain Present Pain Present Denied Pain M4 OT- IP ADL's Start: 05/06/20 16:03 Freq: Status: Active Protocol: Document 05/08/20 12:05 [facility] (Rec: 05/08/20 12:19 [facility] [id number]) OT [id number] Comments OT Self-Feeding Comments Not meal time OT ADL-Grooming Comments OT Grooming Comments NOt performed. OT ADL-Dressing General Eval Upper Body Dressing Ability Maximum Assistance Lower Body Dressing Ability Maximum Assistance Areas Needing Assistance Underpants/Brief Comments OT Dressing Comments Pt's able to assist pt for dressing needs MAXA with good safety. OT ADL-Toileting General Evaluation Toileting Ability Maximum Assistance Areas Needing Assistance Manage Clothing,Perform Perineal Hygiene Comments OT Toileting Comments Pt MAX A for all hygiene and brief management needs. OT ADL-Bathing Bathing Type Bathing Type Shower General Evaluation Bathing Ability Maximal Assistance Areas Needing Assistance Wash/Dry Upper Body,Wash/Dry Back,Wash/Dry Perineal Area, Wash/Dry Lower Extremities Comments OT Bathing Comments Pt able to help a little with washing her legs,arms, and body, otherwise, pt's having to cue her through sequence of task of bathing and assist for all bathing needs. Pt's states to get a tub bench for home use. M5 OT- IP IADL's Start: 05/06/20 16:03 Freq: Status: Active Protocol: Document 05/06/20 16:06 [facility] (Rec: 05/06/20 16:25 [facility] [id number]) OT-Instrumental Activities of Daily Living Deficits IADL Deficits Identified Deficits Home Safety Awareness Awareness of Need for Assistance at Home Decreased Awareness Ability to Problem Solve Emergency Unable to Problem Solve Situations Medication Management Medication Management Caregiver Administers Money Management Money Management Caregiver Provides Assistance Meal Preparation Meal Preparation Caregiver Provides Assist Stack Supervisor Stack Supervisor Caregiver Provides Assist Driving Driving Comments Pt is not an active courtesy driver M6 OT- IP Functional Cognition Start: 05/06/20 16:03 Freq: Status: Active Protocol: Document 05/08/20 12:05 [facility] (Rec: 05/08/20 12:19 [facility] [id number]) Cognitive Factors Limiting Selfcare Function Cognitive Ability Level of Alertness Alert,Confusional State Patient Orientation Name,Place Attention Span Ability Capable of Focused Attention, Unable to Sustain Attention Ability to Follow Commands Able to Follow One Step Commands with Increased Time, Able to Follow One Step Commands with Repetition Memory Description Immediate Impaired,Short Term Impaired,Retirement Intact, Working Impaired Cognitive Comments Cognitive Assessment Comments Pt needing step by step commands to help get through all mobility, ADl needs, and safety awarness. Pt's having to assist her for all needs at this time . M7 OT- IP Mobility and Balance Start: 05/06/20 16:03 Freq: Status: Active Protocol: Document 05/08/20 12:05 [facility] (Rec: 05/08/20 12:19 [facility] [id number]) OT-Transfer Assessment Sit to and From Stand Sit to and from Stand Moderate Assistance,1 Person Assistance Transfers Transfer Ability Moderate Assistance,1 Person Assistance Technique Transfer Destination Bedside Commode,Chair,Shower Stall,Wheelchair Transfer Technique Stand Step Pivot Devices Transfer Assistive Devices Gait Belt Comments Mobility Comments Educated pt's to use the gait belt but tends to just want to pull up on pt's arms to get up or pt heavily use of grab bar to assist. Reinforced use of gait belt. OT- Balance Assessment Sitting Balance and Reactions Static Sitting Balance Ability Fair Dynamic Sitting Balance Ability Poor Standing Balance and Reactions Static Standing Balance Ability Poor Dynamic Standing Balance Ability Poor M8 OT- IP Objective Assessments Start: 05/06/20 16:03 Freq: Status: Active Protocol: Document 05/06/20 16:06 [facility] (Rec: 05/06/20 16:25 [facility] [id number]) OT Gross Range of Motion Upper Extremity Range of Motion Assessment Within Functional Limits OT Strength Upper Extremity Strength Assessment Within Functional Limits Comments Strength Comments grossly 4/5 OT- Coordination Assessment Upper Extremity Finger to Nose Test Left UE Impaired Finger Tapping Test Left UE Impaired Comments Coordination Comments noted LUE impairment. OT-Muscle Tone Assessment Muscle Tone WNL Yes OT Sensation Assessment Edema Edema Present Edema Comments the LUE appears to be minimally swollen. M9 OT- IP Assessment and Plan Start: 05/06/20 16:03 Freq: Status: Active Protocol: Document 05/08/20 12:05 [facility] (Rec: 05/08/20 12:19 [facility] [id number]) OT Summary Assessment and Plan Potential Rehabilitation Potential Good Analytic Complexity at Evaluation Moderate Summary OT Impairments Balance,Coordination, Functional Cognition, Functional Mobility,Grooming, Dressing,Toileting,Bathing, Toilet Transfers,Shower Transfers,Activity Tolerance Progress Towards Goals Slow Progress due to Activity Tolerance,Slow Progress due to Cognition Assessment Summary Pt's able to assist pt for all mobility to the bathroom, toileting, dressing and bathing needs. Pt's feels safe to assist pt for all needs. Pt's would benefit from use of gait belt and more caregiver training with pt. Pt may benefit from skilled rehab to help get pt stronger and closer to baseline versus home with 08/03 and home health. Goals Grooming Goal Standby Assistance Dressing Goal Minimal Assistance Toileting Goal Minimal Assistance Bathing Goal Minimal Assistance Toilet Transfer Goal Standby Assistance Shower Transfer Goal Standby Assistance Days to Meet Goals 8 Frequency of Treatment Frequency Of Treatment Once a Day Treatment Plan OT Treatment Plan ADL Training,Functional Cognition Training,Functional Mobility,Patient/Family Education,Discharge Planning Other Treatment Recommendations and Next caregier training Treatment Focus Discharge Recommendations OT Discharge Recommendations Home with 08/03 Assist,SNF Rehab Home Equipment Needs tub bench, bsc Transportation Needs at Discharge Private Vehicle
[2020-05-08] MEDS: levoFLOXacin 500 MG TABLET PO (11:02)
--- NOTE | 2020-05-08 13:29 | PM.DS.1 ---
History of Present Illness History of Present Illness Date Patient Seen: 05/08/20 Time Patient Seen: 13:29 Date of Onset of Symptoms: 04/17/20 Chief complaint: Generalized Weakness Narrative: Patient admitted to the hospital for decreased cognition and increasing falling. Patient has had a fall 2 weeks ago and sustained a head laceration which was treated as an outpatient. She had continued decline in function and was having difficulty walking. She presented to the ER was found to have a UTI with sepsis and was admitted to the hospital for further treatment. She received 4 days of IV Levaquin and PT and OT and her condition improved. She was not back to baseline but was progressing toward baseline. CT scan of her head was negative. Urine culture was negative but initial urine was suspicious for infection and CT showed evidence of sinusitis. Her blood pressure was elevated throughout her day stay. Losartan was increased from 50 once a day to 50 twice a day. She was also started on metoprolol immediate release 50 mg twice a day. As an outpatient she has had fluctuating blood pressures and some low blood pressures as well as high blood pressures. There was discussion of sending her to [facility] skilled care but it was felt overall that she was safe to be at home and this would be in her best interest given her dementia and this is the request of the patient as well as her DPOA, Sina Boyd. Discharge Providers Provider Date of admission: 05/07/20 17:55 Discharge Date: 05/08/20 Primary care physician: Kia Person MD Consults: 05/05/20 11:39 Consult to Discharge Planning Routine Comment: Consult to Physical Therapy Evaluate & Treat Comment: Physician Instructions: Evaluate and Treat 05/05/20 12:47 Consult to Dietitian, Adult Routine Comment: Reason For Exam: steady decline 05/05/20 12:53 Consult to Dietitian, Adult Routine Comment: Reason For Exam: steady decline secondary to weakness/dementia 05/06/20 09:25 Consult to Occupational Therapy Evaluate & Treat Comment: Physician Instructions: Evaluate and treat Discharge provider: Kia Person MD Summary Hospital Course Discharge Diagnosis: UTI with sepsis Dementia, severe Hypertension, improved Hypothyroidism Deconditioning Fall risk Gait abnormality Status at Discharge Cognitive/behavioral status at discharge: at baseline, confused Functional status at discharge: uses cane/walker Overall status at discharge: patient is progressing back to baseline Exam Vital Signs (past 8 hours): - 05/08/20 08:29 05/08/20 08:30 Temperature 97.3 F L Pulse Rate 73 Respiratory Rate 16 Blood Pressure 127/53 L 127/53 L Pulse Oximetry 95 Oxygen Delivery Method Room Air Oxygen Flow Rate 0 Narrative Exam Narrative: Patient alert and cooperative in no apparent distress HEENT unremarkable Neck: Supple Chest: Clear to auscultation Cor: Regular rate and rhythm Abdomen benign Extremities no edema Objective Labs Result Diagrams: 05/08/20 06:04 05/08/20 06:04 Labs: Laboratory Results - last 24 hr 05/07/20 05/08/20 05/08/20 15:10 06:04 06:04 WBC 5.1 RBC 3.89 L Hgb 12.1 Hct 35.8 L MCV 92.0 MCH 31.0 MCHC 33.7 RDW 13.0 Plt Count 153 Neut % (Auto) 56.4 Lymph % (Auto) 29.7 [place] % (Auto) 8.0 Eos % (Auto) 5.4 H Baso % (Auto) 0.5 Neut # (Auto) 2900 Lymph # (Auto) 1500 [place] # (Auto) 400 Eos # (Auto) 300 Baso # (Auto) 0 Sodium 142 Potassium 3.5 Chloride 107 Carbon Dioxide 29 BUN 23 H Creatinine 1.23 H Estimated GFR 42.2 L BUN/Creatinine Ratio 18.7 Glucose 82 Calcium 9.1 NT-Pro-B Natriuret Pep 2270 H Discharge Assessment & Plan Assessment and Plan Plan of Treatment: DC home on outpatient medications Levaquin 500 mg daily for 7 days Losartan increased to 50 mg twice daily Metoprolol immediate release 25 mg twice a day Continue other same [facility] health for PT and OT Follow-up with me in 2 weeks. Patient already has appointment Discharge Plan Discharge Plan Patient Disposition: Home Discharge orders & Medications Prescriptions: New losartan 50 mg Tablet 50 mg PO BID Qty: 60 RF: 6 levofloxacin 500 mg tablet 500 mg PO DAILY Qty: 7 RF: 0 Continued levothyroxine 125 mcg Tablet 125 mcg PO QAM Qty: 0 RF: 0 calcium carbonate [Calcium 500] 500 mg calcium (1,250 mg) Tablet 1 mg PO QAM RF: 0 cholecalciferol (vitamin D3) 25 mcg (1,000 unit) Tablet,Chewable 25 mcg PO QAM RF: 0 memantine 10 mg Tablet 10 mg PO BID RF: 0 donepezil 10 mg Tablet 5 mg PO QAM RF: 0 Discontinued losartan 100 mg Tablet 50 mg PO QAM RF: 0 Follow up/Referrals: Kia Person MD [Primary Care Provider] - Discharge Health Status Multidrug resistant organism: No MDRO Diet/Activity/Treatments Diet: Diet as Tolerated Discharge Data Primary Care Provider: Kia Person Quality VTE Deep Vein Thrombosis/Pulmonary Embolism Present on Admission: No
--- NOTE | 2020-05-08 14:22 | PC.NURSE ---
Pt is dressed and ready for discharge home with Tony Andino. Went over d/c instructions with Pt and S.O-discussed d/c meds, time of last dose, reviewed stroke education, encouraged fluid intake and consideration of yogurt or probiotics, and Pt already has a follow up scheduled with Dr. Person. Home Health was ordered and Mary in Care Management will be calling Pt to discuss set up of that .
--- NOTE | 2020-05-08 16:18 | CM.DPNOTE ---
DC Note Reviewed chart. According to Dr Person, patient cleared from a therapy stand point and patient's SO Sina would like to take her home, DC order in place w/ HH. Met w/patient and SO, explained role. Sina confirms he will take patient home and would like [facility] and a number for a [employer] that does hospital bed rental. Sina expects to call or stop by [employer] Wednesday to secure a bedside commode for patient. Faxed referral to [facility], included face sheet, signed F2F, HH order, H+P, DC Summary. Placed two calls to [facility], had to LM. Attempted to speak w/ Sina again re referral to [employer] [employer] and to provide Senior Resource Guide and patient/SO had left. Placed call to patient/SO's home number, had to LM confirming referral to [facility] RN/PT/OT/MONAE/MAKENNA and gave # for [employer] to research rental of a hospital bed. P: DC home today w/MINE and [facility] RN/PT/OT/MONAE/MAKENNA Davis
== END 2020-05-08 14:26 | disposition home or self-care (01) | DRG 872 ==
LOC: ED 09:57 → AC 10:23
PROVIDERS: Admitting Provider Family Medicine; Emergency Provider Emergency Medicine; PCP Family Medicine; Referring Provider Emergency Medicine; Visit Provider Family Medicine
DX: A41.9 Sepsis, unspecified organism (principal); N39.0 Urinary tract infection, site not specified; I12.9 Hypertensive chronic kidney disease with stage 1 through stage 4 chronic kidney disease, or unspecified chronic kidney disease; N18.3 Chronic kidney disease, stage 3 (moderate); G30.9 Alzheimer's disease, unspecified; F02.80 Dementia in other diseases classified elsewhere, unspecified severity, without behavioral disturbance, psychotic disturbance, mood disturbance, and anxiety; R32 Unspecified urinary incontinence; R26.9 Unspecified abnormalities of gait and mobility; E03.9 Hypothyroidism, unspecified; Z85.3 Personal history of malignant neoplasm of breast; W19.XXXA Unspecified fall, initial encounter
CPT/HCPCS: 36415; 70450; 71045; 80048; 80053; 81003; 82550; 82728; 83735; 83880; 84484; 85025; 86140; 87086; 87635; 93005; 93010; 93306; 96361; 96365; 97116; 97163; 97166; 97530; 97535; 99219; 99284; G0378; J1650; J1956

== ENCOUNTER → 2020-05-29 12:44 | Outpatient (CLI) | payer MEDICARE, OTHER, SELFPAY ==
[2020-05-05 12:49] VITALS: BMI 25.4
--- NOTE | 2020-05-29 | DI.RAD.S_ITS ---
PROCEDURE: XR HAND RT MIN 3V INDICATIONS: RIGHT 3RD AND 4TH FINGER PAIN TECHNIQUE: 3 views of the hand(s) acquired. COMPARISON: None. FINDINGS: Bones: No acute fractures or dislocations. Carpal bones are normally aligned. No suspicious bony lesions. There are degenerative changes throughout the right hand. Osteoarthritic changes are seen in the distal interphalangeal joints of the 2nd through 5th fingers as well as the proximal interphalangeal joints of the 2nd through 5th fingers. Degenerative changes of the metacarpophalangeal joints are noted in the right thumb, 2nd and 3rd fingers. Right thumb interphalangeal joint degenerative changes are present. There also degenerative changes of the triscaphe joint. No suspicious osseous erosions or periarticular osteopenia. Soft tissues: No suspicious soft tissue calcifications. IMPRESSION: Right hand without acute fracture or malalignment. Multilevel degenerative changes throughout the right hand as described above. Dictated by: Butch Osborne M.D. on 05/29/2020 at 17:01 Approved by: Butch Osborne M.D. on 05/29/2020 at 17:03
== END ==
PROVIDERS: PCP Family Medicine; Referring Provider Family Medicine; Visit Provider Family Medicine
DX: M79.644 Pain in right finger(s) (principal)
CPT/HCPCS: 73130

== ENCOUNTER → 2020-06-27 09:23 | Outpatient (CLI) | payer MEDICARE, OTHER, SELFPAY ==
[2020-05-05 12:49] VITALS: BMI 25.4
[2020-06-27 10:04] LABS: Add Manual Diff / Slide Review NO; Basophils Absolute Auto 0 /uL (0-100); Basophils Percent Auto 0.6 % (0-2); Eosinophils Absolute Auto 200 /uL (0-450); Eosinophils Percent Auto 2.1 % (2-4); Hematocrit 39.4 % (36-46); Hemoglobin 13.3 g/dL (12.0-16.0); Lymphocytes Absolute Auto 1400 /uL (1100-4500); Mean Corpuscular HGB Conc 33.9 % (30-36); Mean Corpuscular Hemoglobin 31.3 PG (26-34); Mean Corpuscular Volume 92.4 fL (80-100); Monocytes Absolute Auto 500 /uL (0-900); Monocytes Percent Auto 5.6 % (3-14); Neutrophils Absolute Auto 6200 /uL (1500-7000); Neutrophils Percent Auto 74.7 % (50-75); Platelet Count 164 X10^3/uL (150-400); Red Blood Cell Count 4.26 X10^6/uL (4.0-5.2); White Blood Cell Count 8.3 X10^3/uL (4.5-11.0)
[2020-06-27 10:17] LABS: Alanine Aminotransferase 17 IU/L (<35); Albumin 4.3 g/dL (3.5-5.0); Albumin Globulin Ratio 1.4 (1.0-2.8); Alkaline Phosphatase 59 U/L (38-126); Aspartate Aminotransferase 27 IU/L (14-36); BUN Creatinine Ratio 24.3 (6-22); Bilirubin Total 1.2 mg/dL (0.2-1.3); Blood Urea Nitrogen 27 mg/dL (7-17); Calcium 10.3 mg/dL (8.4-10.2); Carbon Dioxide 33 mmol/L (22-32); Chloride 104 mmol/L (98-107); Estimated Glomerular Filt Rate 47.5 mL/min (>60); Glucose 85 mg/dL (80-110); HEMOLYSIS < 15 (0-50); Potassium 3.6 mmol/L (3.4-5.1); Sodium 142 mmol/L (137-145); Total Protein 7.3 g/dL (6.3-8.2)
[2020-06-27 11:20] LABS: Thyroid Stimulating Hormone 1.07 uIU/mL (0.47-4.68)
== END ==
PROVIDERS: PCP Family Medicine; Referring Provider Family Medicine; Visit Provider Family Medicine
DX: F03.90 Unspecified dementia, unspecified severity, without behavioral disturbance, psychotic disturbance, mood disturbance, and anxiety (principal); N18.30 Chronic kidney disease, stage 3 unspecified; I10 Essential (primary) hypertension; J45.909 Unspecified asthma, uncomplicated; E03.9 Hypothyroidism, unspecified
CPT/HCPCS: 36415; 80053; 84443; 85025

== ENCOUNTER 2021-01-06 16:00 | Emergency (ER) | payer MEDICARE, OTHER, SELFPAY ==
[2020-05-05 12:49] VITALS: BMI 25.4
[2021-01-06] VITALS (9 sets, daily range): BP systolic 138–188; BP diastolic 62–85; PULSE 64–74; RESP 14; TEMP 36.1; O2SAT 94–98; BMI 19.8
[2021-01-06] MEDS: SODIUM CHLORIDE 0.9% 1,000 ML 1000 ML IV (17:15)
--- NOTE | 2021-01-06 17:22 | ED.NAVMDI ---
HPI - Nausea/Vomiting/Diarrhea General Chief complaint: Nausea/Vomiting/Diarrhea Stated complaint: weakness Time Seen by Provider: 01/06/21 16:45 Source: patient Mode of arrival: Ambulatory Limitations: altered mental status History of Present Illness HPI Narrative: Patient is a 80-year-old female with a history of Alzheimer's disease. She is here with her for evaluation of weakness and injuries that she sustained when she slipped out of bed. The patient's states she is currently at her baseline mental status. He has the sole care provider for the patient. He states that he was helping her get into bed this evening when she slipped out of bed and landed on both of her knees and then somewhat got wedged in between 2 pieces of furniture. He states the patient did not hit her head. He was unable to lift the patient up so he called EMS. He brought her to the emergency department because he feels that she has become more weak recently and also to be evaluated for some abrasions on her knees. Patient is unable to provide any HPI. Related Data Home Medications Medication Instructions Recorded Confirmed levothyroxine 125 mcg PO QAM #0 tab 12/25/10 05/05/20 donepezil 5 mg PO QAM 07/30/19 05/05/20 memantine 10 mg PO BID 07/30/19 05/05/20 calcium carbonate [Calcium 500] 1 mg PO QAM 05/05/20 05/05/20 cholecalciferol (vitamin D3) 25 mcg PO QAM 05/05/20 05/05/20 Previous Rx's Medication Instructions Recorded levofloxacin 500 mg PO DAILY #7 tab 05/08/20 losartan 50 mg PO BID #60 tab 05/08/20 Allergies Allergy/AdvReac Type Severity Reaction Status Date / Time amlodipine Allergy Mild Verified 05/05/20 10:14 erythromycin base Allergy Mild Verified 05/05/20 10:14 lisinopril Allergy Mild Verified 05/05/20 10:14 latex Allergy Unknown Verified 05/05/20 10:14 Penicillins Allergy Unknown Verified 05/05/20 10:14 Review of Systems Review of Systems ROS Unobtainable: Unobtainable due to medical condition Patient History Medical History Alzheimer's dementia Dementia History of breast cancer Hypothyroidism (acquired) Surgical History History of total mastectomy Social History household members: significant other Smoking Status: Never smoker alcohol intake: never Smoking Status: Never smoker alcohol intake frequency: other Substance Use Type: does not use Exam Initial Vital Signs Initial Vital Signs: Vital Signs Temperature 97 F L 01/06/21 16:07 Pulse Rate 73 01/06/21 16:07 Respiratory Rate 14 01/06/21 16:07 Blood Pressure 166/79 H 01/06/21 16:07 Pulse Oximetry 97 01/06/21 16:07 Const General: comfortable Limitations: other limitations (Dementia) HENMT Head: normal to inspection and normocephalic Resp Effort & Inspection: normal respiratory effort Auscultation: clear to auscultation bilaterally Cardio Rate: regular rate Rhythm: regular rhythm GI Inspection: non-distended Palpation: soft Skin Other: Superficial abrasions to bilateral knees Neuro General: patient alert, patient awake, oriented (Person/place) and moves all extremities Extrem General: normal to inspection and capillary refill normal Other: Superficial abrasions of bilateral knees but has full range of motion of ankles knees and hips. No discomfort with movement of the hips. Her bilateral upper extremities unremarkable. Psych Appearance: grossly normal and well kempt Scores GCS Jose Miguel coma scale eye opening: Spontaneous Jose Miguel coma scale verbal response: Confused Jose Miguel coma scale motor response: Obey commands Jose Miguel coma scale total score: 14 Course Orders Ordered: Discontinued Medications Sodium Chloride (Normal Saline 0.9%) 1,000 mls @ 1,000 mls/hr IV BOLUS ONE Stop: 01/06/21 17:45 Last Infusion: 01/06/21 18:29 Dose: 0 mls/hr Documented by: [email or web address] Admin: 01/06/21 17:15 Dose: 1,000 mls/hr Documented by: [email or web address] Vital Signs Vital signs: Vital Signs - 8 hr 01/06/21 16:07 Temperature 97 F L Pulse Rate 73 Respiratory Rate 14 Blood Pressure 166/79 H Pulse Oximetry 97 MDM - Nausea/Vomiting/Diarrhea Medical Records Attestation: I reviewed the patient's medical records. Lab Data Attestation: I reviewed the patient's lab results. Result diagrams: 01/06/21 17:05 01/06/21 17:05 Labs: Lab Results 01/06/21 01/06/21 01/06/21 Range/Units 17:00 17:05 17:05 WBC 6.2 (4.5-11.0) X10^3/uL RBC 3.93 L (4.0-5.2) X10^6/uL Hgb 12.3 (12.0-16.0) g/dL Hct 36.6 (36-46) % MCV 93.1 (80-100) fL MCH 31.3 (26-34) PG MCHC 33.6 (30-36) % RDW 12.9 (11.6-14.8) % Plt Count 173 (150-400) X10^3/uL Neut % (Auto) 69.9 (50-75) % Lymph % (Auto) 19.9 L (25-40) % [place] % (Auto) 7.3 (3-14) % Eos % (Auto) 2.6 (2-4) % Baso % (Auto) 0.3 (0-2) % Neut # (Auto) 4300 (4480-7171) /uL Lymph # (Auto) 1200 (7376-3467) /uL [place] # (Auto) 400 (0-900) /uL Eos # (Auto) 200 (0-450) /uL Baso # (Auto) 0 (0-100) /uL Sodium 141 (137-145) mmol/L Potassium 4.0 (3.4-5.1) mmol/L Chloride 106 (98-107) mmol/L Carbon Dioxide 31 (22-32) mmol/L BUN 21 H (7-17) mg/dL Creatinine 1.14 H (0.52-1.04) mg/dL Estimated GFR 46.0 L (>60) mL/min BUN/Creatinine Ratio 18.4 (6-22) Glucose 100 (80-110) mg/dL Calcium 9.0 (8.4-10.2) mg/dL Total Bilirubin 0.7 (0.2-1.3) mg/dL AST 22 (14-36) IU/L ALT 10 (<35) IU/L Alkaline Phosphatase 42 (38-126) U/L Total Protein 5.8 L (6.3-8.2) g/dL Albumin 3.3 L (3.5-5.0) g/dL Globulin 2.5 (1.7-4.1) g/dL Albumin/Globulin Ratio 1.3 (1.0-2.8) Lipase 210 (23-300) U/L Urine Color Yellow Urine Appearance Sl cloudy Urine pH 7.0 (4.5-8.0) Ur Specific [place] 1.020 (1.000-1.035) Urine Protein 1+ H (Negative) Urine Glucose (UA) Negative (Negative) g/dL Urine Ketones Trace H (NEGATIVE) Urine Occult Blood Negative (Negative) Urine Nitrate Negative (Negative) Urine Bilirubin Negative (NEGATIVE) Urine Urobilinogen 2.0 H (0.2) E.U./dL Ur Leukocyte Esterase Negative (NEGATIVE) Urine RBC 0-1/hpf (0-5/HPF) Urine WBC 0-1/hpf (0-5/HPF) Ur Squamous Epith Cells 0-1 /hpf (0-5/HPF) Urine Bacteria Occasional (0-1) (None) Hyaline Casts 1-5/lpf (None) Urine Mucus 1+ H (Negative) Ur Culture Indicated? Cult not indicated MDM Narrative Medical decision making narrative: Patient is at her baseline mental status per her who is at bedside. Does not appear that she has sustained any injuries from this fall out of bed except for the abrasions of her knees which need no intervention here in the emergency department. I have low suspicion for he fractures given the fact that she is able to move all of her extremities the way that she can today. Her labs are unremarkable. No signs of any infection. Had a discussion with the patient's regarding this. Feel patient could be discharged home without further workup. Patient and was seen by social work during this visit. Please see their note for a more information. The patient's is happy with the way that things are going at home and providing care for his . They are going to talk with their primary doctor about potentially having some home health. Patient's expressed understanding and agreement this plan. Discharge Plan Departure Patient Disposition: Home Clinical Impression: Fall, Abrasion of skin, Alzheimer's dementia Instructions: How to Prevent Falls Activity Restrictions/Additional Instructions: Her labs are very reassuring. There is no signs of any infection. I have low suspicion that there are any fractures based on her exam. I recommend that you continue all medications as directed. I do recommend you talk with her primary doctor about potentially starting home health. Return to the emergency department for any new or worsening symptoms Prescriptions: No Action levothyroxine 125 mcg Tablet 125 mcg PO QAM Qty: 0 RF: 0 calcium carbonate [Calcium 500] 500 mg calcium (1,250 mg) Tablet 1 mg PO QAM RF: 0 cholecalciferol (vitamin D3) 25 mcg (1,000 unit) Tablet,Chewable 25 mcg PO QAM RF: 0 losartan 50 mg Tablet 50 mg PO BID Qty: 60 RF: 6 levofloxacin 500 mg tablet 500 mg PO DAILY Qty: 7 RF: 0 memantine 10 mg Tablet 10 mg PO BID RF: 0 donepezil 10 mg Tablet 5 mg PO QAM RF: 0 Referrals: Kia Person MD [Primary Care Provider] -
[2021-01-06 17:23] LABS: Add Manual Diff / Slide Review NO; Basophils Absolute Auto 0 /uL (0-100); Basophils Percent Auto 0.3 % (0-2); Eosinophils Absolute Auto 200 /uL (0-450); Eosinophils Percent Auto 2.6 % (2-4); Hematocrit 36.6 % (36-46); Hemoglobin 12.3 g/dL (12.0-16.0); Lymphocytes Absolute Auto 1200 /uL (1100-4500); Lymphocytes Percent Auto 19.9 % (25-40); Mean Corpuscular HGB Conc 33.6 % (30-36); Mean Corpuscular Hemoglobin 31.3 PG (26-34); Mean Corpuscular Volume 93.1 fL (80-100); Monocytes Absolute Auto 400 /uL (0-900); Monocytes Percent Auto 7.3 % (3-14); Neutrophils Absolute Auto 4300 /uL (1500-7000); Neutrophils Percent Auto 69.9 % (50-75); Platelet Count 173 X10^3/uL (150-400); Red Blood Cell Count 3.93 X10^6/uL (4.0-5.2); Red Cell Distribution Width 12.9 % (11.6-14.8); White Blood Cell Count 6.2 X10^3/uL (4.5-11.0)
[2021-01-06 17:31] LABS: Alanine Aminotransferase 10 IU/L (<35); Albumin 3.3 g/dL (3.5-5.0); Albumin Globulin Ratio 1.3 (1.0-2.8); Alkaline Phosphatase 42 U/L (38-126); Aspartate Aminotransferase 22 IU/L (14-36); BUN Creatinine Ratio 18.4 (6-22); Bilirubin Total 0.7 mg/dL (0.2-1.3); Blood Urea Nitrogen 21 mg/dL (7-17); Carbon Dioxide 31 mmol/L (22-32); Chloride 106 mmol/L (98-107); Globulin 2.5 g/dL (1.7-4.1); Glucose 100 mg/dL (80-110); HEMOLYSIS 39 (0-50); Lipase 210 U/L (23-300); Sodium 141 mmol/L (137-145); Total Protein 5.8 g/dL (6.3-8.2)
--- NOTE | 2021-01-06 17:49 | CM.SWNOTE ---
WHIP SAWYER Note WHIP SAWYER receives consult and meets with patient and patient's life partner Sina. Patient is 80 y/o female who presents to this ED via EMS after GLF out of bed. Sina reports that this is the second time this has happened in over a year. Sina states that they take care of each other and he is the primary caregiver. Ashlie presents as alert and oriented, patient's partner responds to all questions asked. Sina states that patient has daughters in [place], [place] and [place], [place] and patient visits them often. WHIP SAWYER discusses caregivers and HH. Sina states he plans to continue to be the primary caregiver. WHIP SAWYER provides senior resource guide. Sina states he will contact PCP Dr. Person to discuss HH and for f/u after this ED encounter. Sina reports that patient's last PCP appt was telemedicine in October or November of this year. Sina states that he will drive patient home when patient is medically clear. Patient states she is fine. Patient presents laying down in room with no reported concerns. WHIP SAWYER asks patient and S/O if WHIP SAWYER can be of assistance with anything and services are declined. Plan: patient to d/c home with S/O when medically clear. MAKENNA Ochoa
[2021-01-06 18:29] LABS: Appearance Urine UA SL CLOUDY; Bilirubin Urine UA NEGATIVE (NEGATIVE); Color Urine UA YELLOW; Glucose Urine UA NEGATIVE (Negative); Ketones Urine UA TRACE (NEGATIVE); Leukocyte Esterase Urine UA NEGATIVE (NEGATIVE); Nitrite Urine UA NEGATIVE (Negative); Occult Blood Urine UA NEGATIVE (Negative); Protein Urine UA 1+ (Negative)
[2021-01-06 18:43] LABS: Bacteria Urine Occasional (0-1); Culture Indicated Urine Cult Not Indicated; Hyaline Casts Urine 1-5/LPF; Mucus Urine 1+ (Negative); RBC Urine 0-1/HPF (0-5/HPF); Squamous Epithelial Cell Urine 0-1 /HPF (0-5/HPF); WBC Urine 0-1/HPF (0-5/HPF)
== END 2021-01-06 19:44 | disposition home or self-care (01) ==
PROVIDERS: Emergency Provider Emergency Medicine; PCP Family Medicine
DX: S80.212A Abrasion, left knee, initial encounter (principal); S80.211A Abrasion, right knee, initial encounter; G30.9 Alzheimer's disease, unspecified; F02.80 Dementia in other diseases classified elsewhere, unspecified severity, without behavioral disturbance, psychotic disturbance, mood disturbance, and anxiety; W19.XXXA Unspecified fall, initial encounter
CPT/HCPCS: 80053; 81001; 83690; 85025; 96360; 99283; 99284

== ENCOUNTER 2021-01-07 13:54 | Observation (INO) | payer MEDICARE, OTHER, SELFPAY ==
[2020-05-05 12:49] VITALS: BMI 25.4
[2021-01-07] VITALS (18 sets, daily range): BP systolic 115–178; BP diastolic 55–88; PULSE 56–75; RESP 13–26; TEMP 35.8; O2SAT 93–99; BMI 22.3
--- NOTE | 2021-01-07 14:05 | DI.CT.S_ITS ---
PROCEDURE: CT HEAD/BRAIN WO CON INDICATIONS: fall, aloc TECHNIQUE: Noncontrast 4.5 mm thick angled axial sections acquired from the foramen magnum to the vertex, with coronal and sagittal reformats. For radiation dose reduction, the following was used: automated exposure control, adjustment of mA and/or kV according to patient size. COMPARISON: [facility], CT, CT HEAD/BRAIN WO CON, 05/06/2020, 8:52. FINDINGS: Cerebrum, Cerebellum and Brainstem: Moderate cerebral and cerebellar volume loss as well as moderate multifocal hypoattenuation in the deep and subcortical white matter present. No acute hemorrhage or mass effect. Fitzpatrick-white distinction is preserved throughout the exam. Basal cisterns and foramen magnum are clear. Ventricles: Appropriate in size and position given the amount of cerebral atrophy. No evidence of hydrocephalus. Skull Base: The bony sella, pituitary gland and infundibulum are unremarkable. Clivus and craniovertebral relationships are appropriate. Visualized portions of external auditory canals and tympanic cavities are within normal limits. Calvarium and Scalp: No scalp soft tissue swelling. The underlying calvarium is intact without skull fracture or lytic lesion. Paranasal Sinuses: Left maxillary sinus mucosal thickening and osseous wall thickening consistent with chronic mucosal sinus disease. Mastoids: Unremarkable as visualized. No mastoid effusion present. Other: Atherosclerotic calcification in the cavernous portions of the distal internal carotid arteries are noted. IMPRESSION: Moderate atrophy and chronic ischemic change without acute hemorrhage or mass effect. Chronic left maxillary mucosal sinus disease Dictated by: Omid Meredith M.D. on 01/07/2021 at 13:38 Approved by: Omid Meredith M.D. on 01/07/2021 at 13:41
[2021-01-07 14:16] LABS: Add Manual Diff / Slide Review NO; Basophils Absolute Auto 0 /uL (0-100); Basophils Percent Auto 0.3 % (0-2); Eosinophils Absolute Auto 200 /uL (0-450); Eosinophils Percent Auto 3.4 % (2-4); Hematocrit 38.2 % (36-46); Hemoglobin 12.8 g/dL (12.0-16.0); Lymphocytes Absolute Auto 2000 /uL (1100-4500); Lymphocytes Percent Auto 28.1 % (25-40); Mean Corpuscular HGB Conc 33.6 % (30-36); Mean Corpuscular Hemoglobin 31.6 PG (26-34); Mean Corpuscular Volume 94.1 fL (80-100); Monocytes Absolute Auto 400 /uL (0-900); Monocytes Percent Auto 6.3 % (3-14); Neutrophils Absolute Auto 4300 /uL (1500-7000); Neutrophils Percent Auto 61.9 % (50-75); Platelet Count 215 X10^3/uL (150-400); Red Blood Cell Count 4.06 X10^6/uL (4.0-5.2); Red Cell Distribution Width 12.9 % (11.6-14.8)
[2021-01-07 14:28] LABS: HEMOLYSIS < 15 (0-50); Potassium 3.5 mmol/L (3.4-5.1)
[2021-01-07 14:29] LABS: Acetaminophen < 10 ug/mL (10-30); Alanine Aminotransferase 13 IU/L (<35); Albumin 3.5 g/dL (3.5-5.0); Albumin Globulin Ratio 1.3 (1.0-2.8); Alkaline Phosphatase 43 U/L (38-126); Aspartate Aminotransferase 23 IU/L (14-36); BUN Creatinine Ratio 14.8 (6-22); Bilirubin Total 0.9 mg/dL (0.2-1.3); Blood Urea Nitrogen 18 mg/dL (7-17); Calcium 9.4 mg/dL (8.4-10.2); Carbon Dioxide 31 mmol/L (22-32); Chloride 104 mmol/L (98-107); Creatine Kinase 53 U/L (30-135); Estimated Glomerular Filt Rate 42.5 mL/min (>60); Ethanol (ETOH) < 10 mg/dL; Globulin 2.7 g/dL (1.7-4.1); Glucose 112 mg/dL (80-110); Lipase 209 U/L (23-300); Salicylate < 1.0 mg/dL (<20); Sodium 140 mmol/L (137-145); Total Protein 6.2 g/dL (6.3-8.2)
[2021-01-07] MEDS: SODIUM CHLORIDE 0.9% 1,000 ML 125 ML IV (14:30)
[2021-01-07 14:40] LABS: Troponin I < 0.012 ng/mL (0.01-0.034)
--- NOTE | 2021-01-07 14:47 | ED_ITS ---
HPI - General Adult General Chief complaint: Altered Mental Status Stated complaint: Fall Time Seen by Provider: 01/07/21 14:01 Source: family () and EMS Mode of arrival: EMS Limitations: other (Dementia) History of Present Illness HPI narrative: Patient is a 80-year-old female with a history of Alzheimer's d isease. I evaluated her in the emergency department approximately 24 hours ago after she had a controlled fall out of bed and her was unable to pick her up. She was brought in by EMS. She was subsequently discharged home after a unremarkable workup in the emergency department. She was brought back to the emergency department today by EMS after she once again had another controlled fall. The patient's states that she was standing in front of him. He states that he was trying to put some cream on a wound that she has on her buttocks and she seems to lose control of her legs and he had to help her to the ground. There was no loss of consciousness. He stated at the time she had an episode of bowel and urine incontinence. Related Data Home Medications Medication Instructions Recorded Confirmed levothyroxine 125 mcg PO QAM #0 tab 12/25/10 05/05/20 donepezil 5 mg PO QAM 07/30/19 05/05/20 memantine 10 mg PO BID 07/30/19 05/05/20 calcium carbonate [Calcium 500] 1 mg PO QAM 05/05/20 05/05/20 cholecalciferol (vitamin D3) 25 mcg PO QAM 05/05/20 05/05/20 Previous Rx's Medication Instructions Recorded levofloxacin 500 mg PO DAILY #7 tab 05/08/20 losartan 50 mg PO BID #60 tab 05/08/20 Allergies Allergy/AdvReac Type Severity Reaction Status Date / Time amlodipine Allergy Mild Verified 05/05/20 10:14 erythromycin base Allergy Mild Verified 05/05/20 10:14 lisinopril Allergy Mild Verified 05/05/20 10:14 latex Allergy Unknown Verified 05/05/20 10:14 Penicillins Allergy Unknown Verified 05/05/20 10:14 Review of Systems Review of Systems ROS Unobtainable: Unobtainable due to mental condition Patient History Medical History Alzheimer's dementia Dementia History of breast cancer Hypothyroidism (acquired) Surgical History History of total mastectomy Social History household members: significant other Smoking Status: Never smoker alcohol intake: never Smoking Status: Never smoker alcohol intake frequency: other Substance Use Type: does not use Exam Initial Vital Signs Initial Vital Signs: Vital Signs Pulse Rate 65 01/07/21 13:58 Respiratory Rate 20 01/07/21 13:58 Blood Pressure 115/55 L 01/07/21 13:58 Pulse Oximetry 96 01/07/21 13:58 Const General: comfortable Limitations: altered mental status HENMT Head: normal to inspection and normocephalic Mouth: No moist mucous membranes Resp Effort & Inspection: normal respiratory effort Cardio Rate: regular rate GI Inspection: non-distended Skin Other: Patient with a decubitus ulcer on her buttocks. Neuro General: patient alert, patient awake, patient oriented x3 (Person) and moves all extremities Extrem General: normal to inspection Psych Appearance: well kempt Scores GCS Jose Miguel coma scale eye opening: Spontaneous Willow coma scale verbal response: Confused Jose Miguel coma scale motor response: Obey commands Willow coma scale total score: 14 Course Orders Ordered: ED Orders 01/07/21 13:45 Acetaminophen Stat Complete Blood Count AUTO DIFF Stat Comprehensive Metabolic Panel Stat Ethanol (ETOH) Stat Lipase Stat Salicylate Stat Thyroid Stimulating Hormone Stat Troponin & CK Cardiac Panel Stat 01/07/21 14:05 CT head/brain wo con Stat 01/07/21 14:10 EKG-12 Lead Stat 01/07/21 14:33 Ammonia (NH3) Stat 01/07/21 14:43 COVID19 - ADMIT (DEVELOPMENT ADVISOR swab/PCR) Stat 01/07/21 15:19 Urinalysis and Microscopic Stat Urine Drug Screen, Rapid Stat 01/07/21 15:31 Consult to POLYGRAPH TECHNICIAN - Clinical Lab Scientist Stat Acetaminophen (Acetaminophen 325 Mg Tablet) 650 mg PO Q6HR PRN PRN Reason: Fever/Mild Pain (1-3) Hydrocodone Bitart/Acetaminophen (Hydrocodone/Acet 5/325 Tablet) 1 tab PO Q4HR PRN PRN Reason: Pain, Moderate (4-6) Calcium Carbonate (Calcium Carbonate 500 Mg Tab) 1,000 mg PO Q4HR PRN PRN Reason: Dyspepsia Donepezil HCl (Donepezil 5 Mg Tablet) 10 mg PO BEDTIME DAVID Sodium Chloride (Normal Saline 0.9%) 1,000 mls @ 125 mls/hr IV CONT DAVID Last Admin: 01/07/21 14:30 Dose: 125 mls/hr Documented by: ANDREEA Sodium Chloride (Normal Saline 0.9%) 1,000 mls @ 150 mls/hr IV CONT DAVID Levothyroxine Sodium (Levothyroxine 125 Mcg Tablet) 125 mcg PO DAILY@0600 DAVID Lorazepam (Lorazepam 0.5 Mg Tablet) 0.5 mg PO Q6HR PRN PRN Reason: Anxiety Losartan Potassium (Losartan 50 Mg Tablet) 50 mg PO DAILY DAVID Memantine (Memantine Hcl 5 Mg Tablet) 10 mg PO BID DAVID Metoprolol Succinate (Metoprolol Er 25 Mg Tablet) 25 mg PO BID DAVID Naloxone HCl (Naloxone 0.4 Mg/Ml Vial) 0.2 mg IV Q2MIN PRN PRN Reason: Opiate Reversal Ondansetron HCl (Ondansetron 4 Mg/2 Ml Inj) 4 mg IV Q8HR PRN PRN Reason: Nausea And Vomiting Vital Signs Vital signs: Vital Signs - 8 hr 01/07/21 13:58 01/07/21 14:30 01/07/21 14:33 Pulse Rate 65 65 56 L Respiratory Rate 20 15 Blood Pressure 115/55 L 178/70 H Pulse Oximetry 96 97 01/07/21 15:00 01/07/21 15:01 01/07/21 15:05 Pulse Rate 58 L 56 L 60 Respiratory Rate 19 19 26 H Blood Pressure 158/70 H Pulse Oximetry 96 96 98 01/07/21 15:30 01/07/21 16:00 01/07/21 16:30 Pulse Rate 59 L 58 L 64 Respiratory Rate 16 16 17 Blood Pressure 148/67 H 150/67 H 165/73 H Pulse Oximetry 98 96 97 Medical Decision Making Lab Data Lab results reviewed: Yes I reviewed the patient's lab results. Result diagrams: 01/07/21 18:15 01/07/21 13:45 Labs: Lab Results 01/07/21 01/07/21 01/07/21 Range/Units 13:45 13:45 13:45 WBC 7.0 (4.5-11.0) X10^3/uL RBC 4.06 (4.0-5.2) X10^6/uL Hgb 12.8 (12.0-16.0) g/dL Hct 38.2 (36-46) % MCV 94.1 (80-100) fL MCH 31.6 (26-34) PG MCHC 33.6 (30-36) % RDW 12.9 (11.6-14.8) % Plt Count 215 (150-400) X10^3/uL Neut % (Auto) 61.9 (50-75) % Lymph % (Auto) 28.1 (25-40) % [place] % (Auto) 6.3 (3-14) % Eos % (Auto) 3.4 (2-4) % Baso % (Auto) 0.3 (0-2) % Neut # (Auto) 4300 (7067-0169) /uL Lymph # (Auto) 2000 (0228-6072) /uL [place]s # (Auto) 400 (0-900) /uL Eos # (Auto) 200 (0-450) /uL Baso # (Auto) 0 (0-100) /uL Sodium 140 (137-145) mmol/L Potassium 3.5 (3.4-5.1) mmol/L Chloride 104 (98-107) mmol/L Carbon Dioxide 31 (22-32) mmol/L BUN 18 H (7-17) mg/dL Creatinine 1.22 H (0.52-1.04) mg/dL Estimated GFR 42.5 L (>60) mL/min BUN/Creatinine Ratio 14.8 (6-22) Glucose 112 H (80-110) mg/dL Calcium 9.4 (8.4-10.2) mg/dL Total Bilirubin 0.9 (0.2-1.3) mg/dL AST 23 (14-36) IU/L ALT 13 (<35) IU/L Alkaline Phosphatase 43 (38-126) U/L Ammonia (9-30) umol/L Total Creatine Kinase 53 (30-135) U/L CK-MB (CK-2) TNP CK-MB (CK-2) Rel Index TNP Troponin I < 0.012 (0.01-0.034) ng/mL Total Protein 6.2 L (6.3-8.2) g/dL Albumin 3.5 (3.5-5.0) g/dL Globulin 2.7 (1.7-4.1) g/dL Albumin/Globulin Ratio 1.3 (1.0-2.8) Lipase 209 (23-300) U/L TSH (0.47-4.68) uIU/mL Urine Color Urine Appearance Urine pH (4.5-8.0) Ur Specific [place] (1.000-1.035) Urine Protein (Negative) Urine Glucose (UA) (Negative) g/dL Urine Ketones (NEGATIVE) Urine Occult Blood (Negative) Urine Nitrate (Negative) Urine Bilirubin (NEGATIVE) Urine Urobilinogen (0.2) E.U./dL Ur Leukocyte Esterase (NEGATIVE) Urine RBC (0-5/HPF) Urine WBC (0-5/HPF) Ur Squamous Epith Cells (0-5/HPF) Urine Bacteria (None) Hyaline Casts (None) Ur Culture Indicated? Salicylates < 1.0 (<20) mg/dL U Opiates 300ng/mL cut (Negative) Ur Oxycodone Screen (Negative) Urine Methadone Screen (Negative) Acetaminophen < 10 L (10-30) ug/mL Ur Barbiturates Screen (Negative) U Tricyclic Antidepress (Negative) Ur Phencyclidine Scrn (Negative) Ur Amphetamines Screen (Negative) U Methamphetamines Scrn (Negative) Ur MDMA Scrn (Ecstasy) (Negative) U Benzodiazepines Scrn (Negative) Urine Cocaine Screen (Negative) U Marijuana (THC) Screen (Negative) Ethyl Alcohol < 10 ( - 10) mg/dL SARS-CoV-2 (PCR) (Negative) 01/07/21 01/07/21 01/07/21 Range/Units 13:45 14:33 14:43 WBC (4.5-11.0) X10^3/uL RBC (4.0-5.2) X10^6/uL Hgb (12.0-16.0) g/dL Hct (36-46) % MCV (80-100) fL MCH (26-34) PG MCHC (30-36) % RDW (11.6-14.8) % Plt Count (150-400) X10^3/uL Neut % (Auto) (50-75) % Lymph % (Auto) (25-40) % Stearns % (Auto) (3-14) % Eos % (Auto) (2-4) % Baso % (Auto) (0-2) % Neut # (Auto) (7358-7661) /uL Lymph # (Auto) (1176-5921) /uL Stearns # (Auto) (0-900) /uL Eos # (Auto) (0-450) /uL Baso # (Auto) (0-100) /uL Sodium (137-145) mmol/L Potassium (3.4-5.1) mmol/L Chloride (98-107) mmol/L Carbon Dioxide (22-32) mmol/L BUN (7-17) mg/dL Creatinine (0.52-1.04) mg/dL Estimated GFR (>60) mL/min BUN/Creatinine Ratio (6-22) Glucose (80-110) mg/dL Calcium (8.4-10.2) mg/dL Total Bilirubin (0.2-1.3) mg/dL AST (14-36) IU/L ALT (<35) IU/L Alkaline Phosphatase (38-126) U/L Ammonia < 9 L (9-30) umol/L Total Creatine Kinase (30-135) U/L CK-MB (CK-2) CK-MB (CK-2) Rel Index Troponin I (0.01-0.034) ng/mL Total Protein (6.3-8.2) g/dL Albumin (3.5-5.0) g/dL Globulin (1.7-4.1) g/dL Albumin/Globulin Ratio (1.0-2.8) Lipase (23-300) U/L TSH 0.401 L (0.47-4.68) uIU/mL Urine Color Urine Appearance Urine pH (4.5-8.0) Ur Specific [place] (1.000-1.035) Urine Protein (Negative) Urine Glucose (UA) (Negative) g/dL Urine Ketones (NEGATIVE) Urine Occult Blood (Negative) Urine Nitrate (Negative) Urine Bilirubin (NEGATIVE) Urine Urobilinogen (0.2) E.U./dL Ur Leukocyte Esterase (NEGATIVE) Urine RBC (0-5/HPF) Urine WBC (0-5/HPF) Ur Squamous Epith Cells (0-5/HPF) Urine Bacteria (None) Hyaline Casts (None) Ur Culture Indicated? Salicylates (<20) mg/dL U Opiates 300ng/mL cut (Negative) Ur Oxycodone Screen (Negative) Urine Methadone Screen (Negative) Acetaminophen (10-30) ug/mL Ur Barbiturates Screen (Negative) U Tricyclic Antidepress (Negative) Ur Phencyclidine Scrn (Negative) Ur Amphetamines Screen (Negative) U Methamphetamines Scrn (Negative) Ur MDMA Scrn (Ecstasy) (Negative) U Benzodiazepines Scrn (Negative) Urine Cocaine Screen (Negative) U Marijuana (THC) Screen (Negative) Ethyl Alcohol ( - 10) mg/dL SARS-CoV-2 (PCR) Negative (Negative) 01/07/21 01/07/21 Range/Units 15:19 15:19 WBC (4.5-11.0) X10^3/uL RBC (4.0-5.2) X10^6/uL Hgb (12.0-16.0) g/dL Hct (36-46) % MCV (80-100) fL MCH (26-34) PG MCHC (30-36) % RDW (11.6-14.8) % Plt Count (150-400) X10^3/uL Neut % (Auto) (50-75) % Lymph % (Auto) (25-40) % Stearns % (Auto) (3-14) % Eos % (Auto) (2-4) % Baso % (Auto) (0-2) % Neut # (Auto) (1227-2201) /uL Lymph # (Auto) (0345-4519) /uL Ste[place]s # (Auto) (0-900) /uL Eos # (Auto) (0-450) /uL Baso # (Auto) (0-100) /uL Sodium (137-145) mmol/L Potassium (3.4-5.1) mmol/L Chloride (98-107) mmol/L Carbon Dioxide (22-32) mmol/L BUN (7-17) mg/dL Creatinine (0.52-1.04) mg/dL Estimated GFR (>60) mL/min BUN/Creatinine Ratio (6-22) Glucose (80-110) mg/dL Calcium (8.4-10.2) mg/dL Total Bilirubin (0.2-1.3) mg/dL AST (14-36) IU/L ALT (<35) IU/L Alkaline Phosphatase (38-126) U/L Ammonia (9-30) umol/L Total Creatine Kinase (30-135) U/L CK-MB (CK-2) CK-MB (CK-2) Rel Index Troponin I (0.01-0.034) ng/mL Total Protein (6.3-8.2) g/dL Albumin (3.5-5.0) g/dL Globulin (1.7-4.1) g/dL Albumin/Globulin Ratio (1.0-2.8) Lipase (23-300) U/L TSH (0.47-4.68) uIU/mL Urine Color Yellow Urine Appearance Clear Urine pH 6.5 (4.5-8.0) Ur Specific [place] 1.020 (1.000-1.035) Urine Protein Negative (Negative) Urine Glucose (UA) Negative (Negative) g/dL Urine Ketones Negative (NEGATIVE) Urine Occult Blood Trace-intact (Negative) Urine Nitrate Negative (Negative) Urine Bilirubin Negative (NEGATIVE) Urine Urobilinogen 1.0 (0.2) E.U./dL Ur Leukocyte Esterase Negative (NEGATIVE) Urine RBC 1-5/hpf (0-5/HPF) Urine WBC 0-1/hpf (0-5/HPF) Ur Squamous Epith Cells 0-1 /hpf (0-5/HPF) Urine Bacteria None seen (None) Hyaline Casts 1-5/lpf (None) Ur Culture Indicated? Cult not indicated Salicylates (<20) mg/dL U Opiates 300ng/mL cut Negative (Negative) Ur Oxycodone Screen Negative (Negative) Urine Methadone Screen Negative (Negative) Acetaminophen (10-30) ug/mL Ur Barbiturates Screen Negative (Negative) U Tricyclic Antidepress Negative (Negative) Ur Phencyclidine Scrn Negative (Negative) Ur Amphetamines Screen Negative (Negative) U Methamphetamines Scrn Negative (Negative) Ur MDMA Scrn (Ecstasy) Negative (Negative) U Benzodiazepines Scrn Negative (Negative) Urine Cocaine Screen Negative (Negative) U Marijuana (THC) Screen Negative (Negative) Ethyl Alcohol ( - 10) mg/dL SARS-CoV-2 (PCR) (Negative) Imaging Data CT scan - head: Radiologist's Impression: [address] [id number] Scan ReportSigned Patient: [facility] [id number]: [id number]:[id number]/Sex: 80 / FDate of Service: 01/07/21Loc: EDAccession Number: [id number] Procedure: CT head/brain wo con Ordering Provider: Jason Olsen D.O. PROCEDURE: CT HEAD/BRAIN WO CON INDICATIONS: fall, aloc TECHNIQUE: Noncontrast 4.5 mm thick angled axial sections acquired from the foramen magnum to the vertex, with coronal and sagittal reformats. For radiation dose reduction, the following was used: automated exposure control, adjustment of mA and/or kV according to patient size. COMPARISON: [facility], CT, CT HEAD/BRAIN WO CON, 05/06/2020, 8:52. FINDINGS: Cerebrum, Cerebellum and Brainstem: Moderate cerebral and cerebellar volume loss as well as moderate multifocal hypoattenuation in the deep and subcortical white matter present. No acute hemorrhage or mass effect. Fitzpatrick-white distinction is preserved throughout the exam. Basal cisterns and foramen magnum are clear. Ventricles: Appropriate in size and position given the amount of cerebral atrophy. No evidence of hydrocephalus. Skull Base: The bony sella, pituitary gland and infundibulum are unremarkable. Clivus and craniovertebral relationships are appropriate. Visualized portions of external auditory canals and tympanic cavities are within normal limits. Calvarium and Scalp: No scalp soft tissue swelling. The underlying calvarium is intact without skull fracture or lytic lesion. Paranasal Sinuses: Left maxillary sinus mucosal thickening and osseous wall thickening consistent with chronic mucosal sinus disease. Mastoids: Unremarkable as visualized. No mastoid effusion present. Other: Atherosclerotic calcification in the cavernous portions of the distal internal carotid arteries are noted. IMPRESSION: Moderate atrophy and chronic ischemic change without acute hemorrhage or mass effect. Chronic left maxillary mucosal sinus disease Dictated by: Omid Meredith M.D. on 01/07/2021 at 13:38 Approved by: Omid Meredith M.D. on 01/07/2021 at 13:41 ECG Data Attestation: I personally reviewed and interpreted this ECG as follows: Prior ECG tracings: available for review Interpretation: Sinus rhythm Ventricular rate is 60 Normal axis Normal QRS Normal QTC No ST T wave changes/ MDM Narrative Medical decision making narrative: Patient has an exam today that is very similar to yesterday's however she does have fairly dry mucous membranes. Her diarrhea is chronic but does seem to be getting worse recently. She is essentially incontinent of bowel and urine. The fall today appeared to be somewhat controlled by the patient's . Her head CT is unremarkable. She is not on blood thinners. This is the 2nd ED visit in 2 days for falls. She does seem to be much more weak today than which she was yesterday. Her labs are relatively unremarkable. I suspect that she does have a degree of dehydration given her chronic diarrhea and her dry mucous membranes. I did discuss the case with Dr. Person who is her primary doctor who will admit for further evaluation and treatment. I did discuss this with the patient's who expressed understanding. Discharge Plan Departure Patient Disposition: Admitted As Inpatient Clinical Impression: Weakness, Diarrhea, Dehydration, Fall Admit Date/Time: 01/07/21 17:12 Admit Provider: Kia Person
[2021-01-07 15:08] LABS: Thyroid Stimulating Hormone 0.401 uIU/mL (0.47-4.68)
[2021-01-07 15:14] LABS: Ammonia (NH3) < 9 umol/L (9-30)
[2021-01-07 15:25] LABS: Bacteria Urine None Seen
[2021-01-07 15:36] LABS: Appearance Urine UA CLEAR; Bilirubin Urine UA NEGATIVE (NEGATIVE); Color Urine UA YELLOW; Glucose Urine UA NEGATIVE (Negative); Ketones Urine UA NEGATIVE (NEGATIVE); Leukocyte Esterase Urine UA NEGATIVE (NEGATIVE); Nitrite Urine UA NEGATIVE (Negative); Occult Blood Urine UA TRACE-INTACT (Negative); Protein Urine UA NEGATIVE (Negative); UR Morphine/Opiate cutoff 300 Negative (Negative); Ur Creatinine Normal (Normal); Ur Specific Gravity Normal (Normal); Urine Amphetamines Negative (Negative); Urine Barbiturates Negative (Negative); Urine Benzodiazepines Negative (Negative); Urine Cocaine Negative (Negative); Urine MDMA Negative (Negative); Urine Methadone Negative (Negative); Urine Methamphetamines Negative (Negative); Urine Oxycodone Negative (Negative); Urine Phencyclidine Negative (Negative); Urine Tetrahydrocannabinol Negative (Negative); Urine Tricyclic Antidepressant Negative (Negative); Urine pH Normal (Normal)
[2021-01-07 15:41] LABS: COVID19 - ADMIT (NP swab/PCR) Negative (Negative)
[2021-01-07 16:56] LABS: pH Urine UA 6.5 (4.5-8.0)
[2021-01-07 16:57] LABS: Culture Indicated Urine Cult Not Indicated; Hyaline Casts Urine 1-5/LPF; RBC Urine 1-5/HPF (0-5/HPF); Squamous Epithelial Cell Urine 0-1 /HPF (0-5/HPF); WBC Urine 0-1/HPF (0-5/HPF)
--- NOTE | 2021-01-07 17:41 | P.HP_ITS ---
History of Present Illness History of Present Illness Date Patient Seen: 01/08/21 Time Patient Seen: 11:45 Date of Onset of Symptoms: 01/06/21 Chief complaint: Fall Narrative: This very pleasant 80-year-old female who is well known to me pres ents to the ER for the 2nd day in a row due to spontaneous controlled falls. Patient has underlying severe dementia, chronic kidney disease, hypertension hypothyroidism and was in her usual state of health however more recently has had an increase in diarrhea although this has been a intermittent chronic problem. She has also had decreased p.o. intake and subsequent to this has had spontaneous falls while she is unsupported well she is having activities of daily living performed and she just slowly fell but her significant other was able to stop the fall. She was evaluated in the emergency department and workup revealed worsening of her chronic kidney disease and dehydration and a negative head CT. She has made it to the hospital for further treatment and evaluation. She was started on IV fluids. Urinalysis was normal and blood cultures are pending. Past medical history: 1. Hypertension 2. Hypothyroidism 3. Severe dementia, presumably of the Alzheimer's type 4. Chronic kidney disease, stage IIIB 5. Chronic diarrhea 6. Diverticulosis without episodes of diverticulitis 7. Reactive airway disease, well controlled 8. Peripheral edema secondary to venous stasis changes 9. 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 They live in in a [facility] Health-related behavior Patient does not smoke and never has Patient is not currently using alcohol Patient is not very active Review of systems: Negative for any head injury Negative for headaches Negative for any visual changes Negative for chest pain, palpitations, lightheadedness, dizziness No abdominal pain Patient has had a history of constipation with fecal impaction and has had intermittent diarrhea Last admission was in April of 2020 for weakness, dehydration and UTI. Patient was admitted in August 03 for diarrhea and fecal impaction with CT scan showing evidence of thickening on her sigmoid colon and a partial colonosco py was performed that did not show evidence of cancer. It did show diverticula but no diverticulitis. Patient has had intermittent diarrhea since that time. We have taken her off her Aricept and that did not make a difference in her diarrhea. We have tried different dietary changes and that has seemed to help. Her diarrhea has been worse over the last several weeks. She has incontinence of bowel and bladder intermittently. She has not had blood in her stool or black tarry stools or mucus stools Patient History Medical History Alzheimer's dementia Dementia History of breast cancer Hypothyroidism (acquired) Surgical History History of total mastectomy Family & Social History Social History: household members significant other Tobacco & Substance use: Smoking Status Never smoker alcohol intake never alcohol intake frequency other Substance Use Type does not use Meds Home Medications and Allergies Home Medications Medication Instructions Recorded Confirmed Type levothyroxine 125 mcg PO QAM #0 tab 12/25/10 01/08/21 History donepezil 10 mg PO QAM 07/30/19 01/08/21 History memantine 10 mg PO BID 07/30/19 01/08/21 History calcium carbonate [Calcium 500] 1 mg PO QAM 05/05/20 01/08/21 History cholecalciferol (vitamin D3) 25 mcg PO QAM 05/05/20 01/08/21 History losartan 50 mg PO BID #60 tab 05/08/20 01/08/21 Rx metoprolol tartrate 12.5 mg PO BID 01/08/21 01/08/21 History Allergies Allergy/AdvReac Type Severity Reaction Status Date / Time amlodipine Allergy Mild Verified 05/05/20 10:14 erythromycin base Allergy Mild Verified 05/05/20 10:14 lisinopril Allergy Mild Verified 05/05/20 10:14 latex Allergy Unknown Verified 05/05/20 10:14 Penicillins Allergy Unknown Verified 05/05/20 10:14 Review of Systems Review of Systems Narrative: Patient with increased weakness patient with fall yesterday and evaluation emergency department patient with near fall today Exam Vital Signs (past 8 hours): - 01/07/21 13:58 01/07/21 14:30 01/07/21 14:33 Pulse Rate 65 65 56 L Respiratory Rate 20 15 Blood Pressure 115/55 L 178/70 H Pulse Oximetry 96 97 01/07/21 15:00 01/07/21 15:01 01/07/21 15:05 Pulse Rate 58 L 56 L 60 Respiratory Rate 19 19 26 H Blood Pressure 158/70 H Pulse Oximetry 96 96 98 01/07/21 15:30 01/07/21 16:00 01/07/21 16:30 Pulse Rate 59 L 58 L 64 Respiratory Rate 16 16 17 Blood Pressure 148/67 H 150/67 H 165/73 H Pulse Oximetry 98 96 97 Oxygen Delivery Method Room Air Narrative Exam Narrative: Afebrile vital signs are stable Patient is alert and recognizes me and able to answer questions. She is very slow to speak. She is in no apparent distress. She is sitting up in chair eating ice-cream very slowly HEENT unremarkable Neck: Supple without adenopathy or thyromegaly. No jugular venous distention or bruits Chest: Clear to auscultation without wheezes rhonchi or crackles by prolonged expiratory phase Cor: Regular rate and rhythm without murmur and distant S1-S2 Extremities: No edema, pulses intact Neurologic exam is non focal other than very slow to speak Skin per nursing patient with stage II wounds on buttocks and moist macerated perineum approval for Objective Labs Result Diagrams: 01/08/21 04:50 01/08/21 04:50 Labs: Laboratory Results - last 24 hr 01/07/21 01/07/21 01/07/21 13:45 13:45 13:45 WBC 7.0 RBC 4.06 Hgb 12.8 Hct 38.2 MCV 94.1 MCH 31.6 MCHC 33.6 RDW 12.9 Plt Count 215 Neut % (Auto) 61.9 Lymph % (Auto) 28.1 [place] % (Auto) 6.3 Eos % (Auto) 3.4 Baso % (Auto) 0.3 Neut # (Auto) 4300 Lymph # (Auto) 2000 [place] # (Auto) 400 Eos # (Auto) 200 Baso # (Auto) 0 Sodium 140 Potassium 3.5 Chloride 104 Carbon Dioxide 31 BUN 18 H Creatinine 1.22 H Estimated GFR 42.5 L BUN/Creatinine Ratio 14.8 Glucose 112 H Calcium 9.4 Total Bilirubin 0.9 AST 23 ALT 13 Alkaline Phosphatase 43 Ammonia Total Creatine Kinase 53 CK-MB (CK-2) TNP CK-MB (CK-2) Rel Index TNP Troponin I < 0.012 Total Protein 6.2 L Albumin 3.5 Globulin 2.7 Albumin/Globulin Ratio 1.3 Lipase 209 TSH Urine Color Urine Appearance Urine pH Ur Specific [place] Urine Protein Urine Glucose (UA) Urine Ketones Urine Occult Blood Urine Nitrate Urine Bilirubin Urine Urobilinogen Ur Leukocyte Esterase Urine RBC Urine WBC Ur Squamous Epith Cells Urine Bacteria Hyaline Casts Ur Culture Indicated? Salicylates < 1.0 U Opiates 300ng/mL cut Ur Oxycodone Screen Urine Methadone Screen Acetaminophen < 10 L Ur Barbiturates Screen U Tricyclic Antidepress Ur Phencyclidine Scrn Ur Amphetamines Screen U Methamphetamines Scrn Ur MDMA Scrn (Ecstasy) U Benzodiazepines Scrn Urine Cocaine Screen U Marijuana (THC) Screen Ethyl Alcohol < 10 SARS-CoV-2 (PCR) 01/07/21 01/07/21 01/07/21 13:45 14:33 14:43 WBC RBC Hgb Hct MCV MCH MCHC RDW Plt Count Neut % (Auto) Lymph % (Auto) [place] % (Auto) Eos % (Auto) Baso % (Auto) Neut # (Auto) Lymph # (Auto) [place] # (Auto) Eos # (Auto) Baso # (Auto) Sodium Potassium Chloride Carbon Dioxide BUN Creatinine Estimated GFR BUN/Creatinine Ratio Glucose Calcium Total Bilirubin AST ALT Alkaline Phosphatase Ammonia < 9 L Total Creatine Kinase CK-MB (CK-2) CK-MB (CK-2) Rel Index Troponin I Total Protein Albumin Globulin Albumin/Globulin Ratio Lipase TSH 0.401 L Urine Color Urine Appearance Urine pH Ur Specific [place] Urine Protein Urine Glucose (UA) Urine Ketones Urine Occult Blood Urine Nitrate Urine Bilirubin Urine Urobilinogen Ur Leukocyte Esterase Urine RBC Urine WBC Ur Squamous Epith Cells Urine Bacteria Hyaline Casts Ur Culture Indicated? Salicylates U Opiates 300ng/mL cut Ur Oxycodone Screen Urine Methadone Screen Acetaminophen Ur Barbiturates Screen U Tricyclic Antidepress Ur Phencyclidine Scrn Ur Amphetamines Screen U Methamphetamines Scrn Ur MDMA Scrn (Ecstasy) U Benzodiazepines Scrn Urine Cocaine Screen U Marijuana (THC) Screen Ethyl Alcohol SARS-CoV-2 (PCR) Negative 01/07/21 01/07/21 15:19 15:19 WBC RBC Hgb Hct MCV MCH MCHC RDW Plt Count Neut % (Auto) Lymph % (Auto) [place] % (Auto) Eos % (Auto) Baso % (Auto) Neut # (Auto) Lymph # (Auto) [place] # (Auto) Eos # (Auto) Baso # (Auto) Sodium Potassium Chloride Carbon Dioxide BUN Creatinine Estimated GFR BUN/Creatinine Ratio Glucose Calcium Total Bilirubin AST ALT Alkaline Phosphatase Ammonia Total Creatine Kinase CK-MB (CK-2) CK-MB (CK-2) Rel Index Troponin I Total Protein Albumin Globulin Albumin/Globulin Ratio Lipase TSH Urine Color Yellow Urine Appearance Clear Urine pH 6.5 Ur Specific [place] 1.020 Urine Protein Negative Urine Glucose (UA) Negative Urine Ketones Negative Urine Occult Blood Trace-intact Urine Nitrate Negative Urine Bilirubin Negative Urine Urobilinogen 1.0 Ur Leukocyte Esterase Negative Urine RBC 1-5/hpf Urine WBC 0-1/hpf Ur Squamous Epith Cells 0-1 /hpf Urine Bacteria None seen Hyaline Casts 1-5/lpf Ur Culture Indicated? Cult not indicated Salicylates U Opiates 300ng/mL cut Negative Ur Oxycodone Screen Negative Urine Methadone Screen Negative Acetaminophen Ur Barbiturates Screen Negative U Tricyclic Antidepress Negative Ur Phencyclidine Scrn Negative Ur Amphetamines Screen Negative U Methamphetamines Scrn Negative Ur MDMA Scrn (Ecstasy) Negative U Benzodiazepines Scrn Negative Urine Cocaine Screen Negative U Marijuana (THC) Screen Negative Ethyl Alcohol SARS-CoV-2 (PCR) Assessment & Plan Assessment & Plan narrative: 80-year-old female with severe dementia admitted with acute dehydration causing acute exacerbation of chronic kidney disease in part related to worsening diarrhea Assessment 1. Dehydration with acute exacerbation of chronic kidney disease stage 3 improved with IV fluids Plan: Will hold IV fluids for now and reassess in a.m. Assessment 2. Diarrhea, acute on chronic Plan: Will do three view of the abdomen to assess for evidence of constipation or impaction and will continue to monitor. I think that this is a dietary issue. We will have dietary evaluate as well. Assessment 3. Severe dementia, unchanged Plan: Continue Aricept and Namenda. Will likely need home health at discharge. Assessment number for deconditioning with frequent falls impart falls related to dehydration Plan: Will replace interval a.m. depletion and will have PT consult and will likely do home PT Assessment 5. Hypertension Plan: Will continue outpatient medications Assessment 6. Hypothyroidism with decreased TSH but I do not think this is etiology of her symptoms. We will continue her outpatient dosing and will recheck at at a later time Assessment 7. Reactive airway disease without acute exacerbation Plan: Will continue to monitor. Patient has not needed intervention for this in quite some time Assessment 8. Infectious disease No obvious infection. Blood cultures pending. Will continue to monitor. Assessment 9. Decubitus wounds x2 Plan: Will stop IV fluids to decrease urinary incontinence and will use barrier treatment and will re-evaluate in a.m.. Code status DNR
[2021-01-07 18:24] LABS: Add Manual Diff / Slide Review NO; Basophils Absolute Auto 0 /uL (0-100); Basophils Percent Auto 0.4 % (0-2); Eosinophils Absolute Auto 100 /uL (0-450); Eosinophils Percent Auto 2.4 % (2-4); Hematocrit 36.6 % (36-46); Hemoglobin 12.3 g/dL (12.0-16.0); Lymphocytes Absolute Auto 1400 /uL (1100-4500); Lymphocytes Percent Auto 22.7 % (25-40); Mean Corpuscular HGB Conc 33.7 % (30-36); Mean Corpuscular Hemoglobin 31.5 PG (26-34); Mean Corpuscular Volume 93.5 fL (80-100); Monocytes Absolute Auto 400 /uL (0-900); Monocytes Percent Auto 6.5 % (3-14); Neutrophils Absolute Auto 4300 /uL (1500-7000); Platelet Count 160 X10^3/uL (150-400); Red Blood Cell Count 3.91 X10^6/uL (4.0-5.2); Red Cell Distribution Width 13.1 % (11.6-14.8); White Blood Cell Count 6.3 X10^3/uL (4.5-11.0)
--- NOTE | 2021-01-07 18:32 | CM.SWNOTE ---
TOP AND TRIM WORKER Note TOP AND TRIM WORKER receives consult and meets with patient and Sina. Patient is 80 y/o female who presents to this ED today due to concern of patient not able to control her bowels, states that the issue has been happening for months. Patient and presented to this ED last night due to GLF and indicate TOP AND TRIM WORKER's services are not needed and that will f/u with PCP and HH referral. Sina calls patient's daughter Mitzy via [employer] and TOP AND TRIM WORKER discusses patient with all parties present. reports his concern of patient's current issue regarding her bowels and endorses that it has been an ongoing issue. states that he has concerns that he can even get his in the door and reports that caring for her has become more difficult. states that he has no other supports at home and she needs assistance at any hour of the day. states that patient cannot walk. states that he has not called Dr. Person since ER visit yesterday. TOP AND TRIM WORKER discusses SNFs and it is a concern for patient to be in a SNF fci and would like to focus on patient getting her strength back. TOP AND TRIM WORKER discusses scheduling an appt with PCP Dr. Person for GI referral, states that he will do that. TOP AND TRIM WORKER states that TOP AND TRIM WORKER will refer to ED provider to assess patient's medical to see if patient is appropriate for admission to [facility]. Per ED provider Dr. Olsen, PCP Dr. Person is to admit patient and f/u with patient and family to determine POC. Patient has dx of demntia Plan: patient to be admitted and DCP to f/u with patient and family for POC. MAKENNA Ochoa
[2021-01-07 18:55] LABS: INR 1.1 (0.9-1.3); Prothrombin Time 12.1 SECONDS (10.1-12.7)
[2021-01-07 18:57] LABS: PTT Partial Thromboplastin Tim 24 SECONDS (26.4-36.2)
[2021-01-07 19:16] LABS: Lactate (Lactic Acid) 0.9 mmol/L (0.7-2.1)
[2021-01-07 19:18] LABS: Acetaminophen < 10 ug/mL (10-30); Alanine Aminotransferase 10 IU/L (<35); Albumin 3.1 g/dL (3.5-5.0); Albumin Globulin Ratio 1.1 (1.0-2.8); Alkaline Phosphatase 43 U/L (38-126); Aspartate Aminotransferase 23 IU/L (14-36); BUN Creatinine Ratio 18.3 (6-22); Bilirubin Total 0.6 mg/dL (0.2-1.3); Blood Urea Nitrogen 20 mg/dL (7-17); Calcium 9.1 mg/dL (8.4-10.2); Carbon Dioxide 26 mmol/L (22-32); Chloride 108 mmol/L (98-107); Estimated Glomerular Filt Rate 48.4 mL/min (>60); Ethanol (ETOH) < 10 mg/dL; Globulin 2.7 g/dL (1.7-4.1); Glucose 111 mg/dL (80-110); HEMOLYSIS 23 (0-50); Potassium 3.7 mmol/L (3.4-5.1); Salicylate < 1.0 mg/dL (<20); Sodium 140 mmol/L (137-145); Total Protein 5.8 g/dL (6.3-8.2)
[2021-01-07 19:34] LABS: Prolactin 10.8 ng/mL (3.0-18.6)
[2021-01-07 19:48] LABS: Thyroid Stimulating Hormone 0.256 uIU/mL (0.47-4.68)
[2021-01-07] MEDS: SODIUM CHLORIDE 0.9% 1,000 ML 150 ML IV (20:07)
[2021-01-07] MEDS: METOPROLOL ER 25 MG TABLET PO (21:20)
[2021-01-07] MEDS: DONEPEZIL 5 MG TABLET 10 MG PO (21:20)
[2021-01-07] MEDS: MEMANTINE HCL 5 MG TABLET 10 MG PO (21:20)
[2021-01-07 21:57] LABS: Appearance Urine UA CLEAR; Bilirubin Urine UA NEGATIVE (NEGATIVE); Color Urine UA YELLOW; Glucose Urine UA NEGATIVE (Negative); Ketones Urine UA NEGATIVE (NEGATIVE); Leukocyte Esterase Urine UA NEGATIVE (NEGATIVE); Nitrite Urine UA NEGATIVE (Negative); Occult Blood Urine UA NEGATIVE (Negative); Protein Urine UA NEGATIVE (Negative)
[2021-01-07 22:02] LABS: Ur Creatinine 20 (Normal); Ur Specific Gravity 1.025 (Normal); Urine Tetrahydrocannabinol Negative (Negative); Urine pH 5 (Normal)
[2021-01-07 22:03] LABS: UR Morphine/Opiate cutoff 300 Negative (Negative); Urine Amphetamines Negative (Negative); Urine Barbiturates Negative (Negative); Urine Benzodiazepines Negative (Negative); Urine Cocaine Negative (Negative); Urine MDMA Negative (Negative); Urine Methadone Negative (Negative); Urine Methamphetamines Negative (Negative); Urine Oxycodone Negative (Negative); Urine Phencyclidine Negative (Negative); Urine Tricyclic Antidepressant Negative (Negative)
[2021-01-07 22:18] LABS: Bacteria Urine Moderate (10-30); Culture Indicated Urine Cult Not Indicated; RBC Urine 0-1/HPF (0-5/HPF); Squamous Epithelial Cell Urine 5-10 /HPF (0-5/HPF); WBC Urine 1-5/HPF (0-5/HPF)
[2021-01-08] VITALS (11 sets, daily range): BP systolic 126–159; BP diastolic 69–96; PULSE 48–61; RESP 14–16; TEMP 35.8–36.2; O2SAT 96–98
[2021-01-08] MEDS: SODIUM CHLORIDE 0.9% 1,000 ML 150 ML IV ×2 (03:05→10:11)
[2021-01-08 05:05] LABS: Add Manual Diff / Slide Review NO; Basophils Absolute Auto 0 /uL (0-100); Basophils Percent Auto 0.8 % (0-2); Eosinophils Absolute Auto 200 /uL (0-450); Eosinophils Percent Auto 3.6 % (2-4); Hematocrit 33.2 % (36-46); Hemoglobin 11.2 g/dL (12.0-16.0); Lymphocytes Absolute Auto 1600 /uL (1100-4500); Lymphocytes Percent Auto 28.2 % (25-40); Mean Corpuscular HGB Conc 33.8 % (30-36); Mean Corpuscular Hemoglobin 31.4 PG (26-34); Mean Corpuscular Volume 92.9 fL (80-100); Monocytes Absolute Auto 500 /uL (0-900); Monocytes Percent Auto 9.6 % (3-14); Neutrophils Absolute Auto 3200 /uL (1500-7000); Neutrophils Percent Auto 57.8 % (50-75); Platelet Count 152 X10^3/uL (150-400); Red Blood Cell Count 3.57 X10^6/uL (4.0-5.2); Red Cell Distribution Width 12.8 % (11.6-14.8); White Blood Cell Count 5.6 X10^3/uL (4.5-11.0)
[2021-01-08 05:13] LABS: Alanine Aminotransferase 8 IU/L (<35); Albumin 2.6 g/dL (3.5-5.0); Albumin Globulin Ratio 1.2 (1.0-2.8); Alkaline Phosphatase 33 U/L (38-126); Aspartate Aminotransferase 18 IU/L (14-36); BUN Creatinine Ratio 22.4 (6-22); Bilirubin Total 0.3 mg/dL (0.2-1.3); Blood Urea Nitrogen 22 mg/dL (7-17); Calcium 8.3 mg/dL (8.4-10.2); Carbon Dioxide 27 mmol/L (22-32); Chloride 111 mmol/L (98-107); Estimated Glomerular Filt Rate 54.7 mL/min (>60); Globulin 2.2 g/dL (1.7-4.1); Glucose 89 mg/dL (80-110); HEMOLYSIS < 15 (0-50); Potassium 3.5 mmol/L (3.4-5.1); Sodium 140 mmol/L (137-145); Total Protein 4.8 g/dL (6.3-8.2)
[2021-01-08] MEDS: LEVOTHYROXINE 125 MCG TABLET PO (06:37)
--- NOTE | 2021-01-08 06:47 | PC.ADMIT ---
[id number] Admission Note: The patient,Ashlie Tolliver,80 y/o, was given written information regarding hospital policies, unit procedures and contact persons. Unable to completely fill out admission assessment or reconcile meds due to patient uncertainty. Patient baseline confused w/ hx alzheimers. Incontinent w/ stage 2 pressure ulcers located on coccyx w/ stage 1 unblanchable areas. Pt has bruising to BLE from fall at home. Pt made aware of hospital policies but may not be able to make needs known. Frequent checks needed. Patient's smoking status: Never smoker. Vital Signs - 8 hr 01/07/21 23:00 01/07/21 23:25 01/08/21 04:58 Temperature 96.4 F L 97.1 F L Pulse Rate 62 61 Respiratory Rate 16 16 Blood Pressure 147/88 H 151/85 H Pulse Oximetry 93 93 98
[2021-01-08] MEDS: LOSARTAN 50 MG TABLET PO ×2 (09:04→20:25)
[2021-01-08] MEDS: MEMANTINE HCL 5 MG TABLET 10 MG PO ×2 (09:04→20:25)
[2021-01-08] MEDS: METOPROLOL ER 25 MG TABLET PO (09:05)
--- NOTE | 2021-01-08 10:35 | PT.IIE ---
Surgical History (Last Reviewed 01/07/21 @ 17:42 by Kia Person MD) History of total mastectomy Medical History (Last Reviewed 01/07/21 @ 18:40 by Jason Olsen DO) Alzheimer's dementia Dementia History of breast cancer Hypothyroidism (acquired) Physical Therapy Inpatient Evaluation/Re-Eval M1 PT/OT-IP Prior Functional Status Start: 01/08/21 12:58 Freq: NEEDED Status: Active Protocol: Document 01/08/21 10:35 AB (Rec: 01/08/21 13:14 AB [email or web address]) Medical Review Prior Functional Status Medical History Reviewed Yes Communication able to respond to questions but does not give accurate information. requires increase time to complete instructions and respond to questions Mobility and Gait pt unable to give accurate info; per EMR: pt's spouse assists pt with all tasks providing ASSISTED LIVING COORDINATOR; per nurse: spouse stated that pt is w/c bound due to increase assistance needed Social History Household Members significant other Living Arrangements House Number of Floors (Floors) One Floor Number of Stairs To Enter/Railing? Home set-up info obtained from EMR from previous admission 3 steps to enter with R rail ascending Home Environment High Toilet,Walk in Shower Home Equipment Grab Bars In Shower M2 PT-IP Current Condition Start: 01/08/21 12:58 Freq: NEEDED Status: Active Protocol: Document 01/08/21 10:35 AB (Rec: 01/08/21 13:14 AB [email or web address]) Physical Therapy Current Condition Current Condition Evaluation Date 01/08/21 Treatment Diagnosis s/p fall; dehydration; Alzheimer's dementia; difficulty in walking Onset Date 01/07/21 Precautions Other Precautions falls M3 PT-IP Subjective Start: 01/08/21 12:58 Freq: NEEDED Status: Active Protocol: Document 01/08/21 10:35 AB (Rec: 01/08/21 13:14 AB [email or web address]) Subjective Physical Therapy Visit Type Type Initial Evaluation Visit Start Time 10:35 Visit Stop Time 11:15 Total Visit Minutes 40 Number of FOOD PROCESSING CHEMIST Visits 0 Physical Therapy Visit Comments Patient Comments agreed to get out of bed Therapy Pain Assessment Pain Present Pain Present Denied Pain M4 PT-IP Mobility and Gait Start: 01/08/21 12:58 Freq: NEEDED Status: Active Protocol: Document 01/08/21 10:35 AB (Rec: 01/08/21 13:14 AB [email or web address]) PT-Bed Mobility Assessment Supine to Sit Supine to Sit Maximum Assistance PT-Transfer Assessment Sit to and From Stand Sit to and from Stand Maximum Assistance,1 Person Assistance,2 Person Assistance ,Use of Upper Extremities Equipment Transfer Assistive Device Gait Belt,Front Wheeled Walker Orthotic/Prosthetic Devices or Brace: No Transfers Transfer Destination Bedside Commode Transfer Technique Stand Step Pivot Transfer Ability Level of Assist Maximum Assistance,1 Person Assistance,2 Person Assistance ,Use of Upper Extremities Comments Mobility Comments pt completed supine to sit max A and max cues. requiring min A with sitting on EOB. Nurse/NAC in room. pt needs to be cleaned up and change brief. bedside commode positioned. pt completed sit to stand max a x 1-2 and max cues. pt presents with increase posterior LOB with kyphotic posture. pt unable to self correct and initiate and needs max cues with all tasks. completed step transfer to bedside commode max a x 1-2 and max cues. required assist with weight shifting to be able to move LE forward as pt tends to just freeze and rigid during standing and mobility. completed sit<>stand from bedside commode x 3 max A and max cues. has to sit down in between as pt does not have bladder control. pt required max A to maintain standing balance while NAC assist with hygiene care and brief management. pt was able to take steps to get into the chair using FWW max A x 1-2 and max cues. positioned pt on the chair. call light and table placed within reach. pt presents with increase forward trunk lean and required cues to sit upright and to correct posture and will unable to initial and self correct if not instructed . Gait Assessment Gait Gait Assistance Required: Maximum Assistance,1 Person Assist,2 Person Assist Distance (Feet) 2 Able to Maintain Weight Bearing Status Yes During Gait Assistive Devices Assistive Device Gait Belt,Front Wheeled Walker Orthotic/Prosthetic Devices or Brace: No Gait Deviations General Gait Pattern Antalgic,Decreased Stride Length,Decreased Feet Clearance Factors Limiting Gait Function Factors Limiting Gait Function Decreased Activity Tolerance, Decreased Strength,Difficulty Following Directions,Limited Range of Motion,Poor Balance, Poor Safety Awareness PT-Balance Assessment Sitting Balance and Reactions Static Sitting Balance Ability Fair Dynamic Sitting Balance Ability Poor Standing Balance and Reactions Static Standing Balance Ability Poor Dynamic Standing Balance Ability Poor Device Used FWW M5 PT-IP Objective Assessments Start: 01/08/21 12:58 Freq: NEEDED Status: Active Protocol: Document 01/08/21 10:35 AB (Rec: 01/08/21 13:14 AB [email or web address]) Orientation Orientation/Cognition Level of Alertness Confusional State Orientation Name Safety Awareness Decreased Safety Awareness Memory Description Short Term Impaired,Retirement Impaired Comments requires increase time to respond and follow directions Gross Range of Motion Lower Extremity ROM Assessment Within Functional Limits Strength Lower Extremity Strength Hip 4-/5 Knee 4-/5 M6 PT-IP Treatment Start: 01/08/21 12:58 Freq: NEEDED Status: Active Protocol: Document 01/08/21 10:35 AB (Rec: 01/08/21 13:14 AB [email or web address]) Physical Therapy Treatment Education Education Provided Safety M7 PT-IP Assessment and Plan Start: 01/08/21 12:58 Freq: NEEDED Status: Active Protocol: Document 01/08/21 10:35 AB (Rec: 01/08/21 13:14 AB [email or web address]) PT Summary Assessment and Plan Potential Rehabilitation Potential Fair Status of Condition at Evaluation Evolving Summary Impairments Pain,ROM,Strength,Balance, Coordination,Sensation,Tone, Cognition,Bed Mobility, Transfers,Gait,Activity Tolerance Assessment Summary pt requiring max A x 2 with mobility using FWW and max cues with all tasks. pt unable to self correct and initiate requiring cues for safety and stability. pt will require SNF rehab to improve mobility and decrease burden of care. spouse has been assisting pt at home but currently will be too much assistance for spouse to provide. will continue to assess mobility. Goals Bed Mobility Goal Minimal Assistance Transfer Goal Minimal Assistance,Front Wheeled Walker Gait Goal Minimal Assistance,Front Wheel Walker Gait Distance 25 Other Goals improve bed mobility, transfer CGA; ambulation using FWW CGA 50 ft up/down 3 steps R rail mod A Days to Meet Goals 10 Frequency of Treatment Frequency Of Treatment Once a Day Treatment Plan Physical Therapy Treatment Plan Bed Mobility Training,Transfer Training,Gait Training, Therapeutic Exercise,Balance Retraining,Discharge Planning, Hot or Cold Pack,Neuromuscular Re-ed,Coordination Retraining ,Manual Therapy Precautions Other Precautions falls Recommendations To Nursing Amount of Assist Needed 2 Person Assist Discharge Recommendations PT Discharge Recommendations SNF Rehab Transportation Needs at Discharge Wheelchair/Cabulance
--- NOTE | 2021-01-08 11:44 | DI.RAD.S_ITS ---
PROCEDURE: XR ABDOMEN 3V INDICATIONS: diarrhea TECHNIQUE: One view chest and two views of the abdomen were acquired. COMPARISON: [facility], CR, XR ABDOMEN 3V, 07/31/2019, 8:31. FINDINGS: Surgical changes and devices: None. Chest: Lungs are clear. Heart size is normal. No pleural effusions. No pneumoperitoneum. Abdomen: There is gaseous distension of the colon seen diffusely. Large amount of stool projects in the rectal vault. No specific transition point. Bones: Bilateral hip arthroplasties and diffuse spondylosis, facet arthropathy. IMPRESSION: Large amount of stool projects in the rectal vault suggestive of fecal impaction/retention. After treatment, if the patient's symptoms do not improve, continued surveillance with abdominal series radiographs could be performed. Dictated by: Josue Sue M.D. on 01/08/2021 at 13:35 Approved by: Josue Sue M.D. on 01/08/2021 at 13:36
--- NOTE | 2021-01-08 15:29 | CM.DANOTE ---
Patient is a 80 year old female who was admitted OBS on 01/07/21 for GLF. Pt has [facility] and [facility] for insurance and her PCP is Dr. Kia Person. EMR was reviewed. Per MD, pt with dementia and G.I. issues chronically and increased care needs. Dietary consult requested as thought to be a cause of the constipation/over bowel regimen. SW met bedside with spouse and pt along with Dr. Person and spouse acknowledges that they have been living at home with no other formal supports in place and pt has had increased care needs especially with her incontinence and constipation to diarrhea which has made things difficult. Spouse ideally would be agreeable to SNF but SW and MD discussed that pt likely will not meet Medicare criteria for Inpt Status and therefore would be private pay at SNF. Spouse currently agreeable with plan of home with HH (no preference) if SNF not an option under Medicare and would be agreeable to resources for further in-home support. SW made [facility] referral based on Vendor Calendar and called with updated information. F2F still needed as MD left the floor for the clinic. SW attempted to go bedside with Senior Resource Guidebook and resources for spouse but he had left for home. Plan: SW to follow for [facility] review and confirmation they can accept and MD to sign F2F for HH. SW to follow for updating spouse on HH agency and providing Resource Guidebook for further in home resources. MAKENNA Dumont Discharge Planning/Care Management CM Discharge Assessment Start: 01/08/21 15:27 Freq: Status: Active Protocol: Document 01/08/21 15:27 (Rec: 01/08/21 15:29 [id number]) Discharge Planning Assessment Assigned Grant Writer MAKENNA Sears DPOA/Assigned Designee Name spouse Advance Directives? Yes Advance Directives on File Yes History Provided By Patient,Medical Record Has Patient been admitted in last 30 No days? Prior Living Arrangements House Household Members spouse Type of transporation used prior to Relies on Others admit Independent with ADL's No Is patient alert and oriented? No Needs Assistance With Bathing,Meal Prep,Managing Medications,Home Chores / Shopping Caregiver for Another No DME Already Rented / Owned FWW / Walker Patient/Family Preference Home with Home Health Barriers to Discharge Yes Comment OBS status Discharge Plan Home with Home Health Community Services Physical Therapy,Occupational Therapy,Home Health Aid,Home Health Nurse Transportation Arrangement Spouse available for transport Referrals Initiated Home Health If patient plan is home with home health No : Has signed face to face form been completed? Medicare Choice List Provided Yes SNF/HH Preference [facility] Has Agency SNF been contacted Yes Review Status In Process Please Provide Date Initial DC 01/08/21 Assessment Was Performed Next Review Type Continued Stay Review
--- NOTE | 2021-01-08 16:27 | OT.IP.EVAL ---
Past Medical History (Last Reviewed 01/07/21 @ 18:40 by Jason Olsen DO) Alzheimer's dementia Dementia History of breast cancer Hypothyroidism (acquired) Surgical History (Last Reviewed 01/07/21 @ 17:42 by Kia Person MD) History of total mastectomy Occupational Therapy Inpatient Evaluation/Re-Eval M1 PT/OT-IP Prior Functional Status Start: 01/08/21 12:58 Freq: NEEDED Status: Active Protocol: Document 01/08/21 16:51 [facility] (Rec: 01/08/21 17:08 [facility] [id number]) Medical Review Prior Functional Status Medical History Reviewed Yes Communication able to respond to questions but does not give accurate information. requires increase time to complete instructions and respond to questions Mobility and Gait pt unable to give accurate info; per EMR: pt's spouse assists pt with all tasks providing EQUIPMENT OPERATOR; per nurse: spouse stated that pt is w/c bound due to increase assistance needed Activities of Daily Living and IADL's Pt states that her does most needs for her of medications, bills, shower, dressing, and toileting but not able to state specific details. Social History Household Members spouse Living Arrangements House Number of Floors (Floors) One Floor Number of Stairs To Enter/Railing? Home set-up info obtained from EMR from previous admission 3 steps to enter with R rail ascending Home Environment High Toilet,Walk in Shower Home Equipment Grab Bars In Shower M2 OT-IP Current Condition Start: 01/08/21 16:50 Freq: Status: Active Protocol: Document 01/08/21 16:51 [facility] (Rec: 01/08/21 17:08 [facility] [id number]) Occupational Therapy Current Condition Current Condition Evaluation Date 01/08/21 Treatment Diagnosis s/p fall, dehydration, decreased mobility Diagnosis Onset Date 01/08/21 M3 OT- IP Subjective and Pain Start: 01/08/21 16:50 Freq: Status: Active Protocol: Document 01/08/21 16:51 [facility] (Rec: 01/08/21 17:08 [facility] [id number]) OT- Subjective Occupational Therapy Visit Type Type Initial Evaluation Visit Start Time 15:58 Visit Stop Time 16:27 Total Visit Minutes 29 Occupational Therapy Visit Comments Patient Comments Pt wanting to use the bathroom . Patient/Caregiver Goals TO go home. OT Pain Assessment Pain When Pain Assessed At Rest Pain Present Pain Present Denied Pain M4 OT- IP ADL's Start: 01/08/21 16:50 Freq: Status: Active Protocol: Document 01/08/21 16:51 [facility] (Rec: 01/08/21 17:08 [facility] [id number]) OT [id number] Comments OT Self-Feeding Comments NOt at meal time. OT ADL-Grooming Comments OT Grooming Comments Not performed. OT ADL-Dressing General Eval Lower Body Dressing Ability Maximum Assistance Areas Needing Assistance Underpants/Brief,Socks OT ADL-Toileting General Evaluation Toileting Ability Maximum Assistance Areas Needing Assistance Manage Clothing,Perform Perineal Hygiene OT ADL-Bathing Comments OT Bathing Comments Not performed. M5 OT- IP IADL's Start: 01/08/21 16:50 Freq: Status: Active Protocol: Document 01/08/21 16:51 [facility] (Rec: 01/08/21 17:08 [facility] [id number]) OT-Instrumental Activities of Daily Living Home Safety Awareness Awareness of Need for Assistance at Home Decreased Awareness Ability to Problem Solve Emergency Unable to Problem Solve Situations Home Safety Comments Pt has Alzheimer's dementia and states that her takes care of everything for her. Per ER chart that mainly she was able to get around with EQUIPMENT OPERATOR. Medication Management Medication Management Caregiver Administers Money Management Money Management Caregiver Provides Assistance Meal Preparation Meal Preparation Caregiver Provides Assist Print Operator Print Operator Caregiver Provides Assist M6 OT- IP Functional Cognition Start: 01/08/21 16:50 Freq: Status: Active Protocol: Document 01/08/21 16:51 [facility] (Rec: 01/08/21 17:08 [facility] [id number]) Cognitive Factors Limiting Selfcare Function Cognitive Ability Level of Alertness Alert Patient Orientation Name,Place,Situation Attention Span Ability Capable of Focused Attention, Capable of Sustained Attention Ability to Follow Commands Able to Follow One Step Commands with Increased Time, Able to Follow One Step Commands with Repetition Memory Description Short Term Impaired,Working Impaired Problem Solving Ability Unable to Identify Errors, Needs Assist to Identify Solutions Cognitive Comments Cognitive Assessment Comments Pt needing step by step instructions for ADL's, functional mobility, and safety awareness for FWW use. Pt slow to respond and follow command and at time needing vc or tactile cues to initiate. OT- Vision and Hearing OT- Hearing Assessment OT- Hearing Assessment WFL OT- Vision Assessment Vision Assessment Comments Pt has bifocals but states only wears them when she reads. M7 OT- IP Mobility and Balance Start: 01/08/21 16:50 Freq: Status: Active Protocol: Document 01/08/21 16:51 [facility] (Rec: 01/08/21 17:08 [facility] [id number]) OT- Bed Mobility Assessment Rolling Type of Rolling Roll to Right Level of Assistance Moderate Assistance Supine to Sit Supine to Sit Assist Maximum Assistance Sit to Supine Sit to Supine Assist Moderate Assistance,2 Person Assistance Scooting Scooting to Edge of Bed Maximum Assistance OT-Transfer Assessment Sit to and From Stand Sit to and from Stand Moderate Assistance,2 Person Assistance Transfers Transfer Ability Moderate Assistance,Maximum Assistance,2 Person Assistance Technique Transfer Destination Bed,Bedside Commode Transfer Technique Stand Step Pivot Devices Transfer Assistive Devices Gait Belt,Front Wheeled Walker Comments Mobility Comments MODA X2, assist to stand, to help keeping her feet from sliding forwards, weight shifting, guiding and FWW and for her balance. OT- Gait Assessment Comments Gait Ability Comments Transfer only at this time. OT- Balance Assessment Sitting Balance and Reactions Static Sitting Balance Ability Fair Dynamic Sitting Balance Ability Poor Standing Balance and Reactions Static Standing Balance Ability Poor Dynamic Standing Balance Ability Poor M8 OT- IP Objective Assessments Start: 01/08/21 16:50 Freq: Status: Active Protocol: Document 01/08/21 16:51 [facility] (Rec: 01/08/21 17:08 [facility] [id number]) OT Gross Range of Motion Upper Extremity Range of Motion Assessment Bilaterally Impaired OT Strength Upper Extremity Strength Assessment Bilaterally Impaired M9 OT- IP Assessment and Plan Start: 01/08/21 16:50 Freq: Status: Active Protocol: Document 01/08/21 16:51 [facility] (Rec: 01/08/21 17:08 [facility] [id number]) OT Summary Assessment and Plan Potential Rehabilitation Potential Fair Analytic Complexity at Evaluation Moderate Summary OT Impairments Range of Motion,Strength, Balance,Coordination, Functional Cognition, Functional Mobility,Grooming, Dressing,Toileting,Bathing, Toilet Transfers,Shower Transfers,Activity Tolerance Progress Towards Goals Slow Progress due to Medical Issues,Slow Progress due to Activity Tolerance,Slow Progress due to Cognition Assessment Summary Pt MOD complexity and main barriers are steps, decreased balance, activity tolerance, and now needing two person assist for ADl and mobility needs. Pt would benefit from skilled rehab prior to going home. Called pt's life partner and left message to do caregiver training tomorrow AM if available. If pt not able to go to skilled rehab, pt would need 24/7 assist and additional person to assist at times if going home at this time. Goals Dressing Goal Moderate Assistance Toileting Goal Moderate Assistance Bathing Goal Moderate Assistance Toilet Transfer Goal Contact Guard Assistance Shower Transfer Goal Contact Guard Assistance Patient/Caregiver Education Goal Caregiver Independent Assisting Patient Days to Meet Goals 10 Frequency of Treatment Frequency Of Treatment Once a Day Treatment Plan OT Treatment Plan ADL Training,Functional Cognition Training,Functional Mobility,Patient/Family Education,Discharge Planning Discharge Recommendations OT Discharge Recommendations Home with 24/7 Assist Available,Home Health,SNF Rehab,Home vs SNF Transportation Needs at Discharge Private Vehicle,Wheelchair/ Cabulance
--- NOTE | 2021-01-08 17:29 | PC.NURSE ---
Addendum entered by Mercy Anderson R.N. 01/08/21 22:51: Call to lab for previously ordered stat lactate. Phelbotomist coming upstairs for draw. IV clindamycin infusing to left forearm iv without difficulty. Pt has been incontinent of urine this shift. Open areas to upper buttocks BL. Repositioning with barrier cream, waffle cushion to offload. Requires reminder where spouse is this evening. BL calf scd's in place. Addendum entered by Mercy Anderson R.N. 01/08/21 21:47: Lab notifies this physician underwriter of pt's positive blood cultures. Phone contact made by this physician underwriter to Dr. Hwang who states will review pt's history and order antibiotics. Addendum entered by Mercy Anderson R.N. 01/08/21 18:51: RELIGIOUS ACTIVITIES DIRECTOR changes pt's incontinent brief while pt in bed. Pt is able to assist with repositioning/turning. RELIGIOUS ACTIVITIES DIRECTOR reports excoriation and blanchable erythema to BL buttocks. Barrier cream applied, waffle cushion placed and pt turned onto left side. BL calf scd's in place. Original Note: Pt awake and alert in bed. Oriented to person, place, date of , day of week. Is vague in responses re pain, but FLACC = 0. Does not answer re question of nausea, but eagerly digs into evening meal. Is able to feed self with set up. RELIGIOUS ACTIVITIES DIRECTOR reports assisted P.T. at beginning of shift with toileting on commode. Reports pt's brief was saturated and pt only dribbled into commode. Bed alarm in place and frequent monitoring by staff.
--- NOTE | 2021-01-08 18:51 | DIET.PN ---
Dietary Progress Note RD attempted two interviews on 01/08 but missed spouse each time. Per nursing pt does well with meals when cued. Plan to discuss home diet c spouse morning of 01/09. Sending pt ONS Eros bid to support healing of raw skin in lonny area.
[2021-01-08] MEDS: DONEPEZIL 5 MG TABLET 10 MG PO (20:25)
[2021-01-08 21:22] LABS: Acinetobacter baumannii Not Detected (Not Detect); Candida albicans Not Detected (Not Detect); Candida glabrata Not Detected (Not Detect); Candida krusei Not Detected (Not Detect); Candida parapsilosis Not Detected (Not Detect); Candida tropicalis Not Detected (Not Detect); E. coli Not Detected (Not Detect); Enterobacter cloacae complex Not Detected (Not Detect); Enterobacteriaceae species Not Detected (Not Detect); Enterococcus species Not Detected (Not Detect); Haemophilus influenzae Not Detected (Not Detect); Listeria monocytogenes Not Detected (Not Detect); Neisseria meningitidis Not Detected (Not Detect); Proteus species Not Detected (Not Detect); Pseudomonas aeruginosa Not Detected (Not Detect); Serratia marcescens Not Detected (Not Detect); Staphylococcus species Detected (Not Detect); Streptococcus agalactiae (Gr B Not Detected (Not Detect); Streptococcus pneumonia Not Detected (Not Detect); Streptococcus pyogenes (Gr A) Not Detected (Not Detect); Streptococcus species Not Detected (Not Detect)
[2021-01-08] MEDS: CLINDAMYCIN 600 MG/50 ML PIGGYBACK 50 MG IV (22:14)
[2021-01-08] MEDS: SODIUM CHLORIDE 0.9% FLUSH 10 ML IV (22:16)
[2021-01-09] VITALS (11 sets, daily range): BP systolic 134–152; BP diastolic 68–84; PULSE 50–69; RESP 14–16; TEMP 36.1–36.9; O2SAT 93–98
--- NOTE | 2021-01-09 01:25 | PC.NURSE ---
DIETITIAN HELPER note tilted bed to the left a bit to relieve pressure.
[2021-01-09] MEDS: LEVOTHYROXINE 125 MCG TABLET PO (05:03)
[2021-01-09] MEDS: CLINDAMYCIN 600 MG/50 ML PIGGYBACK 50 MG IV (05:03)
[2021-01-09 05:34] LABS: Add Manual Diff / Slide Review NO; Basophils Absolute Auto 0 /uL (0-100); Basophils Percent Auto 0.4 % (0-2); Eosinophils Absolute Auto 200 /uL (0-450); Eosinophils Percent Auto 2.9 % (2-4); Hematocrit 33.8 % (36-46); Hemoglobin 11.4 g/dL (12.0-16.0); Lymphocytes Absolute Auto 1900 /uL (1100-4500); Lymphocytes Percent Auto 28.7 % (25-40); Mean Corpuscular HGB Conc 33.6 % (30-36); Mean Corpuscular Hemoglobin 31.3 PG (26-34); Monocytes Absolute Auto 600 /uL (0-900); Monocytes Percent Auto 8.8 % (3-14); Neutrophils Absolute Auto 3800 /uL (1500-7000); Neutrophils Percent Auto 59.2 % (50-75); Platelet Count 169 X10^3/uL (150-400); Red Blood Cell Count 3.64 X10^6/uL (4.0-5.2); Red Cell Distribution Width 13.2 % (11.6-14.8); White Blood Cell Count 6.5 X10^3/uL (4.5-11.0)
[2021-01-09 05:37] LABS: BUN Creatinine Ratio 20.2 (6-22); Blood Urea Nitrogen 19 mg/dL (7-17); Calcium 8.9 mg/dL (8.4-10.2); Carbon Dioxide 27 mmol/L (22-32); Chloride 108 mmol/L (98-107); Estimated Glomerular Filt Rate 57.4 mL/min (>60); Glucose 86 mg/dL (80-110); HEMOLYSIS < 15 (0-50); Potassium 3.4 mmol/L (3.4-5.1); Sodium 139 mmol/L (137-145)
[2021-01-09] MEDS: LOSARTAN 50 MG TABLET PO ×2 (09:54→20:47)
[2021-01-09] MEDS: METOPROLOL ER 25 MG TABLET PO ×2 (09:55→20:48)
[2021-01-09] MEDS: MEMANTINE HCL 5 MG TABLET 10 MG PO ×2 (09:55→20:48)
[2021-01-09] MEDS: SODIUM CHLORIDE 0.9% FLUSH 10 ML IV ×2 (10:11→20:49)
--- NOTE | 2021-01-09 13:32 | DI.RAD.S_ITS ---
PROCEDURE: XR ABDOMEN MIN 2V INDICATIONS: impaction; diarrhea TECHNIQUE: 2 views of the abdomen were acquired. COMPARISON: [facility], , XR ABDOMEN 3V, 01/08/2021, 12:52. FINDINGS: Surgical changes and devices: Bilateral total hip arthroplasties noted in position. Bowel: Large amount of fecal debris remains in rectum. There is gaseous distension of the transverse colon. Soft tissues: No masses; visualized solid organ contours appear normal in size. No suspicious abdominal calcifications. Bones: Degenerative changes noted lower lumbar spine. IMPRESSION: Large amount of fecal debris over the rectum and left colon, slightly improved compared to prior Dictated by: Omid Meredith M.D. on 01/09/2021 at 13:51 Approved by: Omid Meredith M.D. on 01/09/2021 at 13:55
--- NOTE | 2021-01-09 13:41 | OT.IP.TRT ---
Occupational Therapy Treatment Note M2 OT-IP Current Condition Start: 01/08/21 16:50 Freq: Status: Active Protocol: Document 01/08/21 16:51 [facility] (Rec: 01/08/21 17:08 [facility] [id number]) Occupational Therapy Current Condition Current Condition Evaluation Date 01/08/21 Treatment Diagnosis s/p fall, dehydration, decreased mobility Diagnosis Onset Date 01/08/21 M3 OT- IP Subjective and Pain Start: 01/08/21 16:50 Freq: Status: Active Protocol: Document 01/09/21 13:24 [facility] (Rec: 01/09/21 13:39 [facility] [id number]) OT- Subjective Occupational Therapy Visit Type Type Treatment Note Visit Start Time 10:40 Visit Stop Time 12:54 Total Visit Minutes 45 Notes Pt seen for a split treatment, as present for caregiver training. Occupational Therapy Visit Comments Patient Comments Pt's feels that pt is not ready to go home. Patient/Caregiver Goals TO go home. OT Pain Assessment Pain When Pain Assessed At Rest Pain Present Pain Present Denied Pain M4 OT- IP ADL's Start: 01/08/21 16:50 Freq: Status: Active Protocol: Document 01/09/21 13:24 [facility] (Rec: 01/09/21 13:39 [facility] [id number]) OT [id number] Comments OT Self-Feeding Comments NOt at meal time. OT ADL-Grooming Comments OT Grooming Comments Not performed. OT ADL-Dressing General Eval Lower Body Dressing Ability Maximum Assistance Areas Needing Assistance Underpants/Brief,Socks OT ADL-Toileting General Evaluation Toileting Ability Maximum Assistance Areas Needing Assistance Manage Clothing,Perform Perineal Hygiene Comments OT Toileting Comments One person to stand pt with MAX AX 1 and another person to assist with hygiene needs. Pt ' states at home if needed, that he would assist pt to help clean up. OT ADL-Bathing Comments OT Bathing Comments Attempted to try to get pt into the shower and pt having difficulty taking steps and felt that pt is too tired to attempt or try at this time. M5 OT- IP IADL's Start: 01/08/21 16:50 Freq: Status: Active Protocol: Document 01/08/21 16:51 [facility] (Rec: 01/08/21 17:08 [facility] [id number]) OT-Instrumental Activities of Daily Living Home Safety Awareness Awareness of Need for Assistance at Home Decreased Awareness Ability to Problem Solve Emergency Unable to Problem Solve Situations Home Safety Comments Pt has Alzheimer's dementia and states that her takes care of everything for her. Per ER chart that mainly she was able to get around with HORSE RACING ANALYST. Medication Management Medication Management Caregiver Administers Money Management Money Management Caregiver Provides Assistance Meal Preparation Meal Preparation Caregiver Provides Assist Bristle Machine Operator Bristle Machine Operator Caregiver Provides Assist M6 OT- IP Functional Cognition Start: 01/08/21 16:50 Freq: Status: Active Protocol: Document 01/09/21 13:24 [facility] (Rec: 01/09/21 13:39 [facility] [id number]) Cognitive Factors Limiting Selfcare Function Cognitive Ability Level of Alertness Alert Patient Orientation Name Ability to Follow Commands Able to Follow One Step Commands with Increased Time, Able to Follow One Step Commands with Repetition Memory Description Short Term Impaired,Working Impaired Problem Solving Ability Unable to Identify Errors, Needs Assist to Identify Solutions Cognitive Comments Cognitive Assessment Comments Pt slow to respond and initiate movements. Pt continues to need concrete vc, and tactile cues for ADl and mobility needs. M7 OT- IP Mobility and Balance Start: 01/08/21 16:50 Freq: Status: Active Protocol: Document 01/09/21 13:24 [facility] (Rec: 01/09/21 13:39 [facility] [id number]) OT- Bed Mobility Assessment Supine to Sit Supine to Sit Assist Maximum Assistance OT-Transfer Assessment Sit to and From Stand Sit to and from Stand Moderate Assistance,Maximum Assistance,1 Person Assistance ,2 Person Assistance Transfers Transfer Ability Moderate Assistance,Maximum Assistance,1 Person Assistance ,2 Person Assistance Technique Transfer Destination Bed,Chair,Toilet Transfer Technique Stand Step Pivot Devices Transfer Assistive Devices None,Gait Belt,Front Wheeled Walker Comments Mobility Comments Pt's present for caregiver training and had pt's show therapist how he usually assists pt with mobility needs at home as pt is very accustomed to his assist. Pt's lift her legs to the edge of the bed and then pulls her up by her arms to th edge of the bed . Coming to stand, pt's pulls her up to her hands and leads her by standing in front of her and holding her hands. Pt is very unsteady and needing therapist to jump in and assist due to her poor balance. Educated pt's on use of gait belt and FWW. Pt still needing 2 person assist to help walk into the bathroom with FWW. OT- Gait Assessment Comments Gait Ability Comments Pt's states at home has a wc and will just transfer her from place to place as needed for now. OT- Balance Assessment Sitting Balance and Reactions Static Sitting Balance Ability Poor Dynamic Sitting Balance Ability Poor Standing Balance and Reactions Static Standing Balance Ability Poor Dynamic Standing Balance Ability Poor Pt's feet tend to slide out from under her and needing to educate pt's to make sure to have pt scoot forwards and block or keep her feet behind her knees to assist to stand. M8 OT- IP Objective Assessments Start: 01/08/21 16:50 Freq: Status: Active Protocol: Document 01/08/21 16:51 [facility] (Rec: 01/08/21 17:08 [facility] [id number]) OT Gross Range of Motion Upper Extremity Range of Motion Assessment Bilaterally Impaired OT Strength Upper Extremity Strength Assessment Bilaterally Impaired M9 OT- IP Assessment and Plan Start: 01/08/21 16:50 Freq: Status: Active Protocol: Document 01/09/21 13:24 [facility] (Rec: 01/09/21 13:39 [facility] [id number]) OT Summary Assessment and Plan Potential Rehabilitation Potential Fair Analytic Complexity at Evaluation Moderate Summary OT Impairments Range of Motion,Strength, Balance,Coordination, Functional Cognition, Functional Mobility,Grooming, Dressing,Toileting,Bathing, Toilet Transfers,Shower Transfers,Activity Tolerance Progress Towards Goals Slow Progress due to Medical Issues,Slow Progress due to Activity Tolerance,Slow Progress due to Cognition Assessment Summary Pt would greatly benefit from skilled rehab at this time as a high fall risk, pt's having difficulty to provide enough assist for ADL's and functional mobility and would requires addition person to assist him at home especially for toileting and showering needs. Attempted to try to get into the shower , but pt too tired and felt that it would be too much for her to try. Goals Dressing Goal Moderate Assistance Toileting Goal Moderate Assistance Bathing Goal Moderate Assistance Toilet Transfer Goal Contact Guard Assistance Shower Transfer Goal Contact Guard Assistance Patient/Caregiver Education Goal Caregiver Independent Assisting Patient Days to Meet Goals 9 Frequency of Treatment Frequency Of Treatment Once a Day Treatment Plan OT Treatment Plan ADL Training,Functional Cognition Training,Functional Mobility,Patient/Family Education,Discharge Planning Discharge Recommendations OT Discharge Recommendations Home with 08/03 Assist Available,Home Health,SNF Rehab,Home vs SNF Transportation Needs at Discharge Private Vehicle,Wheelchair/ Cabulance
--- NOTE | 2021-01-09 14:08 | CM.DPNOTE ---
Faxed Covid 19 vaccination care to [facility] per Mary on 01/09/21 and received fax confirmation. Arlene Reyes CM Asst.
--- NOTE | 2021-01-09 14:10 | PT.IPTN ---
Physical Therapy Treatment Note M2 PT-IP Current Condition Start: 01/08/21 12:58 Freq: NEEDED Status: Active Protocol: Document 01/08/21 10:35 AB (Rec: 01/08/21 13:14 AB [id number]) Physical Therapy Current Condition Current Condition Evaluation Date 01/08/21 Treatment Diagnosis s/p fall; dehydration; Alzheimer's dementia; difficulty in walking Onset Date 01/07/21 Precautions Other Precautions falls M3 PT-IP Subjective Start: 01/08/21 12:58 Freq: NEEDED Status: Active Protocol: Document 01/09/21 14:10 AB (Rec: 01/09/21 17:16 AB [id number]) Subjective Physical Therapy Visit Type Type Treatment Note Visit Start Time 14:10 Visit Stop Time 14:55 Total Visit Minutes 45 Number of BELLPERSON Visits 0 Physical Therapy Visit Comments Patient Comments agreed to do PT M4 PT-IP Mobility and Gait Start: 01/08/21 12:58 Freq: NEEDED Status: Active Protocol: Document 01/09/21 14:10 AB (Rec: 01/09/21 17:16 AB [id number]) PT-Bed Mobility Assessment Sit to Supine Sit to Supine Maximum Assistance,2 Person Assistance PT-Transfer Assessment Sit to and From Stand Sit to and from Stand Maximum Assistance,1 Person Assistance,Use of Upper Extremities Equipment Transfer Assistive Device Gait Belt,Front Wheeled Walker Orthotic/Prosthetic Devices or Brace: No Transfers Transfer Destination Bed,Bedside Commode Transfer Technique Stand Step Pivot Transfer Ability Level of Assist Maximum Assistance,1 Person Assistance,Use of Upper Extremities Comments Mobility Comments pt sitting on chair and completed sit to stand max A and max cues. ambulated ~ 12 ft to the bed using FWW max A and cues. presents with increase trunk stooped posture , decrease step width , decrease LE elevation. pt instructed to sit on EOB and rest. agreed to walk back to chair and completed but requiring more assistance towards the end of ambulation with increase stooped posture and difficulty following directions. pt stated that she is getting tired. pt sat on chair and requested to go back to bed. completed step transfer using FWW to bed max A and cues. instructed to lie back in bed but stated that she needs to use the toilet. completed step transfer to bedside commode max A and cues . Nurse in room to assist with hygiene care and brief management while PT assisted pt with standing balance max A and cues. pt transferred back to bed using fWW max A and cues. completed sit tos upine max A x 2 and cues. positioned pt in bed. call light andt able placed within reach. Gait Assessment Gait Gait Assistance Required: Maximum Assistance,1 Person Assist Distance (Feet) 12 Able to Maintain Weight Bearing Status Yes During Gait Assistive Devices Assistive Device Gait Belt,Front Wheeled Walker Orthotic/Prosthetic Devices or Brace: No Gait Deviations General Gait Pattern Decreased Stride Length, Decreased Feet Clearance, Narrow Based Gait,Step-to Gait Factors Limiting Gait Function Factors Limiting Gait Function Decreased Activity Tolerance, Decreased Strength,Difficulty Following Directions,Limited Range of Motion,Poor Balance, Poor Safety Awareness M5 PT-IP Objective Assessments Start: 01/08/21 12:58 Freq: NEEDED Status: Active Protocol: Document 01/08/21 10:35 AB (Rec: 01/08/21 13:14 AB [id number]) Orientation Orientation/Cognition Level of Alertness Confusional State Orientation Name Safety Awareness Decreased Safety Awareness Memory Description Short Term Impaired,Intermediate Impaired Comments requires increase time to respond and follow directions Gross Range of Motion Lower Extremity ROM Assessment Within Functional Limits Strength Lower Extremity Strength Hip 4-/5 Knee 4-/5 M6 PT-IP Treatment Start: 01/08/21 12:58 Freq: NEEDED Status: Active Protocol: Document 01/09/21 14:10 AB (Rec: 01/09/21 17:16 AB [id number]) Physical Therapy Treatment Education Education Provided Safety M7 PT-IP Assessment and Plan Start: 01/08/21 12:58 Freq: NEEDED Status: Active Protocol: Document 01/09/21 14:10 AB (Rec: 01/09/21 17:16 AB [id number]) PT Summary Assessment and Plan Potential Rehabilitation Potential Fair Summary Impairments ROM,Strength,Balance, Coordination,Sensation,Tone, Cognition,Bed Mobility, Transfers,Gait,Activity Tolerance Progress Towards Goals Slow Progress due to Medical Issues,Slow Progress due to Activity Tolerance Assessment Summary pt requiring max A 1-2 and max cues with all tasks. presents with decrease activity tolerance requiring increase assistance towards the ends of activity task. pt will need SNF rehab to improve mobility. Spouse in room and stated that pt will d /c to SNF. Goals Bed Mobility Goal Minimal Assistance Transfer Goal Minimal Assistance,Front Wheeled Walker Gait Goal Minimal Assistance,Front Wheel Walker Gait Distance 25 Other Goals improve bed mobility, transfer CGA; ambulation using FWW CGA 50 ft up/down 3 steps R rail mod A Days to Meet Goals 10 Frequency of Treatment Frequency Of Treatment Once a Day Treatment Plan Physical Therapy Treatment Plan Bed Mobility Training,Transfer Training,Gait Training, Therapeutic Exercise,Balance Retraining,Discharge Planning, Hot or Cold Pack,Neuromuscular Re-ed,Coordination Retraining ,Manual Therapy Precautions Other Precautions falls Recommendations To Nursing Amount of Assist Needed 2 Person Assist Discharge Recommendations PT Discharge Recommendations SNF Rehab Transportation Needs at Discharge Wheelchair/Cabulance
--- NOTE | 2021-01-09 16:33 | DIET.PN ---
Dietary Progress Note Assessment: 80y F admitted for weakness and falls found to have skin breakdown in lonny area referred to nutrition for help c diarrhea/dementia/dehydration. Per nursing pt needing continuous cuing for activity but is able to self feed with set up help. POs consistently 50%. Pt has been drinking two ONS Eros daily to assist in wound healing- excoriation and blanchable erythema to BL buttocks. Pt resides at home c spouse, is bed/chair bound, and has dementia as well as chronic diarrhea. However imaging today shows fecal impaction in rectum and L colon. HT: 162.5cm WT: 58.9kg BMI:22.3 Claudio: 13 Nutrition Diagnosis: Interventions: 1. To support wound healing, recc ONS Eros bid which pt has been drinking x2d. 2. To support adequate nutrition and hydration in this patient with dementia, recc regularly timed and spaced meals with supervision and frequent cuing for fluid intake. Recc meaningful PO intake rich in protein, healthy fats, and complex carbohydrates: such as scrambled eggs, oatmeal, pb sandwich on ww bread, soft cooked meats and fish. 3. Recc pt consume a banana per day or banana flakes in water to replete any K+ losses with loose stools and to try to firm up stools without causing constipation. Diet Order: General Monitoring/Evaluations: POs, ONS tolerance
--- NOTE | 2021-01-09 18:37 | P.PN_ITS ---
Subjective Subjective Date Patient Seen: 01/09/21 Time Patient Seen: 18:37 Interval history: Patient had an uneventful night last night. She was seen on 2 separate occasions today. She was seen with her significant other Sina at bedside. Patient had copious amounts of stool last night and moderate stool today. It is not described as diarrhea. Patient is unable to state what consistency stool was. She is having pain over her decubitus wounds but is not having any other pain. She denies any other complaints. She has been on telemetry overnight without any abnormalities. She is taking in p.o. without difficulties. She had difficulty with physical therapy with attempts at a shower and was not able to stand for prolonged enough time to have a full sh ower. Review of systems Patient is incontinent of urine but has had decreased urine output since IV fluids have been stopped. Denies headaches chest pain or shortness of breath Exam Vital Signs (past 8 hours): - 01/09/21 16:00 Temperature 98.3 F Pulse Rate 63 Respiratory Rate 14 Blood Pressure 152/84 H Pulse Oximetry 98 Oxygen Delivery Method Room Air Oxygen Flow Rate 0 Narrative Exam Narrative: Patient is less alert today. Appears more fatigued. Vital signs are stable. Blood pressure fluctuated between the 130s to 150s over 70s to 80s. Neck is supple without adenopathy Chest: Clear to auscultation without wheezes rhonchi or crackles Cor: Regular rate and rhythm without any murmur Abdomen: Positive bowel sounds, soft, nontender, nondistended Extremities no edema, pulses intact Objective Labs Result Diagrams: 01/09/21 04:55 01/09/21 04:55 Labs: Laboratory Results - last 24 hr 01/07/21 01/08/21 01/09/21 18:04 23:05 04:55 WBC 6.5 RBC 3.64 L Hgb 11.4 L Hct 33.8 L MCV 93.0 MCH 31.3 MCHC 33.6 RDW 13.2 Plt Count 169 Neut % (Auto) 59.2 Lymph % (Auto) 28.7 [place] % (Auto) 8.8 Eos % (Auto) 2.9 Baso % (Auto) 0.4 Neut # (Auto) 3800 Lymph # (Auto) 1900 [place] # (Auto) 600 Eos # (Auto) 200 Baso # (Auto) 0 Sodium Potassium Chloride Carbon Dioxide BUN Creatinine Estimated GFR BUN/Creatinine Ratio Glucose Lactate 1.0 Calcium A. baumannii (PCR) Not detected Paige albicans (PCR) Not detected C. glabrata (PCR) Not detected C. krusei (PCR) Not detected C. parapsilosis (PCR) Not detected C. tropicalis (PCR) Not detected Enterobacteriac sp PCR Not detected E. cloacae complex PCR Not detected Enterococcus sp PCR Not detected E. coli (PCR) Not detected H. influenzae (PCR) Not detected Klebsiella oxytoca PCR Not detected Klebsiella pneumoniae Not detected List. monocytogenes PCR Not detected N. meningitidis (PCR) Not detected Proteus species (PCR) Not detected Serratia marcescens PCR Not detected Staphylococcus sp PCR Detected H Staph aureus (PCR) Not detected mecA-Methicil Res Gene Not Reportable Streptococcus sp PCR Not detected Group A Strep (PCR) Not detected Strep agalactiae (PCR) Not detected Strep pneumoniae (PCR) Not detected P. aeruginosa (PCR) Not detected Isaiah/B-Vanco Res Genes Not Reportable KPC-Carbap Res Gene PCR Not Reportable 01/09/21 04:55 WBC RBC Hgb Hct MCV MCH MCHC RDW Plt Count Neut % (Auto) Lymph % (Auto) [place] % (Auto) Eos % (Auto) Baso % (Auto) Neut # (Auto) Lymph # (Auto) [place] # (Auto) Eos # (Auto) Baso # (Auto) Sodium 139 Potassium 3.4 Chloride 108 H Carbon Dioxide 27 BUN 19 H Creatinine 0.94 Estimated GFR 57.4 L BUN/Creatinine Ratio 20.2 Glucose 86 Lactate Calcium 8.9 A. baumannii (PCR) Paige albicans (PCR) C. glabrata (PCR) C. krusei (PCR) C. parapsilosis (PCR) C. tropicalis (PCR) Enterobacteriac sp PCR E. cloacae complex PCR Enterococcus sp PCR E. coli (PCR) H. influenzae (PCR) Klebsiella oxytoca PCR Klebsiella pneumoniae List. monocytogenes PCR N. meningitidis (PCR) Proteus species (PCR) Serratia marcescens PCR Staphylococcus sp PCR Staph aureus (PCR) mecA-Methicil Res Gene Streptococcus sp PCR Group A Strep (PCR) Strep agalactiae (PCR) Strep pneumoniae (PCR) P. aeruginosa (PCR) Isaiah/B-Vanco Res Genes KPC-Carbap Res Gene PCR [facility] Medical History Alzheimer's dementia Dementia History of breast cancer Hypothyroidism (acquired) Surgical History History of total mastectomy Social History household members: spouse Smoking Status: Never smoker alcohol intake: never Assessment & Plan Assessment & Plan narrative: 80-year-old female admitted with dehydration and acute exacerbation of chronic kidney disease and notable deconditioning with poor strength and exacerbation of chronic diarrhea. Assessment 1. Dehydration acute exacerbation of chronic kidney disease improved with IV fluid hydration Plan: IV fluids have been discontinued. We will reassess labs in a.m.. Assessment 2. Patient with 1 of 2 blood cultures positive for Staph aureus coag-negative. Patient received 1 dose of clindamycin overnight. Discussed with microbiology and pharmacy. I suspect that this is a contaminated. Patient does not clinically appear to be infected at this point we will discontinue the antibiotics and reassess in a.m.. We will repeat a CBC in a.m.. Assessment 3. Chronic diarrhea. Workup over the last year and a half has been a partial colonoscopy which did not show significant abnormalities other than mild diverticulosis in the left colon. We have done stool studies which have been negative. We have given a trial of stopping Aricept but this did not change her diarrhea. She will have constipation and then will be given MiraLax and then will have diarrhea. We have not been unable to get on a good bowel regimen over the last 3 months. Prior to that she was on a good bowel regimen. At this point we will check a C difficile antigen. We will add senna at night. We will add Metamucil in the morning in hopes to bulk up the stool. Her three view of her abdomen showed significant stool yesterday and today shows less stool. I think this will take time to clear out and get her on a good bowel regimen I would like to make these changes and then reassess in a.m.. Assessment 4. Hypothyroidism slightly decreased TSH. Outpatient this has been well controlled. I will reassess in a.m. and decrease dosing if TSH is still suppressed. She has not missed her medication. Assessment 5. Severe dementia with slow progressive decline. Plan: Will continue the Aricept and the Namenda. We discussed the progressive decline and the need for help in the home. Her significant other definitely wants to keep her at home but understands that if her strength does not an able this that she may need skilled care facility. At this time we will continue to work with PT and OT in hopes that we can discharge her home with home health tomorrow. If she is not stable to go home with home health then likely will discharge to skilled care facility. At this point they are not interested in discussing hospice. They are not ready to entertain this option at this time Assessment 6. Decubitus ulcer Plan: Continue with barrier cream and current treatment. We will also work at keeping her dry. Assessment 7. Severe deconditioning with weakness preventing ambulating and performing activities of daily living only with 2 person assist Plan: Will continue with physical therapy. Patient will need ongoing physical therapy as an outpatient. She has done this previously which has been beneficial. Quality VTE Deep Vein Thrombosis/Pulmonary Embolism Present on Admission: No
[2021-01-09] MEDS: DONEPEZIL 5 MG TABLET 10 MG PO (20:47)
[2021-01-09] MEDS: SENNOSIDES 8.6 MG TABLET PO (20:49)
--- NOTE | 2021-01-09 21:57 | PC.NURSE ---
HUMAN SERVICES ASSISTANT reports assisted pt up to commode with two assist. Pt now resting quietly in bed, but rouses easily to voice. Denies pain. Oriented to person, , month and place. IV completely out of pt's vein/skin left AC. Covered with folded gauze and tape. Re-established new site right hand with 24 gauze. Pt tolerated well. BL calf scd's in place. Bed alarm in place. Waffle cushion in bed per HUMAN SERVICES ASSISTANT for pt's buttocks to relieve pressure.
[2021-01-10 00:30] VITALS: O2SAT 96
[2021-01-10 05:19] LABS: Add Manual Diff / Slide Review NO; Basophils Absolute Auto 0 /uL (0-100); Basophils Percent Auto 0.6 % (0-2); Eosinophils Absolute Auto 200 /uL (0-450); Eosinophils Percent Auto 3.7 % (2-4); Hematocrit 31.1 % (36-46); Hemoglobin 10.6 g/dL (12.0-16.0); Lymphocytes Absolute Auto 1800 /uL (1100-4500); Lymphocytes Percent Auto 29.9 % (25-40); Mean Corpuscular HGB Conc 34.1 % (30-36); Mean Corpuscular Hemoglobin 31.6 PG (26-34); Mean Corpuscular Volume 92.8 fL (80-100); Monocytes Absolute Auto 500 /uL (0-900); Monocytes Percent Auto 8.3 % (3-14); Neutrophils Absolute Auto 3500 /uL (1500-7000); Neutrophils Percent Auto 57.5 % (50-75); Platelet Count 156 X10^3/uL (150-400); Red Blood Cell Count 3.35 X10^6/uL (4.0-5.2)
[2021-01-10 05:35] LABS: BUN Creatinine Ratio 22.7 (6-22); Blood Urea Nitrogen 22 mg/dL (7-17); Carbon Dioxide 27 mmol/L (22-32); Chloride 109 mmol/L (98-107); Estimated Glomerular Filt Rate 55.4 mL/min (>60); Glucose 85 mg/dL (80-110); HEMOLYSIS < 15 (0-50); Potassium 3.4 mmol/L (3.4-5.1); Sodium 139 mmol/L (137-145)
[2021-01-10] MEDS: LEVOTHYROXINE 125 MCG TABLET PO (06:20)
[2021-01-10 06:39] LABS: Clostridium Difficile Tox PCR Negative for C. diff
--- NOTE | 2021-01-10 06:43 | P.DS_ITS ---
History of Present Illness History of Present Illness Date Patient Seen: 01/10/21 Time Patient Seen: 06:43 Chief complaint: Fall Narrative: This very pleasant 80-year-old female who is well known to me presents to the ER for the 2nd day in a row due to spontaneous controlled falls. Patient has underlying severe dementia, chronic kidney disease, hypertension hypothyroidism and was in her usual state of health however more recently has had an increase in diarrhea although this has been a intermittent chronic problem. She has also had decreased p.o. intake and subsequent to this has had spontaneous falls while she is unsupported well she is having activities of daily living performed and she just slowly fell but her significant other was able to stop the fall. She was evaluated in the emergency department and workup revealed worsening of her chronic kidney disease and dehydration and a negative head CT. She has made it to the hospital for further treatment and evaluation. She was started on IV fluids. Urinalysis was normal and blood cultures are p ending. Discharge Providers Provider Date of admission: 01/07/21 17:12 Discharge Date: 01/10/21 Primary care physician: Kia Person MD Consults: 01/07/21 15:31 Consult to [facility] - Innovation Manager Stat Comment: [facility] Consult: Behavioral Health Assess 01/07/21 17:34 Consult to Discharge Planning Routine Comment: Consult to Physical Therapy Evaluate & Treat Comment: deconditioning; fall risk Physician Instructions: Evaluate and Treat 01/08/21 05:34 Consult to Dietitian, Adult Routine Comment: Reason For Exam: declining w/ dementia 01/08/21 13:10 Consult to Occupational Therapy Evaluate & Treat Comment: Physician Instructions: Evaluate and treat 01/08/21 17:37 Consult to Dietitian, Adult Routine Comment: Reason For Exam: diarrhea/dehydration/dementia 01/09/21 22:05 Consult to Dietitian, Adult Routine Comment: Reason For Exam: memory loss/pressure injury to buttocks Discharge provider: Analisa Hwang MD Summary Hospital Course Discharge Diagnosis: Assessment 1. Dehydration acute exacerbation of chronic kidney disease Assessment 2. Patient with 1 of 2 blood cultures positive for Staph aureus coag-negative, thought to be contaminant Assessment 3. Chronic diarrhea. Assessment 4. Hypothyroidism Assessment 5. Severe dementia with slow progressive decline. Assessment 6. Decubitus ulcer Assessment 7. Severe deconditioning with weakness Hospital Course: Patient has made steady progress since her hospitalization but is not back to baseline. She will need a mcc facility for continued therapy including PT/OT. She was rehydrated during her stay and her kidney function improved. Decubitus ulcers were treated with barrier cream and standard wound care. She participated in PT/OT. She has chronic diarrhea that persists as a problem. Bowel protocol was changed during inpatient stay and she will be discharged on senna at night and Metamucil in morning. She had 1 blood culture that returned as coagulase-negative Staph aureus, she was placed on prophylactic clindamycin overnight but the following day it was discontinued as the bacteria was thought to be a contaminant as she had no signs of sepsis. WBC this morning is WNL. Lactate yesterday was normal. Pending labs prior to discharge include a c. difficile antigen and TSH, patient's primary care provider is closely following her in the outpatient setting and will adjust medications if indicated. On day of discharge, she is afebrile with stable vital signs throughout. Time spent on Discharge and Coordination of post-hospital care: 35 minutes Exam Vital Signs (past 8 hours): - 01/09/21 23:44 01/10/21 00:30 Temperature 98.4 F Pulse Rate 50 L Respiratory Rate 16 Blood Pressure 134/76 Pulse Oximetry 95 96 Oxygen Delivery Method Room Air Oxygen Flow Rate 0 Narrative Exam Narrative: GENERAL: Alert and oriented, frail, appearing older than stated age and in no acute distress. HEENT: Head normocephalic/atraumatic. LUNGS: Clear to ausculation bilaterally, no wheezes, rhonchi or rales. CV: Normal S1 and S2 with regular rate and rhythm, no audible murmurs, rubs or gallops. ABDOMEN: Soft, non-tender, non-distended, no organomegaly. Positive bowel sounds. EXTREMITIES: No clubbing, cyanosis, or edema. NEURO: Cranial nerves II through XII grossly intact, no focal deficits. PSYCH: Alert and oriented x 3. Objective Labs Result Diagrams: 01/10/21 04:55 01/10/21 04:55 Labs: Laboratory Results - last 24 hr 01/10/21 01/10/21 01/10/21 04:55 04:55 05:15 WBC 6.0 RBC 3.35 L Hgb 10.6 L Hct 31.1 L MCV 92.8 MCH 31.6 MCHC 34.1 RDW 13.0 Plt Count 156 Neut % (Auto) 57.5 Lymph % (Auto) 29.9 [place] % (Auto) 8.3 Eos % (Auto) 3.7 Baso % (Auto) 0.6 Neut # (Auto) 3500 Lymph # (Auto) 1800 [place] # (Auto) 500 Eos # (Auto) 200 Baso # (Auto) 0 Sodium 139 Potassium 3.4 Chloride 109 H Carbon Dioxide 27 BUN 22 H Creatinine 0.97 Estimated GFR 55.4 L BUN/Creatinine Ratio 22.7 H Glucose 85 Calcium 9.0 C. difficile Tox (PCR) Negative for c. diff [facility] Medical History Alzheimer's dementia Dementia History of breast cancer Hypothyroidism (acquired) Surgical History History of total mastectomy Social History household members: spouse Smoking Status: Never smoker alcohol intake: never Discharge Plan Discharge Plan Patient Disposition: SNF Under care of provider: Dr. Person Transportation: Cabulance Provider Discharge Comment: Work on drying out decub ulcers with betadine 1-2x daily. Apply after soap/water cleanse. After betadine, put thin layer of torres dene cream on ulcers. Avoid pressures to wounds. I certify the postop hospital mcc care is medically necessary on a continuing basis for any conditions for which he/ she received care during this hospitalization.: Yes The receiving facility has agreed to accept transfer and provide medical treatment.: Yes Discharge orders & Medications Prescriptions: New sennosides [senna] 8.6 mg Tablet 8.6 mg PO BEDTIME 30 Days Qty: 30 RF: 1 Metamucil Fiber Singles 3.4 gram Powder In Packet 1 packet PO DAILY Qty: 30 RF: 1 povidone-iodine [First Aid Antiseptic(povidone)] 10 % solution 1 applic topical BID Qty: 236 RF: 0 silver sulfadiazine [Silvadene] 1 % cream 1 applic topical DAILY PRN (Reason: wound healing) Qty: 50 RF: 0 Continued levothyroxine 125 mcg Tablet 125 mcg PO QAM Qty: 0 RF: 0 calcium carbonate [Calcium 500] 500 mg calcium (1,250 mg) Tablet 1 mg PO QAM RF: 0 cholecalciferol (vitamin D3) 25 mcg (1,000 unit) Tablet,Chewable 25 mcg PO QAM RF: 0 losartan 50 mg Tablet 50 mg PO BID Qty: 60 RF: 6 memantine 10 mg Tablet 10 mg PO BID RF: 0 donepezil 10 mg Tablet 10 mg PO QAM RF: 0 metoprolol tartrate 25 mg Tablet 12.5 mg PO BID RF: 0 Follow up/Referrals: Kia Person MD [Primary Care Provider] - Discharge Health Status Precautions: [place] Diet/Activity/Treatments Diet: Diet as Tolerated Activity: Wheelchair, 2 person assist, advance per PT Skin/Wound/Dressing Care Skin care: Routine wound care for decub ulcer Report to your healthcare provider any signs of infection, such as:: chills, fever, increased pain, unusual drainage and unusual redness Special Rehabilitation Services Rehab type: Physical therapy and Occupational therapy Discharge Data Primary Care Provider: Kia Person Attending Provider: Kia Person Quality VTE Deep Vein Thrombosis/Pulmonary Embolism Present on Admission: No
[2021-01-10 07:55] VITALS: BP 145/75; PULSE 56; RESP 16; TEMP 36.6; O2SAT 98
[2021-01-10] MEDS: LOSARTAN 50 MG TABLET PO (09:19)
[2021-01-10] MEDS: METOPROLOL ER 25 MG TABLET PO (09:19)
[2021-01-10] MEDS: MEMANTINE HCL 5 MG TABLET 10 MG PO (09:19)
[2021-01-10] MEDS: PSYLLIUM HUSK 1 PACKET PO (09:19)
[2021-01-10] MEDS: SODIUM CHLORIDE 0.9% FLUSH 10 ML IV (09:21)
[2021-01-10 10:34] VITALS: O2SAT 98
--- NOTE | 2021-01-10 10:45 | PC.NURSE ---
Patient incontinent of urine and a small bowel movement. Patient had an allevyn dressing to lower coccyx between bottom cheeks. Dressing taken off as patient has been having frequent bowel movements and dressing keeps getting saturated. Patient cleaned up and barrier cream slathered on area. Patient is lying on her l.side and visiting with her and she has eaten breakfast. Patient is going to go to [facility] at 11am
--- NOTE | 2021-01-10 15:03 | CM.DPNOTE ---
DC Note Worked on coordination of safe DCP throughout the day yesterday and today. Therapy team recommending SNF and S.O. Sina agreeable to this plan. S.O. made this decision after lengthy discussion w/ GRINDER SET UP OPERATOR CENTERLESS and Dr Person at bedside yesterday. Discussed DCP options and Dr Person decided to keep patient admitted observation last night w/DC today either home w/ S.O. and vs [facility] if S.O. Sina able to pay privately for SNF stay Discussed this SNF referral w/January at [facility], per S.O.'s request ...and patient was accepted for admission today. Copy of COVID-19 vaccination card was faxed to [facility] yesterday, today completed and signed med list, DC ppk and PASRR were faxed to [facility]. January and S.O. connected re: payment and w/c transport was arranged for 1130 this AM, no updated COVID test needed Plan: DC to [facility], private payment, via w/c this morning JW
== END 2021-01-10 11:40 ==
LOC: ED 17:12 → AC 18:44
PROVIDERS: Student in an Organized Health Care Education/Training Program; Admitting Provider Family Medicine; Emergency Provider Emergency Medicine; PCP Family Medicine; Referring Provider Emergency Medicine; Visit Provider Family Medicine
DX: G30.9 Alzheimer's disease, unspecified (principal); F02.80 Dementia in other diseases classified elsewhere, unspecified severity, without behavioral disturbance, psychotic disturbance, mood disturbance, and anxiety; L89.309 Pressure ulcer of unspecified buttock, unspecified stage; W18.39XA Other fall on same level, initial encounter; Z91.81 History of falling; Y92.009 Unspecified place in unspecified non-institutional (private) residence as the place of occurrence of the external cause; R32 Unspecified urinary incontinence; R15.9 Full incontinence of feces; E03.9 Hypothyroidism, unspecified; E86.0 Dehydration; R53.1 Weakness; I10 Essential (primary) hypertension; N18.32 Chronic kidney disease, stage 3b; R60.0 Localized edema; I87.8 Other specified disorders of veins; Z20.822 Contact with and (suspected) exposure to COVID-19
CPT/HCPCS: 36415; 70450; 74019; 80048; 80053; 80305; 80320; 80329; 81001; 82140; 82550; 83605; 83690; 83735; 84146; 84443; 84484; 85025; 85610; 85730; 87040; 87150; 87205; 87493; 87635; 93005; 94760; 96361; 96365; 96366; 97116; 97162; 97166; 97530; 97535; 99284; C9803; G0378; G0480

== ENCOUNTER 2021-02-26 10:15 | Observation (INO) | payer MEDICARE, OTHER, SELFPAY ==
[2021-01-07 19:05] VITALS: BMI 22.3
[2021-02-26] VITALS (19 sets, daily range): BP systolic 104–193; BP diastolic 51–106; PULSE 53–67; RESP 13–19; TEMP 35.9–36.9; O2SAT 86–99; BMI 21.7
--- NOTE | 2021-02-26 10:25 | ED_ITS ---
HPI - General Adult General Chief complaint: Altered Mental Status Stated complaint: Lethargic Time Seen by Provider: 02/26/21 10:16 Source: patient and EMS Mode of arrival: EMS Limitations: other (Dementia) History of Present Illness HPI narrative: Patient is a 80-year-old female. Not on anticoagulation. Has a history of Alzheimer's disease who is brought in by EMS for reports of low blood pressure and decreased mental status. At the time of my initial evaluation unsure how long the symptoms have been going on. Patient was alert. Oriented to self and location. Has no specific complaints. There is no signs of any trauma. No reports of any falls. Related Data Home Medications Medication Instructions Recorded Confirmed levothyroxine 125 mcg tablet 125 mcg PO QAM #0 tab 12/25/10 01/08/21 donepezil 10 mg tablet 10 mg PO QAM 07/30/19 01/08/21 memantine 10 mg tablet 10 mg PO BID 07/30/19 01/08/21 calcium carbonate 500 mg calcium 1 mg PO QAM 05/05/20 01/08/21 (1,250 mg) tablet (Calcium 500) cholecalciferol (vitamin D3) 25 25 mcg PO QAM 05/05/20 01/08/21 mcg (1,000 unit) chewable tablet metoprolol tartrate 25 mg tablet 12.5 mg PO BID 01/08/21 01/08/21 Previous Rx's Medication Instructions Recorded losartan 50 mg tablet 50 mg PO BID #60 tab 05/08/20 povidone-iodine 10 % topical 1 applic TOPICAL BID #236 ml 01/10/21 solution (First Aid Antiseptic (povidone-iodine)) psyllium husk (aspartame) 3.4 gram 1 packet PO DAILY #30 ea 01/10/21 oral powder packet (Metamucil Fiber Singles) sennosides 8.6 mg tablet (senna) 8.6 mg PO BEDTIME 30 Days #30 tab 01/10/21 silver sulfadiazine 1 % topical 1 applic TOPICAL DAILY PRN #50 g 01/10/21 cream (Silvadene) Allergies Allergy/AdvReac Type Severity Reaction Status Date / Time amlodipine Allergy Mild Verified 02/26/21 10:36 erythromycin base Allergy Mild Verified 02/26/21 10:36 lisinopril Allergy Mild Verified 02/26/21 10:36 latex Allergy Unknown Verified 02/26/21 10:36 Penicillins Allergy Unknown Verified 02/26/21 10:36 Review of Systems Review of Systems Narrative: Very limited given patient's history of dementia however her responses to questions are listed below Constitutional Constitutional: Denies headache(s) ENT Ears, Nose, Mouth, and Throat: Denies headache(s) Cardiovascular Cardiovascular: Denies chest pain and Denies dyspnea Respiratory Respiratory: Denies dyspnea Gastrointestinal Gastrointestinal: Denies abdominal pain Genitourinary Genitourinary: Denies dysuria Musculoskeletal Comments: No muscle or joint pain Neurologic Neurologic: Denies headache(s) Patient History Medical History Alzheimer's dementia Dementia History of breast cancer Hypothyroidism (acquired) Surgical History History of total mastectomy Social History household members: spouse Smoking Status: Never smoker alcohol intake: never Smoking Status: Never smoker alcohol intake frequency: other Substance Use Type: does not use Exam Initial Vital Signs Initial Vital Signs: Vital Signs Temperature 98.5 F 02/26/21 10:20 Pulse Rate 53 L 02/26/21 10:20 Respiratory Rate 16 02/26/21 10:20 Blood Pressure 104/51 L 02/26/21 10:20 Pulse Oximetry 96 02/26/21 10:20 Const General: cooperative, healthy appearing and comfortable HENMT Head: normal to inspection and normocephalic Eyes General: appearance normal, both eyes and all related structures Resp Auscultation: clear to auscultation bilaterally Cardio Rate: regular rate Rhythm: regular rhythm GI Palpation: soft and No tender Skin General: no rashes or lesions noted Neuro General: patient alert, patient awake, moves all extremities and other (Oriented to person and place but does not know year) Extrem General: normal to inspection and capillary refill normal Psych Appearance: grossly normal and well kempt Course Orders Ordered: ED Orders 02/26/21 10:18 EKG-12 Lead Stat 02/26/21 10:34 Urine Microscopic Stat 02/26/21 10:52 Complete Blood Count AUTO DIFF Stat Comprehensive Metabolic Panel Stat Lipase Stat Troponin & CK Cardiac Panel Stat 02/26/21 11:47 Consult to PRINT COLOR OPERATOR - Boom Pump Operator Stat 02/26/21 12:21 GI Panel (Film Array) Stat Stool Culture Stat 02/26/21 12:29 Consult to Physician Urgent 02/26/21 12:35 COVID19 - ADMIT (QUALITY ASSURANCE SUPERVISOR BODY swab/PCR) Stat 02/26/21 12:37 Urine Culture Stat Sodium Chloride (Normal Saline 0.9%) 1,000 mls @ 150 mls/hr IV CONT DAVID Last Admin: 02/26/21 12:19 Dose: 150 mls/hr Documented by: JUAN DIEGOYERS Sodium Chloride (Normal Saline 0.9%) 1,000 mls @ 125 mls/hr IV CONT DAVID Ondansetron HCl (Ondansetron 4 Mg/2 Ml Inj) 4 mg IV Q4HR PRN PRN Reason: Nausea And Vomiting Vital Signs Vital signs: Vital Signs - 8 hr 02/26/21 10:20 02/26/21 10:21 02/26/21 10:30 Temperature 98.5 F Pulse Rate 53 L 57 L 55 L Respiratory Rate 16 14 18 Blood Pressure 104/51 L Pulse Oximetry 96 96 86 L 02/26/21 11:00 02/26/21 11:01 02/26/21 11:30 Temperature Pulse Rate 55 L 54 L 56 L Respiratory Rate 14 15 19 Blood Pressure 154/65 H 154/65 H Pulse Oximetry 95 93 97 02/26/21 11:31 02/26/21 11:49 02/26/21 11:50 Temperature Pulse Rate 67 62 60 Respiratory Rate 19 17 13 Blood Pressure 151/71 H 153/78 H 150/70 H Pulse Oximetry 97 94 94 02/26/21 12:00 02/26/21 12:02 02/26/21 12:30 Temperature Pulse Rate 58 L 55 L 64 Respiratory Rate 18 16 19 Blood Pressure 162/69 H 181/83 H Pulse Oximetry 99 97 Medical Decision Making Medical Records Medical records reviewed: Yes I reviewed the patient's medical records. Lab Data Lab results reviewed: Yes I reviewed the patient's lab results. Result diagrams: 02/26/21 10:52 02/26/21 10:52 Labs: Lab Results 02/26/21 02/26/21 02/26/21 Range/Units 10:34 10:52 10:52 WBC 5.6 (4.5-11.0) X10^3/uL RBC 4.09 (4.0-5.2) X10^6/uL Hgb 12.8 (12.0-16.0) g/dL Hct 38.4 (36-46) % MCV 93.7 (80-100) fL MCH 31.2 (26-34) PG MCHC 33.3 (30-36) % RDW 13.3 (11.6-14.8) % Plt Count 151 (150-400) X10^3/uL Neut % (Auto) 63.5 (50-75) % Lymph % (Auto) 22.5 L (25-40) % [place] % (Auto) 9.3 (3-14) % Eos % (Auto) 3.9 (2-4) % Baso % (Auto) 0.8 (0-2) % Neut # (Auto) 3500 (9506-1047) /uL Lymph # (Auto) 1300 (3296-5858) /uL [place] # (Auto) 500 (0-900) /uL Eos # (Auto) 200 (0-450) /uL Baso # (Auto) 0 (0-100) /uL Sodium 143 (137-145) mmol/L Potassium 3.8 (3.4-5.1) mmol/L Chloride 108 H (98-107) mmol/L Carbon Dioxide 27 (22-32) mmol/L BUN 24 H (7-17) mg/dL Creatinine 1.10 H (0.52-1.04) mg/dL Estimated GFR 47.9 L (>60) mL/min BUN/Creatinine Ratio 21.8 (6-22) Glucose 103 (80-110) mg/dL Calcium 9.6 (8.4-10.2) mg/dL Total Bilirubin 0.7 (0.2-1.3) mg/dL AST 26 (14-36) IU/L ALT 16 (<35) IU/L Alkaline Phosphatase 40 (38-126) U/L Total Creatine Kinase 54 (30-135) U/L CK-MB (CK-2) TNP CK-MB (CK-2) Rel Index TNP Troponin I < 0.012 (0.01-0.034) ng/mL Total Protein 6.1 L (6.3-8.2) g/dL Albumin 3.6 (3.5-5.0) g/dL Globulin 2.5 (1.7-4.1) g/dL Albumin/Globulin Ratio 1.4 (1.0-2.8) Lipase 207 (23-300) U/L Urine RBC 1-5/hpf (0-5/HPF) Urine WBC 1-5/hpf (0-5/HPF) Urine Bacteria None seen (None) Hyaline Casts 1-5/lpf (None) Urine Mucus 1+ H (Negative) Ur Culture Indicated? Cult not indicated Urine Dip Bedside Urine Glucose Negative Bedside Urine Bilirubin - Negative Bedside Urine Ketone - Negative Urine Specific [place] 1.015 Bedside Urine Occult Blood ++ Bedside Urine pH 6 Bedside Urine Protein - Negative Bedside Urine Urobilinogen 1+ 2mg Bedside Urine Nitrite - Negative Bedside Urine Leukocytes - Negative Esterase Point of care testing: Urine Dip Bedside Urine Glucose Negative Bedside Urine Bilirubin - Negative Bedside Urine Ketone - Negative Urine Specific [place] 1.015 Bedside Urine Occult Blood ++ Bedside Urine pH 6 Bedside Urine Protein - Negative Bedside Urine Urobilinogen 1+ 2mg Bedside Urine Nitrite - Negative Bedside Urine Leukocytes - Negative Esterase ECG Data Attestation: I personally reviewed and interpreted this ECG as follows: Interpretation: Sinus bradycardia Ventricular rate of 57 Normal axis Normal QRS Normal QTC No ST T wave changes MDM Narrative Medical decision making narrative: Patient does seem to be at baseline mental status per her . Her blood pressure has improved since arrival here to the ER. She does have an elevation in her creatinine and a decrease in her GFR given her chronic diarrhea I do suspect a component of dehydration. Was given fluids. Rest of her labs unremarkable. Patient was unable to stand at bedside. states that he does have to help her around at home however she normally does not use a walker but today she was unable to stand at bedside even with nursing assistance. This is very similar to an episode where she was admitted to the hospital couple months ago. During that time she received fluids in her strength improved she was discharged home to a nursing facility. I feel patient is unsafe to be discharged home given her clinical presentation inability to stand. Her is unable to take care of her at home. Corrie scussed the case with Dr. Person who is her primary doctor. We will admit for observation and fluid hydration and social work in physical therapy consultation. Patient's expressed understanding and agreement. Discharge Plan Departure Patient Disposition: Admitted as Observation Clinical Impression: Acute kidney injury, Weakness, Diarrhea, Dehydration, Hypotension Admit Date/Time: 02/26/21 12:41 Admit Provider: Kia Person
[2021-02-26 11:04] LABS: Bacteria Urine None Seen
[2021-02-26 11:04] LABS: Add Manual Diff / Slide Review NO; Basophils Absolute Auto 0 /uL (0-100); Basophils Percent Auto 0.8 % (0-2); Eosinophils Absolute Auto 200 /uL (0-450); Eosinophils Percent Auto 3.9 % (2-4); Hematocrit 38.4 % (36-46); Hemoglobin 12.8 g/dL (12.0-16.0); Lymphocytes Absolute Auto 1300 /uL (1100-4500); Lymphocytes Percent Auto 22.5 % (25-40); Mean Corpuscular HGB Conc 33.3 % (30-36); Mean Corpuscular Hemoglobin 31.2 PG (26-34); Mean Corpuscular Volume 93.7 fL (80-100); Monocytes Absolute Auto 500 /uL (0-900); Monocytes Percent Auto 9.3 % (3-14); Neutrophils Absolute Auto 3500 /uL (1500-7000); Neutrophils Percent Auto 63.5 % (50-75); Platelet Count 151 X10^3/uL (150-400); Red Blood Cell Count 4.09 X10^6/uL (4.0-5.2); Red Cell Distribution Width 13.3 % (11.6-14.8); White Blood Cell Count 5.6 X10^3/uL (4.5-11.0)
[2021-02-26 11:16] LABS: Alanine Aminotransferase 16 IU/L (<35); Albumin 3.6 g/dL (3.5-5.0); Albumin Globulin Ratio 1.4 (1.0-2.8); Alkaline Phosphatase 40 U/L (38-126); Aspartate Aminotransferase 26 IU/L (14-36); BUN Creatinine Ratio 21.8 (6-22); Bilirubin Total 0.7 mg/dL (0.2-1.3); Blood Urea Nitrogen 24 mg/dL (7-17); Calcium 9.6 mg/dL (8.4-10.2); Carbon Dioxide 27 mmol/L (22-32); Chloride 108 mmol/L (98-107); Creatine Kinase 54 U/L (30-135); Estimated Glomerular Filt Rate 47.9 mL/min (>60); Globulin 2.5 g/dL (1.7-4.1); Glucose 103 mg/dL (80-110); HEMOLYSIS 15 (0-50); Lipase 207 U/L (23-300); Potassium 3.8 mmol/L (3.4-5.1); Sodium 143 mmol/L (137-145); Total Protein 6.1 g/dL (6.3-8.2)
[2021-02-26 11:19] LABS: Culture Indicated Urine Cult Not Indicated; Hyaline Casts Urine 1-5/LPF; RBC Urine 1-5/HPF (0-5/HPF); WBC Urine 1-5/HPF (0-5/HPF)
[2021-02-26 11:20] LABS: Mucus Urine 1+ (Negative)
[2021-02-26 11:27] LABS: Troponin I < 0.012 ng/mL (0.01-0.034)
--- NOTE | 2021-02-26 12:03 | PC.NURSE ---
attempted ambulation trial pt very unsteady requires max assist x 1-2 staff members, relays less then typical.
[2021-02-26] MEDS: SODIUM CHLORIDE 0.9% 1,000 ML 125 ML IV ×2 (12:45→21:58)
[2021-02-26 14:09] LABS: COVID19 - ADMIT (NP swab/PCR) Negative (Negative)
--- NOTE | 2021-02-26 15:18 | PC.NURSE ---
Pt to floor at 1400; incontinent of stool, Stool sample sent to Lab, quantity not enough for GI Panel, but Stool culture initiated; Stage II pressure ulcers, 2 cm X 2 cm to left and right of sacrum, clean and open to air, photos documented with digital camera; VSS; IV fluids infusing; bed alarm active
[2021-02-26 17:44] LABS: Adenovirus F 40/41 Not Detected (Not Detect); Astrovirus Not Detected (Not Detect); Campylobacter Not Detected (Not Detect); Clostridium difficile toxin AB Not Detected (Not Detect); Cryptosporidium Not Detected (Not Detect); Cyclospora cayetanensis Not Detected (Not Detect); Entamoeba histolytica Not Detected (Not Detect); Enteroaggregative E.coli Not Detected (Not Detect); Enteropathogenic E.coli Not Detected (Not Detect); Enterotoxigenic E.coli It/st Not Detected (Not Detect); Giardia lamblia Not Detected (Not Detect); Norovirus GI/GII Not Detected (Not Detect); Plesiomonsa shigelloides Not Detected (Not Detect); Rotavirus A Not Detected (Not Detect); Salmonella Not Detected (Not Detect); Sapovirus Not Detected (Not Detect); Shiga-like toxin-prod E.coli Not Detected (Not Detect); Shigella/Enteroinvasive E.coli Not Detected (Not Detect); Vibrio Not Detected (Not Detect); Vibrio cholerae Not Detected (Not Detect); Yersinia enterocolitica Not Detected (Not Detect)
--- NOTE | 2021-02-26 20:34 | P.HP_ITS ---
History of Present Illness History of Present Illness Date Patient Seen: 02/26/21 Time Patient Seen: 20:35 Date of Onset of Symptoms: 02/26/21 Chief complaint: Lethargic Narrative: Patient is well known to me. She lives at home with her partner. She has had a long history of diarrhea of unclear etiology. We have taken her off her Aricept and/or Namenda and this is not made a difference. She has had stool studies. She tends to get constipation and then will have diarrhea after giving MiraLax. She had another similar episode. She was lethargic today I believe after home health was there and then she was found to have marked low b lood pressure. She had taken her losartan 50 mg in the morning. 911 was called and she was evaluated in the emergency department and found to have worsening of her chronic kidney disease and dehydration and diarrhea. She was unable to stand at bedside. She was admitted for further treatment. Past medical history: Hypertension Hypothyroidism Severe dementia, presumably of the Alzheimer's type Chronic kidney disease, stage IIIB Chronic diarrhea, unclear etiology Diverticulosis without episodes of diverticulitis Reactive airway disease well controlled Peripheral edema secondary to venous stasis changes Distant history of breast cancer Current medications are losartan 50 mg twice daily Metoprolol 25 mg twice daily Aricept 10 mg daily Levothyroxine 125 mcg daily Zyrtec 10 mg daily Probiotic Namenda Allergies penicillin and latex Lisinopril causes a cough Amlodipine causes worsening lower extremity edema Past surgical history 1982 mastectomy 2004 right total hip replacement 2010 left total hip replacement Review of systems: Negative for fevers, cough, chest pain, shortness of breath, chills, falls, headaches Progressive decline of dementia Social history patient has a significant other who is very supportive lives with her and does an excellent job caring for her. Patient has 2 daughters who live in the region. They are supportive and involved. Health 30 behavior: Does not smoke and never has Does not use alcohol Is not active Family history mom at 66 secondary to COPD and reactive airway disease and hypertension Dad at 57 secondary to stroke and hypertension Sister with peripheral vascular disease and hypertension Siblings with diabetes and hypertension Patient History Medical History Alzheimer's dementia Dementia History of breast cancer Hypothyroidism (acquired) Surgical History History of total mastectomy Family & Social History Social History: household members spouse Safety & Behavioral: Feels Safe in Current Yes Environment Suicidal Ideation Description None Tobacco & Substance use: Smoking Status Never smoker alcohol intake never alcohol intake frequency other Substance Use Type does not use Meds Home Medications and Allergies Home Medications Medication Instructions Recorded Confirmed Type levothyroxine 125 mcg tablet 125 mcg PO QAM #0 tab 12/25/10 02/26/21 History donepezil 10 mg tablet 10 mg PO QAM 07/30/19 02/26/21 History memantine 10 mg tablet 10 mg PO BID 07/30/19 02/26/21 History calcium carbonate 500 mg calcium 1 mg PO QAM 05/05/20 02/26/21 History (1,250 mg) tablet (Calcium 500) cholecalciferol (vitamin D3) 25 25 mcg PO QAM 05/05/20 02/26/21 History mcg (1,000 unit) chewable tablet metoprolol tartrate 25 mg tablet 12.5 mg PO BID 01/08/21 02/26/21 History povidone-iodine 10 % topical 1 applic TOPICAL BID #236 ml 01/10/21 02/26/21 Rx solution (First Aid Antiseptic (povidone-iodine)) psyllium husk (aspartame) 3.4 gram 1 packet PO DAILY #30 ea 01/10/21 02/26/21 Rx oral powder packet (Metamucil Fiber Singles) sennosides 8.6 mg tablet (senna) 8.6 mg PO BEDTIME 30 Days #30 tab 01/10/21 02/26/21 Rx silver sulfadiazine 1 % topical 1 applic TOPICAL DAILY PRN #50 g 01/10/21 02/26/21 Rx cream (Silvadene) losartan 50 mg tablet 50 mg PO QAM 02/26/21 02/26/21 History Allergies Allergy/AdvReac Type Severity Reaction Status Date / Time amlodipine Allergy Mild Verified 02/26/21 10:36 erythromycin base Allergy Mild Verified 02/26/21 10:36 lisinopril Allergy Mild Verified 02/26/21 10:36 latex Allergy Unknown Verified 02/26/21 10:36 Penicillins Allergy Unknown Verified 02/26/21 10:36 Exam Vital Signs (past 8 hours): - 02/26/21 13:00 02/26/21 13:08 02/26/21 13:45 Temperature 96.7 F L Pulse Rate 53 L 56 L 54 L Respiratory Rate 16 18 14 Blood Pressure 178/106 H 174/101 H 152/81 H Pulse Oximetry 98 97 02/26/21 16:00 02/26/21 18:42 02/26/21 19:59 Temperature 96.9 F L 97.0 F L Pulse Rate 61 60 Respiratory Rate 16 18 Blood Pressure 193/83 H 125/64 141/87 H Pulse Oximetry 90 L 90 L Oxygen Delivery Method Room Air Oxygen Flow Rate 0 Narrative Exam Narrative: Afebrile vital signs are stable. Blood pressures were initially high on admission HEENT, unremarkable Neck: Supple without adenopathy Chest: Clear to auscultation without wheezes rhonchi or crackles, prolonged expiratory phase Cor regular rate and rhythm without murmur, distant S1-S2 Extremities: Peripheral edema unchanged Neurologic exam nonfocal Patient is alert but not oriented to person place or thing. Neurologic exam is unchanged Objective Labs Result Diagrams: 02/26/21 10:52 02/26/21 10:52 Labs: Laboratory Results - last 24 hr 02/26/21 02/26/21 02/26/21 10:34 10:52 10:52 WBC 5.6 RBC 4.09 Hgb 12.8 Hct 38.4 MCV 93.7 MCH 31.2 MCHC 33.3 RDW 13.3 Plt Count 151 Neut % (Auto) 63.5 Lymph % (Auto) 22.5 L [place] % (Auto) 9.3 Eos % (Auto) 3.9 Baso % (Auto) 0.8 Neut # (Auto) 3500 Lymph # (Auto) 1300 [place] # (Auto) 500 Eos # (Auto) 200 Baso # (Auto) 0 Sodium 143 Potassium 3.8 Chloride 108 H Carbon Dioxide 27 BUN 24 H Creatinine 1.10 H Estimated GFR 47.9 L BUN/Creatinine Ratio 21.8 Glucose 103 Calcium 9.6 Total Bilirubin 0.7 AST 26 ALT 16 Alkaline Phosphatase 40 Total Creatine Kinase 54 CK-MB (CK-2) TNP CK-MB (CK-2) Rel Index TNP Troponin I < 0.012 Total Protein 6.1 L Albumin 3.6 Globulin 2.5 Albumin/Globulin Ratio 1.4 Lipase 207 Urine RBC 1-5/hpf Urine WBC 1-5/hpf Urine Bacteria None seen Hyaline Casts 1-5/lpf Urine Mucus 1+ H Ur Culture Indicated? Cult not indicated Stl C. cay[place]anensis PCR Stool Rotavirus (PCR) Stool Adenovirus (PCR) Stool Astrovirus (PCR) Stool Cryptosporidium PCR Stl E.coli Shiga Tox PCR St Sh/Enteroin Ecoli PCR Stool E coli O157 PCR Stl Enterotoxigenic E PCR Stool EPEC (PCR) Stl E. histolytica PCR Stool Giardia Lamblia PCR Stool Sapovirus (PCR) Stl P. shigelloides PCR St Y.enterocolitica PCR Stool Vibrio (PCR) Stl Vibrio cholerae PCR Stl Enteroaggr Ecoli PCR Stl Norovirus GI/GII PCR Campylobacter (PCR) C. difficile Tox (PCR) SARS-CoV-2 (PCR) Salmonella (PCR) 02/26/21 02/26/21 12:35 16:13 WBC RBC Hgb Hct MCV MCH MCHC RDW Plt Count Neut % (Auto) Lymph % (Auto) [place] % (Auto) Eos % (Auto) Baso % (Auto) Neut # (Auto) Lymph # (Auto) [place] # (Auto) Eos # (Auto) Baso # (Auto) Sodium Potassium Chloride Carbon Dioxide BUN Creatinine Estimated GFR BUN/Creatinine Ratio Glucose Calcium Total Bilirubin AST ALT Alkaline Phosphatase Total Creatine Kinase CK-MB (CK-2) CK-MB (CK-2) Rel Index Troponin I Total Protein Albumin Globulin Albumin/Globulin Ratio Lipase Urine RBC Urine WBC Urine Bacteria Hyaline Casts Urine Mucus Ur Culture Indicated? Stl C. cayetanensis PCR Not detected Stool Rotavirus (PCR) Not detected Stool Adenovirus (PCR) Not detected Stool Astrovirus (PCR) Not detected Stool Cryptosporidium PCR Not detected Stl E.coli Shiga Tox PCR Not detected St Sh/Enteroin Ecoli PCR Not detected Stool E coli O157 PCR Not Reportable Stl Enterotoxigenic E PCR Not detected Stool EPEC (PCR) Not detected Stl E. histolytica PCR Not detected Stool Giardia [place]lia PCR Not detected Stool Sapovirus (PCR) Not detected Stl P. shigelloides PCR Not detected St Y.enterocolitica PCR Not detected Stool Vibrio (PCR) Not detected Stl Vibrio cholerae PCR Not detected Stl Enteroaggr Ecoli PCR Not detected Stl Norovirus GI/GII PCR Not detected Campylobacter (PCR) Not detected C. difficile Tox (PCR) Not detected SARS-CoV-2 (PCR) Negative Salmonella (PCR) Not detected Assessment & Plan Assessment & Plan narrative: 80-year-old female with severe dementia presumably of the Alzheimer's type who has chronic diarrhea of unclear etiology with progressive worsening condition and lethargy found it to be profoundly hypotens madelyn this morning and lethargic and unable to stand was brought to the emergency department for evaluation found to have acute exacerbation of chronic kidney disease with acute dehydration and diarrhea Plan: Will admit to the hospital for further treatment and monitoring Will continue IV fluids Will restart losartan and will hold metoprolol 2. Chronic diarrhea this is been a continued problem. Plan: We will do stool studies. We will stop her Aricept and Namenda at this time and see if the diarrhea does not improve We will recheck labs in a.m.. 3. Acute on chronic kidney disease with acute dehydration Plan: Continue IV fluid Recheck labs in morning Assessment 4. Hypothyroidism without abnormalities Plan: Will check thyroid in the morning and will continue levothyroxine 125 mcg daily Assessment 5. Labile hypertension with episodes of symptomatic hypotension Plan: Unclear etiology. At this point we will monitor while in the hospital and we may need to be more progressive with her blood pressure to avoid the hypotensive episodes when she gets the diarrhea. We will start his losartan at this time. Code status is DNR
[2021-02-26] MEDS: LOSARTAN 50 MG TABLET PO (21:00)
[2021-02-27] VITALS (7 sets, daily range): BP systolic 85–154; BP diastolic 49–81; PULSE 68–93; RESP 16–18; TEMP 36.1–36.6; O2SAT 90–98
[2021-02-27 06:49] LABS: Add Manual Diff / Slide Review NO; Basophils Absolute Auto 0 /uL (0-100); Basophils Percent Auto 0.4 % (0-2); Eosinophils Absolute Auto 200 /uL (0-450); Eosinophils Percent Auto 4.6 % (2-4); Hematocrit 37.2 % (36-46); Hemoglobin 12.3 g/dL (12.0-16.0); Lymphocytes Absolute Auto 1400 /uL (1100-4500); Lymphocytes Percent Auto 25.9 % (25-40); Mean Corpuscular Hemoglobin 31.2 PG (26-34); Mean Corpuscular Volume 94.4 fL (80-100); Monocytes Absolute Auto 400 /uL (0-900); Monocytes Percent Auto 7.7 % (3-14); Neutrophils Absolute Auto 3300 /uL (1500-7000); Neutrophils Percent Auto 61.4 % (50-75); Platelet Count 159 X10^3/uL (150-400); Red Blood Cell Count 3.94 X10^6/uL (4.0-5.2); Red Cell Distribution Width 13.6 % (11.6-14.8); White Blood Cell Count 5.3 X10^3/uL (4.5-11.0)
[2021-02-27 07:02] LABS: Alanine Aminotransferase 14 IU/L (<35); Albumin 3.3 g/dL (3.5-5.0); Albumin Globulin Ratio 1.4 (1.0-2.8); Alkaline Phosphatase 40 U/L (38-126); Aspartate Aminotransferase 24 IU/L (14-36); BUN Creatinine Ratio 16.2 (6-22); Bilirubin Total 0.7 mg/dL (0.2-1.3); Blood Urea Nitrogen 16 mg/dL (7-17); Carbon Dioxide 26 mmol/L (22-32); Chloride 111 mmol/L (98-107); Estimated Glomerular Filt Rate 54.1 mL/min (>60); Globulin 2.4 g/dL (1.7-4.1); Glucose 83 mg/dL (80-110); HEMOLYSIS < 15 (0-50); Potassium 3.9 mmol/L (3.4-5.1); Sodium 142 mmol/L (137-145); Total Protein 5.7 g/dL (6.3-8.2)
[2021-02-27] MEDS: LOSARTAN 50 MG TABLET PO (08:29)
--- NOTE | 2021-02-27 08:43 | PM.PN.1 ---
Subjective Subjective Date Patient Seen: 02/27/21 Time Patient Seen: 08:40 Interval history: chief complaint: loose stools continuing Exam Vital Signs (past 8 hours): - 02/27/21 08:29 Pulse Rate 68 Blood Pressure 132/77 Oxygen Delivery Method Room Air Oxygen Flow Rate 0 Narrative Exam Narrative: sitting up in bed eating breakfast Const General: cooperative, healthy appearing and comfortable [facility] Head: normal to inspection, normocephalic and atraumatic Resp Effort & Inspection: normal respiratory effort and able to speak in complete sentences Auscultation: clear to auscultation bilaterally Cardio Rate: regular rate Rhythm: regular rhythm Heart Sounds: S1 normal and S2 normal GI Palpation: soft Percussion: normal to percussion Auscultation: normal bowel sounds Neuro General: patient alert and patient awake Speech: speech normal Other: Alert and oriented to location and , otherwise easily confused Psych Appearance: grossly normal and well kempt Speech and Movement: speech and movement normal Mood: congruent mood Affect: normal affect Objective Labs Result Diagrams: 02/27/21 06:19 02/27/21 06:19 Labs: Laboratory Results - last 24 hr 02/26/21 02/26/21 02/26/21 10:34 10:52 10:52 WBC 5.6 RBC 4.09 Hgb 12.8 Hct 38.4 MCV 93.7 MCH 31.2 MCHC 33.3 RDW 13.3 Plt Count 151 Neut % (Auto) 63.5 Lymph % (Auto) 22.5 L Knox % (Auto) 9.3 Eos % (Auto) 3.9 Baso % (Auto) 0.8 Neut # (Auto) 3500 Lymph # (Auto) 1300 Knox # (Auto) 500 Eos # (Auto) 200 Baso # (Auto) 0 Sodium 143 Potassium 3.8 Chloride 108 H Carbon Dioxide 27 BUN 24 H Creatinine 1.10 H Estimated GFR 47.9 L BUN/Creatinine Ratio 21.8 Glucose 103 Calcium 9.6 Total Bilirubin 0.7 AST 26 ALT 16 Alkaline Phosphatase 40 Total Creatine Kinase 54 CK-MB (CK-2) TNP CK-MB (CK-2) Rel Index TNP Troponin I < 0.012 Total Protein 6.1 L Albumin 3.6 Globulin 2.5 Albumin/Globulin Ratio 1.4 Lipase 207 TSH Urine RBC 1-5/hpf Urine WBC 1-5/hpf Urine Bacteria None seen Hyaline Casts 1-5/lpf Urine Mucus 1+ H Ur Culture Indicated? Cult not indicated Stl C. cayetanensis PCR Stool Rotavirus (PCR) Stool Adenovirus (PCR) Stool Astrovirus (PCR) Stool Cryptosporidium PCR Stl E.coli Shiga Tox PCR St Sh/Enteroin Ecoli PCR Stool E coli O157 PCR Stl Enterotoxigenic E PCR Stool EPEC (PCR) Stl E. histolytica PCR Stool Giardia Lamblia PCR Stool Sapovirus (PCR) Stl P. shigelloides PCR St Y.enterocolitica PCR Stool Vibrio (PCR) Stl Vibrio cholerae PCR Stl Enteroaggr Ecoli PCR Stl Norovirus GI/GII PCR Campylobacter (PCR) C. difficile Tox (PCR) SARS-CoV-2 (PCR) Salmonella (PCR) 02/26/21 02/26/21 02/27/21 12:35 16:13 06:19 WBC 5.3 RBC 3.94 L Hgb 12.3 Hct 37.2 MCV 94.4 MCH 31.2 MCHC 33.0 RDW 13.6 Plt Count 159 Neut % (Auto) 61.4 Lymph % (Auto) 25.9 Knox % (Auto) 7.7 Eos % (Auto) 4.6 H Baso % (Auto) 0.4 Neut # (Auto) 3300 Lymph # (Auto) 1400 Knox # (Auto) 400 Eos # (Auto) 200 Baso # (Auto) 0 Sodium Potassium Chloride Carbon Dioxide BUN Creatinine Estimated GFR BUN/Creatinine Ratio Glucose Calcium Total Bilirubin AST ALT Alkaline Phosphatase Total Creatine Kinase CK-MB (CK-2) CK-MB (CK-2) Rel Index Troponin I Total Protein Albumin Globulin Albumin/Globulin Ratio Lipase TSH Urine RBC Urine WBC Urine Bacteria Hyaline Casts Urine Mucus Ur Culture Indicated? Stl C. cayetanensis PCR Not detected Stool Rotavirus (PCR) Not detected Stool Adenovirus (PCR) Not detected Stool Astrovirus (PCR) Not detected Stool Cryptosporidium PCR Not detected Stl E.coli Shiga Tox PCR Not detected St Sh/Enteroin Ecoli PCR Not detected Stool E coli O157 PCR Not Reportable Stl Enterotoxigenic E PCR Not detected Stool EPEC (PCR) Not detected Stl E. histolytica PCR Not detected Stool Giardia Lamblia PCR Not detected Stool Sapovirus (PCR) Not detected Stl P. shigelloides PCR Not detected St Y.enterocolitica PCR Not detected Stool Vibrio (PCR) Not detected Stl Vibrio cholerae PCR Not detected Stl Enteroaggr Ecoli PCR Not detected Stl Norovirus GI/GII PCR Not detected Campylobacter (PCR) Not detected C. difficile Tox (PCR) Not detected SARS-CoV-2 (PCR) Negative Salmonella (PCR) Not detected 02/27/21 02/27/21 06:19 06:19 WBC RBC Hgb Hct MCV MCH MCHC RDW Plt Count Neut % (Auto) Lymph % (Auto) Knox % (Auto) Eos % (Auto) Baso % (Auto) Neut # (Auto) Lymph # (Auto) Knox # (Auto) Eos # (Auto) Baso # (Auto) Sodium 142 Potassium 3.9 Chloride 111 H Carbon Dioxide 26 BUN 16 Creatinine 0.99 Estimated GFR 54.1 L BUN/Creatinine Ratio 16.2 Glucose 83 Calcium 9.0 Total Bilirubin 0.7 AST 24 ALT 14 Alkaline Phosphatase 40 Total Creatine Kinase CK-MB (CK-2) CK-MB (CK-2) Rel Index Troponin I Total Protein 5.7 L Albumin 3.3 L Globulin 2.4 Albumin/Globulin Ratio 1.4 Lipase TSH 0.90 Urine RBC Urine WBC Urine Bacteria Hyaline Casts Urine Mucus Ur Culture Indicated? Stl C. cayetanensis PCR Stool Rotavirus (PCR) Stool Adenovirus (PCR) Stool Astrovirus (PCR) Stool Cryptosporidium PCR Stl E.coli Shiga Tox PCR St Sh/Enteroin Ecoli PCR Stool E coli O157 PCR Stl Enterotoxigenic E PCR Stool EPEC (PCR) Stl E. histolytica PCR Stool Giardia Lamblia PCR Stool Sapovirus (PCR) Stl P. shigelloides PCR St Y.enterocolitica PCR Stool Vibrio (PCR) Stl Vibrio cholerae PCR Stl Enteroaggr Ecoli PCR Stl Norovirus GI/GII PCR Campylobacter (PCR) C. difficile Tox (PCR) SARS-CoV-2 (PCR) Salmonella (PCR) [facility] Medical History Alzheimer's dementia Dementia History of breast cancer Hypothyroidism (acquired) Surgical History History of total mastectomy Social History household members: spouse Smoking Status: Never smoker alcohol intake: never Assessment & Plan Assessment & Plan narrative: 80-year-old female with severe dementia presumably of the Alzheimer's type who has chronic diarrhea of unclear etiology with progressive worsening condition and lethargy found it to be profoundly hypotensive morning of admission, lethargic and unable to stand was brought to the emergency department for evaluation found to have acute exacerbation of chronic kidney disease with acute dehydration and diarrhea. Admitted for observation, received IVF overnight and feeling a bit better this morning however still having loose stools. anything she eats goes straight through her needs continued therapy and eval today. #lethargy/unable to stand 2/2 acute hypotension BP ok this morning, will continue IV fluids she has some deficit to make up restart losartan and will hold home metoprolol continue to monitor #Chronic diarrhea present at admission Stool studies wnl so far. Off Aricept and Namenda overnight, continue to hold and see if the diarrhea does not improve. takes probiotics bid as outpt. per imodium ad is effective but when it wears off we're right back where we started Labs improved this a.m. continue to monitor kidney function #alzheimers stable, hold home meds for now #Acute on chronic kidney disease with acute dehydration #hyperchloremia improving, continue IVF with 1/2 NS #Hypothyroidism without abnormalities Plan: Will check thyroid in the morning and will continue levothyroxine 125 mcg daily # Labile hypertension with episodes of symptomatic hypotension Seems connected to poor fluid balance. At this point we will monitor while in the hospital and we may need to be more progressive with her blood pressure to avoid the hypotensive episodes when she gets the diarrhea. We will start losartan at this time. #decreased total protein and hypoalbuminemia suspect malnutrition in setting of chronic diarrhea. dietitian consulted. continue probiotics. DVT ppx: SCDs and lovenox MDM: Diet: regular w/ probiotics Code status: DNR Dispo: continue obs with eval by therapy
--- NOTE | 2021-02-27 09:15 | PT.IIE ---
Surgical History (Last Reviewed 02/26/21 @ 20:34 by Kia Person MD) History of total mastectomy Medical History (Last Reviewed 02/26/21 @ 20:34 by Kia Person MD) Alzheimer's dementia Dementia History of breast cancer Hypothyroidism (acquired) Physical Therapy Inpatient Evaluation/Re-Eval M1 PT/OT-IP Prior Functional Status Start: 02/27/21 12:52 Freq: NEEDED Status: Active Protocol: Document 02/27/21 09:15 AB (Rec: 02/27/21 13:07 AB [email or web address]) Medical Review Prior Functional Status Medical History Reviewed Yes Communication able to answer questions but unable to give info regarding PLOF and home set up Mobility and Gait spouse assists with all care and completes transfers 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 3 steps with R rail to [place] Home Environment High Toilet,Walk in Shower Home Equipment Grab Bars In Shower Additional Social History Comment info obtained from previous PT evals/hospital admissions M2 PT-IP Current Condition Start: 02/27/21 12:52 Freq: NEEDED Status: Active Protocol: Document 02/27/21 09:15 AB (Rec: 02/27/21 13:07 AB [email or web address]) Physical Therapy Current Condition Current Condition Evaluation Date 02/27/21 Treatment Diagnosis lethargy; alzheimer's dementia ; generalized weakness Onset Date 02/26/21 Precautions Other Precautions falls M3 PT-IP Subjective Start: 02/27/21 12:52 Freq: NEEDED Status: Active Protocol: Document 02/27/21 09:15 AB (Rec: 02/27/21 13:07 AB [id number]) Subjective Physical Therapy Visit Type Type Initial Evaluation Visit Start Time 09:15 Visit Stop Time 09:50 Total Visit Minutes 35 Number of ADULT SERVICES LIBRARIAN Visits 0 Physical Therapy Visit Comments Patient Comments pt agreed to do PT M4 PT-IP Mobility and Gait Start: 02/27/21 12:52 Freq: NEEDED Status: Active Protocol: Document 02/27/21 09:15 AB (Rec: 02/27/21 13:07 AB [email or web address]) PT-Bed Mobility Assessment Supine to Sit Supine to Sit Maximum Assistance,1 Person Assistance,Head of Bed Elevated Scooting Scooting to Edge of Bed Maximum Assistance PT-Transfer Assessment Sit to and From Stand Sit to and from Stand Maximum Assistance,2 Person Assistance,Use of Upper Extremities Equipment Transfer Assistive Device Gait Belt,Front Wheeled Walker Orthotic/Prosthetic Devices or Brace: No Transfers Transfer Destination Chair,Bedside Commode Transfer Technique Stand Step Pivot Transfer Ability Level of Assist Maximum Assistance,2 Person Assistance,Use of Upper Extremities Comments Mobility Comments pt completed supine to sit HOB elevated max a and max cues, pt required mod to max assist and max cues to maintain sitting balance on EOB. pt sit to stand max A x 2 and max cues x 2 attempts. completed step transfer using FWW max A x 2 and max cues. required assist with FWW and weight shifting to move LE. positioned pt on chair but stated that she has to use the toilet. completed sit to stand from the chair max A x 2 and max cues and step transfer to bedside commode max Ax 2 and max cues. NAC in room to assist. pt completed sit to stand from bedside commode max A x 2, maintain standing max A using FWW for support and max cues while NAC assist with hygiene care and brief management. completed step transfer to chair using FWW max A and max cues. positioned pt on chair. call light and table within reach. chair alarm on. PT-Balance Assessment Sitting Balance and Reactions Static Sitting Balance Ability Fair Dynamic Sitting Balance Ability Poor Standing Balance and Reactions Static Standing Balance Ability Poor Dynamic Standing Balance Ability Poor Device Used FWW M5 PT-IP Objective Assessments Start: 02/27/21 12:52 Freq: NEEDED Status: Active Protocol: Document 02/27/21 09:15 AB (Rec: 02/27/21 13:07 [email or web address]) Orientation Orientation/Cognition Level of Alertness Confusional State Orientation Name Safety Awareness Decreased Safety Awareness Memory Description Short Term Impaired,Group Home Impaired Gross Range of Motion Lower Extremity ROM Assessment Within Functional Limits Strength Lower Extremity Strength Hip 3+/5 Knee 3+/5 Muscle Tone Muscle Tone WNL Yes M6 PT-IP Treatment Start: 02/27/21 12:52 Freq: NEEDED Status: Active Protocol: Document 02/27/21 09:15 AB (Rec: 02/27/21 13:07 [facility] Physical Therapy Treatment Education Education Provided Safety M7 PT-IP Assessment and Plan Start: 02/27/21 12:52 Freq: NEEDED Status: Active Protocol: Document 02/27/21 09:15 AB (Rec: 02/27/21 13:07 AB [id number]) PT Summary Assessment and Plan Potential Rehabilitation Potential Fair Status of Condition at Evaluation Evolving Summary Impairments Pain,ROM,Strength,Balance, Coordination,Sensation,Tone, Cognition,Bed Mobility, Transfers,Gait,Activity Tolerance Assessment Summary pt requirig 2 person max A and max cues with all tasks. pt has dx of alzheimer's dementia affecting following directions and mobility. pt requiring SNF rehab at this time to improve mobility. Goals Bed Mobility Goal Minimal Assistance Transfer Goal Minimal Assistance,Front Wheeled Walker Gait Goal Minimal Assistance,Front Wheel Walker Gait Distance 25 Days to Meet Goals 10 Frequency of Treatment Frequency Of Treatment Once a Day Treatment Plan Physical Therapy Treatment Plan Bed Mobility Training,Transfer Training,Gait Training, Therapeutic Exercise,Balance Retraining,Discharge Planning, Hot or Cold Pack,Neuromuscular Re-ed,Coordination Retraining ,Manual Therapy Precautions Other Precautions falls Recommendations To Nursing Amount of Assist Needed 2 Person Assist Discharge Recommendations PT Discharge Recommendations SNF Rehab Transportation Needs at Discharge Wheelchair/Cabulance
--- NOTE | 2021-02-27 09:29 | PC.NURSE ---
Addendum entered by Jaimee Cervantes R.N. 02/27/21 12:28: Multiple attempts made by RN's to gain PIV access, unsuccessful x 4. Patient tolerated but became slightly agitated on the fourth attempt. Dr. Trent made aware. Telephone order given to obtain Midline access to continue fluids. is bedside at this time. Patient remains in chair. Original Note: Patient alert to name, place and situation. Endorses diarrhea. Patient up to BSC this AM. Generally weak, FWW and 2 p assist for safety. Patient incontinent of urine. Moderate loose stool. 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 Patient VSS, pressures WNL. Patient denies dizziness, lightheadedness. Pt on room air, 98%, Lungs CTA. Denies abdominal pain. IV site leaking in R AC, discontinued. Patient working with PT at this time. Will restart after activity.
[2021-02-27] MEDS: SODIUM CHLORIDE 0.45% 1,000 ML 125 ML IV ×2 (13:00→21:43)
[2021-02-27] MEDS: ENOXAPARIN 40 MG/0.4 ML SYRINGE SUBCUT (16:57)
[2021-02-27] MEDS: LACTOBACILLUS ACIDOPHILUS TABLET 1 EACH PO (16:57)
--- NOTE | 2021-02-27 22:33 | PC.NURSE ---
A&O to self only. Confused and has memory loss. Requires frequent queuing and reminders. Calm and cooperative with care. 2 person assist to bedside commode. Bed and chair alarms on. Patient denies pain. She refused her dinner this evening saying she was not hungry. This marketing copywriter eventually convinced her to have some pudding but she only at 3/4 of it. Encouraging drinking water. Call light within reach, bed low.
[2021-02-28 02:00] VITALS: BP 150/98; PULSE 67; RESP 14; TEMP 36.2; O2SAT 96
--- NOTE | 2021-02-28 02:03 | PC.NURSE ---
Addendum entered by Meño Nava CNA 02/28/21 06:47: @600: INDUSTRIAL ENG writing this was able to care for pt and obtain VS without issue, pt much more pleasant at this time. Addendum entered by Meño Nava CNA 02/28/21 03:08: @210: RICHARD writing this asked female INDUSTRIAL ENG to assist getting VS, when alone with pt INDUSTRIAL ENG was able to acquire VS without difficulty and engage in pleasant conversation. Original Note: @1230: INDUSTRIAL ENG writing this requested permission to obtain VS from patient, however she refused and became agitated. I informed the RN, and stated I would see if she was more amiable in an hour. @200: Pt still refusing VS and became agitated stating she wished people would leave her house and not touch her. INDUSTRIAL ENG did not touch patient or obtain VS at this time. Pt is otherwise calm when left alone.
[2021-02-28 06:00] VITALS: BP 173/98; PULSE 72; RESP 18; TEMP 36.4; O2SAT 92
[2021-02-28] MEDS: SODIUM CHLORIDE 0.45% 1,000 ML 125 ML IV (06:12)
[2021-02-28] MEDS: LEVOTHYROXINE 125 MCG TABLET PO (06:26)
[2021-02-28 08:00] VITALS: BP 109/69; PULSE 90; RESP 14; TEMP 36.2; O2SAT 94
--- NOTE | 2021-02-28 08:30 | DI.ECHO.S_ITS ---
[facility]---------+ [facility] +---------+ : : [address] : [place] : : : : [id number] : : : : Phone: [phone]+ Echocardiogram Report + + :Name: MARIANGEL MEYER I Study Date: 02/28/2021 Height: 62 in : :[facility] ReadingLocation: Weight: 119 lb : : Gender: Female BSA: 1.5 m2 : :: 1940 Age: 80 yrs BP: 109/69 mmHg: :Reason For Study: Hypertension : :Ordering Physician: SURAJ, : :KEV Performed By: Evans Jenkins : :Referring: KEV RUELAS : + + Interpretation Summary The left ventricle is normal in size. Left ventricular systolic function is normal. The ejection fraction is estimated to be 55-60%. There are no focal wall motion abnormalities. The right ventricle is normal in size and function. Pulmonary artery pressures cannot be estimated because of the lack of a measurable TR jet velocity. The left atrium is mildly dilated. Right atrial size is normal. There is mild mitral regurgitation. There is no other significant valvular heart disease. The ascending aorta is mildly enlarged. There is a small pericardial effusion noted. No changes since prior study. Procedure: A two-dimensional transthoracic echocardiogram with color flow and Doppler was performed. The study quality was technically adequate. Comparison is made with the echocardiogram of 05/06/2020. The patient was in atrial fibrillation with controlled ventricular rate during the exam. Left Ventricle: The left ventricle is normal in size. Left ventricular wall thickness is mildly increased. Left ventricular systolic function is normal. The ejection fraction is estimated to be 55-60%. There are no focal wall motion abnormalities. Diastolic function could not be accurately assessed due to unobtainable data. Right Ventricle: The right ventricle is normal in size and function. Atria: The left atrium is mildly dilated. Right atrial size is normal. There is no Doppler evidence for an interatrial shunt. Mitral Valve: There is mild mitral annular calcification. There is mild mitral regurgitation. Aortic Valve: There is mild aortic valve sclerosis. No aortic regurgitation is present. Tricuspid Valve: The tricuspid valve is normal in structure and function. There is trace tricuspid regurgitation. Pulmonary artery pressures cannot be estimated because of the lack of a measurable TR jet velocity. Pulmonic Valve: The pulmonic valve is normal in structure and function. There is no pulmonic valvular regurgitation. There is no other significant valvular heart disease. Great Vessels: The aortic root is normal size. The ascending aorta is mildly enlarged. The inferior vena cava was not well visualized. Pericardium/ Pleura There is a small pericardial effusion noted. There is no pleural effusion. MMode/2D Measurements & Calculations LVIDd: 4.2 cm LVOT diam: 2.1 cm LVIDs: 3.0 cm Ao root diam: 3.6 cm FS: 28.0 % asc Aorta Diam: 3.7 cm IVSd: 1.2 cm LVPWd: 1.2 cm LV zarco. diameter/BSA (cm/m^2): 2.7 LV sys. diameter/BSA (cm/m^2): 2.0 LA A2 area: 18.0 cm2 RA long axis: 5.4 cm LA A4 area: 22.4 cm2 RA area: 12.9 cm2 LA length (vol): 5.6 cm RA vol: 26.0 ml LA vol: 61.3 ml RA : 17.0 ml/m2 LA vol index: 40.0 ml/m2 TAPSE: 2.4 cm Doppler Measurements & Calculations Ao V2 max: 104.8 cm/sec LVOT Max Edmundo: 84.2 cm/sec Ao V2 mean: 74.1 cm/sec LV V1 max P.8 mmHg Ao max P.4 mmHg LV V1 VTI: 18.7 cm Ao mean P.4 mmHg ALON(I,D): 2.8 cm2 Ao V2 VTI: 22.4 cm ALON(V,D): 2.7 cm2 sev ratio: 0.83 ALON indexed to BSA (cm^2/m^2): 1.8 MV E max edmundo: 60.5 cm/sec PA pr(Accel): 58.4 mmHg MV A max edmundo: 107.1 cm/sec MV E/A: 0.57 Med Peak E' Edmundo: 4.5 cm/sec E/E' med: 13.5 Lat Peak E' Edmundo: 5.7 cm/sec E/E' lat: 10.6 E/e' average: 12.0 MV dec time: 0.11 sec SV([facility]): 63.5 ml Reading Physician:01:11 PM
--- NOTE | 2021-02-28 09:03 | DIET.PN ---
Dietary Progress Note Assessment: 80y F admitted for lethargy and dehydration in context of chronic diarrhea referred to nutrition for same. Met c pt and partner at bedside, pt not very conversant secondary to dementia so majority of consult c partner. Per partner, pt has been having loose stools for the past 1y. He does the cooking and medication management which currently includes Immodium and Metamucil. He states he will give pt one Immodium but it tends to cause her constipation so he gives her Metamucil. Usual Day: B: banana, muffin or sc egg c cheerios L: MOW delivery D: protein (no red meat) c veggies and mashed potatoes Pt does not hydrate very well but does enjoy oj, prune juice, pineapple juice Currently supplementing c B12 and Vit D HT: 157.4cm WT: 54kg UBW: 55-64kg x3y BMI: 21.8 (low for age) Labs: Cr 0.99 WNL, eGFR 54.1 L, K+ 3.8 WNL MNA: not calculated in Admission Assessment Claudio: 18 Nutrition Diagnosis: Interventions: 1. Reviewed action of Immodium and Metamucil. Discussed trying smaller dose Immodium (cut in half, not using xtra strength), recc discussion on this c PCP. Educated pt and partner on soluble fiber and its role in modulating stool texture including the form Metamucil. 2. To address constipation/diarrhea, discussed strategies for staying hydrated for this pt who does not like to drink water. Encouraged the purchase of carbonated water to make juice spritzers. Pt enjoys squirt soda, this could be a more supportive alternative. 3. Pts K+ labs WNL despite CKD3 and daily intake high K+ foods (banana, potato). Discussed importance of electrolyte repletion c loose stools including pedialyte, oj, LS V8. Encouraged pt to start taking MVI to fill micronutrient needs in addition to her current B12 and Vit D. 4. To support weight stability, recc pt spouse request ONS Ensure from MOW service. PCP Rx required for initiation of this service. Recc Vanilla Ensure Plus once daily. Diet Order: General EER: 1620 kcals (30kcal/kg per elder), 54g PRO (1g/kg elder, CKD3) Monitoring/Evaluations: POs
[2021-02-28] MEDS: LOPERAMIDE 2 MG CAPSULE PO (09:43)
[2021-02-28] MEDS: LACTOBACILLUS ACIDOPHILUS TABLET 1 EACH PO ×2 (09:43→17:50)
[2021-02-28 09:44] VITALS: BP 109/69; PULSE 90
[2021-02-28] MEDS: LOSARTAN 50 MG TABLET PO (09:44)
--- NOTE | 2021-02-28 09:55 | PT.IPTN ---
Physical Therapy Treatment Note M2 PT-IP Current Condition Start: 02/27/21 12:52 Freq: NEEDED Status: Active Protocol: Document 02/27/21 09:15 AB (Rec: 02/27/21 13:07 AB [email or web address]) Physical Therapy Current Condition Current Condition Evaluation Date 02/27/21 Treatment Diagnosis lethargy; alzheimer's dementia ; generalized weakness Onset Date 02/26/21 Precautions Other Precautions falls M3 PT-IP Subjective Start: 02/27/21 12:52 Freq: NEEDED Status: Active Protocol: Document 02/28/21 09:55 AB (Rec: 02/28/21 12:06 AB [email or web address]) Subjective Physical Therapy Visit Type Type Treatment Note Visit Start Time 09:55 Visit Stop Time 10:17 Total Visit Minutes 22 Number of CAREER COACH Visits 0 Physical Therapy Visit Comments Patient Comments requested to use the toilet M4 PT-IP Mobility and Gait Start: 02/27/21 12:52 Freq: NEEDED Status: Active Protocol: Document 02/28/21 09:55 AB (Rec: 02/28/21 12:06 AB [email or web address]) PT-Transfer Assessment Sit to and From Stand Sit to and from Stand Maximum Assistance,1 Person Assistance,Use of Upper Extremities Equipment Transfer Assistive Device Front Wheeled Walker Orthotic/Prosthetic Devices or Brace: No Transfers Transfer Destination Chair,Bedside Commode Transfer Technique Stand Step Pivot Transfer Ability Level of Assist Maximum Assistance,1 Person Assistance,Use of Upper Extremities Comments Mobility Comments pt sitting on chair. completed sit to stand max A and cues. requested to use the toilet. instructed to sit down max A and max cues for controlled descent. positioned bed side commode next to pt. pt completed sit to stand again max A and cues and completed step transfer using FWW max A and cues. completed sit to stand from bedside commode. required mod to max A for static standing using FWW for support while NAC assisted with brief management. pt completed step traansfer to chair using fWW max A and cues . pt completed ambulation with chair follow ~ 8 ft using FWW max a and max cues. cued for upright posture, increasing ANTONETTE and LE elevation. positioned pt back on chair. call light and table placed within reach. Gait Assessment Gait Gait Assistance Required: Maximum Assistance,1 Person Assist Distance (Feet) 8 Able to Maintain Weight Bearing Status Yes During Gait Assistive Devices Assistive Device Gait Belt,Front Wheeled Walker Orthotic/Prosthetic Devices or Brace: No Gait Deviations General Gait Pattern Decreased Stride Length, Decreased Feet Clearance, Flexed Trunk,Narrow Based Gait ,Step-to Gait Factors Limiting Gait Function Factors Limiting Gait Function Decreased Activity Tolerance, Decreased Strength,Difficulty Following Directions,Limited Range of Motion,Poor Balance, Poor Safety Awareness M5 PT-IP Objective Assessments Start: 02/27/21 12:52 Freq: NEEDED Status: Active Protocol: Document 02/27/21 09:15 AB (Rec: 02/27/21 13:07 AB [email or web address]) Orientation Orientation/Cognition Level of Alertness Confusional State Orientation Name Safety Awareness Decreased Safety Awareness Memory Description Short Term Impaired,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 [employer] Impaired Gross Range of Motion Lower Extremity ROM Assessment Within Functional Limits Strength Lower Extremity Strength Hip 3+/5 Knee 3+/5 Muscle Tone Muscle Tone WNL Yes M6 PT-IP Treatment Start: 02/27/21 12:52 Freq: NEEDED Status: Active Protocol: Document 02/28/21 09:55 AB (Rec: 02/28/21 12:06 AB [email or web address]) Physical Therapy Treatment Education Education Provided Safety M7 PT-IP Assessment and Plan Start: 02/27/21 12:52 Freq: NEEDED Status: Active Protocol: Document 02/28/21 09:55 AB (Rec: 02/28/21 12:06 AB [email or web address]) PT Summary Assessment and Plan Potential Rehabilitation Potential Fair Summary Impairments Pain,ROM,Strength,Balance, Coordination,Sensation,Tone, Cognition,Bed Mobility, Transfers,Gait,Activity Tolerance Progress Towards Goals Slow Progress due to Medical Issues Assessment Summary pt progressing slowly with mobility. requiring max A this tx session but continues to require max cues with all tasks. pt will benefit from SNF rehab. Goals Bed Mobility Goal Minimal Assistance Transfer Goal Minimal Assistance,Front Wheeled Walker Gait Goal Minimal Assistance,Front Wheel Walker Gait Distance 25 Days to Meet Goals 10 Frequency of Treatment Frequency Of Treatment Once a Day Treatment Plan Physical Therapy Treatment Plan Bed Mobility Training,Transfer Training,Gait Training, Therapeutic Exercise,Balance Retraining,Discharge Planning, Hot or Cold Pack,Neuromuscular Re-ed,Coordination Retraining ,Manual Therapy Precautions Other Precautions falls Recommendations To Nursing Amount of Assist Needed 2 Person Assist Discharge Recommendations PT Discharge Recommendations SNF Rehab Transportation Needs at Discharge Wheelchair/Cabulance
--- NOTE | 2021-02-28 13:48 | P.PN_ITS ---
Subjective Subjective Date Patient Seen: 02/28/21 Time Patient Seen: 08:00 Interval history: Reviewed note from yesterday. No events overnight. Patient is feeling better. She still requires a 2 person assist just to get up. She had a large diarrheal stool last night and then her 2nd 1 today. She is taking in p.o. intake. She is not complaining of any pain but is urinating frequently. She denies any chest pain or shortness of breath. She has not had any fever. Exam Vital Signs (past 8 hours): - 02/28/21 06:00 02/28/21 08:00 02/28/21 09:44 Temperature 97.5 F L 97.1 F L Pulse Rate 72 90 90 Respiratory Rate 18 14 Blood Pressure 173/98 H 109/69 109/69 Pulse Oximetry 92 94 Oxygen Delivery Method Room Air Oxygen Flow Rate 0 Narrative Exam Narrative: Still with labile hypertension at times will have a blood pressure of 80 and then go up to 160s to 170s. Patient recognizes me she is alert and oriented to person but not place and time Neck: Supple Chest: Clear to auscultation Cor: Regular rate and rhythm without murmur, distant S1-S2 Abdomen: Positive bowel sounds, soft, nontender, nondistended Extremities no edema pulses intact Objective Labs Result Diagrams: 02/27/21 06:19 02/27/21 06:19 [facility] Medical History Alzheimer's dementia Dementia History of breast cancer Hypothyroidism (acquired) Surgical History History of total mastectomy Social History household members: spouse Smoking Status: Never smoker alcohol intake: never Assessment & Plan Assessment & Plan narrative: 80-year-old female with severe dementia admitted for acute diarrhea with dehydration, acute on chronic kidney disease exacerbation and decreased mobility Assessment 1. Acute dehydration improved with IV fluid hydration Plan: Will decrease IV fluids to 75 cc an hour from 125 cc an hour. Assessment 2. Acute on chronic kidney disease improved with IV fluid Plan: Will continue to monitor will decrease IV fluids and reassess in a.m.. Assessment 3. Persistent, intermittent diarrhea Plan: Will go ahead and prescribe Imodium. At this point I see no benefit of CT scanning as she is not having a leukocytosis and she is not having pain and she is not having a fever. Also I do not see benefit for colonoscopy. We will continue holding the Namenda and the Aricept although she had been off this for a week prior to coming in. We will treat with Imodium. We will do a C diff assay. Stool cultures were negative. Assessment 4. Labile hypertension unclear etiology. We may simply have to permit higher blood pressures. She is off her metoprolol will continue the same. Will decrease her losartan to 50 mg a day from 50 mg twice daily. We will do echo to rule out systolic abnormality. Assessment 5. Severe dementia overall stable Plan: Continue to monitor. Will continue off Namenda and Aricept Assessment 6. Severe protein malnourished min Plan: Agree with dietary evaluating. We discussed options. We discussed benefit of hospice Kaushik but this point her spouse feels that that will be up to her daughters to make this decision. We discussed going to a skilled care facility in her head her significant other does not want her to do this. Our hopes will be to get her home with home health. This will depend on how she improves from a mobility standpoint.
[2021-02-28] MEDS: SODIUM CHLORIDE 0.45% 1,000 ML 75 ML IV (13:59)
--- NOTE | 2021-02-28 14:33 | CM.DPNOTE ---
Call Kamala MAN when pt. is discharged. Arlene Reyes CM Asst.
--- NOTE | 2021-02-28 15:00 | CM.IDA ---
Initial DCP Assessment Note Pt is a 80 yo female, resident of [place], arrives to the ED via EMS d/t low BP and decreased mental status. Patient w/PMH to include Alzheimer's dementia According to chart review, patient's symptoms resolved in the ED however the physicians felt prudent to admit patient observation d/t her inability to stand and thus inability to be safely card for by S.O. Sina. Patient has received IV fluids and therapy evals. Dr Person has continued to discuss longterm care plan w/patient's S.O. Sina and it appears thus far Sina has decided to take patient home w/[facility] PCP: Naomi Person Payer: [facility] Placed call to Sina, introduced role. Patient was admitted observation for similar presentation in December and Sina had paid privately for rehab stay. Patient returned home w/[facility] the first w/e of January. Since that time, Sina reports she (patient) got better and better however Sina admits patient often refuses her walker, and does require assist w/transfers, dressing and most ADLs. This PROGRAMMER ENGINEERING [employer] SCIENTIFIC unsure how much assist dtrs Mitzy (Bhavesh) and Zohreh (Adrián) can provide. This PROGRAMMER ENGINEERING [employer] SCIENTIFIC suggested return to SNF rehab and Sina states he cannot afford to pay privately at SNF any longer. Asked what Sina had done to secure additional care for patient? Asked if Sina has researched assisted living facilities/memory care? Sina denies. Sina understands patient will be discharged from the hospital and plans to take her home w/resumption of [facility]. This PROGRAMMER ENGINEER[employer] SCIENTIFIC suggests Hospice referral and Sina says that scares the shit outta me. Supported S.O., and encouraged him to reconsider. Reiterated that patient's dementia will continue to progress, and care needs will increase- Sina stated understanding. Will follow closely. Plan appears to be home w/family w/[facility] f/u, S.O. (and primary cg) not agreeable to alternative DCP options MAKENNA Arroyo Discharge Planning/Care Management CM Discharge Assessment Start: 02/28/21 14:52 Freq: Status: Active Protocol: Document 02/28/21 14:52 FAHAD (Rec: 02/28/21 15:00 FAHAD [id number]) Discharge Planning Assessment Assigned Drop Wire Builder MAKENNA Raymundo DPOA/Assigned Designee Name Tony Carroll Contact Information [phone] Advance Directives? Yes Advance Directives on File Yes History Provided By Significant Other,Medical Record Prior Living Arrangements House Household Members spouse Type of transporation used prior to Relies on Others admit Independent with ADL's No Is patient alert and oriented? No Comment Full care Patient/Family Preference Home with Home Health Comment OBS status Discharge Plan Home with Home Health Transportation Arrangement Spouse available for transport Referrals Initiated Home Health If patient plan is home with home health No : Has signed face to face form been completed?
[2021-02-28 16:34] VITALS: BP 110/61; PULSE 68; RESP 16; TEMP 36.3; O2SAT 94
[2021-02-28] MEDS: ENOXAPARIN 40 MG/0.4 ML SYRINGE SUBCUT (17:50)
[2021-02-28 20:35] VITALS: BP 154/97; PULSE 65; RESP 16; TEMP 36.3; O2SAT 94
[2021-03-01] VITALS (7 sets, daily range): BP systolic 116–147; BP diastolic 62–81; PULSE 62–88; RESP 14–18; TEMP 36.3–36.9; O2SAT 93–97
[2021-03-01] MEDS: SODIUM CHLORIDE 0.45% 1,000 ML 75 ML IV (03:29)
[2021-03-01 04:31] LABS: Clostridium Difficile Tox PCR Negative for C. diff (Negative)
[2021-03-01] MEDS: LEVOTHYROXINE 125 MCG TABLET PO (06:24)
[2021-03-01 06:43] LABS: Add Manual Diff / Slide Review NO; Basophils Absolute Auto 0 /uL (0-100); Basophils Percent Auto 0.6 % (0-2); Eosinophils Absolute Auto 200 /uL (0-450); Eosinophils Percent Auto 3.7 % (2-4); Hematocrit 35.8 % (36-46); Lymphocytes Absolute Auto 1400 /uL (1100-4500); Lymphocytes Percent Auto 26.1 % (25-40); Mean Corpuscular HGB Conc 33.6 % (30-36); Mean Corpuscular Hemoglobin 31.2 PG (26-34); Monocytes Absolute Auto 400 /uL (0-900); Monocytes Percent Auto 7.1 % (3-14); Neutrophils Absolute Auto 3400 /uL (1500-7000); Neutrophils Percent Auto 62.5 % (50-75); Platelet Count 149 X10^3/uL (150-400); Red Blood Cell Count 3.85 X10^6/uL (4.0-5.2); Red Cell Distribution Width 13.6 % (11.6-14.8); White Blood Cell Count 5.5 X10^3/uL (4.5-11.0)
[2021-03-01 06:51] LABS: BUN Creatinine Ratio 11.3 (6-22); Blood Urea Nitrogen 11 mg/dL (7-17); Calcium 8.9 mg/dL (8.4-10.2); Carbon Dioxide 28 mmol/L (22-32); Chloride 107 mmol/L (98-107); Estimated Glomerular Filt Rate 55.4 mL/min (>60); Glucose 74 mg/dL (80-110); HEMOLYSIS < 15 (0-50); Potassium 3.5 mmol/L (3.4-5.1); Sodium 140 mmol/L (137-145)
[2021-03-01] MEDS: LOSARTAN 50 MG TABLET PO (10:28)
[2021-03-01] MEDS: LACTOBACILLUS ACIDOPHILUS TABLET 1 EACH PO ×2 (10:28→17:19)
--- NOTE | 2021-03-01 10:45 | PT.IPTN ---
Physical Therapy Treatment Note M2 PT-IP Current Condition Start: 02/27/21 12:52 Freq: NEEDED Status: Active Protocol: Document 02/27/21 09:15 AB (Rec: 02/27/21 13:07 AB [email or web address]) Physical Therapy Current Condition Current Condition Evaluation Date 02/27/21 Treatment Diagnosis lethargy; alzheimer's dementia ; generalized weakness Onset Date 02/26/21 Precautions Other Precautions falls M3 PT-IP Subjective Start: 02/27/21 12:52 Freq: NEEDED Status: Active Protocol: Document 03/01/21 10:45 AB (Rec: 03/01/21 13:00 AB [email or web address]) Subjective Physical Therapy Visit Type Type Treatment Note Visit Start Time 10:45 Visit Stop Time 11:23 Total Visit Minutes 38 Number of BAR WAITER/WAITRESS Visits 0 Physical Therapy Visit Comments Patient Comments pt agreed to do PT M4 PT-IP Mobility and Gait Start: 02/27/21 12:52 Freq: NEEDED Status: Active Protocol: Document 03/01/21 10:45 AB (Rec: 03/01/21 13:00 AB [email or web address]) PT-Transfer Assessment Sit to and From Stand Sit to and from Stand Maximum Assistance,1 Person Assistance,Use of Upper Extremities Equipment Transfer Assistive Device Gait Belt,Front Wheeled Walker Orthotic/Prosthetic Devices or Brace: No Comments Mobility Comments pt sitting on chair with increase lateral leaning to the R. completed sitting activites to encourage trunk mobility and increase L sided awareness: forward/backward/ side to side trunk shifting, Head rotation to L. pt completed sit to stand from chair max A and cues for upright posture, steadiness/ balance. Pt tolerated ~ 1 min of standing and sat to rest. pt then ambulated in room ~ 15 ft using FWW max a and max cues with chair follow. presents with increase trunk forward flexion, very narrow ANTONETTE and decrease LE elevation requiring cues to correct. positioned pt on the chair. call light and table placed within reach. chair alarm on. Gait Assessment Gait Gait Assistance Required: 1 Person Assist Distance (Feet) 15 Able to Maintain Weight Bearing Status Yes During Gait Assistive Devices Assistive Device Gait Belt,Front Wheeled Walker Orthotic/Prosthetic Devices or Brace: No Gait Deviations General Gait Pattern Ataxic,Decreased Stride Length ,Decreased Feet Clearance, Flexed Trunk,Narrow Based Gait ,Step-to Gait Factors Limiting Gait Function Factors Limiting Gait Function Decreased Activity Tolerance, Decreased Strength,Difficulty Following Directions,Limited Range of Motion,Poor Balance, Poor Safety Awareness M5 PT-IP Objective Assessments Start: 02/27/21 12:52 Freq: NEEDED Status: Active Protocol: Document 02/27/21 09:15 AB (Rec: 02/27/21 13:07 AB [id number]) Orientation Orientation/Cognition Level of Alertness Confusional State Orientation Name Safety Awareness Decreased Safety Awareness Memory Description Short Term Impaired,Chcf Impaired Gross Range of Motion Lower Extremity ROM Assessment Within Functional Limits Strength Lower Extremity Strength Hip 3+/5 Knee 3+/5 Muscle Tone Muscle Tone WNL Yes M6 PT-IP Treatment Start: 02/27/21 12:52 Freq: NEEDED Status: Active Protocol: Document 03/01/21 10:45 AB (Rec: 03/01/21 13:00 AB [id number]) Physical Therapy Treatment Education Education Provided Safety M7 PT-IP Assessment and Plan Start: 02/27/21 12:52 Freq: NEEDED Status: Active Protocol: Document 03/01/21 10:45 AB (Rec: 03/01/21 13:00 AB [id number]) PT Summary Assessment and Plan Summary Impairments Pain,ROM,Strength,Balance, Coordination,Sensation,Tone, Cognition,Bed Mobility, Transfers,Gait,Activity Tolerance Progress Towards Goals Slow Progress due to Medical Issues,Slow Progress - Other Assessment Summary pt requiring max A and max cues with all tasks. pt with dx of Alzheimer's dementia with difficulty following directions requiring cues for all tasks. pt will need 24/7 assist. recommending SNF rehab at this time but if spouse will be able to assist pt at home: will require 24/7 assist available and HHPT Goals Bed Mobility Goal Minimal Assistance Transfer Goal Minimal Assistance,Front Wheeled Walker Gait Goal Minimal Assistance,Front Wheel Walker Gait Distance 25 Days to Meet Goals 10 Frequency of Treatment Frequency Of Treatment Once a Day Treatment Plan Physical Therapy Treatment Plan Bed Mobility Training,Transfer Training,Gait Training, Therapeutic Exercise,Balance Retraining,Discharge Planning, Hot or Cold Pack,Neuromuscular Re-ed,Coordination Retraining ,Manual Therapy Precautions Other Precautions falls Recommendations To Nursing Amount of Assist Needed 2 Person Assist Discharge Recommendations PT Discharge Recommendations SNF Rehab Transportation Needs at Discharge Wheelchair/Cabulance
--- NOTE | 2021-03-01 13:13 | P.PN_ITS ---
Subjective Subjective Date Patient Seen: 03/01/21 Time Patient Seen: 13:13 Interval history: Patient with no issues overnight. She had 1 Imodium yesterday and has not had a bowel movement since then. Her mobility is improved. She is now 1 person assist. She did walk around the room with assistance. She denies any pain. She has been eating though overall her p.o. intake has been decreased. We decreased her blood pressure medicines she is only on losartan 50 mg once a day more holding her metoprolol and her blood pressures have been good and she has not had the hypotensive episodes. She denies any complaints Review of systems is unremarkable Exam Vital Signs (past 8 hours): - 03/01/21 06:00 03/01/21 08:56 03/01/21 10:28 Temperature 97.5 F L 97.8 F Pulse Rate 62 83 85 Respiratory Rate 18 18 Blood Pressure 121/62 145/81 H 145/81 H Pulse Oximetry 95 96 03/01/21 11:28 Temperature 97.4 F L Pulse Rate 77 Respiratory Rate 18 Blood Pressure 135/81 Pulse Oximetry 95 Oxygen Delivery Method Room Air Oxygen Flow Rate 0 Narrative Exam Narrative: Afebrile, vital signs are stable. O2 sat is normal on room air. Blood pressures have stabilized 120s to 140s over 60-80 HEENT unremarkable Neck: Supple without adenopathy Chest: Clear to auscultation without wheezes rhonchi or crackles Cor: Regular rate and rhythm with distant S1-S2 Abdomen: Positive bowel sounds, no guarding, no rebound Extremities no edema, pulses intact Objective Labs Result Diagrams: 03/01/21 06:30 03/01/21 06:30 Labs: Laboratory Results - last 24 hr 03/01/21 03/01/21 03/01/21 03:32 06:30 06:30 WBC 5.5 RBC 3.85 L Hgb 12.0 Hct 35.8 L MCV 93.0 MCH 31.2 MCHC 33.6 RDW 13.6 Plt Count 149 L Neut % (Auto) 62.5 Lymph % (Auto) 26.1 [place] % (Auto) 7.1 Eos % (Auto) 3.7 Baso % (Auto) 0.6 Neut # (Auto) 3400 Lymph # (Auto) 1400 [place] # (Auto) 400 Eos # (Auto) 200 Baso # (Auto) 0 Sodium 140 Potassium 3.5 Chloride 107 Carbon Dioxide 28 BUN 11 Creatinine 0.97 Estimated GFR 55.4 L BUN/Creatinine Ratio 11.3 Glucose 74 L Calcium 8.9 C. difficile Tox (PCR) Negative for c. diff [facility] Medical History Alzheimer's dementia Dementia History of breast cancer Hypothyroidism (acquired) Surgical History History of total mastectomy Social History household members: spouse Smoking Status: Never smoker alcohol intake: never Assessment & Plan Assessment & Plan narrative: 80-year-old female with severe dementia and chronic, intermittent diarrhea admitted for acute dehydration with acute on chronic renal failure improved with IV fluids Assessment 1. Acute dehydration improved with IV fluids Plan: Will stop IV fluids and recheck in a.m. Assessment 2. Acute on chronic renal failure improved Plan: Stop IV fluids and recheck tomorrow Assessment 3. Chronic diarrhea with recent worsening causing acute dehydration acute on chronic renal failure of unclear etiology. No evidence of thyroid dysfunction. No evidence of acute infectious process. Namenda and Aricept were stopped. They have been stopped before and did not make a difference. Patient was given 1 Imodium and has not had a bowel movement. We will start Metamucil today. We will work on bowel regimen. I think this is the problem which is limited by patient's cognitive ability due to her dementia. We will restart the Namenda. We will hold on the Aricept. We will reassess tomorrow but likely will go home with home health tomorrow. Assessment 4. Hypertension with episodes of hyper and hypotension. Echo was normal. I think this is related to p.o. intake and overall status. At this point we will need to be more permissive with elevated blood pressures to avoid the hypotensive episode really which is what brought her in to the ER. Plan: Will continue losartan 50 mg once daily. We will watch this closely as her hydration overall condition improves we may see blood pressure elevate and I think we will continue off the metoprolol. Assessment 5. Hypothyroidism stable with normal TSH Plan: Continue on levothyroxine Assessment 6. Severe dementia without change in condition off Aricept and Namenda due to concerns possibly contributing to diarrhea Plan: Will go ahead and start Namenda. Disposition: Likely home tomorrow with home health
[2021-03-01] MEDS: MEMANTINE HCL 5 MG TABLET 10 MG PO (13:36)
[2021-03-01] MEDS: ENOXAPARIN 40 MG/0.4 ML SYRINGE SUBCUT (17:19)
--- NOTE | 2021-03-01 17:57 | PC.NURSE ---
Addendum entered by Mercy Anderson R.N. 03/01/21 22:18: INFANT NANNY informs this assembly instructions writer noted two open areas to pt's buttocks. Barrier cream per INFANT NANNY and pt placed on waffle cushion and turned to side to offload. Original Note: Pt awake, alert in bed. Set up for dinner and able to feed self for a short span of time and then INFANT NANNY approaches pt to offer encouragement and assistance. No issue with swallow. Pt denies pain, but is scratching at left ac midline access with coban wrapping. Coban removed and slight erythema to skin exists beneath this wrap. Pt reports relief with removal of coban. Rewrapped with soft kerlix. Pt denies pain, but does admit to occasional left neck pain. Pt's position was changed in bed as pt tends to list to right side when upright. Pt is oriented to self and date of . Answers appropriately, but then informs this assembly instructions writer, I've promised my mother I would.... and then speech is nonsensical.
[2021-03-02 02:00] VITALS: BP 146/87; PULSE 66; RESP 14; TEMP 36.4; O2SAT 96
[2021-03-02] MEDS: LEVOTHYROXINE 125 MCG TABLET PO (05:43)
[2021-03-02 06:10] VITALS: BP 177/82; PULSE 57; RESP 12; TEMP 36.7; O2SAT 96
[2021-03-02 06:27] LABS: Add Manual Diff / Slide Review NO; Basophils Absolute Auto 0 /uL (0-100); Basophils Percent Auto 0.6 % (0-2); Eosinophils Absolute Auto 300 /uL (0-450); Eosinophils Percent Auto 4.3 % (2-4); Hematocrit 37.5 % (36-46); Hemoglobin 12.4 g/dL (12.0-16.0); Lymphocytes Absolute Auto 1900 /uL (1100-4500); Lymphocytes Percent Auto 31.6 % (25-40); Mean Corpuscular HGB Conc 33.2 % (30-36); Mean Corpuscular Hemoglobin 31.2 PG (26-34); Mean Corpuscular Volume 93.8 fL (80-100); Monocytes Absolute Auto 400 /uL (0-900); Monocytes Percent Auto 7.3 % (3-14); Neutrophils Absolute Auto 3300 /uL (1500-7000); Neutrophils Percent Auto 56.2 % (50-75); Platelet Count 163 X10^3/uL (150-400); Red Blood Cell Count 3.99 X10^6/uL (4.0-5.2); Red Cell Distribution Width 13.9 % (11.6-14.8); White Blood Cell Count 5.9 X10^3/uL (4.5-11.0)
[2021-03-02 06:40] LABS: BUN Creatinine Ratio 14.9 (6-22); Blood Urea Nitrogen 17 mg/dL (7-17); Calcium 9.3 mg/dL (8.4-10.2); Carbon Dioxide 30 mmol/L (22-32); Chloride 106 mmol/L (98-107); Glucose 88 mg/dL (80-110); HEMOLYSIS < 15 (0-50); Potassium 3.7 mmol/L (3.4-5.1); Sodium 139 mmol/L (137-145)
--- NOTE | 2021-03-02 07:30 | DI.RAD.S_ITS ---
PROCEDURE: XR ACUTE ABDOMEN SERIES INDICATIONS: diarrhea and constipation TECHNIQUE: One view chest and two views of the abdomen were acquired. COMPARISON: None. FINDINGS: Surgical changes and devices: None. Chest: Lungs are clear. Heart size is normal. No pleural effusions. No pneumoperitoneum. Atherosclerotic vascular calcification noted in the aortic arch. Abdomen: Bowel gas pattern is normal. No suspicious calcifications. Visualized solid organ contours appear normal. Moderate fecal debris present in sigmoid colon Bones: No suspicious bony lesions. Bilateral total hip arthroplasty present. IMPRESSION: Moderate fecal debris in the sigmoid colon without obstruction. No acute cardiopulmonary findings Aortic atherosclerosis Dictated by: Omid Meredith M.D. on 03/02/2021 at 7:51 Approved by: Omid Meredith M.D. on 03/02/2021 at 7:52
[2021-03-02 08:29] VITALS: BP 147/76; PULSE 74; RESP 20; TEMP 36.3; O2SAT 98
[2021-03-02 09:22] VITALS: BP 147/76; PULSE 74
[2021-03-02] MEDS: MEMANTINE HCL 5 MG TABLET 10 MG PO (09:22)
[2021-03-02] MEDS: LOSARTAN 50 MG TABLET PO (09:22)
[2021-03-02] MEDS: LACTOBACILLUS ACIDOPHILUS TABLET 1 EACH PO (09:22)
[2021-03-02] MEDS: PSYLLIUM HUSK 1 PACKET PO (09:22)
--- NOTE | 2021-03-02 10:21 | PT.IPTN ---
Physical Therapy Treatment Note M2 PT-IP Current Condition Start: 02/27/21 12:52 Freq: NEEDED Status: Active Protocol: Document 02/27/21 09:15 AB (Rec: 02/27/21 13:07 AB [id number]) Physical Therapy Current Condition Current Condition Evaluation Date 02/27/21 Treatment Diagnosis lethargy; alzheimer's dementia ; generalized weakness Onset Date 02/26/21 Precautions Other Precautions falls M3 PT-IP Subjective Start: 02/27/21 12:52 Freq: NEEDED Status: Active Protocol: Document 03/02/21 10:02 LJ (Rec: 03/02/21 10: LJ [id number]) Subjective Physical Therapy Visit Type Type Treatment Note Visit Start Time 09:12 Visit Stop Time 09:30 Total Visit Minutes 18 Notes pt sitting in chair upon arrival. Physical Therapy Visit Comments Patient Comments Willing to try to get up and ambulate M4 PT-IP Mobility and Gait Start: 02/27/21 12:52 Freq: NEEDED Status: Active Protocol: Document 03/02/21 10:02 LJ (Rec: 03/02/21 10:21 LJ [id number]) PT-Transfer Assessment Sit to and From Stand Sit to and from Stand Maximum Assistance,1 Person Assistance,Use of Upper Extremities Equipment Transfer Assistive Device Gait Belt,Front Wheeled Walker Transfers Transfer Destination Chair Transfer Ability Level of Assist Maximum Assistance,1 Person Assistance,Use of Upper Extremities Comments Mobility Comments Pt having difficulty following directions. Pt requiring maxA x1 and use of UEs to perform sit<>stand. First trial pt stood CGA for 20 seconds then dropped back into chair without using cuieing to reach back to chair rails. Second attempt pt unable to stand without maxA due to posterior lean. Stood for 12 seconds. Third attempt pt unable to stand fully erect and sat back into chair holding onto FWW. Gait Assessment Comments Gait Comments see mobility section M5 PT-IP Objective Assessments Start: 02/27/21 12:52 Freq: NEEDED Status: Active Protocol: Document 02/27/21 09:15 AB (Rec: 02/27/21 13:07 AB [id number]) Orientation Orientation/Cognition Level of Alertness Confusional State Orientation Name Safety Awareness Decreased Safety Awareness Memory Description Short Term Impaired,Halfway Impaired Gross Range of Motion Lower Extremity ROM Assessment Within Functional Limits Strength Lower Extremity Strength Hip 3+/5 Knee 3+/5 Muscle Tone Muscle Tone WNL Yes M6 PT-IP Treatment Start: 02/27/21 12:52 Freq: NEEDED Status: Active Protocol: Document 03/02/21 10:02 MATTHEW (Rec: 03/02/21 10: LJ [id number]) Physical Therapy Treatment Other Treatments Other Treatment Performed seated exercises including marching x15 bilateral, hip adduction x10, hip abduction x10. M7 PT-IP Assessment and Plan Start: 02/27/21 12:52 Freq: NEEDED Status: Active Protocol: Document 03/02/21 10:02 MATTHEW (Rec: 03/02/21 10:21 LJ [id number]) PT Summary Assessment and Plan Potential Rehabilitation Potential Fair Summary Impairments Pain,ROM,Strength,Balance, Coordination,Sensation,Tone, Cognition,Bed Mobility, Transfers,Gait,Activity Tolerance Progress Towards Goals Slow Progress due to Medical Issues,Slow Progress - Other Assessment Summary pt requiring max A and max cues with all tasks and exercises. Pt had difficulty standing and was unable to ambulate at all. Unable to maintain standing without MaxA for even 1 seconds. Pt needing 24/7 assist and this AGRICULTURAL EXTENSION OFFICER recommends SNF rehab at this time due to pts inability to maintain standing and the LE weakness demonstrated during LE exercises. Goals Bed Mobility Goal Minimal Assistance Transfer Goal Minimal Assistance,Front Wheeled Walker Gait Goal Minimal Assistance,Front Wheel Walker Gait Distance 25 Days to Meet Goals 10 Frequency of Treatment Frequency Of Treatment Once a Day Treatment Plan Physical Therapy Treatment Plan Bed Mobility Training,Transfer Training,Gait Training, Therapeutic Exercise,Balance Retraining,Discharge Planning, Hot or Cold Pack,Neuromuscular Re-ed,Coordination Retraining ,Manual Therapy Other Recommendations and Next Treatment -caregiver training Focus -stairs Precautions Other Precautions falls Recommendations To Nursing Amount of Assist Needed 2 Person Assist Discharge Recommendations PT Discharge Recommendations SNF Rehab Transportation Needs at Discharge Wheelchair/Cabulance
--- NOTE | 2021-03-02 11:43 | P.DS_ITS ---
History of Present Illness History of Present Illness Date Patient Seen: 03/02/21 Time Patient Seen: 11:43 Date of Onset of Symptoms: 02/25/21 Chief complaint: Lethargic Narrative: Patient is well known to me. She lives at home with her partner. She has had a long history of diarrhea of unclear etiology. We have taken her off her Aricept and/or Namenda and this is not made a difference. She has had stool studies. She tends to get constipation and then will have diarrhea after giving MiraLax. She had another similar episode. She was lethargic today I believe after home health was there and then she was found to have marked low b lood pressure. She had taken her losartan 50 mg in the morning. 911 was called and she was evaluated in the emergency department and found to have worsening of her chronic kidney disease and dehydration and diarrhea. She was unable to stand at bedside. She was admitted for further treatment. Past medical history: Hypertension Hypothyroidism Severe dementia, presumably of the Alzheimer's type Chronic kidney disease, stage IIIB Chronic diarrhea, unclear etiology Diverticulosis without episodes of diverticulitis Reactive airway disease well controlled Peripheral edema secondary to venous stasis changes Distant history of breast cancer Current medications are losartan 50 mg twice daily Metoprolol 25 mg twice daily Aricept 10 mg daily Levothyroxine 125 mcg daily Zyrtec 10 mg daily Probiotic Namenda Allergies penicillin and latex Lisinopril causes a cough Amlodipine causes worsening lower extremity edema Past surgical history 1982 mastectomy 2004 right total hip replacement 2010 left total hip replacement Review of systems: Negative for fevers, cough, chest pain, shortness of breath, chills, falls, headaches Progressive decline of dementia Social history patient has a significant other who is very supportive lives with her and does an excellent job caring for her. Patient has 2 daughters who live in the region. They are supportive and involved. Health 30 behavior: Does not smoke and never has Does not use alcohol Is not active Family history mom at 66 secondary to COPD and reactive airway disease and hypertension Dad at 57 secondary to stroke and hypertension Sister with peripheral vascular disease and hypertension Siblings with diabetes and hypertension Discharge Providers Provider Date of admission: 02/26/21 12:41 Discharge Date: 03/02/21 Primary care physician: Kia Person MD Consults: 02/26/21 11:47 Consult to LOCOMOTIVE OILER - Systems Consultant Stat Comment: LOCOMOTIVE OILER Consult: [facility] Res Need 02/26/21 12:29 Consult to Physician Urgent Comment: Consulting Provider: Kia Person Reason for consultation: admission Has provider been notified: Yes 02/26/21 18:32 Consult to Physical Therapy Evaluate & Treat Comment: Physician Instructions: Evaluate and Treat 02/27/21 08:48 Consult to Dietitian, Adult Routine Comment: good intake but suspect malnutrition issue Reason For Exam: caloric deficit in setting of chronic diarrhea 03/01/21 13:36 Consult to Hospice Referral Routine Comment: Discharge provider: Kia Person MD Summary Hospital Course Discharge Diagnosis: Chronic diarrhea, with acute exacerbation causing acute dehydration and acute on chronic renal disease Dementia, severe, unchanged Hypertension, labile, stable with decreased dosing Hypothyroidism Hospital Course: Patient admitted to the hospital with chronic diarrhea causing acute dehydration and worsening kidney failure with symptomatic hypotension and decreased cognition. Patient received IV fluids. Her metoprolol as outpatient was held and her losartan was decreased to 50 mg a day from 50 mg twice a day. Her thyroid was normal and she is continued on her outpatient dosing. X-rays and laboratory data did not reveal infectious etiology. Urine culture and blood cultures negative thus far. Stool assay including C diff analysis were negative. Aricept and Namenda were stopped. Patient was given 1 Imodium on 02/28/21 and has not had further problems. She did have a bowel movement on the evening of 03/01/2021. Physical therapy was consulted and patient became stronger with better mobility and became a one-person standby at the time of discharge in terms of her mobility. Hospice was consulted and will see patient as outpatient. Patient was more clear on date of discharge. Patient's appetite was improved on dated discharge. White blood cell count normal IV fluids were stopped on 03/01/2021 and renal insufficiency worsened back to baseline. Status at Discharge Cognitive/behavioral status at discharge: at baseline, confused Functional status at discharge: uses cane/walker Overall status at discharge: patient is progressing back to baseline Exam Vital Signs (past 8 hours): - 03/02/21 06:10 03/02/21 08:29 03/02/21 09:22 Temperature 98.0 F 97.3 F L Pulse Rate 57 L 74 74 Respiratory Rate 12 20 Blood Pressure 177/82 H 147/76 H 147/76 H Pulse Oximetry 96 98 Oxygen Delivery Method Room Air Oxygen Flow Rate 0 Narrative Exam Narrative: Patient is alert and cooperative. He has difficulty finding words. She recognizes me. Afebrile, vital signs are stable. Blood pressures have been in the 120s to 140s with 1 blood pressure 177 this morning. Stable on room air Afebrile HEENT unremarkable Neck is supple Chest: Clear to auscultation without wheezes rhonchi or crackles Cor: Regular rate and rhythm without a murmur Abdomen: Positive bowel sounds, soft, nontender, nondistended, no hepatosplenomegaly Extremities: No edema, pulses intact Objective Labs Result Diagrams: 03/02/21 06:09 03/02/21 06:09 Labs: Laboratory Results - last 24 hr 03/02/21 03/02/21 06:09 06:09 WBC 5.9 RBC 3.99 L Hgb 12.4 Hct 37.5 MCV 93.8 MCH 31.2 MCHC 33.2 RDW 13.9 Plt Count 163 Neut % (Auto) 56.2 Lymph % (Auto) 31.6 [place] % (Auto) 7.3 Eos % (Auto) 4.3 H Baso % (Auto) 0.6 Neut # (Auto) 3300 Lymph # (Auto) 1900 [place] # (Auto) 400 Eos # (Auto) 300 Baso # (Auto) 0 Sodium 139 Potassium 3.7 Chloride 106 Carbon Dioxide 30 BUN 17 Creatinine 1.14 H Estimated GFR 46.0 L BUN/Creatinine Ratio 14.9 Glucose 88 Calcium 9.3 PFSH Medical History Alzheimer's dementia Dementia History of breast cancer Hypothyroidism (acquired) Surgical History History of total mastectomy Social History household members: spouse Smoking Status: Never smoker alcohol intake: never Discharge Assessment & Plan Assessment and Plan Assessment: Chronic diarrhea improved. No infectious etiology. Suspect motility issue complicated by cognitive dysfunction Dementia, severe Hypertension, labile, improved Acute dehydration, improved Acute on chronic renal failure improved Plan of Treatment: Discharged to home in stable and improved condition. Hospice is consulted. Patient has 2 more weeks of home health RD schedule from her last hospitalization and will continue this. Follow-up with me in 2 weeks Medication changes are losartan 50 mg twice daily was decreased to once daily Aricept is being held Namenda was restarted at 10 mg twice a day Metamucil was started 03/01/2021 Will stop calcium Will continue probiotics, vitamin-D Continue levothyroxine 125 mcg daily Metoprolol was stopped 45 minutes was spent with patient in discussing with older adult social work specialist, patient's partner, patient and documenting plan. Discharge Plan Discharge Plan Patient Disposition: Home Discharge orders & Medications Prescriptions: New losartan 50 mg Tablet 50 mg PO DAILY Qty: 60 RF: 0 loperamide 2 mg Capsule 2 mg PO PRN PRN (Reason: Diarrhea) Qty: 60 RF: 0 levothyroxine [Synthroid] 125 mcg Tablet 125 mcg PO DAILY@0600 Qty: 60 RF: 0 memantine [Namenda] 5 mg Tablet 10 mg PO DAILY Qty: 60 RF: 0 Metamucil Fiber Singles 3.4 gram Powder In Packet 1 packet PO DAILY Qty: 60 RF: 0 Bacid 1 billion cell- 250 mg Tablet 1 ea PO BIDWM Qty: 60 RF: 0 Continued levothyroxine 125 mcg Tablet 125 mcg PO QAM Qty: 0 RF: 0 cholecalciferol (vitamin D3) 25 mcg (1,000 unit) Tablet,Chewable 25 mcg PO QAM RF: 0 memantine 10 mg Tablet 10 mg PO BID RF: 0 Metamucil Fiber Singles 3.4 gram Powder In Packet 1 packet PO DAILY Qty: 30 RF: 1 povidone-iodine [First Aid Antiseptic(povidone)] 10 % solution 1 applic topical BID Qty: 236 RF: 0 losartan 50 mg tablet 50 mg PO QAM RF: 0 Discontinued calcium carbonate [Calcium 500] 500 mg calcium (1,250 mg) Tablet 1 mg PO QAM RF: 0 donepezil 10 mg Tablet 10 mg PO QAM RF: 0 metoprolol tartrate 25 mg Tablet 12.5 mg PO BID RF: 0 sennosides [senna] 8.6 mg Tablet 8.6 mg PO BEDTIME 30 Days Qty: 30 RF: 1 silver sulfadiazine [Silvadene] 1 % cream 1 applic topical DAILY PRN (Reason: wound healing) Qty: 50 RF: 0 Medication counseling provided by Pharmacist: No Follow up/Referrals: Kia Person MD [Primary Care Provider] - Diet/Activity/Treatments Diet: Diet as Tolerated Discharge Data Primary Care Provider: Kia Person Attending Provider: Kia Person
--- NOTE | 2021-03-02 14:01 | PC.NURSE ---
Pt received lying in bed, alert, calm pleasant. OX1. Pt VSS, afebrile on RA. She denies complaints of pain. LS CTA. PO intake improved. Pt able to take a few steps with cueing, mod to max assist with RN. RN escorted patient to xray for abdominal series this a.m. arrived this am. supportive at bedside. Pt participating with OT. MD evaluated patient and patient cleared for discharged. He verbalizes understanding of discharge plan and is in agreement with medications, activity and follow up care. Mid line discontinued. RN escorted patient to private vehicle with for discharge home with all of her belongings.
--- NOTE | 2021-03-02 15:34 | CM.DPC ---
DCP Discharge Home with Resume HH Per MD, pt is medically stable to d/c home with spouse today and SW discussed this with MD and spouse bedside and agreeable with plan of discharge home with [facility] info visit to occur soon. SW called [facility] and confirmed they have pt's referral and can complete Info Visit tomorrow at 1000 and SW updated spouse and MD and they are agreeable as pt is not imminent and Hospice not needed right at this time. SW called [facility] and updated on d/c and since pt was OBS then they confirm no new orders needed other than Resumption of HH. SW faxed d/c summary and Resume orders to [facility] to review. Plan: Patient to d/c home via spouse POV and [facility] info visit to happen tomorrow after discharge. MAKENNA Dumont
== END 2021-03-02 12:50 | disposition home or self-care (01) ==
LOC: ED 12:29 → AC 12:43
PROVIDERS: Admitting Provider Family Medicine; Emergency Provider Emergency Medicine; PCP Family Medicine; Referring Provider Emergency Medicine; Visit Provider Family Medicine
DX: K52.9 Noninfective gastroenteritis and colitis, unspecified (principal); E86.0 Dehydration; N18.32 Chronic kidney disease, stage 3b; G30.9 Alzheimer's disease, unspecified; F02.80 Dementia in other diseases classified elsewhere, unspecified severity, without behavioral disturbance, psychotic disturbance, mood disturbance, and anxiety; Z20.822 Contact with and (suspected) exposure to COVID-19; E03.9 Hypothyroidism, unspecified; I10 Essential (primary) hypertension
CPT/HCPCS: 36415; 36592; 51701; 74022; 80048; 80053; 81003; 81015; 82550; 83690; 84443; 84484; 85025; 87045; 87086; 87147; 87493; 87507; 87635; 87899; 93005; 93010; 93306; 96360; 96361; 96372; 97110; 97116; 97162; 97530; 99283; C9803; G0378; J1642; J1650; J7050